=== PATIENT | female | born 1945 | race Caucasian/White ===

== ENCOUNTER → 2017-11-28 15:31 | Outpatient (CLI) | payer MEDICARE, BC, SELFPAY | PROVIDERS: Visit Provider Otolaryngology Otolaryngology/Facial Plastic Surgery | DX: J02.9 Acute pharyngitis, unspecified (principal) | CPT/HCPCS: 87070; 87077; 87205 ==

== ENCOUNTER → 2018-04-09 13:01 | Outpatient (CLI) | payer MEDICARE, BC, SELFPAY ==
--- NOTE | 2018-04-09 13:06 | BI_ITS ---
MAMMOGRAPHY - BILATERAL SCREENING REASON FOR EXAM: Female, 73 years old. Routine annual screening examination. PERTINENT HISTORY: Non-contributory. History of bilateral stereotactic biopsies and left excisional breast biopsy. TECHNIQUE: Digital bilateral breast mack (3D mammographic acquisition) in the CC and MLO projections. 2-D mediolateral oblique (MLO) and craniocaudad (CC) views of both breasts were obtained. CAD: Full Field Digital Mammography with Computer Added Detection was performed. COMPARISON: Comparison is made with prior study dated March 26, 2017 and March 21, 2016. FINDINGS: Breast Composition: The breasts are heterogeneously dense, which may obscure small masses. There are no dominant masses or suspicious calcifications. A tissue clip marker is seen in the deep slightly upper lateral portion of the right breast. There is a 5.4 mm x 9.0 mm nodular density in the upper lateral portion of the right breast. Correlation with ultrasound is recommended. No other significant abnormalities are identified. There has been no significant change since the prior study. BI/SCREENING MAMM (CAD), BILAT IMPRESSION: Stable bilateral screening mammogram. Yearly follow-up mammogram recommended. (A) ASSESSMENT CATEGORY: BIRADS Category 0: Incomplete. Need additional imaging evaluation. A letter regarding these results will be sent to the patient by the facility within 30 days. Approximately 10% of breast cancers are not detected by mammography. A normal mammogram should not delay biopsy of a clinically suspicious abnormality. [id number] Electronically Signed: Vega Baez MD at 14:12 EDT Tel [phone], Service support ,
== END ==
PROVIDERS: Family Provider Family Medicine; PCP Family Medicine; Visit Provider Obstetrics & Gynecology
DX: Z12.31 Encounter for screening mammogram for malignant neoplasm of breast (principal)
CPT/HCPCS: 77063; 77067

== ENCOUNTER → 2018-04-10 12:30 | Outpatient (CLI) | payer MEDICARE, BC, SELFPAY ==
--- NOTE | 2018-04-10 12:34 | US_ITS ---
STUDY: ULTRASOUND BREAST - RIGHT REASON FOR EXAM: Female, 73 years old. Abnormal screening mammogram. TECHNIQUE: Axial and longitudinal images of the RIGHT breast were performed with a high resolution ultrasound transducer. COMPARISON: Comparison is made with prior mammogram dated the 2017. FINDINGS: RIGHT Breast: The mammographic abnormality corresponds to a 7 mm x 7 mm x 4 mm well-defined hypoechoic solid nodule with a central echogenic hilum with flow. This is suggestive of the a small lymph node. US/Breast Limited Unilateral IMPRESSION: The mammographic antibody corresponds to a 7 mm x 7 mm x 4 mm well-defined hypoechoic nodule with central echogenicity at 11:00 position of the breast at 7 cm from nipple. This most likely represents a small lymph node. Routine annual mammographic follow-up is recommended. ASSESSMENT CATEGORY: BIRADS Category 2: Benign. A letter regarding these results will be sent to the patient by the facility within 30 days. Electronically Signed: Vega Baez MD at 14:10 EDT Tel [phone], Service support ,
== END ==
PROVIDERS: Family Provider Family Medicine; PCP Family Medicine; Visit Provider Obstetrics & Gynecology
DX: R92.8 Other abnormal and inconclusive findings on diagnostic imaging of breast (principal)
CPT/HCPCS: 76642

== ENCOUNTER → 2018-11-08 16:22 | Outpatient (CLI) | payer MEDICARE, BC, SELFPAY | PROVIDERS: Family Provider Family Medicine; PCP Family Medicine; Referring Provider Otolaryngology Otolaryngology/Facial Plastic Surgery; Visit Provider Otolaryngology Otolaryngology/Facial Plastic Surgery | DX: J32.9 Chronic sinusitis, unspecified (principal) | CPT/HCPCS: 87070; 87205 ==

== ENCOUNTER 2019-03-12 04:28 | Observation (INO) | payer MEDICARE, BC, SELFPAY ==
[2019-03-12] VITALS (13 sets, daily range): BP systolic 95–182; BP diastolic 41–82; PULSE 60–90; RESP 16–22; TEMP 36.7–37.2; O2SAT 92–96; BMI 37.2; BMI 38.0
--- NOTE | 2019-03-12 04:38 | CT_ITS ---
STUDY: CT ABDOMEN AND PELVIS WITH CONTRAST REASON FOR EXAM: Female, 73 years old. Right upper quadrant pain since 3:00 AM RADIATION DOSAGE (If Supplied By Facility): CTDIvol = ( 17.02 ) mGy, DLP = ( 1219.86 ) mGycm TECHNIQUE: Transaxial images were obtained from the dome of the diaphragm to the symphysis pubis with oral contrast. 100 IV/Oral Isovue 300 was administered. Sagittal and coronal images were reconstructed. Individualized dose optimization techniques were used for this CT. COMPARISON: None. FINDINGS: The visualized lung bases are unremarkable. The visualized portions of the heart are within normal limits. Normal liver. Nonvisualized gallbladder. There appears to be mild intrahepatic biliary dilation and dilation of the common bile duct. Normal spleen. Normal pancreas. Normal bilateral adrenal glands. Mild right hydronephrosis and right hydroureter. There is a stone in the distal right ureter measuring 2.5 mm. Residual stone in the right lower pole collecting system measuring 3.5 mm. Normal left kidney. Normal visualized stomach. Normal small intestine. Normal colon. There is non-visualization of the appendix. Normal abdominal aorta. Normal inferior vena cava. Normal retroperitoneum. Normal urinary bladder. There is absence of the uterus consistent with a prior hysterectomy. Normal abdominal wall. There are diffuse degenerative changes of the visualized lumbar spine. CT/Abdomen/Pelvis WITH Contrast IMPRESSION: Mild right hydronephrosis and right hydroureter with stone in the distal right ureter as above. Nonvisualized gallbladder, suspect prior cholecystectomy. There is mild intrahepatic biliary ductal dilation with mildly dilated common bile duct. Recommend clinical correlation Electronically Signed: Joshua Garcia DO at 7:19 EDT Tel , Service support ,
--- NOTE | 2019-03-12 04:39 | ED.VIS.GEN ---
History of Present Illness Chief Complaint: Abd Pain Narrative: Patient is a 73-year-old female who presents with abdominal pain. This began acutely about an hour and a half before presentation. She reports nausea with dry heaving on the way in. She had a small amount of diarrhea last night before bed. She reports a UTI 3 weeks ago but no urinary symptoms recently. No fevers. No dysuria frequency urgency. She has a prior history of cholecystectomy and complete hysterectomy. Her pain is located on the right side of the abdomen is sharp in nature and she rates it as severe at 10 out of 10. Past Medical History - Allergies and Home Meds Allergies/Adverse Reactions: Allergies Sulfa (Sulfonamide Antibiotics) Allergy (Verified 03/12/19 04:31) Hives STRONG ANTIBIOTICS Adverse Reaction (Uncoded 03/12/19 04:31) Diarrhea Primary Care Physician: Jose Luis Rojas MD [Primary Care Provider] - Past Medical History: - - Hypertension, hyperthyroidism Surgical History: cholecystectomy, hysterectomy Smoking Status: Never smoker Review of Systems All systems negative except as indicated General: Denies: Fever Cardiovascular: Denies: Chest pain Respiratory: Denies: Dyspnea Gastrointestinal: Reports: Abdominal pain, Nausea, Vomiting, Diarrhea Skin: Denies: Rash Neurological: Denies: Headache Physical Exam Vital Signs/Narrative: Vital Signs Temp Pulse Resp BP Pulse Ox 03/12/19 04:28 99.0 F 86 22 H 182/82 H 94 Inital Vital Signs reviewed: Yes General: Well nourished, Well developed Head: Normocephalic ENT: Moist mucous membranes Neck: Supple Cardiovascular: Regular rate, Regular rhythm Respiratory: No distress, CTA bilaterally Abdomen: Soft, Nontender, Nondistended Skin: Normal color Neurological: Alert Psychological: Normal affect Diagnostic/Tx/Re-eval 03/12/19 04:38 Abdomen/Pelvis WITH Contrast [CT] Stat Laboratory Results 03/12/19 03/12/19 03/12/19 04:40 04:40 06:20 WBC 8.8 RBC 4.72 Hgb 13.6 Hct 42.5 MCV 90.0 MCH 28.8 MCHC 32.0 RDW Std Deviation 43.3 RDW Coeff of Gloria 13.2 Plt Count 211 MPV 10.3 Immature Gran % (Auto) 0.500 Neut % (Auto) 63.7 Lymph % (Auto) 26.1 [place] % (Auto) 7.3 Eos % (Auto) 2.2 Baso % (Auto) 0.2 Absolute Neuts (auto) 5.6 Absolute Lymphs (auto) 2.29 Nucleated RBC % 0 Sodium 142 Potassium 4.3 Chloride 109 H Carbon Dioxide 26.0 Anion Gap 7 BUN 15 Creatinine 0.80 Estim Creat Clear Calc 46.33 Est GFR (MDRD) Af Amer 91 Est GFR (MDRD) Non-Af 75 BUN/Creatinine Ratio 18.8 Glucose 140 H Calcium 9.3 Total Bilirubin 0.30 AST 25 ALT 40 Alkaline Phosphatase 116 Total Protein 7.1 Albumin 3.5 Globulin 3.6 Albumin/Globulin Ratio 1.0 Urine Color Brown Urine Clarity Turbid Urine pH 5.0 Ur Specific [place] 1.025 Urine Protein 100 H Urine Glucose (UA) Normal Urine Ketones 5 H Urine Occult Blood 250 H Urine Nitrite Negative Urine Bilirubin Negative Urine Urobilinogen 1 H Ur Leukocyte Esterase 500 H Urine RBC > 100 SEEN Urine WBC 10-25 SEEN Ur Squamous Epith Cells 25-50 SEEN Calcium Oxalate Crystal RARE Urine Bacteria 0 SEEN Urine Mucus 0 SEEN - Medical Decision Making Laboratory studies as above. Urinalysis shows 500 leukocyte esterase, greater than 100 RBCs, otherwise contaminated. We will add on a urine culture. Patient was treated with IV morphine and Zofran without significant improvement of pain. She was then given IV Dilaudid with only minimal improvement of pain. She still complains of severe, 8 out of 10 pain. On my review of CT it does appear to show a right sided distal ureteral calculus about 2 to 3 mm, radiology read is pending. However given uncontrolled symptoms she will require hospitalization. Her renal function is normal so I have ordered Toradol as well. I spoke to Dr. Paz who agrees to admit. ED Disposition - Plan for ED Patient: Disposition: Acute Care Hospital [facility] Diagnosis: Ureterolithiasis Referrals: Jose Luis Rojas MD [Primary Care Provider] -
[2019-03-12] MEDS: Ondansetron 4 MG/2 ML Vial IV ×2 (04:44→07:20)
[2019-03-12] MEDS: Morphine 4 MG/ML Syringe IV (04:45)
[2019-03-12] MEDS: 0.9% Normal Saline 1,000 ML 1000 ML IV (04:47)
[2019-03-12 04:50] LABS: Absolute Lymphocyte Count 2.29 X10^3/uL (0.83-4.51); Absolute Neutrophil Count 5.6 X10^3/uL (2.0-7.7); Basophil# 0.02 X10^3/uL; Basophil% 0.2 % (0-1); Eosinophil# 0.19 X10^3/uL; Eosinophils% 2.2 % (0-5); Hematocrit 42.5 % (37-47); Hemoglobin 13.6 g/dL (12.0-15.0); Lymphocyte # 2.29 X10^3/ul (4.0); Lymphocyte % 26.1 % (19-41); Mean Corpuscular Hgb 28.8 pg (27.0-32.0); Mean Platelet Vol. 10.3 fl (6.2-12.0); Monocyte# 0.64 X10^3/uL; Monocyte% 7.3 % (0-10); NRBC Flagged by Analyzer 0 % (0-5); Neutrophil % 63.7 % (47-70); Platelet Count 211 K/mm3 (150-450); RBC Distribution Width CV 13.2 % (11.6-14.6); RBC Distribution Width SD 43.3 fl (35.1-43.9); Red Blood Count 4.72 M/mm3 (4.2-5.4); White Blood Count 8.8 K/mm3 (4.4-11.0)
[2019-03-12 05:05] LABS: AST(SGOT) 25 U/L (15-37); Alanine Aminotransfer ALT/SGPT 40 U/L (13-56); Albumin, Serum 3.5 g/dL (3.2-5.0); Alkaline Phosphatase 116 U/L (45-117); Anion Gap 7 (5-15); BUN 15 mg/dL (7-18); BUN/Creat Ratio 18.8 RATIO (10-20); Calcium,Total 9.3 mg/dL (8.5-10.1); Chloride 109 mmol/L (98-107); EST Glomerular Filtration Rate 75 mL/min (>60); Est Glom Filt Rate - Afr Amer 91 mL/min (>60); Estimated Creatinine Clearance 46.33 ml/min; Globulin 3.6 g/dL (2.2-4.2); Glucose 140 mg/dL (74-106); Potassium 4.3 mmol/L (3.5-5.1); Protein, Total 7.1 g/dL (6.4-8.2); Sodium Level 142 mmol/L (136-145)
[2019-03-12] MEDS: HYDROmorphone 0.5 MG/0.5 ML SYRINGE IV (05:11)
[2019-03-12 06:26] LABS: Bacteria 0 SEEN /hpf (None Seen); Mucous, Urine 0 SEEN /hpf (<or=2+)
[2019-03-12 06:39] LABS: Color, Urine Brown (Yellow); Glucose, Dipstick Normal (Normal); Ketone-Dipstick 5 mg/dl (Negative); Leukocyte Esterase-Dipstick 500 /ul (Negative); Nitrite-Dipstick Negative (Negative); Occult Blood-Urine 250 /ul (Negative); Protein-Dipstick 100 mg/dl (Negative); Specific Gravity, Urine 1.025 (1.002-1.030); Urine Bilirubin Dipstick Negative (Negative); Urine Clarity Turbid (Clear); Urine Urobilinogen 1 mg/dl (Normal)
[2019-03-12 06:53] LABS: Calcium Oxalate Crystals Ur RARE /hpf (<or=2+); Red Blood Cells-Urine > 100 SEEN /hpf (0-5); Squamous Epithelial Cells - UA 25-50 SEEN /hpf (5-10); White Blood Cells 10-25 SEEN /hpf (0-5)
--- NOTE | 2019-03-12 07:19 | PCM.HP.STD ---
History of Present Illness Date of Admission: 03/12/19 Chief Complaint: right ureteral calculi The patient is a 73 year old Female with stone distal right ureter. intractable pain, still in severe pain after iv morphine and dilaudid ER asked me to admit patient for further care Past Medical History Past Medical History (Chronic Problems): Chronic Problems HTN (hypertension) (Chronic) Allergies Sulfa (Sulfonamide Antibiotics) Allergy (Verified 03/12/19 04:31) Hives STRONG ANTIBIOTICS Adverse Reaction (Uncoded 03/12/19 04:31) Diarrhea Home Medications: Ambulatory Orders Medication Instructions Recorded Lisinopril [Zestril] 20 mg PO DAILY 03/12/19 Methimazole 2.5 mg PO MOTUWETHFRSA 03/12/19 Montelukast [Singulair] 10 mg PO DAILY 03/12/19 Surgical History: cholecystectomy, hysterectomy Psychiatric History: No pertinent psych hx [employer] History: No pertinent [employer] history Smoking Status: Never smoker Tobacco Use: Non-smoker Alcohol: None Drugs: None - *Family History Maternal History Items: No pertinent history Review of Systems Constitutional: Denies: Chills, Fever, Weight Change HEENT: Denies: Head Aches, Sinus Congestion, Sinus Drainage Cardiovascular: Denies: Chest Pain, Palpitations Respiratory: Denies: Cough, Shortness of breath at rest, Sputum production Gastrointestinal: Denies: Abdominal Pain, Nausea, Vomiting Genitourinary: Denies: Dysuria Musculoskeletal: Denies: Joint Pain, Joint Tenderness Skin: Denies: Rash, Wounds Neurological: Denies: Numbness, Tingling, Focal weakness Psychiatric: Denies: Anxiety, Depression, Homicidal Ideations, Suicidal Ideations Hematologic/ Lymphatic: Denies: Easy Bruising, Easy Bleeding VTE Information - Inpt Only VTE Present on Admission: No - Physical Exam General: Alert, Oriented x3, Cooperative HEENT: Atraumatic, PERRLA, EOMI, Normocephalic Neck: Supple, No JVD, Negative Carotid Bruits Lungs: Clear to auscultation, Normal air movement Cardiovascular: Regular rate, No murmurs Abdomen: Bowel Sounds Present, Soft, Non Tender Extremities: No edema, Capillary Refill Less than 3 Seconds Skin: No rashes, No breakdown Musculoskeletal: No Tenderness to Palpation of Joints or Extremities Neurological: Cranial nerves II-XII grossly intact Psych/Mental Status: Normal Affect, Appropriate Vital Signs Temp Pulse Resp BP Pulse Ox 99.0 F 77 20 H 116/54 L 95 03/12/19 04:28 03/12/19 07:16 03/12/19 07:16 03/12/19 07:16 03/12/19 07:16 Oxygen Delivery Method Room Air Weight: 86.5 kg Body Mass Index (BMI) 37.2 Intake and Output for Last 24 Hours 03/10/19 03/11/19 03/12/19 23:59 23:59 23:59 Intake Total 1000 / 1000 Balance 1000 / 1000 Laboratory Tests Past 24 Hrs 03/12/19 03/12/19 03/12/19 04:40 04:40 06:20 WBC 8.8 RBC 4.72 Hgb 13.6 Hct 42.5 MCV 90.0 MCH 28.8 MCHC 32.0 RDW Std Deviation 43.3 RDW Coeff of Gloria 13.2 Plt Count 211 MPV 10.3 Immature Gran % (Auto) 0.500 Neut % (Auto) 63.7 Lymph % (Auto) 26.1 [place] % (Auto) 7.3 Eos % (Auto) 2.2 Baso % (Auto) 0.2 Absolute Neuts (auto) 5.6 Absolute Lymphs (auto) 2.29 Nucleated RBC % 0 Sodium 142 Potassium 4.3 Chloride 109 H Carbon Dioxide 26.0 Anion Gap 7 BUN 15 Creatinine 0.80 Estim Creat Clear Calc 46.33 Est GFR (MDRD) Af Amer 91 Est GFR (MDRD) Non-Af 75 BUN/Creatinine Ratio 18.8 Glucose 140 H Calcium 9.3 Total Bilirubin 0.30 AST 25 ALT 40 Alkaline Phosphatase 116 Total Protein 7.1 Albumin 3.5 Globulin 3.6 Albumin/Globulin Ratio 1.0 Urine Color Brown Urine Clarity Turbid Urine pH 5.0 Ur Specific [place] 1.025 Urine Protein 100 H Urine Glucose (UA) Normal Urine Ketones 5 H Urine Occult Blood 250 H Urine Nitrite Negative Urine Bilirubin Negative Urine Urobilinogen 1 H Ur Leukocyte Esterase 500 H Urine RBC > 100 SEEN Urine WBC 10-25 SEEN Ur Squamous Epith Cells 25-50 SEEN Calcium Oxalate Crystal RARE Urine Bacteria 0 SEEN Urine Mucus 0 SEEN Assessment/Plan admit. plan for surgery today with ureteroscopy basket of stone possible stent on Right side.
[2019-03-12] MEDS: Ketorolac 15 MG/ML Vial IV (07:20)
--- NOTE | 2019-03-12 07:24 | NURSING ---
MED SURG KAYLEE URETEROLITHIASIS
--- NOTE | 2019-03-12 07:30 | NURSING ---
DR PAGE IN ROOM
[2019-03-12] MEDS: Cefazolin 1 GM/50 ML BAG IV ×2 (07:40→13:36)
[2019-03-12] MEDS: 0.9% NaCl Peripheral Flush Adult/Peds IV (09:08)
[2019-03-12 09:45] LABS: Thyroid Stim Hormone (TSH) 5.05 uIU/mL (0.358-3.74)
[2019-03-12] MEDS: 0.9% Normal Saline 1,000 ML 75 ML IV (10:39)
[2019-03-12] MEDS: 0.9% Normal Saline 1,000 ML 100 ML IV ×2 (14:54→16:43)
--- NOTE | 2019-03-12 15:10 | DCINST_ITS ---
Discharge Diet: Light diet - advance as tolerated Discharge Activity: Return to Normal Activity Call your doctor if you observe: Fever of 101 or Higher Suture Line Care: Avoid Pulling/Pushing, Avoid Pinching/Bending Allergies/Adverse Reactions: Allergies Sulfa (Sulfonamide Antibiotics) Allergy (Verified 03/12/19 04:31) Hives STRONG ANTIBIOTICS Adverse Reaction (Uncoded 03/12/19 04:31) Diarrhea Medications to take at Discharge Bimatoprost [Lumigan] 1 drp EACH EYE QHS 03/12/19 Ciprofloxacin [Cipro] 500 mg PO BID #10 tab 03/12/19 Dorzolamide HCL/Timolol [Cosopt Opth Drops] 1 drp EACH EYE BID 03/12/19 Lisinopril [Zestril] 20 mg PO DAILY 03/12/19 Methimazole 2.5 mg PO MOTUWETHFRSA 03/12/19 Montelukast [Singulair] 10 mg PO DAILY 03/12/19 Oxycodone HCl/Acetaminophen [Percocet 5/325] 1 tab PO Q4H PRN PRN 5 Days #14 tab 03/12/19 The following prescriptions were given: Ciprofloxacin [Cipro] 500 mg PO BID #10 tab Prescription Printed Oxycodone HCl/Acetaminophen [Percocet 5/325] 1 tab PO Q4H PRN PRN 5 Days #14 tab PRN Reason: Pain Prescription Printed Primary Care Physician: Jose Luis Rojas MD [Primary Care Provider] - Test Results: Test results from this visit will be discussed in further detail at your follow- up appointment, if applicable. Please Follow Up With: Rajinder Paz MD When: please call to make an appointment.
--- NOTE | 2019-03-12 15:30 | PCM.OPRPT ---
Report of Operation Date of Procedure: 03/12/19 Pre-Operative Diagnosis: Right ureteral calculi Post-Operative Diagnosis: Same Surgery/Procedure Performed:: Cystoscopy, balloon dilation of the right ureter, retrograde, interpretation fluoroscopic images, ureteroscopy and extraction of stone and right stent placement Description of Surgical Findings:: 73-year-old female who presented to the hospital with severe right renal colic distal right ureter ureteral stone was stuck in the distal ureter she has so much pain that could not discharge her home so therefore she was admitted to the hospital taken to surgery today to remove the stone. 73-year-old female taken back to the operating room at the smooth induction of general anesthesia she was placed in dorsolithotomy position, on examination she has a fairly significant cystocele really deflected urethra had accounted going to the urethra going straight down into the bladder and then identified the trigone identify the right and left ureteral orifice no tumors were seen within the bladder I think cannulated the right ureteral orifice with a Glidewire advanced a wire up past the kidney balloon dilated distal ureter with a balloon dilator, retrograde was performed then at that point, interpreted the fluoroscopic images, and then left the wire in place in the next the wire went in with the semirigid ureteroscope was able to get the distal ureter quite easily encountered the stone and then the stone was extracted from the distal ureter. I then put a wire up on the ureter on the right side and over the wire place a stent once stent was a good position I trimmed the stent string left the string of the stent for easy extraction drain the bladder patient anesthetic reversed to take back to PACU good condition we will see her next week to remove the stent. Type of Anesthesia:: General Drains: stent R - Admit VTE Documentation VTE Present on Admission: No VTE Mechan Device Prophylaxis: SCD's
[2019-03-21 14:08] LABS: Ca Oxalate, Monohydrate 98 % (.)
== END 2019-03-12 18:21 | disposition home or self-care (01) ==
LOC: ED 07:24 → MS3 07:37
PROVIDERS: Anesthesiology; Admitting Provider Urology; Emergency Provider Emergency Medicine; Family Provider Family Medicine; PCP Family Medicine; Visit Provider Urology
PROC: 0TJ98ZZ Inspection of Ureter, Via Natural or Artificial Opening Endoscopic (ICD-10-PCS; CPT 52352; principal; 2019-03-12 17:35)
DX: N13.2 Hydronephrosis with renal and ureteral calculous obstruction (principal); I10 Essential (primary) hypertension; Z79.899 Other long term (current) drug therapy; E05.90 Thyrotoxicosis, unspecified without thyrotoxic crisis or storm
CPT/HCPCS: 52320; 52332; 74177; 76000; 80053; 81001; 82360; 84443; 85025; 93005; 96361; 96365; 96366; 96375; 96376; 99218; 99285; J7030; Q9967; A4216; C1769; C2617; G0378; J2405

== ENCOUNTER 2019-03-19 19:49 | Emergency (ER) | payer MEDICARE, BC, SELFPAY ==
[2019-03-12 14:31] VITALS: BMI 38.0
[2019-03-19 19:50] VITALS: BP 170/77; PULSE 89; RESP 15; TEMP 36.4; O2SAT 97; BMI 36.5
[2019-03-19 20:22] LABS: Bacteria 0 SEEN /hpf (None Seen); Color, Urine Yellow (Yellow); Glucose, Dipstick Normal (Normal); Ketone-Dipstick Negative (Negative); Leukocyte Esterase-Dipstick 500 /ul (Negative); Mucous, Urine 0 SEEN /hpf (<or=2+); Nitrite-Dipstick Negative (Negative); Occult Blood-Urine 25 /ul (Negative); Protein-Dipstick 30 mg/dl (Negative); Specific Gravity, Urine 1.025 (1.002-1.030); Urine Bilirubin Dipstick Negative (Negative); Urine Clarity Sl. Cloudy (Clear); Urine Urobilinogen Normal (Normal)
[2019-03-19 20:30] LABS: Red Blood Cells-Urine 0-5 SEEN /hpf (0-5); Squamous Epithelial Cells - UA 0-5 SEEN /hpf (5-10); White Blood Cells 5-10 SEEN /hpf (0-5)
--- NOTE | 2019-03-19 22:25 | ED.DEP ---
ED Disposition - Plan for ED Patient: Instructions: Vaginal Infection: Yeast (Candidiasis) Prescriptions: Fluconazole [Diflucan] 150 mg PO X1 #1 tablet Referrals: Jose Luis Rojas MD [Primary Care Provider] - Rajinder Paz MD [STAFF PHYSICIAN] -
--- NOTE | 2019-03-19 22:29 | ED.DCSUM_ITS ---
- ER Visit Summary Date of Service: 03/19/19 Chief Complaint: Urinary retention History of Present Illness: The patient is a 73 F presenting with urinary retention. Patient had a ureteral stent placed last week after kidney stone removal per Dr. Paz. She had the stent removed yesterday. States she was doing well yesterday. She complains of vaginal irritation, pain, itching. This evening she developed difficulty urinating. Denies other complaints. Physical Examination: Vitals are stable. Patient is afebrile. Alert no acute distress. HEENT exam is unremarkable. Neck is supple. Lungs are clear and equal bilaterally. Heart is regular rate and rhythm. Abdomen is soft nontender nondistended. : Diffuse erythema and swelling with thick white vaginal discharge Extremities are unremarkable. Skin is warm and dry. Remainder of exam is unremarkable. Emergency Department Course and Treatment: Patient was able to urinate twice in the emergency department. She is feeling improved. Bladder scan shows 70 cc of urine. Due to her body habitus it was unclear if this was accurate. Straight cath was obtained with 70 cc of urine out. Urinalysis shows 5-10 white cells, 0 red cells, 0 bacteria. Urine culture was sent. She was given Diflucan and a prescription for Diflucan. Discussed with Dr. Paz. Patient will follow-up in the office. Advised to return to ED for worsening complaints. Disposition: Discharge home Impression: Urinary retention, resolved; yeast vaginitis This note was generated with [employer] dictation software. It may contain incorrect words, spelling, and punctuation that were not noted in review of the chart prior to signing ED Disposition - Plan for ED Patient: Instructions: Vaginal Infection: Yeast (Candidiasis) Prescriptions: Fluconazole [Diflucan] 150 mg PO X1 #1 tab Prescription Printed Referrals: Jose Luis Rojas MD [Primary Care Provider] - Rajinder Paz MD [STAFF PHYSICIAN] -
[2019-03-19] MEDS: FLUCONAZOLE 150 MG TABLET PO (22:52)
[2019-03-19 22:58] VITALS: RESP 16
== END 2019-03-19 22:59 | disposition home or self-care (01) ==
PROVIDERS: Emergency Provider Emergency Medicine; Family Provider Family Medicine; PCP Family Medicine
DX: R33.9 Retention of urine, unspecified (principal); N89.8 Other specified noninflammatory disorders of vagina
CPT/HCPCS: 81001; 87086; 87088; 99284; P9612

== ENCOUNTER → 2019-04-09 09:38 | Outpatient (CLI) | payer MEDICARE, BC, SELFPAY ==
[2019-03-19 19:50] VITALS: BMI 36.5
--- NOTE | 2019-04-09 09:43 | RAD_ITS ---
STUDY: X-RAY - ABDOMEN/PELVIS REASON FOR EXAM: Female, 74 years old. Abdominal pain and distention TECHNIQUE: 3 AP views COMPARISON: 2012 FINDINGS: Normal visualized lung bases. There is an unremarkable bowel gas pattern. There is no demonstrated free abdominal air. The visualized liver, spleen and kidneys are grossly normal in size and morphology. Normal soft tissue structures. There are diffuse degenerative changes of the visualized lumbar spine. RAD/Abdomen Single View IMPRESSION: No acute findings Electronically Signed: Luisito Stuart MD at 17:01 EDT , Service support ,
== END ==
PROVIDERS: Family Provider Family Medicine; PCP Family Medicine; Referring Provider Urology; Visit Provider Urology
DX: N20.0 Calculus of kidney (principal); R39.15 Urgency of urination
CPT/HCPCS: 74018; 87077; 87086; 87088; 87186

== ENCOUNTER → 2019-04-16 14:48 | Outpatient (CLI) | payer MEDICARE, BC, SELFPAY ==
[2019-03-19 19:50] VITALS: BMI 36.5
--- NOTE | 2019-04-16 14:53 | BI_ITS ---
MAMMOGRAPHY - BILATERAL SCREENING REASON FOR EXAM: Female, 74 years old. Routine annual screening examination. PERTINENT HISTORY: Non-contributory. Remote bilateral stereotactic breast biopsies as well as a left excisional breast biopsy. TECHNIQUE: Digital bilateral breast kieran (3D mammographic acquisition) in the CC and MLO projections. 2-D mediolateral oblique (MLO) and craniocaudad (CC) views of both breasts were obtained. CAD: Full Field Digital Mammography with Computer Added Detection was performed. COMPARISON: Comparison is made with prior study dated April 09, 2018 and March 26, 2017. FINDINGS: Breast Composition: The breasts are heterogeneously dense, which may obscure small masses. There is a 1 cm x 0.8 cm nodular density in the inferior slightly medial aspect of the left breast. Correlation with ultrasound is recommended. Stable 5.4 mm x 9 mm well-defined nodule in the upper lateral aspect of the right breast. Prior ultrasound demonstrated this to be a small benign-appearing lymph node. No other significant abnormalities are identified. BI/SCREEN MAMM (CAD) W/KIERAN BILAT IMPRESSION: 1 cm x 0.7 nodular density in the inferior slightly medial aspect of the left breast as described. Correlation with ultrasound is recommended. ASSESSMENT CATEGORY: BIRADS Category 0: Incomplete. Need additional imaging evaluation. A letter regarding these results will be sent to the patient by the facility within 30 days. Approximately 10% of breast cancers are not detected by mammography. A normal mammogram should not delay biopsy of a clinically suspicious abnormality. [id number] Electronically Signed: Vega Baez, at 8:48 EDT , Service support ,
== END ==
PROVIDERS: Family Provider Family Medicine; PCP Family Medicine
DX: Z12.31 Encounter for screening mammogram for malignant neoplasm of breast (principal)
CPT/HCPCS: 77063; 77067

== ENCOUNTER → 2019-04-24 09:26 | Outpatient (CLI) | payer MEDICARE, BC, SELFPAY ==
--- NOTE | 2019-04-24 09:29 | US_ITS ---
STUDY: ULTRASOUND BREAST - LEFT REASON FOR EXAM: Female, 74 years old. Density in inferior left breast as noted on recent mammogram. TECHNIQUE: Axial and longitudinal images of the LEFT breast were performed with a high resolution ultrasound transducer. COMPARISON: Recent mammogram obtained on 04/16/2019 FINDINGS: LEFT Breast: Ultrasound was performed of the inferior half of the left breast to visualize a questionable density in the inferior aspect the left breast as noted on the previous mammogram. This ultrasound shows no abnormalities in the left breast in the focal density seen on the mammogram therefore most likely represents focal fibrocystic change. US/Breast Limited Unilateral IMPRESSION: The density in the inferior left breast represents focal fibrocystic change which is normal. ASSESSMENT CATEGORY: FINAL ASSESSMENT: BI-RAD CATEGORY I (NEGATIVE) YEARLY MAMMOGRAPHY RECOMMENDED Electronically Signed: Eren Gamez, at 7:26 EDT Tel , Service support ,
== END ==
PROVIDERS: Family Provider Family Medicine; PCP Family Medicine; Referring Provider Obstetrics & Gynecology; Visit Provider Obstetrics & Gynecology
DX: R92.8 Other abnormal and inconclusive findings on diagnostic imaging of breast (principal)
CPT/HCPCS: 76642

== ENCOUNTER 2019-05-07 11:22 | Day surgery (SDC) | payer MEDICARE, BC, SELFPAY ==
[2019-05-07] VITALS (8 sets, daily range): BP systolic 114–163; BP diastolic 53–87; PULSE 55–78; RESP 16–58; TEMP 36.1–36.9; O2SAT 75–98; BMI 36.0
[2019-05-07] MEDS: Lactated Ringers 1,000 ML 100 ML IV ×2 (12:01→15:25)
[2019-05-07] MEDS: Cefazolin 2 GM in 0.9% Normal Saline 100 ML IV (13:40)
--- NOTE | 2019-05-07 13:43 | PCM.DC ---
You will use the following diet at home:: Regular Your food should be the consistency of: Regular Discharge Activity: Return to Normal Activity Call your doctor if your incision/area has: Sudden Increased Bleeding Call your doctor if you observe: Fever of 101 or Higher Suture Line Care: Avoid Pulling/Pushing, Avoid Pinching/Bending Allergies/Adverse Reactions: Allergies Sulfa (Sulfonamide Antibiotics) Allergy (Verified 05/07/19 11:41) Hives nitrofurantoin Adverse Reaction (Verified 05/07/19 11:41) flu like symptoms STRONG ANTIBIOTICS Adverse Reaction (Uncoded 05/07/19 11:41) Diarrhea Medications to take at Discharge Bimatoprost [Lumigan] 1 drp EACH EYE QHS 03/12/19 Dorzolamide HCL/Timolol [Cosopt Opth Drops] 1 drp EACH EYE BID 03/12/19 Lisinopril [Zestril] 20 mg PO DAILY 03/12/19 Methimazole 2.5 mg PO MOTUWETHFRSA 03/12/19 Montelukast [Singulair] 10 mg PO QHS 03/12/19 Hydrocodone/Acetaminophen [[place] 5-325 Tablet] 1 ea PO Q4H PRN PRN #14 tab 05/07/19 The following prescriptions were given: Hydrocodone/Acetaminophen [[place] 5-325 Tablet] 1 ea PO Q4H PRN PRN #14 tab PRN Reason: Pain Score 1-10/10 Prescription Printed Primary Care Physician: Jose Luis Rojas MD [Primary Care Provider] - Test Results: Test results from this visit will be discussed in further detail at your follow-up appointment, if applicable. Please Follow Up With: Rajinder Paz MD When: next week with ERIKA
--- NOTE | 2019-05-07 14:20 | PCM.OPRPT ---
Report of Operation Date of Procedure: 05/07/19 Pre-Operative Diagnosis: Right kidney stone Post-Operative Diagnosis: Same Surgery/Procedure Performed:: Right extracorporeal shockwave lithotripsy Description of Surgical Findings:: 74-year-old female taken back to the operating room at the smooth induction of general anesthesia she was placed supine on the table we used fluoroscopy to identify the stone in the mid right kidney under translation we put the F2 focal point of this stone then started with shockwave lithotripsy, during the entire time he we monitored the stone under fluoroscopy making sure the stone stayed on the F2 focal point. We also monitored the patient under anesthesia. During the fragmentation we increased the rate of fragmentation to 90/min, increased the power from 3 to 5 kV. At the end of 1999 shockwaves of stones disappeared under fluoroscopy appeared to be a successful fragmentation. Patient anesthetic is being reversed plan to see her back in about a week with a KUB. Type of Anesthesia:: General - Admit VTE Documentation VTE Present on Admission: No VTE Mechan Device Prophylaxis: SCD's
[2019-05-07] MEDS: Ketorolac 15 MG/ML Vial IV (15:25)
== END 2019-05-07 16:44 | disposition home or self-care (01) ==
LOC: SDC 11:22 → AC 11:24
PROVIDERS: Family Provider Family Medicine; PCP Family Medicine; Referring Provider Urology; Visit Provider Urology
PROC: (CPT 50590; principal; 2019-05-07 13:15)
DX: N20.0 Calculus of kidney (principal); Z87.442 Personal history of urinary calculi; I10 Essential (primary) hypertension; E05.90 Thyrotoxicosis, unspecified without thyrotoxic crisis or storm; G47.30 Sleep apnea, unspecified; M19.90 Unspecified osteoarthritis, unspecified site; Z79.899 Other long term (current) drug therapy
CPT/HCPCS: 50590; J7120; J2405

== ENCOUNTER → 2019-05-14 08:18 | Outpatient (CLI) | payer MEDICARE, BC, SELFPAY ==
[2019-05-07 11:49] VITALS: BMI 36.0
--- NOTE | 2019-05-14 08:29 | RAD_ITS ---
STUDY: X-RAY - ABDOMEN/PELVIS REASON FOR EXAM: Female, 74 years old. Stone. TECHNIQUE: Single AP view of the abdomen / pelvis. COMPARISON: 04/09/2019. FINDINGS: Lung not included in the [id number]. There is a mild to moderate amount of colonic fecal material. There is no demonstrated free abdominal air. The visualized liver, spleen and kidneys are grossly normal in size and morphology. Normal soft tissue structures. There are diffuse degenerative changes of the visualized lumbar spine, bilateral SI joints and hip. RAD/Abdomen Single View IMPRESSION: Mild to moderate fecal debris, otherwise normal x-ray examination of the abdomen and pelvis. Electronically Signed: Eugenie Gonzalez MD at 1:52 EDT , Service support ,
== END ==
PROVIDERS: Family Provider Family Medicine; PCP Family Medicine; Referring Provider Urology; Visit Provider Urology
DX: N20.0 Calculus of kidney (principal)
CPT/HCPCS: 74018

== ENCOUNTER 2019-06-27 05:35 | Day surgery (SDC) | payer MEDICARE, BC, SELFPAY ==
--- NOTE | 2019-06-25 02:27 | HP_ITS ---
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 Accompanied by: Is patient in pain?: Yes (abdominal) Pain scale (1-10): 3 Allergies Sulfa (Sulfonamide Antibiotics) Allergy (Verified 06/25/19 12:58) Hives nitrofurantoin Adverse Reaction (Verified 06/25/19 12:58) flu like symptoms STRONG ANTIBIOTICS Adverse Reaction (Uncoded 06/25/19 12:58) Diarrhea Medications Bimatoprost [Lumigan] 1 drp EACH EYE QHS 03/12/19 [History Confirmed 06/25/19] Dorzolamide HCL/Timolol [Cosopt Opth Drops] 1 drp EACH EYE BID 03/12/19 [History Confirmed 06/25/19] Lisinopril [Zestril] 20 mg PO DAILY 03/12/19 [History Confirmed 06/25/19] Methimazole 2.5 mg PO MOTUWETHFRSA 03/12/19 [History Confirmed 06/25/19] Montelukast [Singulair] 10 mg PO QHS 03/12/19 [History Confirmed 06/25/19] PFSH Medical History (Updated 06/25/19 @ 12:57 by Ivory Trammell) Abdominal pain (Acute) Diarrhea (Acute) Fatigue (Acute) Glaucoma (Acute) Hyperthyroidism (Acute) Rotator cuff (capsule) sprain (Acute) Sleep apnea (Acute) Weight loss (Acute) Hypertension (Chronic) Surgical History (Updated 06/25/19 @ 12:54 by Ivory Trammell) H/O carpal tunnel repair (Acute) H/O eye surgery (Acute) H/O: hysterectomy (Acute) History of cholecystectomy (Acute) History of lumpectomy (Acute) S/P rotator cuff repair (Acute) Family History (Updated 06/25/19 @ 12:55 by Ivory Trammell) Mother Colon cancer Hypertension Thyroid disorder HPI HPI HPI: JOSE RAFAEL LIU, is a 74 F who presents to the office today for HPI HPI Surgical H&P: Yes HPI: JOSE RAFAEL LIU, is a 74 F who presents to the office today for diarrhea and abdominal cramping. She notes having diarrhea ever since she has been to her and after having her gallbladder out in 1970. She notes the abdominal cramping which goes away by itself or after defecation. She notes greasy, fatty foods cause the diarrhea and sometimes salads. She notes she has adjusted to eating smaller meals. She notes there are times that she is unable to leave her house due to multiple episodes of diarrhea and fear of having an accident. Patient states she had a JR whopper without cheese and she went to have a BM 3 times in 20 minutes. She notes the symptoms have increased in the last 5 months. She notes jelly-like stools intermittently. She notes her mother had colon cancer. She has a personal history of colon polyps. She denies recent melena, BRBPR. She notes a brother with Crohn's. She notes her stool is dawkins in color. Her last colonoscopy was with Dr. Rushing in 2016 which demonstrated removal of three sessile polyp sin the transverse and sigmoid colon, internal hemorrhoids. Pathology demonstrated tubular adenoma. She denies taking a blood thinner. ROS General General: Yes fatigue; no weight change, appetite, colon cancer, breast cancer or weakness HEENT HEENT: Yes eye surgery (x 7 glaucoma); no difficulty swallowing, eye injury, swollen glands or hoarseness Endo Endocrine: Yes thyroid disease (hyperactive) and diabetes mellitus (pre- diabetic); no thyroid cancer, Hair loss, heat intolerance or cold intolerance Skin Skin: No rash or changing moles Breast Breast: No left breast lump, right breast lump, nipple discharge, breast pain, abnormal mammogram, abnormal US or breast enlargement Musc Musculoskeletal: No back problems, arthritis, rheumatoid arthritis, gout or joint pain Cardio Cardiovascular: No murmur, pacemaker, heart disease, atrial fibrillation, high blood pressure, heart attack, heart stent, palpitations, shortness of breat with exertion or chest pain Psych Psychiatric: No depression, anxiety or hearing voices Resp Respiratory: Yes shortness of breath (with activity), No sleep apnea, No cough, No COPD, No asthma, No emphysema, No wheezing Gastro Gastrointestinal: Yes abdominal pain, No nausea or vomiting, Yes diarrhea, No constipation, No blood in stool, No acid reflux, No hemorrhoids, No ulcers, No gallbladder problem, No black,tarry stools Trevor Hematologic: No blood thinners, No blood disorders, No bleeding, No anemia, No blood clots Neuro Neurologic: No system reviewed and no additional complaints, except as docu, No as per HPI, No abnormal walking, No abnormal hearing, No abnormal movements, No abnormal speech, No behavioral changes, No burning sensations, No confusion, No seizure-like activity, No unsteadiness, No dizziness, No localized weakness, No frequent falls, No headache(s), No lack of coordination, No loss of vision, No memory loss, No numbness, No other visual disturbances, No radiating pain, No restless legs, No sensory deficit, No fainting, No tingling, No tremor(s), No weakness, No other Exam Const General: cooperative, healthy appearing, comfortable, no acute distress HENMT Head: normal to inspection Eyes General: appearance normal, both eyes and all related structures Neck Neck: normal visual inspection Chest Breast Palpation: No nipple discharge Resp Effort & Inspection: normal respiratory effort Auscultation: clear to auscultation bilaterally Cardio Rate: regular rate Rhythm: regular rhythm Heart Sounds: no murmurs GI Inspection: normal to inspection Palpation: soft Skin General: no rashes or lesions noted Neuro General: no focal motor deficits, CN's II-XI intact bilaterally Extrem General: normal to inspection Psych Appearance: grossly normal Affect: normal affect Assessment & Plan Problems 1. Diarrhea, unspecified type R19.7 2. History of colon polyps Z86.010 3. Abdominal cramping R10.[address] Rushing will plan to perform a colonoscopy with possible biopsies. Procedure details, risks and benefits have been explained. Patient has had the opportunity to ask and have questions answered. Patient verbally understands and agrees with the plan. Patient has OsmoPrep for bowel prep and she was also given Miralax prep. She is unsure of which prep she wants to do. It was recommended patient choose one and complete the entire prep according to the instructions. Coding Level of Care Code Off vis,new,level 3 Diagnoses Diarrhea, unspecified type R19.7 ??Diarrhea type: unspecified type History of colon polyps Z86.010 Abdominal cramping R10.9 06/25/19 1428 <Electronically signed by María Elena gann PA-C> Date _ María Elena Barnett PA-C
[2019-06-25 14:27] VITALS: BMI 36.0
[2019-06-27] VITALS (14 sets, daily range): BP systolic 97–146; BP diastolic 52–93; PULSE 69–88; RESP 16; TEMP 36.6–36.8; O2SAT 91–100; BMI 34.1
[2019-06-27] MEDS: Lactated Ringers 1,000 ML 100 ML IV (06:14)
--- NOTE | 2019-06-27 06:15 | PCM.HP.BLA ---
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 Accompanied by: Is patient in pain?: Yes (abdominal) Pain scale (1-10): 3 Allergies Sulfa (Sulfonamide Antibiotics) Allergy (Verified 06/25/19 12:58) Hives nitrofurantoin Adverse Reaction (Verified 06/25/19 12:58) flu like symptoms STRONG ANTIBIOTICS Adverse Reaction (Uncoded 06/25/19 12:58) Diarrhea Medications Bimatoprost [Lumigan] 1 drp EACH EYE QHS 03/12/19 [History Confirmed 06/25/19] Dorzolamide HCL/Timolol [Cosopt Opth Drops] 1 drp EACH EYE BID 03/12/19 [History Confirmed 06/25/19] Lisinopril [Zestril] 20 mg PO DAILY 03/12/19 [History Confirmed 06/25/19] Methimazole 2.5 mg PO MOTUWETHFRSA 03/12/19 [History Confirmed 06/25/19] Montelukast [Singulair] 10 mg PO QHS 03/12/19 [History Confirmed 06/25/19] PFSH Medical History (Updated 06/25/19 @ 12:57 by Ivory Trammell) Abdominal pain (Acute) Diarrhea (Acute) Fatigue (Acute) Glaucoma (Acute) Hyperthyroidism (Acute) Rotator cuff (capsule) sprain (Acute) Sleep apnea (Acute) Weight loss (Acute) Hypertension (Chronic) Surgical History (Updated 06/25/19 @ 12:54 by Ivory Trammell) H/O carpal tunnel repair (Acute) H/O eye surgery (Acute) H/O: hysterectomy (Acute) History of cholecystectomy (Acute) History of lumpectomy (Acute) S/P rotator cuff repair (Acute) Family History (Updated 06/25/19 @ 12:55 by Ivory Trammell) Mother Colon cancer Hypertension Thyroid disorder HPI HPI HPI: JOSE RAFAEL LIU, is a 74 F who presents to the office today for HPI HPI Surgical H&P: Yes HPI: JOSE RAFAEL LIU, is a 74 F who presents to the office today for diarrhea and abdominal cramping. She notes having diarrhea ever since she has been to her and after having her gallbladder out in 1970. She notes the abdominal cramping which goes away by itself or after defecation. She notes greasy, fatty foods cause the diarrhea and sometimes salads. She notes she has adjusted to eating smaller meals. She notes there are times that she is unable to leave her house due to multiple episodes of diarrhea and fear of having an accident. Patient states she had a JR whopper without cheese and she went to have a BM 3 times in 20 minutes. She notes the symptoms have increased in the last 5 months. She notes jelly-like stools intermittently. She notes her mother had colon cancer. She has a personal history of colon polyps. She denies recent melena, BRBPR. She notes a brother with Crohn's. She notes her stool is dawkins in color. Her last colonoscopy was with Dr. Rushing in 2015 which demonstrated removal of three sessile polyp sin the transverse and sigmoid colon, internal hemorrhoids. Pathology demonstrated tubular adenoma. She denies taking a blood thinner. ROS General General: Yes fatigue; no weight change, appetite, colon cancer, breast cancer or weakness HEENT HEENT: Yes eye surgery (x 7 glaucoma); no difficulty swallowing, eye injury, swollen glands or hoarseness Endo Endocrine: Yes thyroid disease (hyperactive) and diabetes mellitus (pre-diabetic); no thyroid cancer, Hair loss, heat intolerance or cold intolerance Skin Skin: No rash or changing moles Breast Breast: No left breast lump, right breast lump, nipple discharge, breast pain, abnormal mammogram, abnormal US or breast enlargement Musc Musculoskeletal: No back problems, arthritis, rheumatoid arthritis, gout or joint pain Cardio Cardiovascular: No murmur, pacemaker, heart disease, atrial fibrillation, high blood pressure, heart attack, heart stent, palpitations, shortness of breat with exertion or chest pain Psych Psychiatric: No depression, anxiety or hearing voices Resp Respiratory: Yes shortness of breath (with activity), No sleep apnea, No cough, No COPD, No asthma, No emphysema, No wheezing Gastro Gastrointestinal: Yes abdominal pain, No nausea or vomiting, Yes diarrhea, No constipation, No blood in stool, No acid reflux, No hemorrhoids, No ulcers, No gallbladder problem, No black,tarry stools Trevor Hematologic: No blood thinners, No blood disorders, No bleeding, No anemia, No blood clots Neuro Neurologic: No system reviewed and no additional complaints, except as docu, No as per HPI, No abnormal walking, No abnormal hearing, No abnormal movements, No abnormal speech, No behavioral changes, No burning sensations, No confusion, No seizure-like activity, No unsteadiness, No dizziness, No localized weakness, No frequent falls, No headache(s), No lack of coordination, No loss of vision, No memory loss, No numbness, No other visual disturbances, No radiating pain, No restless legs, No sensory deficit, No fainting, No tingling, No tremor(s), No weakness, No other Exam Const General: cooperative, healthy appearing, comfortable, no acute distress HENMT Head: normal to inspection Eyes General: appearance normal, both eyes and all related structures Neck Neck: normal visual inspection Chest Breast Palpation: No nipple discharge Resp Effort & Inspection: normal respiratory effort Auscultation: clear to auscultation bilaterally Cardio Rate: regular rate Rhythm: regular rhythm Heart Sounds: no murmurs GI Inspection: normal to inspection Palpation: soft Skin General: no rashes or lesions noted Neuro General: no focal motor deficits, CN's II-XI intact bilaterally Extrem General: normal to inspection Psych Appearance: grossly normal Affect: normal affect Assessment & Plan Problems 1. Diarrhea, unspecified type R19.7 2. History of colon polyps Z86.010 3. Abdominal cramping R10.[address] Rushing will plan to perform a colonoscopy with possible biopsies. Procedure details, risks and benefits have been explained. Patient has had the opportunity to ask and have questions answered. Patient verbally understands and agrees with the plan. Patient has OsmoPrep for bowel prep and she was also given Miralax prep. She is unsure of which prep she wants to do. It was recommended patient choose one and complete the entire prep according to the instructions. Coding Level of Care Code Off vis,new,level 3 Diagnoses Diarrhea, unspecified type R19.7 ??Diarrhea type: unspecified type History of colon polyps Z86.010 Abdominal cramping R10.9 06/25/19 1428 <Electronically signed by María Elena Barnett PA-C> Date María Elena Barnett PA-C 06/26/19 1430 <Electronically signed by María Elena Barnett PA-C> Date: Time: María Elena Barnett PA-C CC: María Elena Barnett PA-C; Jose Luis Rojas MD ~ Date Dictated: 06/25/19226 Date Transcribed: 06/26/19 1411 Derrick Operator: NR Signed I have re-examined the patient. There are no clinical changes since date of exam.
--- NOTE | 2019-06-27 06:30 | COLBX_PTH ---
PATIENT: JOSE RAFAEL LIU LOC: EN U#:[id number] AGE/SX: 74/F ROOM: RE06/27/[address]: Dr. Miky Rushing MD : 1945 BED: DIS: 06/27/2019 SPEC #: [id number] RECD: 06/27/19 12:24 STATUS: TIFFANIE RUKHSANA #: [id number] MYRNA: 06/27/19 06:[address]: Miky Rushing DEPT: SURGICAL PATHOLOGY RECD BY: Jaspreet Sethi ENTERED: 06/27/19 13:59 SP TYPE: COLON BX OTHR DR: Dr. Jose Luis Rojas MD Tissues: A - Ascending colon B - COLON BIOPSY C - Sigmoid colon biopsy D - Sigmoid colon biopsy Procedures: Surgery Specimen Level IV HEADER OPERATION: Colonoscopy - open access (MOD) PRE-OP DIAGNOSIS: Screening TISSUE SUBMITTED: A - Proximal ascending colon polyp, B - Random colon biopsies, C - Proximal sigmoid polyp biopsy, D - Proximal sigmoid polyp MICROSCOPIC DIAGNOSIS A. Proximal ascending colon polyp, biopsy: Fragments of tubular adenoma. B. Colon, random biopsy: Fragments of colonic mucosa, no pathologic diagnosis. C. Proximal sigmoid polyp, biopsy: Tubular adenoma. D. Proximal sigmoid polyp, biopsy: Tubular adenoma. SJ:isaac 06/30/19 MICROSCOPIC DESCRIPTION Slides are reviewed. GROSS DESCRIPTION A - Received in fixative is one container labeled with the patient's name and designated proximal ascending colon. The specimen consists of multiple irregular fragments of light awrner soft tissue that in aggregate measure 1.5 x 0.8 x 0.1 cm. The specimen is totally submitted in one cassette. B - Received in fixative is one container labeled with the patient's name and designated random colon biopsy. The specimen consists of multiple irregular fragments of light warner soft tissue that in aggregate measure 1.8 x 0.7 x 0.1 cm. The specimen is totally submitted in one cassette. C - Received in fixative is one container labeled with the patient's name and designated proximal sigmoid polyp. The specimen consists of multiple irregular fragments of light warner soft tissue that in aggregate measure 0.8 x 0.5 x 0.1 cm. The specimen is totally submitted in one cassette. D - Received in fixative is one container labeled with the patient's name and designated proximal sigmoid polyp. The specimen consists of one irregular fragment of light wanrer soft tissue that measures 0.8 x 0.5 x 0.3 cm. The specimen is totally submitted in one cassette. / AM:isaac 06/27/19 TC:1 CPT: 72048 x4
--- NOTE | 2019-06-27 07:22 | OP.COLON_ITS ---
Patient Name: Carla Patel Procedure Date: 06/27/2019 6:25 AM Date of : 1945 Age: 74 Procedure: Colonoscopy Indications: High risk colon cancer surveillance: Personal history of colonic polyps Providers: Miky Rushing MD Referring MD: Jose Luis Rojas Md Medicines: Midazolam 4 mg IV, Meperidine 100 mg IV Patient Profile: Last Colonoscopy: May 2016. Complications: No immediate complications. Procedure: Pre-Anesthesia Assessment: - Prior to the procedure, a History and Physical was performed, and patient medications and allergies were reviewed. The patient's tolerance of previous anesthesia was also reviewed. The risks and benefits of the procedure and the sedation options and risks were discussed with the patient. All questions were answered, and informed consent was obtained. Prior Anticoagulants: The patient has taken no previous anticoagulant or antiplatelet agents. ASA Grade Assessment: II - A patient with mild systemic disease. After reviewing the risks and benefits, the patient was deemed in satisfactory condition to undergo the procedure. After I obtained informed consent, the scope was passed under direct vision. Throughout the procedure, the patient's blood pressure, pulse, and oxygen saturations were monitored continuously. The colonoscope was introduced through the anus and advanced to the cecum, identified by appendiceal orifice and ileocecal valve. The colonoscopy was performed with moderate difficulty due to excessive bleeding. The patient tolerated the procedure well. The quality of the bowel preparation was good. The ileocecal valve was photographed. Moderate Sedation: Moderate (conscious) sedation was personally administered by the endoscopist. The following parameters were monitored: oxygen saturation, heart rate, blood pressure, and response to care. Total physician intraservice time was 22 minutes. Scope In: 6:35:07 AM Scope Withdrawal Time 0 hours 33 minutes 9 seconds Scope Out: 7:13:17 AM Total Procedure Duration Time 0 hours 38 minutes 10 seconds Findings: Hemorrhoids were found on perianal exam. Lax anal tone A 13 mm polyp was found in the proximal ascending colon. The polyp was sessile. The polyp was removed with a saline injection-lift technique using a hot snare. Resection and retrieval were complete. To prevent bleeding post-intervention, two hemostatic clips were successfully placed. There was no bleeding at the end of the procedure. A 6 mm polyp was found in the proximal sigmoid colon. The polyp was sessile. The polyp was removed with a cold biopsy forceps. Resection and retrieval were complete. A 11 mm polyp was found in the proximal sigmoid colon. The polyp was semi-pedunculated. The polyp was removed with a hot snare. Resection and retrieval were complete. To stop active bleeding, two hemostatic clips were successfully placed. There was no bleeding at the end of the procedure. Multiple diverticula were found in the sigmoid colon. Biopsies for histology were taken with a cold forceps from the entire colon for evaluation of microscopic colitis. Impression: - Hemorrhoids found on perianal exam. - One 13 mm polyp in the proximal ascending colon, removed using injection-lift and a hot snare. Resected and retrieved. Clips were placed. - One 6 mm polyp in the proximal sigmoid colon, removed with a cold biopsy forceps. Resected and retrieved. - One 11 mm polyp in the proximal sigmoid colon, removed with a hot snare. Bled after resection. Controlled with clips and epineprhine Resected and retrieved. Clips were placed. Epinephrine injection x 2cc - Diverticulosis in the sigmoid colon. Biopsied. Recommendation: - Discharge patient to home after hgb check and serial observation x 4 hours - Resume previous diet. - Continue present medications. - Repeat colonoscopy in 3 years for surveillance. - Telephone my office for pathology results in 1 week. Procedure Code(s): --- Professional --- 20372, Colonoscopy, flexible; with removal of tumor(s), polyp(s), or other lesion(s) by snare technique 21606, Colonoscopy, flexible; with directed submucosal injection(s), any substance 65035, 59, Colonoscopy, flexible; with biopsy, single or multiple 65180, 59, Moderate sedation services provided by the same physician or other qualified health daycare director performing the diagnostic or therapeutic service that the sedation supports, requiring the presence of an independent trained observer to assist in the monitoring of the patient's level of consciousness and physiological status; initial 15 minutes of intraservice time, patient age 5 years or older Diagnosis Code(s): --- Professional --- Z86.010, Personal history of colonic polyps K64.9, Unspecified hemorrhoids D12.2, Benign neoplasm of ascending colon D12.5, Benign neoplasm of sigmoid colon K57.30, Diverticulosis of large intestine without perforation or abscess without bleeding CPT copyright 2017 [employer]. All rights reserved. The codes documented in this report are preliminary and upon textile colorist dyer review may be revised to meet current compliance requirements. Miky Rushing MD 06/27/2019 7:22:01 AM This report has been signed electronically. Number of Addenda: 0 Note Initiated On: 06/27/2019 6:25 AM
[2019-06-27 07:46] LABS: Hematocrit 36.8 % (37-47); Hemoglobin 11.8 g/dL (12.0-15.0); Mean Corp Hgb Conc 32.1 g/dL (32-36); Mean Corpuscular Hgb 28.4 pg (27.0-32.0); Mean Corpuscular Volume 88.5 fL (81-99); Mean Platelet Vol. 9.4 fl (6.2-12.0); Platelet Count 246 K/mm3 (150-450); RBC Distribution Width CV 12.8 % (11.6-14.6); RBC Distribution Width SD 41.1 fl (35.1-43.9); Red Blood Count 4.16 M/mm3 (4.2-5.4); White Blood Count 6.7 K/mm3 (4.4-11.0)
[2019-06-27] MEDS: Lactated Ringers 1,000 ML 15 ML IV (08:37)
[2019-06-27 11:24] LABS: Mean Corp Hgb Conc 32.4 g/dL (32-36); Mean Corpuscular Hgb 28.6 pg (27.0-32.0); Mean Corpuscular Volume 88.1 fL (81-99); Mean Platelet Vol. 9.4 fl (6.2-12.0); Platelet Count 250 K/mm3 (150-450); RBC Distribution Width SD 41.8 fl (35.1-43.9); White Blood Count 8.2 K/mm3 (4.4-11.0)
--- NOTE | 2019-06-27 12:01 | PCM.PN.BLA ---
Progress Note The patient was observed for 4 hours status post polypectomy. No rectal bleeding noted. No further stools. Hemoglobin level at the 4-hour josefa completely stable. The patient will be discharged with instructions. I suspect that the post polypectomy treatment with epinephrine injection and hemostatic clip placement resolved the post polypectomy bleeding. This was all handled at the time of her index colonoscopy. Miky Rushing M.D., F.A.C.S. STROKE Vital Signs/Narrative: Vital Signs Temp Pulse Resp BP Pulse Ox 06/27/19 08:30 98.1 F 70 16 127/55 H 97 06/27/19 08:15 75 16 107/63 95
== END 2019-06-27 12:12 | disposition home or self-care (01) ==
LOC: EN 05:36 → AC 05:36
PROVIDERS: Family Provider Family Medicine; PCP Family Medicine; Referring Provider Family Medicine; Visit Provider Surgery
PROC: 0DJD8ZZ Inspection of Lower Intestinal Tract, Via Natural or Artificial Opening Endoscopic (ICD-10-PCS; CPT 45378; principal; 2019-06-27 06:25)
DX: Z12.11 Encounter for screening for malignant neoplasm of colon (principal); D12.2 Benign neoplasm of ascending colon; D12.5 Benign neoplasm of sigmoid colon; Z86.010 Personal history of colon polyps; K64.8 Other hemorrhoids; G47.30 Sleep apnea, unspecified; I10 Essential (primary) hypertension; E05.90 Thyrotoxicosis, unspecified without thyrotoxic crisis or storm; H40.9 Unspecified glaucoma; Z79.899 Other long term (current) drug therapy; Z80.0 Family history of malignant neoplasm of digestive organs; R19.7 Diarrhea, unspecified; R10.9 Unspecified abdominal pain; K57.30 Diverticulosis of large intestine without perforation or abscess without bleeding
CPT/HCPCS: 45380; 45381; 45385; 36415; 85027; 88305; 99152; 99153; J7120; A4216; J3490

== ENCOUNTER → 2020-04-19 12:58 | Outpatient (CLI) | payer MEDICARE, BC, SELFPAY ==
[2019-06-27 05:59] VITALS: BMI 34.1
--- NOTE | 2020-04-19 13:00 | BI_ITS ---
MAMMOGRAPHY - BILATERAL SCREENING REASON FOR EXAM: Female, 75 years old. Routine annual screening examination. PERTINENT HISTORY: NO FM HX, LOST 10#, BILAT STEREO BX''S 2006, LT EXC BX 1984, BILAT NUMEROUS KERATOSIS IN IMF AREA , 10-2-19-LT U/S OF INFERIOR SLIGHTLY MEDIAL NODULAR DENSITY=B TECHNIQUE: Digital bilateral breast kieran (3D mammographic acquisition) in the CC and MLO projections. 2-D mediolateral oblique (MLO) and craniocaudad (CC) views of both breasts were obtained. CAD: Full Field Digital Mammography with Computer Added Detection was performed. COMPARISON: 04/16/2019 and 04/10/2018 FINDINGS: Breast Composition: The breasts are heterogeneously dense, which may obscure small masses. There are no dominant masses or suspicious calcifications. No other significant abnormalities are identified. BI/SCREEN MAMM (CAD) W/KIERAN BILAT IMPRESSION: Stable bilateral screening mammogram. Yearly follow-up mammogram recommended. (A) ASSESSMENT CATEGORY: BIRADS Category 2: Benign. A letter regarding these results will be sent to the patient by the facility within 30 days. Approximately 10% of breast cancers are not detected by mammography. A normal mammogram should not delay biopsy of a clinically suspicious abnormality. [id number] Electronically Signed: Alexandru Morillo, at 13:59 EDT Tel , Service support ,
== END ==
PROVIDERS: PCP Family Medicine; Referring Provider Obstetrics & Gynecology; Visit Provider Obstetrics & Gynecology
DX: Z12.31 Encounter for screening mammogram for malignant neoplasm of breast (principal)
CPT/HCPCS: 77063; 77067

== ENCOUNTER 2020-05-18 17:41 | Emergency (ER) | payer MEDICARE, BC, SELFPAY ==
[2019-06-27 05:59] VITALS: BMI 34.1
[2020-05-18 17:43] VITALS: BP 145/82; PULSE 74; RESP 18; TEMP 36.2; O2SAT 100; BMI 36.4
--- NOTE | 2020-05-18 17:59 | CT_ITS ---
STUDY: CT BRAIN WITHOUT CONTRAST REASON FOR EXAM: Female, 75 years old. FELL ON SUNDAY HIT HEAD NO LOC RADIATION DOSAGE (If Supplied By Facility): CTDIvol = ( 44.99 ) mGy, DLP = ( 779.24 ) mGycm TECHNIQUE: Transaxial CT imaging of the brain was performed without administration of intravenous contrast material. Individualized dose optimization techniques were used for this CT. COMPARISON: None. FINDINGS: Normal soft tissue structures. Normal calvarium. No visualized fractures. No demonstrated hemorrhagic contusions. There is mild cerebral atrophy with widening of the extra-axial spaces and ventricular dilatation. Normal white matter tracts of the cerebral hemispheres. Normal basal ganglia and thalami. Normal brainstem. Small cystic area of volume loss in the inferior parasagittal region of the left cerebellar lobe could represent a prominent extra-axial CSF space or cisterna magna variant versus sequela from prior trauma or infarction to this region. There is no intracranial hemorrhage. There are no findings of an acute ischemic infarction. Normal visualized paranasal sinuses. CT/Brain/Head without Contrast IMPRESSION: 1. No demonstrated acute or significant intracranial process. Electronically Signed: Geoff Fair MD at 19:10 EST , Service support ,
--- NOTE | 2020-05-18 17:59 | CT_ITS ---
STUDY: CT CHEST WITHOUT CONTRAST REASON FOR EXAM: Female, 75 years old. fell on sunday hit head no loc RADIATION DOSAGE (If Supplied By Facility): CTDIvol = ( 18.23 ) mGy, DLP = ( 2072.72 ) mGycm TECHNIQUE: Transaxial imaging was performed without the administration of intravenous contrast material. Individualized dose optimization techniques were used for this CT. COMPARISON: None. FINDINGS: No consolidation or pulmonary edema or pleural effusion seen. Tiny calcified granuloma noted at the lateral inferior aspect of the right upper lobe. Some minor interstitial scarring is present in the left lung base. There is no demonstrated pleural abnormality. Normal heart size and pericardium. There are calcifications of the coronary arteries. Normal mediastinum. Normal hilar regions. Normal unenhanced pulmonary arteries. There is atherosclerotic calcification of the aortic arch with tortuosity and elongation of the aortic arch and descending thoracic aorta. There are multi-level degenerative changes of the thoracic spine. Mild intrahepatic biliary duct dilatation noted. The remaining visualized upper abdominal structures are unremarkable. CT/Chest without Contrast IMPRESSION: 1. No consolidation or pulmonary edema or pleural effusion seen. Tiny calcified granuloma noted at the lateral inferior aspect of the right upper lobe. Some minor interstitial scarring is present in the left lung base. Electronically Signed: Geoff Fair MD at 18:55 EST , Service support ,
--- NOTE | 2020-05-18 18:01 | ED.DCSUM_ITS ---
History of Present Illness Chief Complaint: Fall Informant: Patient Narrative: Patient states that on Sunday she sustained a fall. She states that she hit her right shoulder and head and twisted striking her right back. Since that time she has had pain with movement. She has tried Aleve with no relief. She has been using heat as well. As long as she is sitting and resting she feels okay but symptoms of pain return when she attempts to get up or walk. No vomiting. No hematuria. - Past Medical History (1) Ureterolithiasis Status: Chronic (2) HTN (hypertension) Status: Chronic Past Medical History - Allergies and Home Meds Allergies/Adverse Reactions: Allergies celecoxib [From Celebrex] Allergy (Verified 05/18/20 17:42) Hives Sulfa (Sulfonamide Antibiotics) Allergy (Verified 05/18/20 17:42) Hives nitrofurantoin Adverse Reaction (Verified 05/18/20 17:42) flu like symptoms STRONG ANTIBIOTICS Adverse Reaction (Uncoded 05/18/20 17:42) Diarrhea Primary Care Physician: Jose Luis Rojas MD [Primary Care Provider] - As Needed Prior records reviewed: Yes Surgical History: cholecystectomy, hysterectomy Smoking Status: Never smoker Drugs: None - Family History Maternal Family History: Family History (Last Updated 06/25/19 @ 12:55 by Ivory Trammell) Mother Colon cancer Hypertension Thyroid disorder Family History: Reports: No pertinent history Review of Systems General: Denies: Chills, Fever, Sweats Eyes: Denies: Visual changes - bilaterally, Diplopia ENT: Denies: Rhinorrhea, Sore throat Cardiovascular: Denies: Chest pain, Palpitations Respiratory: Denies: Dyspnea, Cough, Dyspnea on exertion Gastrointestinal: Denies: Abdominal pain, Nausea, Vomiting, Diarrhea, Melena, Hematochezia Genitourinary: Denies: Dysuria, Hematuria, Frequency Musculoskeletal: Reports: Back pain. Denies: Extremity Pain Skin: Denies: Rash, Wounds Neurological: Denies: Headache, Weakness, Numbness Physical Exam Vital Signs/Narrative: Vital Signs Temp Pulse Resp BP Pulse Ox 05/18/20 17:43 97.1 F L 74 18 145/82 H 100 Inital Vital Signs reviewed: Yes General: Well nourished, Well developed, Obese, No Acute Distress Head: Normocephalic, Atraumatic Eyes: Perrl, EOMI ENT: Moist mucous membranes, No rhinorrhea Neck: Supple, Nontender Cardiovascular: Regular rate, Regular rhythm, No murmurs Respiratory: No distress, CTA bilaterally, Chest nontender Abdomen: Soft, Nontender, Nondistended, Normal bowel sounds Back: Normal Inspection, - - Patient has tenderness over the posterior right rib s starting at about rib #7 and inferiorly to the right lumbar paraspinal musculature. Extremities: Nontender, No edema Skin: Normal color, No rash Neurological: Alert, Oriented x3, Cranial nerves II-XII grossly intact, Normal Strength, Normal Sensation Psychological: Normal affect, Normal Mood Diagnostic/Tx/Re-eval Clinical Impression(s) from Imaging Studies Brain CT 05/18/20 17:59 IMPRESSION: 1. No demonstrated acute or significant intracranial process. Electronically Signed: Geoff Fair MD at 19:10 EST , Service support , Chest CT 05/18/20 17:59 IMPRESSION: 1. No consolidation or pulmonary edema or pleural effusion seen. Tiny calcified granuloma noted at the lateral inferior aspect of the right upper lobe. Some minor interstitial scarring is present in the left lung base. Electronically Signed: Geoff Fair MD at 18:55 EST , Service support , Abdomen/Pelvis CT 05/18/20 18:20 IMPRESSION: 1. Colonic diverticulosis 2. No demonstrated solid organ lacerations. Electronically Signed: Geoff Fair MD at 19:03 EST , Service support , - Medical Decision Making Patient's CTs are negative for fracture of the lumbar spine and ribs thoracic spine and no obvious intracranial hemorrhage. We talked about home treatment as she is already been doing with Tylenol Aleve and heat. We can add in some low- dose Valium. We talked about the side effects of Valium and for her to stop them if she experiences any. ED Disposition - Plan for ED Patient: Disposition: Home or Assisted Living Diagnosis: Strain of lumbar paraspinal muscle, Head injury, Rib contusion Instructions: ED LUMBAR SPRAIN/STRAIN, ED Head Injury Adult, ED Contusion Vs Minor Fx Rib Prescriptions: Diazepam [Valium] 2 mg PO TID PRN PRN #20 tab PRN Reason: Muscle Spasm Prescription Printed Referrals: Jose Luis Rojas MD [Primary Care Provider] - As Needed
--- NOTE | 2020-05-18 18:20 | CT_ITS ---
STUDY: CT ABDOMEN AND PELVIS WITHOUT CONTRAST REASON FOR EXAM: Female, 75 years old. FELL ON SUNDAY HIT HEAD NO LOC RADIATION DOSAGE (If Supplied By Facility): CTDIvol = ( 18.23 ) mGy, DLP = ( 2072.72 ) mGycm TECHNIQUE: Transaxial images were obtained from the dome of the diaphragm to the symphysis pubis without oral contrast, and without intravenous contrast. Sagittal and coronal images were reconstructed. Individualized dose optimization techniques were used for this CT. COMPARISON: CT of abdomen and pelvis dated March 12, 2019 FINDINGS: The visualized lung bases are unremarkable. Mild intrahepatic biliary duct dilatation noted most likely postcholecystectomy related. Mild dilatation of the extrahepatic CBD. Normal liver contour. Mild fatty infiltration seen in the left lobe of the liver. No demonstrated solid organ lacerations. There is non-visualization of the gallbladder, which may be secondary to either contraction or a prior cholecystectomy. Normal spleen. Normal pancreas. Normal bilateral adrenal glands. Mild atrophy of the bilateral kidneys. Punctate stones are present in both kidneys versus atherosclerotic calcifications. No hydronephrosis or renal masses. Normal visualized stomach. Normal small intestine. There are multiple colonic diverticula consistent with diverticulosis. No bowel dilatation or obstruction. No free air or free fluid. There is non-visualization of the appendix. There is diffuse atherosclerotic calcification of the abdominal aorta, without a demonstrated aneurysm. Normal inferior vena cava. Normal retroperitoneum. Normal urinary bladder. Normal abdominal wall. There are diffuse degenerative changes of the visualized lumbar spine. No visualized acute fractures. CT/Abdomen/Pelvis without Cont IMPRESSION: 1. Colonic diverticulosis 2. No demonstrated solid organ lacerations. Electronically Signed: Geoff Fair MD at 19:03 EST , Service support ,
[2020-05-18 19:40] VITALS: PULSE 69; RESP 18; O2SAT 98
== END 2020-05-18 19:41 | disposition home or self-care (01) ==
PROVIDERS: Emergency Provider Emergency Medicine; PCP Family Medicine
DX: S39.012A Strain of muscle, fascia and tendon of lower back, initial encounter (principal); S09.90XA Unspecified injury of head, initial encounter; S20.219A Contusion of unspecified front wall of thorax, initial encounter; E66.9 Obesity, unspecified; Z87.442 Personal history of urinary calculi; W19.XXXA Unspecified fall, initial encounter
CPT/HCPCS: 70450; 71250; 74176; 99282

== ENCOUNTER 2020-12-12 09:53 | Emergency (ER) | payer MEDICARE, BC, SELFPAY ==
[2020-12-12 09:56] VITALS: BP 162/81; PULSE 79; RESP 17; TEMP 36.9; O2SAT 98; BMI 35.6
--- NOTE | 2020-12-12 10:28 | RAD_ITS ---
STUDY: X-RAY CHEST REASON FOR EXAM: Female, 75 years old. chest pain TECHNIQUE: Single AP portable view of the chest. COMPARISON: None. FINDINGS: The lungs are clear and expanded. There is no demonstrated pleural abnormality. Normal size heart. Normal mediastinum and cali. Normal visualized pulmonary arteries. Normal visualized aortic arch and descending thoracic aorta. Normal visualized thoracic spine. Normal visualized ribs, clavicles, and shoulders. There is no demonstrated abnormality of the visualized soft tissue structures of the upper abdomen. RAD/Chest 1 View (Portable) IMPRESSION: Normal x-ray examination of the chest. Electronically Signed: Ignacio Malin MD at 11:30 EDT Tel , Service support ,
--- NOTE | 2020-12-12 10:28 | EKG12_ITS ---
Test Reason : CP Blood Pressure : / mmHG Vent. Rate : 070 BPM Atrial Rate : 070 BPM P-R Int : 140 ms QRS Dur : 080 ms QT Int : 396 ms P-R-T Axes : -18 -14 -05 degrees QTc Int : 427 ms Normal sinus rhythm Nonspecific T wave abnormality Confirmed by JOCELIN SORIANO, MANSOOR ([id number]), non linear editor TATUM MOREIRA ([id number]) on 12/15/2020 12:42:49 PM Referred By: ANDREA Confirmed By:MANSOOR MONREAL MD
--- NOTE | 2020-12-12 10:29 | ED.VIS.CHEST ---
HPI History of Present Illness Chief Complaint: Chest Pain Informant: patient Onset/Context/Timing Onset: Weeks (1) Activity at onset: sudden Timing: Continuous Quality: Positive for Tightness Location: Left Chest Worsened By: Movement of Torso Relieved By: Nothing Associated Symptoms: Positive for Dyspnea; Negative for Nausea, Vomiting, Diaphoresis, Cough, Fever, Lightheadedness, Acid Reflux and Palpitations Narrative Narrative: Patient presents with left-sided chest pain that has been getting worse over the past week. Patient states this started after her second COVID-19 vaccine. Patient states it feels similar to prior episodes of pleurisy. Patient states her pain is worse with movement of her chest. Patient states the pain is localized to the left side of her chest. Patient states it feels like a tightness and a band around her lower chest. Patient states she did have a recent CT scan of her chest which showed a pericardial effusion. Patient states she was started on a water pill after this. Patient states that this improved her swelling. Patient states she lost 7 pounds after starting the diuretic. Patient admits to some shortness of breath. Patient denies any nausea or vomiting. Prior Similar Symptoms: Yes (With prior episode of pleurisy) CVD Risk Factors: Positive for Hypertension; Negative for Diabetes, Hypercholesterolemia, Family History 1' </=55 and Smoking PE Risk Factors: Negative for Recent Travel/Surgery, Recent Immobilization, Prior DVT or PE, Cancer and OCP + Smoking + >/=35 PFSH [facility] Medical History Abdominal pain Diarrhea Fatigue Glaucoma Hypertension Hyperthyroidism Rotator cuff (capsule) sprain Sleep apnea Weight loss Home Medications bimatoprost 1 drp EACH EYE QHS 03/12/19 [History Last Taken Unknown] dorzolamide-timolol 1 drp EACH EYE BID 03/12/19 [History Last Taken Unknown] lisinopril 20 mg PO DAILY 03/12/19 [History Last Taken 06/27/19 04:00] methimazole 2.5 mg PO MOTUWETHFRSA 03/12/19 [History Last Taken 06/27/19 04:00] diazepam 2 mg PO TID PRN PRN #20 tab 05/18/20 [Rx Last Taken Unknown] furosemide 12/12/20 [History Last Taken Unknown] Allergy/AdvReac Type Severity Reaction Status Date / Time celecoxib [From Celebrex] Allergy Hives Verified 12/12/20 09:55 Sulfa (Sulfonamide Allergy Hives Verified 12/12/20 09:55 Antibiotics) nitrofurantoin AdvReac flu like Verified 12/12/20 09:55 symptoms STRONG ANTIBIOTICS AdvReac Diarrhea Uncoded 12/12/20 09:55 Family History (Updated 06/25/19 @ 12:55 by Ivory Trammell) Mother Colon cancer Hypertension Thyroid disorder Surgical History H/O carpal tunnel repair H/O eye surgery H/O: hysterectomy History of cholecystectomy History of lumpectomy S/P rotator cuff repair Social History Smoking Status: Never smoker ROS ROS ED Constitutional Constitutional ED: Denies chills or fever(s) Eyes Eyes: Denies blurry vision or change in vision ENT ENT ED: Denies rhinorrhea or sore throat Cardiovascular Cardiovascular: Reports chest pain; Denies palpitations Respiratory/Chest Respiratory/Chest: Reports dyspnea; Denies cough Gastrointestinal Gastrointestinal: Reports nausea; Denies abdominal pain or vomiting Genitourinary Genitourinary ED: Denies dysuria or hematuria Musculoskeletal Musculoskeletal: Reports back pain; Denies neck pain Integumentary Denies abscess or rash Allergic/Immunologic Allergic/Immunologic ED: Denies mouth swelling or urticaria EXAM Physical Exam Const Vital Signs: 12/12/20 09:56 12/12/20 10:50 12/12/20 10:51 Temperature 98.4 F Temperature Source Oral Pulse Rate 79 Respiratory Rate 17 Respiratory Effort Normal Blood Pressure 162/81 H Blood Pressure Mean 108 Pulse Ox 98 99 Oxygen Delivery Method Room Air Room Air Positive well nourished, well developed and obese General Appearance ED: well developed Nutritional Appearance: obese HEENT Reports moist mucous membranes Neck supple and no JVD Resp normal respiratory effort Effort and Inspection: respiratory distress Cardio regular rate and regular rhythm GI normal to inspection, nondistended, normoactive bowel sounds, soft to palpation and non-tender Extremity normal to inspection General Extremety ED: Negative for edema or tenderness General Extremity: Negative for edema Neuro oriented x3, CN's II-XII intact bilaterally and no sensory deficits noted Sensorium / Orientation: awake and alert Motor Exam: strength 5/5 throughout Psych mental status grossly normal Heart Score History: Slightly/Non-Suspicious ECG: Normal Age: >/= 65 years Risk Factors: 1 or 2 Risk Factors Score: 3 MDM MDM MDM Narrative Medical decision making narrative: EKG was obtained. On my interpretation, it showed a normal sinus rhythm with a rate of 70. LA interval, QRS interval, and QTc intervals were all normal. [place] was normal. There are no acute ST or T wave changes. This was unchanged compared to previous EKG dated 11/10/2011. Portable 1 view chest x-ray was obtained. On my interpretation, lung enriquez are clear. There is normal cardiac silhouette. Bony thorax is normal. There is no acute process noted. Radiologist also interpreted the x-ray and agrees. CBC, basic metabolic profile, and troponin were obtained and were all within normal limits. Patient is feeling better on reevaluation. Patient has a HEART score of 3. Patient was advised that this is low risk for acute cardiac event. Patient was instructed to follow-up with her primary care physician and application engineer in 5 to 7 days. Patient understood and was agreeable with the plan. All questions were answered. Lab Data Attestation: I reviewed the patient's lab results. Labs: Laboratory Results - last 24 hr 12/12/20 12/12/20 10:14 10:14 WBC 7.2 RBC 4.67 Hgb 13.2 Hct 41.8 MCV 89.5 MCH 28.3 MCHC 31.6 L RDW Std Deviation 43.5 RDW Coeff of Gloria 13.3 Plt Count 203 MPV 10.3 Immature Gran % (Auto) 0.300 Neut % (Auto) 69.9 Lymph % (Auto) 20.0 Pierce % (Auto) 6.8 Eos % (Auto) 2.6 Baso % (Auto) 0.4 Absolute Neuts (auto) 5.0 Absolute Lymphs (auto) 1.44 Nucleated RBC % 0 Sodium 138 Potassium 3.9 Chloride 102 Carbon Dioxide 29.0 Anion Gap 7 BUN 24 H Creatinine 0.94 Estim Creat Clear Calc 38.29 Est GFR (MDRD) Af Amer 75 Est GFR (MDRD) Non-Af 62 BUN/Creatinine Ratio 25.5 H Glucose 214 H Calcium 9.2 Troponin I < 0.015 Radiography Chest X-Ray - ED: 1 View, Read by ED Physician, Read by Radiologist and Normal Diagnostic Testing: Radiology Impression Chest X-Ray 12/12/20 10:28 IMPRESSION: Normal x-ray examination of the chest. Electronically Signed: Ignacio Malin MD at 11:30 EDT Tel , Service support , EKG Initial EKG: Attestation: I personally reviewed and interpreted this EKG as follows: Interpretation: Sinus Rhythm (70) and No Acute Injury Pattern Prior EKG tracings: available for review Prior: Unchanged (11/10/2011) Discharge Plan Triage Chief Complaint: Chest Pain ED Provider: Humza Purvis Dx/Rx/DC Orders Clinical Impression: Chest pain Instructions: ED Chest Pain, Uncertain Cause, ED Pleurisy Prescriptions: No Action lisinopril 10 MG tablet 20 mg PO DAILY RF: 0 methimazole 5 tablet 2.5 mg PO MOTUWETHFRSA RF: 0 bimatoprost 5 ML drops 1 drp EACH EYE QHS RF: 0 dorzolamide-timolol 1 DROP bottle 1 drp EACH EYE BID RF: 0 diazepam 2 MG tablet 2 mg PO TID PRN PRN (Reason: Muscle Spasm) Qty: 20 RF: 0 furosemide 40 mg tablet RF: 0 Primary Care Provider: Jose Luis Rojas Referrals: Jose Luis Rojas MD [Primary Care Provider] - 3-5 Days Disposition Disposition: Home, self care
[2020-12-12 10:50] VITALS: O2SAT 99
[2020-12-12 11:08] LABS: Absolute Lymphocyte Count 1.44 X10^3/uL (0.83-4.51); Basophil# 0.03 X10^3/uL; Basophil% 0.4 % (0-1); Eosinophil# 0.19 X10^3/uL; Eosinophils% 2.6 % (0-5); Hematocrit 41.8 % (37-47); Hemoglobin 13.2 g/dL (12.0-15.0); Lymphocyte # 1.44 X10^3/ul (0.83-4.51); Mean Corp Hgb Conc 31.6 g/dL (32-36); Mean Corpuscular Hgb 28.3 pg (27.0-32.0); Mean Corpuscular Volume 89.5 fL (81-99); Mean Platelet Vol. 10.3 fl (6.2-12.0); Monocyte# 0.49 X10^3/uL; Monocyte% 6.8 % (0-10); NRBC Flagged by Analyzer 0 % (0-5); Neutrophil # 5.02 X10^3/uL (2.7-7.7); Neutrophil % 69.9 % (47-70); Platelet Count 203 K/mm3 (150-450); RBC Distribution Width CV 13.3 % (11.6-14.6); RBC Distribution Width SD 43.5 fl (35.1-43.9); Red Blood Count 4.67 M/mm3 (4.2-5.4); White Blood Count 7.2 K/mm3 (4.4-11.0)
[2020-12-12 11:09] LABS: Anion Gap 7 (5-15); BUN 24 mg/dL (7-18); BUN/Creat Ratio 25.5 RATIO (10-20); Calcium,Total 9.2 mg/dL (8.5-10.1); Chloride 102 mmol/L (98-107); Creatinine, Serum 0.94 mg/dL (0.55-1.02); EST Glomerular Filtration Rate 62 mL/min (>60); Est Glom Filt Rate - Afr Amer 75 mL/min (>60); Estimated Creatinine Clearance 38.29 ml/min; Glucose 214 mg/dL (74-106); Potassium 3.9 mmol/L (3.5-5.1); Sodium Level 138 mmol/L (136-145)
[2020-12-12] MEDS: Aspirin 81 MG TAB.CHEW 324 MG PO (11:37)
[2020-12-12 12:10] VITALS: BP 160/61; PULSE 63; RESP 24; O2SAT 95
== END 2020-12-12 12:25 | disposition home or self-care (01) ==
PROVIDERS: Emergency Provider Emergency Medicine; PCP Family Medicine
DX: R07.9 Chest pain, unspecified (principal); E66.9 Obesity, unspecified; I10 Essential (primary) hypertension; H40.9 Unspecified glaucoma; E05.90 Thyrotoxicosis, unspecified without thyrotoxic crisis or storm; Z79.899 Other long term (current) drug therapy
CPT/HCPCS: 71045; 80048; 84484; 85025; 93005; 99285; A4216

== ENCOUNTER → 2020-12-30 13:00 | Outpatient (CLI) | payer MEDICARE, BC, SELFPAY ==
[2020-12-12 09:56] VITALS: BMI 35.6
--- NOTE | 2020-12-30 13:09 | ECHOCS_ITS ---
Reason For Study: EDEMA, CHF, CHEST PAIN Procedure This was a 2D Doppler, Color Flow transthoracic echocardiogram. The study was technically difficult. Contrast injection was performed. Exam performed in department. Left Ventricle Normal LV size. The estimated ejection fraction is 65 %. No evidence for diastolic dysfunction. No regional wall motion abnormalities noted. Right Ventricle Normal RV size. Normal systolic function. Atria Normal left atrium. Normal atrial septum. Mitral Valve There is no mitral valve stenosis. Trivial mitral valve insufficiency. Tricuspid Valve There is no tricuspid stenosis. Unable to estimate RV systolic pressure due to insufficient tricuspid regurgitant envelope. Trivial tricuspid valve insufficiency. Aortic Valve Trisinus/trileaflet aortic valve. There is no aortic stenosis. No aortic valve insufficiency. Pulmonic Valve There is no pulmonic valvular stenosis. Trivial pulmonic valve insufficiency. Great Vessels Normal aortic root. Pericardium/Pleural No pericardial effusion. Medication 22 gauge I.V. with prn adaptor inserted into left arm. Diluted definity 4ml given slow IV push to enhance endocardial definition. MMode/2D Measurements & Calculations LVIDd: 4.2 cm IVSd: 0.85 cm Ao root diam: 3.4 cm LVIDs: 2.9 cm LVPWd: 0.85 cm RVDd: 3.1 cm FS: 31.0 % LAV(MOD-sp4): 67.7 ml LA A4 area: 20.8 cm2 LA dimension(2D): 4.3 cm RA A4 area: 14.4 cm2 Time Measurements MV dec time: 0.24 sec Doppler Measurements & Calculations MV E max tyrell: 91.4 cm/sec Lat Peak E' Tyrell: 8.4 cm/sec Med Peak E' Tyrell: 5.9 cm/sec MV A max tyrell: 67.3 cm/sec E/E' lat: 10.9 E/E' med: 15.4 MV E/A: 1.4 Ao V2 max: 125.5 cm/sec LV V1 max: 92.4 cm/sec PA V2 max: 65.3 cm/sec Ao max P.3 mmHg LV V1 max P.4 mmHg TR max tyrell: 275.0 cm/sec TR max P.3 mmHg ECHO/Echo Complete W/ Contrast Interpretation Summary The estimated ejection fraction is 65 %. No evidence for diastolic dysfunction. Trivial mitral valve insufficiency. The study was technically difficult. Contrast injection was performed. Ordering Physician: Miky Crook Referring Physician: MEHRDAD MEYER Performed By: Kaela Avilez, ANNE-MARIE, RVT
--- NOTE | 2020-12-30 14:58 | RAD_ITS ---
STUDY: X-RAY CHEST REASON FOR EXAM: Female, 75 years old. PLURAL EFFUSSION TECHNIQUE: Right decubitus. COMPARISON: None. FINDINGS: The lungs are clear and expanded. There is no demonstrated pleural abnormality. Normal size heart. Normal mediastinum and cali. Normal visualized pulmonary arteries. Normal visualized aortic arch and descending thoracic aorta. There are diffuse degenerative changes of the visualized thoracic spine. Operative changes of the right humeral head. There is no demonstrated abnormality of the visualized soft tissue structures of the upper abdomen. RAD/Special CXR (Obl/Decub/A/L) IMPRESSION: 1. No airspace consolidation. No pleural effusion. Electronically Signed: Jean-Pierre Grajeda MD ([place]) at 15:57 EDT , Service support ,
--- NOTE | 2020-12-30 14:58 | RAD_ITS ---
STUDY: X-RAY CHEST REASON FOR EXAM: Female, 75 years old. PLURAL EFFUSSION TECHNIQUE: Left decubitus. COMPARISON: None. FINDINGS: The lungs are clear and expanded. There is no demonstrated pleural abnormality. Normal size heart. Normal mediastinum and cali. Normal visualized pulmonary arteries. Normal visualized aortic arch and descending thoracic aorta. There are diffuse degenerative changes of the visualized thoracic spine. Operative changes of the right humeral head. There is no demonstrated abnormality of the visualized soft tissue structures of the upper abdomen. RAD/Special CXR (Obl/Decub/A/L) IMPRESSION: 1. No airspace consolidation. No pleural effusion. Electronically Signed: Jean-Pierre Grajeda MD ([place]) at 15:57 EDT , Service support ,
--- NOTE | 2020-12-30 14:58 | RAD_ITS ---
STUDY: X-RAY CHEST REASON FOR EXAM: Female, 75 years old. PLURAL EFFUSSION TECHNIQUE: PA and lateral views of the chest. COMPARISON: None. FINDINGS: The lungs are clear and expanded. There is no demonstrated pleural abnormality. Normal size heart. Normal mediastinum and cali. Normal visualized pulmonary arteries. Normal visualized aortic arch and descending thoracic aorta. There are diffuse degenerative changes of the visualized thoracic spine. Operative changes of the right humeral head. There is no demonstrated abnormality of the visualized soft tissue structures of the upper abdomen. RAD/Chest PA and Lateral IMPRESSION: 1. No airspace consolidation. No pleural effusion. Electronically Signed: Jean-Pierre Grajeda MD ([place]) at 15:57 EDT , Service support ,
[2020-12-30 16:03] LABS: Erythrocyte Sedimentation Rate 27 mm/hr (0-30)
[2020-12-30 16:36] LABS: BNP,B-Type NATRIURETIC PEPTIDE 82.2 pg/mL (0-100)
[2020-12-30 16:39] LABS: CRP < 2.90 mg/L (0.0-3.0); Rheumatoid Factor < 10.0 IU/mL (<15)
[2021-01-04 11:23] LABS: ANTINUCLEAR ANTIBODIES DIRECT Negative (Negative)
== END ==
PROVIDERS: PCP Family Medicine; Referring Provider Internal Medicine Pulmonary Disease; Visit Provider Internal Medicine Pulmonary Disease
DX: J90 Pleural effusion, not elsewhere classified (principal); I50.9 Heart failure, unspecified; R60.9 Edema, unspecified; R07.9 Chest pain, unspecified; R06.00 Dyspnea, unspecified
CPT/HCPCS: 36415; 71046; 83880; 85652; 86038; 86140; 86431; 93306; Q9957; A4216; C8929; J3490

== ENCOUNTER 2021-01-27 21:09 | Emergency (ER) | payer MEDICARE, BC, SELFPAY ==
[2021-01-27 21:10] VITALS: BP 162/104; PULSE 96; RESP 16; TEMP 36; O2SAT 95; BMI 36.1
--- NOTE | 2021-01-27 22:33 | EX.ED.DYSGE1 ---
HPI History of Present Illness Chief Complaint: Hypertension Informant: patient and spouse/S.O. Onset/Context/Timing Onset: Today (Elevated at doctor's office and multiple elevated levels at home) Context: Sudden Onset (Presumably) Timing: Continuous Quality: Systolic pressure ranging from 1 94-212 Location: Elevated blood pressure, normal systolic is 149 Current Severity: Mild Worsened by: Nothing Relieved by: Improved after taking an additional dose of lisinopril, 20 mg Associated Symptoms Associated Symptoms: Asymptomatic Narrative Narrative: Patient is a 75-year-old woman with history of hypertension who complains of left-sided chest pain due to pleurisy. This is due to the second Covid shot she got. She states she waited 90 days before she was vaccinated since she had a positive Covid test. The Covid vaccine caused pericardial effusion and pleurisy. She initially was treated with prednisone without improvement. She is now on NSAID. She reports decreased urine output. She denies headache, visual, ocular auditory symptoms. No trouble speech or swallowing. She denies paresthesia, anesthesia or motor weakness upper or lower extremities. She denies trouble with balance or walking. She denies nausea or vomiting. She denies chest pain. She denies increased shortness of breath. She has been short of breath since December 10. Prior similar symptoms: No Recent Illness/Hospitalization: Yes [facility] Medical History Abdominal pain Diarrhea Fatigue Glaucoma Hypertension Hyperthyroidism Rotator cuff (capsule) sprain Sleep apnea Weight loss Home Medications bimatoprost 1 drp EACH EYE QHS 03/12/19 [History Last Taken Unknown] dorzolamide-timolol 1 drp EACH EYE BID 03/12/19 [History Last Taken Unknown] lisinopril 20 mg PO DAILY 03/12/19 [History Last Taken 06/27/19 04:00] methimazole 2.5 mg PO MOTUWETHFRSA 03/12/19 [History Last Taken 06/27/19 04:00] diazepam 2 mg PO TID PRN PRN #20 tab 05/18/20 [Rx Last Taken Unknown] furosemide 12/12/20 [History Last Taken Unknown] hydrochlorothiazide 12.5 mg PO DAILY #30 cap 01/28/21 [Rx Last Taken Unknown] Allergy/AdvReac Type Severity Reaction Status Date / Time celecoxib [From Celebrex] Allergy Hives Verified 01/27/21 21:10 Sulfa (Sulfonamide Allergy Hives Verified 01/27/21 21:10 Antibiotics) nitrofurantoin AdvReac flu like Verified 01/27/21 21:10 symptoms STRONG ANTIBIOTICS AdvReac Diarrhea Uncoded 01/27/21 21:10 Family History Mother Colon cancer Hypertension Thyroid disorder Surgical History H/O carpal tunnel repair H/O eye surgery H/O: hysterectomy History of cholecystectomy History of lumpectomy S/P rotator cuff repair Social History (Updated 01/27/21 @ 22:[address] Yobany Kebede MD) household members: spouse housing: house Smoking Status: Never smoker alcohol intake: current alcohol intake frequency: holidays/special occasions only substance use type: does not use ROS ROS ED Constitutional Constitutional ED: Denies chills, fever(s), subjective or sweats Eyes Eyes: Denies blurry vision, change in vision or diplopia ENT ENT ED: Denies ear pain, rhinorrhea or sore throat Cardiovascular Cardiovascular: Reports chest pain; Denies orthopnea, palpitations, paroxysmal nocturnal dyspnea or racing heartbeat Respiratory/Chest Respiratory/Chest: Reports dyspnea and dyspnea on exertion; Denies cough, orthopnea, paroxysmal nocturnal dyspnea or sputum Gastrointestinal Gastrointestinal: Denies abdominal pain, nausea or vomiting Genitourinary Genitourinary ED: Reports other Details: She states her urine output is decreased. ; Denies hematuria Musculoskeletal Musculoskeletal: Denies arthralgias or myalgias Integumentary Denies rash Neurologic Neurologic: Denies headache(s), paresthesias or weakness EXAM Physical Exam Const Vital Signs: 01/27/21 21:10 01/27/21 22:43 01/27/21 22:44 Temperature 96.8 F L Temperature Source Temporal Pulse Rate 96 81 Respiratory Rate 16 20 H Respiratory Effort Normal Non-Labored Respiratory Pattern Normal Blood Pressure 162/104 H 188/85 H Blood Pressure Mean 123 119 Pulse Ox 95 96 Oxygen Delivery Method Room Air Room Air 01/27/21 23:44 01/28/21 00:32 Temperature Temperature Source Pulse Rate 74 Respiratory Rate 22 H Respiratory Effort Respiratory Pattern Blood Pressure 188/95 H 173/84 H Blood Pressure Mean 126 113 Pulse Ox 97 Oxygen Delivery Method Room Air Positive well nourished, well developed and obese General Appearance ED: well developed and other Patient is slightly tachypneic. She states she has been short of breath since the second dose of the vaccine Nutritional Appearance: obese HEENT Reports TM's clear and moist mucous membranes HEENT Narrative: Face is symmetric. Nares patent. There is no angioedema. Uvula is midline. Tympanic Membrane ED: Yes TM's clear Eyes PERRL and EOMs intact bilaterally General Eye ED: Negative for pale conjunctiva or scleral icterus Neck no lymphadenopathy, supple and no JVD Resp clear to auscultation bilaterally Effort and Inspection: pain with movement Cardio regular rate, regular rhythm, S1 normal heart sound, S2 normal heart sound and no murmurs GI normal to inspection, nondistended, normoactive bowel sounds and non-tender Palpation: soft Back/Spine no CVA tenderness Extremity normal to inspection General Extremety ED: Negative for edema or tenderness General Extremity: Negative for edema Neuro oriented x3, CN's II-XII intact bilaterally and no sensory deficits noted Sensorium / Orientation: alert Motor Exam: strength 5/5 throughout Psych mental status grossly normal Skin no rashes or lesions noted and no wounds MDM MDM MDM Narrative Medical decision making narrative: Patient presents with elevated blood pressure. Since she reports decreased urine output and is on NSAID will obtain basic metabolic panel to assess renal function. Will monitor blood pressure every 15 for the next hour. She was placed on a monitor. Blood sugar this by approximately 10 to 15% after clonidine. Plan is to add hydrochlorothiazide and have follow-up with In 3 to 5 days. Patient instructed to continue taking 20 lisinopril and will add hydrochlorothiazide. She states her doctor informed her to take 40 of lisinopril. She was told that the hydrochlorothiazide works by different mechanism and that combination is very effective and would suggest trying that first. She acknowledged understanding and plan is to prescribe hydrochlorothiazide 12.5 mg daily. Lab Data Attestation: I reviewed the patient's lab results. Labs: Laboratory Results - last 24 hr 01/27/21 22:40 Sodium 138 Potassium 3.9 Chloride 107 Carbon Dioxide 25.0 Anion Gap 6 BUN 18 Creatinine 0.98 Estim Creat Clear Calc 36.72 Est GFR (MDRD) Af Amer 72 Est GFR (MDRD) Non-Af 59 L BUN/Creatinine Ratio 18.5 Glucose 249 H Calcium 9.0 Treatment and Re-Evaluation Comments:: Patient continues have elevated blood pressure. In light of this will treat with clonidine. Discharge Plan Triage Chief Complaint: Hypertension ED Provider: Yobany Kebede Dx/Rx/DC Orders Clinical Impression: HTN (hypertension) Instructions: Low-Salt Choices, ED Hypertension, Established Prescriptions: New hydrochlorothiazide 12.5 mg capsule 12.5 mg PO DAILY Qty: 30 RF: 0 No Action lisinopril 10 MG tablet 20 mg PO DAILY RF: 0 methimazole 5 tablet 2.5 mg PO MOTUWETHFRSA RF: 0 bimatoprost 5 ML drops 1 drp EACH EYE QHS RF: 0 dorzolamide-timolol 1 DROP bottle 1 drp EACH EYE BID RF: 0 diazepam 2 MG tablet 2 mg PO TID PRN PRN (Reason: Muscle Spasm) Qty: 20 RF: 0 furosemide 40 mg tablet RF: 0 Primary Care Provider: Jose Luis Rojas Referrals: Jose Luis Rojas MD [Primary Care Provider] - 1 Week Disposition Disposition: Home, Self Care
[2021-01-27 22:43] VITALS: BP 188/85; PULSE 81; RESP 20; O2SAT 96
[2021-01-27 23:18] LABS: Anion Gap 6 (5-15); BUN 18 mg/dL (7-18); BUN/Creat Ratio 18.5 RATIO (10-20); Chloride 107 mmol/L (98-107); Creatinine, Serum 0.98 mg/dL (0.55-1.02); EST Glomerular Filtration Rate 59 mL/min (>60); Est Glom Filt Rate - Afr Amer 72 mL/min (>60); Estimated Creatinine Clearance 36.72 ml/min; Glucose 249 mg/dL (74-106); Potassium 3.9 mmol/L (3.5-5.1); Sodium Level 138 mmol/L (136-145)
[2021-01-27] MEDS: cloNIDine HCl 0.1 MG Tablet PO (23:43)
[2021-01-27 23:44] VITALS: BP 188/95
[2021-01-28 00:32] VITALS: BP 173/84; PULSE 74; RESP 22; O2SAT 97
[2021-01-28 01:05] VITALS: BP 164/78; PULSE 78; RESP 18; O2SAT 98
== END 2021-01-28 01:18 | disposition home or self-care (01) ==
PROVIDERS: Emergency Provider Emergency Medicine; PCP Family Medicine
DX: I10 Essential (primary) hypertension (principal); E66.9 Obesity, unspecified; Z86.16 Personal history of COVID-19
CPT/HCPCS: 36415; 80048; 99283

== ENCOUNTER → 2021-03-15 09:58 | Outpatient (CLI) | payer MEDICARE, BC, SELFPAY ==
--- NOTE | 2021-03-15 10:03 | VDLE_ITS ---
Reason For Study: DYSPNEA RIGHT LEFT GSV is normal. GSV is normal. CFV is compressible, spontaneous, phasic, CFV is compressible, spontaneous, phasic, competent and demonstrates normal competent, and demonstrates normal augmentation. augmentation. FV is compressible, spontaneous, phasic, FV is compressible, spontaneous, phasic, competent and demonstrates normal competent and demonstrates normal augmentation. augmentation. POP V is compressible, spontaneous, phasic, POP V is compressible, spontaneous, phasic, competent and demonstrates normal competent and demonstrates normal augmentation. augmentation. T/P Trunk is compressible. T/P Trunk is compressible. PTV is compressible. PTV is compressible. RT PerV is compressible. LT PerV is compressible. Procedure This is a venous duplex using B-mode, color flow and spectral Doppler. Exam performed in department. The exam was diagnostic. A preliminary report was called and/or faxed to Dr. Crook @ 10:35 am @ [phone]. VL/Venous Duplex US - [place] Extrem Interpretation Summary Deep veins of the lower extremities are bilaterally patent and compressible seg mentally. There is no evidence of deep vein thrombosis on either side. Valvular competence appears in tact within the proximal deep venous systems bilaterally. The great saphenous veins appear bila terally patent and compressible segmentally. Ordering Physician: Miky Crook Referring Physician: Jose Luis Rojas Performed By: Gisela Ramirez, ANNE-MARIE, RVT
== END ==
PROVIDERS: PCP Family Medicine; Referring Provider Internal Medicine Pulmonary Disease; Visit Provider Internal Medicine Pulmonary Disease
DX: M79.89 Other specified soft tissue disorders (principal); R06.00 Dyspnea, unspecified
CPT/HCPCS: 93970

== ENCOUNTER → 2021-04-01 13:02 | Outpatient (CLI) | payer MEDICARE, BC, SELFPAY ==
--- NOTE | 2021-04-01 13:14 | CT_ITS ---
STUDY: CT CHEST WITHOUT CONTRAST REASON FOR EXAM: Female, 76 years old. CHEST PAIN. History of hypertension and pleurisy. RADIATION DOSAGE (If Supplied By Facility): CTDIvol = ( 18.09 ) mGy, DLP = ( 578.78 ) mGycm TECHNIQUE: Transaxial imaging was performed without the administration of intravenous contrast material. Multiplanar coronal and sagittal images were reformatted. Individualized dose optimization techniques were used for this CT. COMPARISON: Comparison is made with prior study dated 05/18/2020. FINDINGS: The lungs are normal. There is no demonstrated pleural abnormality. There are calcifications of the coronary arteries. There are multiple small lymph nodes within the mediastinum, which are normal in size and morphology most compatible with reactive lymph hyperplasia. Normal hilar regions. Normal unenhanced pulmonary arteries. There is atherosclerotic calcification of the aortic arch . There are multi-level degenerative changes of the thoracic spine. There is no demonstrated abnormality of the visualized upper abdomen. CT/Chest without Contrast IMPRESSION: Stable examination. No acute abnormality is seen. Electronically Signed: Vega Baez MD at 15:04 EDT , Service support ,
== END ==
PROVIDERS: PCP Family Medicine; Referring Provider Internal Medicine Pulmonary Disease; Visit Provider Internal Medicine Pulmonary Disease
DX: R07.9 Chest pain, unspecified (principal)
CPT/HCPCS: 71250

== ENCOUNTER → 2021-05-11 14:53 | Outpatient (CLI) | payer MEDICARE, BC, SELFPAY ==
--- NOTE | 2021-05-11 14:56 | BI_ITS ---
MAMMOGRAPHY - BILATERAL SCREENING REASON FOR EXAM: Female, 76 years old. Routine annual screening examination. PERTINENT HISTORY: Non-contributory. Remote bilateral stereotactic breast biopsies. TECHNIQUE: Digital bilateral breast kieran (3D mammographic acquisition) in the CC and MLO projections. 2-D mediolateral oblique (MLO) and craniocaudad (CC) views of both breasts were obtained. CAD: Full Field Digital Mammography with Computer Added Detection was performed. COMPARISON: Comparison is made with prior study 04/19/2020 and 04/16/2019. FINDINGS: Breast Composition: The breasts are heterogeneously dense, which may obscure small masses. There are no dominant masses or suspicious calcifications. No other significant abnormalities are identified. There has been no significant change since the prior study. BI/SCRN MAMM (CAD)W/KIERAN BILAT IMPRESSION: Stable bilateral screening mammogram. Yearly follow-up mammogram recommended. (A) ASSESSMENT CATEGORY: BIRADS Category 1: Negative. A letter regarding these results will be sent to the patient by the facility within 30 days. Approximately 10% of breast cancers are not detected by mammography. A normal mammogram should not delay biopsy of a clinically suspicious abnormality. [id number] Electronically Signed: Vega Baez MD at 8:32 EDT , Service support ,
== END ==
PROVIDERS: PCP Family Medicine; Referring Provider Obstetrics & Gynecology; Visit Provider Obstetrics & Gynecology
DX: Z12.31 Encounter for screening mammogram for malignant neoplasm of breast (principal)
CPT/HCPCS: 77063; 77067

== ENCOUNTER → 2022-01-23 | Outpatient (CLI) | payer MEDICARE, BC, SELFPAY ==
--- NOTE | 2022-01-23 12:59 | US_ITS ---
STUDY: RENAL ULTRASOUND - COMPLETE REASON FOR EXAM: Female, 76 years old. UTI TECHNIQUE: Ultrasound evaluation of the kidneys was performed with real-time and static mann-scale imaging. COMPARISON: CT abdomen and pelvis 05/18/2020 FINDINGS: RIGHT KIDNEY: Normal location of the right kidney, which is normal in size. The right kidney measures 9.5 x 4.5 x 4 cm. Slight lobular contour to renal cortex as seen on CT. The renal cortex measures 1.8 cm. There is no right renal mass or cyst. Small calcification 3 mm. There is no right hydronephrosis. DISTAL RIGHT URETER: There is non-visualization of the distal right ureter. There is no demonstrated right ureterovesical junction calculus. There is a visualized right ureteral jet. LEFT KIDNEY: Normal location of the left kidney, which is normal in size. The left kidney measures 10 x 4.3 x 5 cm. Slight lobular contour to renal cortex as seen on CT. There are a 6 mm calcification. There is no left hydronephrosis. DISTAL LEFT URETER: There is non-visualization of the distal left ureter. There is no demonstrated left ureterovesical junction calculus. There is a visualized left ureteral jet. BLADDER: The distended urinary bladder has a volume of 49 ml. There is a normal wall thickness of the distended urinary bladder. There is no demonstrated mass within the urinary bladder. There are no demonstrated bladder calculi. US/Kidney and Bladder IMPRESSION: Bilateral nonobstructing renal calculi. Electronically Signed: Melody Resendez MD at 4:20 EDT Reading Location ID and State: , Service support ,
== END | disposition home or self-care (01) ==
LOC: US 12:58
PROVIDERS: Referring Provider Urology; Visit Provider Urology
DX: N39.0 Urinary tract infection, site not specified (principal)
CPT/HCPCS: 76770

== ENCOUNTER 2022-01-27 05:38 | Emergency (ER) | payer MEDICARE, BC, SELFPAY ==
[2022-01-27 05:39] VITALS: BP 160/68; PULSE 74; RESP 15; TEMP 36.4; O2SAT 97; BMI 33.3
--- NOTE | 2022-01-27 05:56 | ED.VIS.BACK ---
HPI History of Present Illness Chief Complaint: Back Informant: patient Onset/Context/Timing Onset: Weeks (6-8) Context: Gradual Onset Timing: Continuous Quality: Sharp, Aching and Burning Location: Thoracic Worsened by: improves with Nothing Relieved by: Medications (Lidocaine patch) Associated Symptoms Associated Symptoms: Negative for Numbness, Tingling, Radiation to Right Leg, Radiation to Left Leg, Fever, Abdominal Pain, Dysuria, Unable to Ambulate, Unable to Transfer, Urinary Retention, Urinary Incontinence, Constipation or Fecal Incontinence Narrative Narrative: Patient presents with back pain that has been constant for the past 6 to 8 weeks. Patient states she has been having pain in her back and it has been getting progressively worse. Patient has been using lidocaine patches which helped somewhat but the pain comes back whenever she takes them off at nighttime. Patient states she did fall a few weeks ago which made her pain worse. Patient describes her pain as sharp, aching, and burning. Patient states it is over the right thoracic area. Patient denies any radiation of the pain. Patient denies any numbness or tingling. Patient denies any bowel or bladder changes. Patient denies any saddle anesthesia. [facility] Medical History Abdominal pain Diarrhea Fatigue Glaucoma Hypertension Hyperthyroidism Rotator cuff (capsule) sprain Sleep apnea Weight loss Home Medications bimatoprost 0.01 % eye drops 1 drp EACH EYE QHS 03/12/19 [History Last Taken Unknown] dorzolamide 22.3 mg-timolol 6.8 mg/mL eye drops (Cosopt) 1 drp EACH EYE BID 03/12/19 [History Last Taken Unknown] lisinopril 10 mg tablet 20 mg PO DAILY 03/12/19 [History Last Taken 06/27/19 04:00] colestipol 1 gram tablet 3 tab PO DAILY 01/27/22 [History Last Taken Unknown] hydrocodone-acetaminophen 5-325mg 5mg-325mg 1 tab PO Q6H PRN PRN Pain 3 days #10 TABLETS 01/27/22 [Rx Last Taken Unknown] Allergy/AdvReac Type Severity Reaction Status Date / Time celecoxib [From Celebrex] Allergy Hives Verified 01/27/22 05:46 Sulfa (Sulfonamide Allergy Hives Verified 01/27/22 05:46 Antibiotics) nitrofurantoin AdvReac flu like Verified 01/27/22 05:46 symptoms STRONG ANTIBIOTICS AdvReac Diarrhea Uncoded 01/27/22 05:46 Family History Mother Colon cancer Hypertension Thyroid disorder Surgical History H/O carpal tunnel repair H/O eye surgery H/O: hysterectomy History of cholecystectomy History of lumpectomy S/P rotator cuff repair Social History household members: spouse housing: house Smoking Status: Never smoker alcohol intake: current alcohol intake frequency: holidays/special occasions only substance use type: does not use ROS ROS ED Constitutional Constitutional ED: Reports chills and subjective; Denies fever(s) Eyes Eyes: Denies blurry vision or change in vision ENT ENT ED: Denies rhinorrhea or sore throat Cardiovascular Cardiovascular: Denies chest pain or palpitations Respiratory/Chest Respiratory/Chest: Denies cough or dyspnea Gastrointestinal Gastrointestinal: Reports nausea; Denies vomiting Genitourinary Genitourinary ED: Denies dysuria or hematuria Musculoskeletal Musculoskeletal: Reports back pain; Denies neck pain Integumentary Denies abscess or rash Neurologic Neurologic: Reports headache(s); Denies weakness Allergic/Immunologic Allergic/Immunologic ED: Denies mouth swelling or urticaria EXAM Physical Exam Const Vital Signs: 01/27/22 05:39 Temperature 97.5 F L Temperature Source Temporal Pulse Rate 74 Respiratory Rate 15 Blood Pressure 160/68 H Blood Pressure Mean 98 Pulse Ox 97 Oxygen Delivery Method Room Air Positive well nourished and well developed General Appearance ED: well developed and NAD HEENT Reports moist mucous membranes Neck supple and no JVD GI normal to inspection, nondistended, normoactive bowel sounds, soft to palpation and non-tender Back/Spine Back/Spine Narrative: There is tenderness over the right thoracic paraspinal muscles. There is no midline tenderness. There is no bony crepitance or step-off. Range of motion was limited in all motions of the thoracic spine secondary to pain. Strength is 5/5 bilaterally. There are no sensory deficits noted. Lumbar Spine / Lower Back: ROM limited Extremity normal to inspection General Extremety ED: Negative for edema or tenderness General Extremity: Negative for edema Neuro oriented x3 and no sensory deficits noted Sensorium / Orientation: alert Motor Exam: strength 5/5 throughout Psych mental status grossly normal Skin no rashes or lesions noted MDM MDM MDM Narrative Medical decision making narrative: Patient was given a dose of morphine here. X-rays of the thoracic spine were obtained. There are 3 views. On my interpretation, there is no acute fracture or spondylolisthesis. There are degenerative changes noted. Radiologist also interpreted the x-rays and agrees. Patient is feeling better on reevaluation. Patient was given a prescription for a short course of [place]. Patient was instructed to continue with the Lidoderm patches. Patient was instructed to follow-up with her primary care physician in 5 to 7 days. Patient understood and was agreeable with the plan. All questions were answered. Prior to being discharged, patient stated that she started having pain in her chest. Because of this, EKG was ordered. On my interpretation it shows normal sinus rhythm with a rate of 76. There are no acute ST or T wave changes. WA interval, QRS interval, and QTc intervals are normal. [place] is normal. Patient states that the pain is in her chest and is sharp. Patient states it does radiate into her back and feels like it is connected to her back pain. Because of this, labs and CTA of the chest will be ordered. Care of the patient will be turned over to the oncoming physician. Radiography X-Ray: T-Spine, Read by ED Physician, Read by Radiologist, No Fracture, DJD, Spurring and Osteophytes Diagnostic Testing: Clinical Impression(s) from Imaging Studies Thoracic Spine X-Ray 01/27/22 06:00 IMPRESSION: No evidence of thoracic spinal fracture or spondylolisthesis. Electronically Signed: Delfino Khan MD at 6:48 EDT , Discharge Plan Triage Chief Complaint: Back ED Provider: Humza Purvis Dx/Rx/DC Orders Clinical Impression: Acute right-sided thoracic back pain, HTN (hypertension) Instructions: ED Back and Neck Pain, General Prescriptions: New hydrocodone-acetaminophen [hydrocodone-acetaminophen] 5-325 mg tablet 1 tab PO Q6H PRN PRN (Reason: Pain) 3 Days Qty: 10 0RF No Action lisinopril 10 MG tablet 20 mg PO DAILY bimatoprost 5 ML drops 1 drp EACH EYE QHS Label Comments: glucoma dorzolamide-timolol [Cosopt] 1 DROP bottle 1 drp EACH EYE BID colestipol 1 gram tablet 3 tab PO DAILY Label Comments: take 1 tablet by mouth three times a day Primary Care Provider: Carolina Merchant Referrals: [facility] Doctor,Out of [NON-STAFF] - 3-5 Days Disposition Disposition: Home, Self Care
--- NOTE | 2022-01-27 06:00 | RAD_ITS ---
INDICATION: Injury/Pain EXAMINATION/TECHNIQUE: X-RAY - XR Spine Thoracic 3 Views: AP, lateral and swimmer''s views COMPARISON: Chest CT from 04/01/2021 FINDINGS: VERTEBRAE: Preserved vertebral body heights. No acute fracture or suspicious osseous lesion demonstrated. No spondylolisthesis. Preservation of the normal thoracic kyphosis. Multilevel anterior vertebral osteophytes and syndesmophytes noted. DISCS: Disc spaces are maintained. INCLUDED CHEST/ABDOMEN: No acute abnormalities. RAD/Thoracic Spine 3 Views IMPRESSION: No evidence of thoracic spinal fracture or spondylolisthesis. Electronically Signed: Delfino Khan MD at 6:48 EDT ,
[2022-01-27] MEDS: Morphine 4 MG/ML Syringe IV ×2 (06:08→08:31)
[2022-01-27] MEDS: Ondansetron ODT 4 MG Tablet PO (07:43)
--- NOTE | 2022-01-27 07:47 | ED.RN ---
THIS RN WENT TO DISCHARGE PATIENT AND GIVE NAUSEA MEDICATION AND SHE REPORTS SEVERE CHEST PAIN UPON WAKING UP IN THE BED. PAIN REPORTED TO DR VALENCIA WHO GAVE ORDERS FOR AN EKG. 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
[2022-01-27 07:50] VITALS: BP 146/94; PULSE 76; RESP 22; O2SAT 98
--- NOTE | 2022-01-27 07:55 | EKG12_ITS ---
Test Reason : CHEST PAIN Blood Pressure : / mmHG Vent. Rate : 076 BPM Atrial Rate : 076 BPM P-R Int : 122 ms QRS Dur : 078 ms QT Int : 374 ms P-R-T Axes : -11 -05 029 degrees QTc Int : 420 ms Normal sinus rhythm Normal ECG Confirmed by MAGNOLIA SORIANO, HUMERA ([id number]), senior technical editor PRUDENCE SCHAFER ([id number]) on 01/31/2022 11:08:15 AM Referred By: LEONARDO Confirmed By:HUMERA MERIDA MD
--- NOTE | 2022-01-27 08:05 | CT_ITS ---
STUDY: CTA CHEST REASON FOR EXAM: Female, 76 years old. Chest pain -- Rule out aortic dissection RADIATION DOSAGE (If Supplied By Facility): CTDIvol = ( 16.91 ) mGy, DLP = ( 413.55 ) mGycm TECHNIQUE: The examination was performed with the intravenous administration of IV 75mL Isovue-370. Post-processing of the angiographic images was performed, with multiplanar reformation and 3D reconstruction. Individualized dose optimization techniques were used for this CT. COMPARISON: Comparison is made with prior examination of 04/01/2020 FINDINGS: Normal enhancement of the main pulmonary artery and right and left pulmonary arteries. Normal enhancement of the bilateral peripheral pulmonary arteries. There is no demonstrated pulmonary embolism. Normal thoracic aorta and visualized great vessels. There is no demonstrated aortic dissection. There are calcifications of the coronary arteries. Normal mediastinum. Normal hilar regions. Normal visualized trachea and bronchi. The lungs are well expanded. 1 mm nodule in the anterior lateral left lung apex. This may represent a tiny granuloma. Mild increased markings at the lung bases suggestive of scarring more prominent in the right lung base. Normal pleura. Normal chest wall structures. There are degenerative changes of thoracic spine. Normal visualized upper abdomen. CT/CTA Chest W/WO Contrast IMPRESSION: No evidence of aortic dissection. Findings suggestive of scarring at the lung bases. Electronically Signed: Vega Baez MD at 9:52 EDT ,
[2022-01-27 08:48] LABS: Absolute Lymphocyte Count 2.55 X10^3/uL (0.83-4.51); Absolute Neutrophil Count 9.1 X10^3/uL (2.0-7.7); Basophil# 0.03 X10^3/uL; Basophil% 0.2 % (0-1); Eosinophil# 0.08 X10^3/uL; Eosinophils% 0.6 % (0-5); Hematocrit 42.7 % (37-47); Hemoglobin 13.9 g/dL (12.0-15.0); Lymphocyte # 2.55 X10^3/ul (0.83-4.51); Lymphocyte % 20.4 % (19-41); Mean Corp Hgb Conc 32.6 g/dL (32-36); Mean Corpuscular Volume 89.1 fL (81-99); Mean Platelet Vol. 9.7 fl (6.2-12.0); Monocyte# 0.77 X10^3/uL; Monocyte% 6.1 % (0-10); NRBC Flagged by Analyzer 0 % (0-5); Neutrophil # 9.05 X10^3/uL (2.7-7.7); Neutrophil % 72.3 % (47-70); Platelet Count 275 K/mm3 (150-450); RBC Distribution Width CV 12.7 % (11.6-14.6); RBC Distribution Width SD 41.7 fl (35.1-43.9); Red Blood Count 4.79 M/mm3 (4.2-5.4); White Blood Count 12.5 K/mm3 (4.4-11.0)
[2022-01-27 09:00] VITALS: BP 117/54; PULSE 74; RESP 18; O2SAT 97
--- NOTE | 2022-01-27 09:02 | ED.RN ---
after medicating pt,pt states morphine makes my chest feel heavy. dr bella
[2022-01-27 09:05] LABS: Anion Gap 7 (5-15); BUN 36 mg/dL (7-18); BUN/Creat Ratio 43.3 RATIO (10-20); Calcium,Total 9.9 mg/dL (8.5-10.1); Chloride 103 mmol/L (98-107); Creatinine, Serum 0.83 mg/dL (0.55-1.02); EST Glomerular Filtration Rate 71 mL/min (>60); Est Glom Filt Rate - Afr Amer 86 mL/min (>60); Estimated Creatinine Clearance 42.71 ml/min; Glucose 156 mg/dL (74-106); Potassium 4.6 mmol/L (3.5-5.1); Sodium Level 136 mmol/L (136-145); Troponin-I HS (w/2H Reflex) 5 pg/mL (3.0-54.0)
[2022-01-27 10:24] VITALS: BP 125/60; PULSE 70; RESP 16; O2SAT 98
[2022-01-27 10:38] LABS: Reflex Troponin-HS? (from REC) Y
== END 2022-01-27 10:24 | disposition home or self-care (01) ==
PROVIDERS: Emergency Provider Emergency Medicine; Visit Provider Emergency Medicine
DX: M54.6 Pain in thoracic spine (principal); I10 Essential (primary) hypertension; G47.30 Sleep apnea, unspecified; Z79.899 Other long term (current) drug therapy
CPT/HCPCS: 36415; 71275; 72072; 80048; 84484; 85025; 93005; 96374; 96375; 99285; Q9967; A4216

== ENCOUNTER → 2022-05-26 | Outpatient (CLI) | payer MEDICARE, BC, SELFPAY ==
--- NOTE | 2022-05-26 12:55 | BI_ITS ---
MAMMOGRAPHY - BILATERAL SCREENING REASON FOR EXAM: Female, 77 years old. Routine annual screening examination. PERTINENT HISTORY: Non-contributory. Remote bilateral stereotactic breast biopsy and left excisional breast biopsy. TECHNIQUE: Digital bilateral breast kieran (3D mammographic acquisition) in the CC and MLO projections. 2-D mediolateral oblique (MLO) and craniocaudad (CC) views of both breasts were obtained. CAD: Full Field Digital Mammography with Computer Added Detection was performed. COMPARISON: Comparison is made with prior study dated 05/11/2021 and 04/19/2020. FINDINGS: Breast Composition: The breasts are heterogeneously dense, which may obscure small masses. There are no dominant masses or suspicious calcifications. No other significant abnormalities are identified. There has been no significant change since the prior study. BI/SCRN MAMM (CAD)W/KIERAN BILAT IMPRESSION: Stable bilateral screening mammogram. Yearly follow-up mammogram recommended. (A) ASSESSMENT CATEGORY: BIRADS Category 1: Negative. A letter regarding these results will be sent to the patient by the facility within 30 days. Approximately 10% of breast cancers are not detected by mammography. A normal mammogram should not delay biopsy of a clinically suspicious abnormality. [id number] Electronically Signed: Vega Baez MD at 14:48 EST ,
== END | disposition home or self-care (01) ==
LOC: OPBI 12:53
PROVIDERS: PCP Family Medicine
DX: Z12.31 Encounter for screening mammogram for malignant neoplasm of breast (principal)
CPT/HCPCS: 77063; 77067

== ENCOUNTER → 2022-06-15 | Outpatient (CLI) | payer MEDICARE, BC, SELFPAY ==
--- NOTE | 2022-06-15 12:47 | CT_ITS ---
STUDY: CT ABDOMEN AND PELVIS WITHOUT CONTRAST REASON FOR EXAM: Female, 77 years old. Recurrent UTIs. History of kidney stones. RADIATION DOSAGE (If Supplied By Facility): CTDIvol = ( 16.39 ) mGy, DLP = ( 585.50 ) mGycm TECHNIQUE: Transaxial images were obtained from the dome of the diaphragm to the symphysis pubis without oral contrast, and without intravenous contrast. Sagittal and coronal images were reconstructed. Individualized dose optimization techniques were used for this CT. COMPARISON: Comparison is made with prior study #32,020. FINDINGS: The visualized lung bases are unremarkable. Coronary artery calcification. Normal liver. The patient is status post cholecystectomy. Normal spleen. Normal pancreas. Normal bilateral adrenal glands. 3 mm linear calculus is seen in the posterior calyx of the lower pole of the right kidney. 3 mm nonobstructive calculus is seen in the anterior midpole calyx of the left kidney. Normal visualized stomach. Normal small intestine. There are multiple colonic diverticula consistent with diverticulosis. The appendix is visualized and appears normal. There is scattered atherosclerotic calcification of the abdominal aorta, without a demonstrated aneurysm. Normal inferior vena cava. Normal retroperitoneum. The urinary bladder is empty at the time of the examination. There is absence of the uterus consistent with a prior hysterectomy. Normal abdominal wall. There are mild degenerative changes of the visualized lumbar spine. CT/Abdomen/Pelvis without Cont IMPRESSION: Nonobstructive bilateral intrarenal calculi. The patient is status post cholecystectomy. Sigmoid diverticulosis. Electronically Signed: Vega Baez MD at 13:52 EST ,
== END | disposition home or self-care (01) ==
LOC: CT 12:42
PROVIDERS: PCP Family Medicine; Visit Provider Urology
DX: N20.0 Calculus of kidney (principal)
CPT/HCPCS: 74176

== ENCOUNTER → 2022-06-20 | Outpatient (CLI) | payer MEDICARE, BC, SELFPAY ==
[2022-06-20 16:37] LABS: Absolute Lymphocyte Count 1.64 X10^3/uL (0.83-4.51); Absolute Neutrophil Count 5.2 X10^3/uL (2.0-7.7); Basophil# 0.02 X10^3/uL; Basophil% 0.3 % (0-1); Eosinophils% 1.3 % (0-5); Hematocrit 43.8 % (37-47); Lymphocyte # 1.64 X10^3/ul (0.83-4.51); Lymphocyte % 21.9 % (19-41); Mean Corpuscular Volume 93.8 fL (81-99); Mean Platelet Vol. 10.2 fl (6.2-12.0); Monocyte# 0.54 X10^3/uL; Monocyte% 7.2 % (0-10); NRBC Flagged by Analyzer 0 % (0-5); Neutrophil # 5.17 X10^3/uL (2.7-7.7); Platelet Count 229 K/mm3 (150-450); RBC Distribution Width CV 11.9 % (11.6-14.6); RBC Distribution Width SD 41.1 fl (35.1-43.9); Red Blood Count 4.67 M/mm3 (4.2-5.4); White Blood Count 7.5 K/mm3 (4.4-11.0)
[2022-06-20 16:56] LABS: Erythrocyte Sedimentation Rate 25 mm/hr (0-30)
[2022-06-20 16:57] LABS: AST(SGOT) 9 U/L (15-37); Alanine Aminotransfer ALT/SGPT 21 U/L (13-56); Albumin, Serum 3.4 g/dL (3.2-5.0); Alkaline Phosphatase 93 U/L (45-117); Anion Gap 4 (5-15); BUN 18 mg/dL (7-18); BUN/Creat Ratio 26.3 RATIO (10-20); CRP 3.45 mg/L (0.0-3.0); Calcium,Total 9.4 mg/dL (8.5-10.1); Chloride 105 mmol/L (98-107); Creatinine, Serum 0.68 mg/dL (0.55-1.02); EST Glomerular Filtration Rate 89 mL/min (>60); Est Glom Filt Rate - Afr Amer 108 mL/min (>60); Globulin 3.5 g/dL (2.2-4.2); Glucose 141 mg/dL (74-106); Potassium 3.7 mmol/L (3.5-5.1); Protein, Total 6.9 g/dL (6.4-8.2); Sodium Level 140 mmol/L (136-145)
[2022-06-22 15:07] LABS: Anti-Centromere B Ab <0.2 AI (0.0-0.9); Anti-Chromatin <0.2 AI (0.0-0.9); Anti-Jo <0.2 AI (0.0-0.9); Anti-Scleroderma-70 AB <0.2 AI (0.0-0.9); Cytoplasmic Ab (C-ANCA) <1:20 titer (Neg:<1:20); Endomysial Antibody IgA Negative (Negative); Immunoglobulin A 387 mg/dL (64-422); RNP Ab <0.2 AI (0.0-0.9); SJOGREN'S Anti-SS-A test < 0.2 AI (0.0-0.9); SJOGREN'S Anti-SS-B test < 0.2 AI (0.0-0.9); Smith Ab <0.2 AI (0.0-0.9)
[2022-06-22 16:09] LABS: Anti-dsDNA Ab 1 IU/mL (0-9); Perinuclear Ab (P-ANCA) 1:20 titer (Neg:<1:20); t-Transglutaminase IgA <2 U/mL (0-3)
== END | disposition home or self-care (01) ==
PROVIDERS: PCP Family Medicine; Referring Provider Nurse Practitioner Adult Health; Visit Provider Nurse Practitioner Adult Health
DX: R19.7 Diarrhea, unspecified (principal); K58.9 Irritable bowel syndrome, unspecified
CPT/HCPCS: 36415; 80053; 82784; 83516; 85025; 85652; 86140; 86225; 86235; 86255; 86256

== ENCOUNTER → 2022-06-21 | Outpatient (CLI) | payer MEDICARE, BC, SELFPAY ==
[2022-06-23 16:35] LABS: Calprotectin, Stool <16 ug/g (0-120)
== END | disposition home or self-care (01) ==
LOC: LABSPEC 09:27
PROVIDERS: PCP Family Medicine; Referring Provider Nurse Practitioner Adult Health; Visit Provider Nurse Practitioner Adult Health
DX: R19.7 Diarrhea, unspecified (principal); K58.9 Irritable bowel syndrome, unspecified
CPT/HCPCS: 83630; 83993; 87506

== ENCOUNTER → 2022-06-29 | Outpatient (CLI) | payer MEDICARE, BC, SELFPAY | END | disposition home or self-care (01) | PROVIDERS: PCP Family Medicine; Referring Provider Nurse Practitioner Adult Health; Visit Provider Nurse Practitioner Adult Health | DX: R76.8 Other specified abnormal immunological findings in serum (principal) | CPT/HCPCS: 36415 ==

== ENCOUNTER 2022-07-11 08:34 | Day surgery (SDC) | payer MEDICARE, BC, SELFPAY ==
[2022-07-11] VITALS (7 sets, daily range): BP systolic 91–154; BP diastolic 42–86; PULSE 81–88; RESP 16–19; TEMP 36.1–37; O2SAT 95–98; BMI 32.1
--- NOTE | 2022-07-11 08:47 | HP.PCM_ITS ---
History and Physical Date of Admission: 07/11/22 Chief Complaint: Colonoscopy Machine Clothing Replacer Required: No Is patient in pain?: No Allergies celecoxib [From Celebrex] Allergy (Verified 05/16/22 15:20) HivesSulfa (Sulfonamide Antibiotics) Allergy (Verified 05/16/22 15:20) Hivesnitrofurantoin Adverse Reaction (Verified 05/16/22 15:20) flu like symptomsSTRONG ANTIBIOTICS Adverse Reaction (Uncoded 05/16/22 15:20) Diarrhea Medications bimatoprost 0.01 % eye drops 1 drp EACH EYE QHS 03/12/19 [History Confirmed 05/16/22] dorzolamide 22.3 mg-timolol 6.8 mg/mL eye drops (Cosopt) 1 drp EACH EYE BID 03/12/19 [History Confirmed 05/16/22] lisinopril 10 mg tablet 20 mg PO DAILY 03/12/19 [History Confirmed 05/16/22] colestipol 1 gram tablet 3 tab PO DAILY 01/27/22 [History Confirmed 05/16/22] hydrocodone-acetaminophen 5-325mg 5mg-325mg 1 tab PO Q6H PRN PRN Pain 3 days #10 TABLETS 01/27/22 [Rx Confirmed 05/16/22] PFSH Medical History?(Updated 05/16/22 @ 15:[address] Miky Rushing MD) Abdominal pain Diarrhea Fatigue Glaucoma Hypertension Hyperthyroidism Rotator cuff (capsule) sprain Sleep apnea Weight loss Surgical History? H/O carpal tunnel repair H/O eye surgery H/O: hysterectomy History of cholecystectomy History of lumpectomy S/P rotator cuff repair Family History? Mother Colon cancer Hypertension Thyroid disorder Social History? household members:? spouse housing:? house Smoking Status:? Never smoker alcohol intake:? current alcohol intake frequency: holidays/special occasions only substance use type:? does not use HPI HPI HPI: 77-year-old female.? On June 27, 2019 I performed a colonoscopy for her.? I utilized 100 mg of Demerol and 4 mg of Versed.? Hemorrhoids and lax anal tone was noted.? A 13 mm polyp was found in the proximal ascending colon.? Saline lift technique with hot snare was used to resect it.? Hemostatic clips were placed.? An additional 6 mm polyp was found in the proximal sigmoid.? And a 11 mm polyp was found in the proximal sigmoid colon semipedunculated.? Multiple diverticula were noted.? Random colonic biopsies were obtained because of history of diarrhea.? Follow-up colonoscopy 3 years recommended.? The ascending colon polyp was tubular adenoma and random colonic biopsies were not pathologic in the proximal sigmoid colon was tubular adenoma and the additional proximal sigmoid polyp was tubular adenoma.? The patient has a family history of the mother who had colon cancer. On today's visit however the patient's driving concern is progressive more severe diarrhea.? She states that her primary care physician put her on colestipol and initially she thought that was helping but now it has become worse and she is reverted back to using as needed Imodium.? She is very much interested in anything that can be done to help remedy her uncontrollable diarrhea. ROS General General: Yes weight change and fatigue; No appetite, colon cancer, breast cancer or weakness Additional Details: Pt has lost 40 pounds HEENT HEENT: Yes eye surgery; No difficulty swallowing, eye injury, swollen glands or hoarseness Endo Endocrine: No thyroid disease, diabetes mellitus, thyroid cancer, Hair loss, heat intolerance or cold intolerance Skin Skin: No rash or changing moles Musc Musculoskeletal: No back problems, arthritis, rheumatoid arthritis, gout or joint pain Cardio Cardiovascular: Yes high blood pressure; No murmur, pacemaker, heart disease, atrial fibrillation, heart attack, heart stent, palpitations, shortness of breat with exertion or chest pain Psych Psychiatric: No depression, anxiety or hearing voices Resp Respiratory: No shortness of breath, Yes sleep apnea, No cough, No COPD, No asthma, No emphysema and No wheezing Gastro Gastrointestinal: No abdominal pain, No nausea or vomiting, Yes diarrhea, No constipation, No blood in stool, No acid reflux, No hemorrhoids, No ulcers, No gallbladder problem and No black,tarry stools Trevor Hematologic: No blood thinners, No blood disorders, No bleeding, No anemia and No blood clots Neuro Neurologic: No system reviewed and no additional complaints, except as documented, No as per HPI, No abnormal gait, No abnormal hearing, No abnormal movements, No abnormal speech, No behavioral changes, No burning sensations, No confusion, No convulsions, No disequilibrium, No dizziness, No localized weakness, No frequent falls, No headache(s), No lack of coordination, No loss of vision, No memory loss, No numbness, No other visual disturbances, No radicular pain, No restless legs, No sensory deficit, No syncope, No tingling, No tremor(s), No weakness and No other Assessment and Plan Assessment and Plan (1) Personal history of colonic polyps: ?Status:?Acute (2) Diarrhea: ?Status:?Acute Plan Although I was tentatively offering the patient a repeat colonoscopy because of her history of polyps with more technically requiring resection it is her chronic diarrhea that is the more driving issue for her at this time.? With that in mind I recommend to her referral to Dr. Curtis Garcia for evaluation for diarrhea.? The patient states that she still would want me to do her colonoscopy but I instructed her she would need to discuss that with GI. She has had an opportunity to ask and have questions answered.? We will make the referral to try to assist. Copy: CRISTY DAVIDSON MD and Dr. Curtis Rushing M.D., F.A.C.S. Patient has been seen by Dr. Curtis Garcia. He offered her a colonoscopy. She preferred that I assist this with her. The request is been made for inspection of the terminal ileum with biopsy as well as random colonic biopsies. We will proceed as noted. Miky Rushing M.D., F.A.C.S.
[2022-07-11] MEDS: Lactated Ringers 1,000 ML 15 ML IV (08:50)
--- NOTE | 2022-07-11 09:45 | COLBX_PTH ---
PATIENT: JOSE RAFAEL LIU LOC: EN U#:[id number] AGE/SX: 77/F ROOM: RE07/11/[address]: Dr. Miky Rushing MD : 1945 BED: DIS: 07/11/2022 SPEC #: [id number] RECD: 07/11/22 10:44 STATUS: TIFFANIE MILIAN #: [id number] MYRNA: 07/11/22 09:[address]: Miky Rushing DEPT: SURGICAL PATHOLOGY RECD BY: Demetria Galarza ENTERED: 07/11/22 11:31 SP TYPE: COLON BX OTHR DR: CRISTY DAVIDSON MD Tissues: A - Ileum, NOS B - COLON BIOPSY C - Sigmoid colon biopsy Procedures: Surgery Specimen Level IV HEADER OPERATION: Colonoscopy (MAC), biopsy PRE-OP DIAGNOSIS: History of colonic polyps, diarrhea TISSUE SUBMITTED: A - Terminal ileum biopsy, B - Random colonic biopsy, C - Mid sigmoid polyp biopsy MICROSCOPIC DIAGNOSIS A. Terminal ileum, biopsy: Fragments of small intestine mucosa, no pathologic diagnosis. B. Colon, random biopsy: Fragments of colonic mucosa, no pathologic diagnosis. C. Mid sigmoid polyp, biopsy: A fragment of colonic mucosa, no pathologic diagnosis. BENJY:isaac 07/12/2022 MICROSCOPIC DESCRIPTION Slides are reviewed. GROSS DESCRIPTION A - Received in fixative is one container labeled with the patient's name and designated terminal ileum biopsy. The specimen consists of multiple irregular fragments of light warner soft tissue that in aggregate measure 1.5 x 0.5 x 0.1 cm. The specimen is totally submitted in one cassette. B - Received in fixative is one container labeled with the patient's name and designated random colonic biopsy. The specimen consists of multiple irregular fragments of light warner soft tissue that in aggregate measure 2 x 0.6 x 0.1 cm. The specimen is totally submitted in one cassette. C - Received in fixative is one container labeled with the patient's name and designated mid sigmoid polyp biopsy. The specimen consists of one irregular fragment of light warner soft tissue that measures 0.3 x 0.3 x 0.1 cm. The specimen is totally submitted in one cassette. / BENJY:isaac 07/11/2022 TC:4 CPT: 90792 x3
--- NOTE | 2022-07-11 10:35 | OP.CCLET_ITS ---
07/11/2022 Curtis Garcia DO [address] [place] [address] Re : Colonoscopy procedure for Carla Patel Dear Dr. Garcia This procedure was performed on Monday, July 11, 2022. My impressions and recommendations are as follows: Impressions : - Hemorrhoids found on perianal exam. - The examined portion of the ileum was normal. Biopsied. - One 4 mm polyp in the mid sigmoid colon, removed with a cold biopsy forceps. Resected and retrieved. - Diverticulosis in the sigmoid colon. - Biopsies were taken with a cold forceps from the entire colon for evaluation of microscopic colitis. Light bilious coloration of colonic fluid Recommendations : - Discharge patient to home. - Resume previous diet. - Continue present medications. - Repeat colonoscopy in 5 years for surveillance based on pathology results. - Telephone my office for pathology results in 1 week. My findings are described in the full procedure note, which is enclosed. If I can be of further assistance, please feel free to contact me at Doctor phone number(s): Work: . Sincerely, Miky Rushing MD 07/11/2022 10:34:56 AM This report has been signed electronically.
--- NOTE | 2022-07-11 10:35 | OP.COLON_ITS ---
Patient Name: Carla Patel Procedure Date: 07/11/2022 10:01 AM Date of : 1945 Age: 77 Procedure: Colonoscopy Indications: Chronic diarrhea Providers: Miky Rushing MD Medicines: See the Anesthesia note for documentation of the administered medications Patient Profile: Last Colonoscopy: June 2019. Complications: No immediate complications. Procedure: Pre-Anesthesia Assessment: - Prior to the procedure, a History and Physical was performed, and patient medications and allergies were reviewed. The patient's tolerance of previous anesthesia was also reviewed. The risks and benefits of the procedure and the sedation options and risks were discussed with the patient. All questions were answered, and informed consent was obtained. Prior Anticoagulants: The patient has taken no previous anticoagulant or antiplatelet agents. ASA Grade Assessment: II - A patient with mild systemic disease. After reviewing the risks and benefits, the patient was deemed in satisfactory condition to undergo the procedure. After I obtained informed consent, the scope was passed under direct vision. Throughout the procedure, the patient's blood pressure, pulse, and oxygen saturations were monitored continuously. The Colonoscope was introduced through the anus and advanced to the terminal ileum. The colonoscopy was performed without difficulty. The patient tolerated the procedure well. The quality of the bowel preparation was good. The terminal ileum and the ileocecal valve were photographed. Scope In: 10:09:36 AM Scope Withdrawal Time 0 hours 13 minutes 5 seconds Scope Out: 10:26:33 AM Total Procedure Duration Time 0 hours 16 minutes 57 seconds Findings: Hemorrhoids were found on perianal exam. The terminal ileum appeared normal. Biopsies were taken with a cold forceps for histology. A 4 mm polyp was found in the mid sigmoid colon. The polyp was sessile. The polyp was removed with a cold biopsy forceps. Resection and retrieval were complete. Multiple diverticula were found in the sigmoid colon. Biopsies for histology were taken with a cold forceps from the entire colon for evaluation of microscopic colitis. Impression: - Hemorrhoids found on perianal exam. - The examined portion of the ileum was normal. Biopsied. - One 4 mm polyp in the mid sigmoid colon, removed with a cold biopsy forceps. Resected and retrieved. - Diverticulosis in the sigmoid colon. - Biopsies were taken with a cold forceps from the entire colon for evaluation of microscopic colitis. Light bilious coloration of colonic fluid Recommendation: - Discharge patient to home. - Resume previous diet. - Continue present medications. - Repeat colonoscopy in 5 years for surveillance based on pathology results. - Telephone my office for pathology results in 1 week. Procedure Code(s): --- Professional --- 86125, Colonoscopy, flexible; with biopsy, single or multiple Diagnosis Code(s): --- Professional --- K64.9, Unspecified hemorrhoids D12.5, Benign neoplasm of sigmoid colon K52.9, Noninfective gastroenteritis and colitis, unspecified K57.30, Diverticulosis of large intestine without perforation or abscess without bleeding CPT copyright 2017 [employer]. All rights reserved. The codes documented in this report are preliminary and upon potato loader review may be revised to meet current compliance requirements. Miky Rushing MD 07/11/2022 10:34:56 AM This report has been signed electronically. Number of Addenda: 0 Note Initiated On: 07/11/2022 10:01 AM
== END 2022-07-11 11:27 | disposition home or self-care (01) ==
LOC: EN 08:34 → AC 08:35
PROVIDERS: PCP Family Medicine; Referring Provider Family Medicine; Visit Provider Surgery
PROC: 0DJD8ZZ Inspection of Lower Intestinal Tract, Via Natural or Artificial Opening Endoscopic (ICD-10-PCS; CPT 45378; principal; 2022-07-11 09:40)
DX: K57.30 Diverticulosis of large intestine without perforation or abscess without bleeding (principal); K64.9 Unspecified hemorrhoids; K63.5 Polyp of colon; K52.9 Noninfective gastroenteritis and colitis, unspecified; G47.30 Sleep apnea, unspecified; I10 Essential (primary) hypertension; Z80.0 Family history of malignant neoplasm of digestive organs; Z86.010 Personal history of colon polyps; Z79.899 Other long term (current) drug therapy
CPT/HCPCS: 45380; 88305; J7120; J2405

== ENCOUNTER 2022-10-25 08:05 | Emergency (ER) | payer MEDICARE, BC, SELFPAY ==
[2022-10-25 08:06] VITALS: BP 180/85; PULSE 98; RESP 14; TEMP 36.5; O2SAT 95; BMI 30.7
--- NOTE | 2022-10-25 08:19 | EDS_ITS ---
HPI HPI - GI History of Present Illness Chief Complaint: Abd Pain Informant: patient Abdominal Pain/Flank Pain Onset: Hours (4) Context: Sudden Onset (Woke her up from sleep) Timing: Continuous Quality: Aching Location: Left Flank (Mostly in the left lower quadrant but laterally as well. No back pain.) Current Severity: Mild Maximum Severity: Moderate Worsened by: Nothing Relieved by: Nothing Nausea/Vomiting/Emesis GI Symptom: Negative for Nausea or Vomiting Diarrhea/Melena/Hematochezia GI Symptom: Negative for Diarrhea, Melena or Hematochezia Associated Symptoms Associated Symptoms: Negative for Dysuria, Frequency, Hematuria or Urgency Narrative Narrative: Sudden onset pain in the left flank/lower quadrant that woke her up from sleep and has been persistent for the past 4 hours, woke up at 4 AM. Has a history of kidney stones, but the last time she experienced pain from them it was in her back and not like this. Had a colonoscopy last year and was told she had a kidney stone on the left side. [place] well when she went to bed last night. [facility] Medical History Abdominal pain Back pain CPAP (continuous positive airway pressure) dependence Diarrhea Easy bruising Fatigue Glaucoma History of edema History of IBS Hypertension Hyperthyroidism Loss of hearing Non-smoker Post-menopausal Rotator cuff (capsule) sprain Sleep apnea Thyroid disease Wears glasses Wears partial dentures Weight loss Home Medications dorzolamide 22.3 mg-timolol 6.8 mg/mL eye drops (Cosopt) 1 drp EACH EYE BID 03/12/19 [History Last Taken Unknown] lisinopril 10 mg tablet 20 mg PO DAILY 03/12/19 [History Last Taken 06/27/19 04:00] bimatoprost 0.01 % eye drops (Lumigan) 1 drp EACH EYE DAILY 07/07/22 [History Last Taken Unknown] brimonidine 0.1 % eye drops (Alphagan P) 1 drp EACH EYE Q8H 07/07/22 [History Last Taken Unknown] prednisolone acetate (PF) 1 % eye drops,suspension 1 drp EACH EYE BID 07/07/22 [History Last Taken Unknown] dicyclomine 10 mg capsule 10 mg PO BID diarrhea #60 caps 09/15/22 [Rx Last Taken Unknown] cephalexin 500 mg capsule 500 mg PO Q6 #40 CAPSULES 10/25/22 [Rx Last Taken Unknown] hydrocodone-acetaminophen 5-325mg 5mg-325mg 1 tab PO Q6H PRN PRN Pain 3 days #10 TABLETS 10/25/22 [Rx Last Taken Unknown] metronidazole 500 mg tablet 500 mg PO Q12H #20 tabs 10/25/22 [Rx Last Taken Unknown] Allergy/AdvReac Type Severity Reaction Status Date / Time celecoxib [From Celebrex] Allergy Hives Verified 10/25/22 08:08 Sulfa (Sulfonamide Allergy Hives Verified 10/25/22 08:08 Antibiotics) nitrofurantoin AdvReac flu like Verified 10/25/22 08:08 symptoms STRONG ANTIBIOTICS AdvReac Diarrhea Uncoded 10/25/22 08:08 Family History (Reviewed 09/01/22 @ 14:03 by Paola Flores [employer]BI[employer] SERVICE RV TECHNICIAN, MOBILE SERVICE RV TECHNICIAN-C) Mother Colon cancer Hypertension Thyroid disorder Surgical History H/O carpal tunnel repair H/O eye surgery H/O: hysterectomy History of cholecystectomy History of lumpectomy Hx of colonoscopy Hx of cystoscopy S/P rotator cuff repair Social History household members: spouse housing: house Smoking Status: Never smoker alcohol intake: current alcohol intake frequency: holidays/special occasions only substance use type: does not use ROS ROS ED Constitutional Constitutional ED: Denies chills or fever(s) Eyes Eyes: Denies change in vision or diplopia ENT ENT ED: Denies rhinorrhea or sore throat Cardiovascular Cardiovascular: Denies chest pain or palpitations Respiratory/Chest Respiratory/Chest: Denies cough or dyspnea Gastrointestinal Gastrointestinal: Reports abdominal pain; Denies diarrhea, nausea or vomiting Genitourinary Genitourinary ED: Denies dysuria or hematuria Musculoskeletal Musculoskeletal: Denies back pain or neck pain Integumentary Denies abscess or rash Neurologic Neurologic: Denies headache(s), paresthesias or weakness Psychiatric Psychiatric: Denies anxiety or suicidal thoughts EXAM Physical Exam Const Vital Signs: 10/25/22 08:06 Temperature 97.7 F L Temperature Source Temporal Pulse Rate 98 Respiratory Rate 14 Blood Pressure 180/85 H Blood Pressure Mean 116 Pulse Ox 95 Oxygen Delivery Method Room Air Positive well nourished, well developed and obese General Appearance ED: well developed and NAD Nutritional Appearance: obese HEENT Reports moist mucous membranes normocephalic and atraumatic Eyes PERRL and EOMs intact bilaterally Neck full ROM and supple Resp normal respiratory effort and clear to auscultation bilaterally Cardio regular rate, regular rhythm and no murmurs GI non-distended GI Narrative: Mild tenderness left lower quadrant only no guarding or rebound, otherwise benign abdomen. No pulsatile mass palpable but limited by obesity. Auscultation: normoactive bowel sounds Palpation: soft Back/Spine no CVA tenderness General Back: other FROM Extremity normal to inspection General Extremety ED: Negative for edema, pulses abnormal or tenderness General Extremity: Negative for edema or pulses abnormal Neuro oriented x3, CN's II-XII intact bilaterally and no sensory deficits noted Sensorium / Orientation: awake and alert Motor Exam: strength 5/5 throughout Skin no rashes or lesions noted and no wounds MDM MDM MDM Narrative Medical decision making narrative: Patient was offered analgesics but declined. Labs, urinalysis, CT abdomen/pelvis without contrast were all obtained, differential includes ureterolithiasis/renal colic/ureteral colic, diverticulitis, less likely large bowel obstruction or other intra-abdominal emergencies such as AAA but that is also possible given her blood pressure 180/85. CT images are consistent with diverticulitis, simple uncomplicated. I reviewed the images and I agree with the radiologist interpretation. Patient is doing well. She was offered admission but she declines and prefers to treat as an outpatient which I think is reasonable given that it is early in the course of this and she is not septic. We will treat her with cephalexin and Flagyl given current recommendations and our local antibiotic gram, there is significant resistance to Unasyn with a local E. coli, making Augmentin less likely to be effective. We discussed reasons to return, she declines an offer for prescription analgesics --although prior to discharge she changed her mind about that so we gave her a prescription for some [place]. Lab Data Attestation: I reviewed the patient's lab results. Labs: Laboratory Results - last 24 hr 10/25/22 10/25/22 10/25/22 08:15 08:19 08:19 WBC 11.5 H RBC 4.76 Hgb 13.6 Hct 42.5 MCV 89.3 MCH 28.6 MCHC 32.0 RDW Std Deviation 41.8 RDW Coeff of Gloria 12.9 Plt Count 269 MPV 10.5 Immature Gran % (Auto) 0.400 Neut % (Auto) 81.0 H Lymph % (Auto) 10.7 L Grady % (Auto) 6.4 Eos % (Auto) 1.3 Baso % (Auto) 0.2 Absolute Neuts (auto) 9.3 H Absolute Lymphs (auto) 1.23 Nucleated RBC % 0 Sodium 138 Potassium 3.4 L Chloride 107 Carbon Dioxide 28.0 Anion Gap 3 L BUN 14 Creatinine 0.75 Estim Creat Clear Calc 34.91 Est GFR (MDRD) Af Amer 97 Est GFR (MDRD) Non-Af 80 BUN/Creatinine Ratio 18.7 Glucose 168 H Calcium 9.2 Urine Color Yellow Urine Clarity Sl. Cloudy Urine pH 7.0 Ur Specific [place] 1.005 Urine Protein Negative Urine Glucose (UA) Normal Urine Ketones Negative Urine Occult Blood 50 H Urine Nitrite Negative Urine Bilirubin Negative Urine Urobilinogen Normal Ur Leukocyte Esterase Negative Urine RBC 0-5 SEEN Urine WBC 0 SEEN Ur Squamous Epith Cells 0-5 SEEN Urine Bacteria 0 SEEN Urine Mucus 0 SEEN Radiography Diagnostic Testing: Clinical Impression(s) from Imaging Studies Abdomen/Pelvis CT 10/25/22 08:19 IMPRESSION: Acute sigmoid diverticulitis. Small amount of free fluid. No free air or fluid collection. Bilateral subcentimeter nonobstructing renal collecting system stones. No ureteral stones. No hydronephrosis. Electronically Signed: Demetrius Starr MD at 9:14 EDT , Discharge Plan Triage Chief Complaint: Abd Pain ED Provider: Osmel Lisa Dx/Rx/DC Orders Clinical Impression: Diverticulitis of sigmoid colon Instructions: ED Diverticulitis Prescriptions: New metronidazole [metronidazole] 500 mg tablet 500 mg PO Q12H Qty: 20 0RF cephalexin [cephalexin] 500 mg capsule 500 mg PO Q6 Qty: 40 0RF hydrocodone-acetaminophen [hydrocodone-acetaminophen] 5-325 mg tablet 1 tab PO Q6H PRN PRN (Reason: Pain) 3 Days Qty: 10 0RF No Action lisinopril 10 MG tablet 20 mg PO DAILY dorzolamide-timolol [Cosopt] 1 DROP bottle 1 drp EACH EYE BID Alphagan P 0.1 % Drops 1 drp EACH EYE Q8H Lumigan 0.01 % Drops 1 drp EACH EYE DAILY prednisolone acetate (PF) 1 % Drops,Suspension 1 drp EACH EYE BID dicyclomine 10 mg capsule 10 mg PO BID Qty: 60 1RF Primary Care Provider: CRISTY DAVIDSON Referrals: CRISTY DAVIDSON MD [Primary Care Provider] - 1-2 Weeks (Or return to the ER if you are not improving by day 5 of antibiotics) Disposition Disposition: Home, Self Care
--- NOTE | 2022-10-25 08:19 | CT_ITS ---
STUDY: CT ABDOMEN AND PELVIS WITHOUT CONTRAST REASON FOR EXAM: Female, 77 years old. Left flank pain RADIATION DOSAGE (If Supplied By Facility): CTDIvol = ( 16.58 ) mGy, DLP = ( 800.12 ) mGycm TECHNIQUE: Transaxial images were obtained from the dome of the diaphragm to the symphysis pubis without oral contrast, and without intravenous contrast. Sagittal and coronal images were reconstructed. Individualized dose optimization techniques were used for this CT. COMPARISON: 06/15/2022 FINDINGS: Evaluation of the abdominal viscera is limited in the absence of intravenous contrast. LOWER THORAX: The visualized lung bases are clear. The visualized portions of the heart and pericardium are within normal limits. GALLBLADDER: The patient is status post cholecystectomy. LIVER: The liver demonstrates an unremarkable unenhanced appearance. SPLEEN: The spleen is normal in size. PANCREAS: The pancreas demonstrates an unremarkable unenhanced appearance. ADRENAL GLANDS: The adrenal glands are within normal limits. KIDNEYS / BLADDER: There are bilateral nonobstructing renal collecting system stones. There are no ureteral stones. There is no hydronephrosis. The urinary bladder is partially distended and appears grossly unremarkable. STOMACH / BOWEL: Normal visualized stomach. There are inflammatory changes in the left lower quadrant adjacent to diverticula in the sigmoid colon. This is consistent with acute sigmoid diverticulitis. There is no bowel obstruction. The appendix is not visualized, but there are no findings to suggest acute appendicitis. VESSELS: The aorta is normal in caliber. PERITONEUM / RETROPERITONEUM: There is a small amount of free fluid. There is no free air, fluid collection or lymphadenopathy. BONES: There are no destructive osseous lesions. SOFT TISSUES: The visualized soft tissues are within normal limits. CT/Abdomen/Pelvis without Cont IMPRESSION: Acute sigmoid diverticulitis. Small amount of free fluid. No free air or fluid collection. Bilateral subcentimeter nonobstructing renal collecting system stones. No ureteral stones. No hydronephrosis. Electronically Signed: Demetrius Starr MD at 9:14 EDT ,
[2022-10-25 08:35] LABS: Bacteria 0 SEEN /hpf (None Seen); Mucous, Urine 0 SEEN /hpf (<or=2+); White Blood Cells 0 SEEN /hpf (0-5)
[2022-10-25 08:38] LABS: Absolute Lymphocyte Count 1.23 X10^3/uL (0.83-4.51); Absolute Neutrophil Count 9.3 X10^3/uL (2.0-7.7); Basophil# 0.02 X10^3/uL; Basophil% 0.2 % (0-1); Eosinophil# 0.15 X10^3/uL; Eosinophils% 1.3 % (0-5); Hematocrit 42.5 % (37-47); Hemoglobin 13.6 g/dL (12.0-15.0); Lymphocyte # 1.23 X10^3/ul (0.83-4.51); Lymphocyte % 10.7 % (19-41); Mean Corpuscular Hgb 28.6 pg (27.0-32.0); Mean Corpuscular Volume 89.3 fL (81-99); Mean Platelet Vol. 10.5 fl (6.2-12.0); Monocyte# 0.73 X10^3/uL; Monocyte% 6.4 % (0-10); NRBC Flagged by Analyzer 0 % (0-5); Neutrophil # 9.29 X10^3/uL (2.7-7.7); Platelet Count 269 K/mm3 (150-450); RBC Distribution Width CV 12.9 % (11.6-14.6); RBC Distribution Width SD 41.8 fl (35.1-43.9); Red Blood Count 4.76 M/mm3 (4.2-5.4); White Blood Count 11.5 K/mm3 (4.4-11.0)
[2022-10-25 08:39] LABS: Color, Urine Yellow (Yellow); Glucose, Dipstick Normal (Normal); Ketone-Dipstick Negative (Negative); Leukocyte Esterase-Dipstick Negative /ul (Negative); Nitrite-Dipstick Negative (Negative); Occult Blood-Urine 50 /ul (Negative); Protein-Dipstick Negative (Negative); Specific Gravity, Urine 1.005 (1.002-1.030); Urine Bilirubin Dipstick Negative (Negative); Urine Clarity Sl. Cloudy (Clear); Urine Urobilinogen Normal (Normal)
[2022-10-25 08:47] LABS: Red Blood Cells-Urine 0-5 SEEN /hpf (0-5); Squamous Epithelial Cells - UA 0-5 SEEN /hpf (5-10)
[2022-10-25 08:51] LABS: Anion Gap 3 (5-15); BUN 14 mg/dL (7-18); BUN/Creat Ratio 18.7 RATIO (10-20); Calcium,Total 9.2 mg/dL (8.5-10.1); Chloride 107 mmol/L (98-107); Creatinine, Serum 0.75 mg/dL (0.55-1.02); EST Glomerular Filtration Rate 80 mL/min (>60); Est Glom Filt Rate - Afr Amer 97 mL/min (>60); Estimated Creatinine Clearance 34.91 ml/min; Glucose 168 mg/dL (74-106); Potassium 3.4 mmol/L (3.5-5.1); Sodium Level 138 mmol/L (136-145)
[2022-10-25] MEDS: Cephalexin 250 MG Capsule 500 MG PO (09:59)
[2022-10-25] MEDS: metroNIDAZOLE 500 MG Tablet PO (09:59)
[2022-10-25 10:00] VITALS: BP 126/74; PULSE 62; RESP 15; O2SAT 98
== END 2022-10-25 10:01 | disposition home or self-care (01) ==
PROVIDERS: Emergency Provider Emergency Medicine; PCP Family Medicine; Visit Provider Emergency Medicine
DX: K57.32 Diverticulitis of large intestine without perforation or abscess without bleeding (principal); G47.30 Sleep apnea, unspecified; E66.9 Obesity, unspecified
CPT/HCPCS: 74176; 80048; 81001; 85025; 99284; A4216

== ENCOUNTER → 2023-06-05 | Outpatient (CLI) | payer MEDICARE, BC, SELFPAY ==
--- NOTE | 2023-06-05 12:30 | BI_ITS ---
MAMMOGRAPHY - BILATERAL SCREENING REASON FOR EXAM: Female, 78 years old. Routine annual screening examination. PERTINENT HISTORY: Non-contributory. History of prior bilateral stereotactic breast biopsies and left excisional breast biopsy. TECHNIQUE: Digital bilateral breast kieran (3D mammographic acquisition) in the CC and MLO projections. 2-D mediolateral oblique (MLO) and craniocaudad (CC) views of both breasts were obtained. CAD: Full Field Digital Mammography with Computer Added Detection was performed. COMPARISON: Comparison is made with prior study May 26, 2022 and May 11, 2021. FINDINGS: Breast Composition: The breasts are heterogeneously dense, which may obscure small masses. There are no dominant masses or suspicious calcifications. There is a 5.2 mm x 6.9 mm well-defined nodule in the central portion of the right breast. Correlation with ultrasound is recommended. A tissue clip marker is seen in the deep upper lateral aspect of the right breast. No other significant abnormalities are identified. BI/SCRN MAMM (CAD)W/KIERAN BILAT IMPRESSION: 5.2 mm x 6.9 mm well-defined nodule in the central portion of the right breast is discussed. Correlation with ultrasound is recommended. ASSESSMENT CATEGORY: BIRADS Category 0: Incomplete. Need additional imaging evaluation. A letter regarding these results will be sent to the patient by the facility within 30 days. Approximately 10% of breast cancers are not detected by mammography. A normal mammogram should not delay biopsy of a clinically suspicious abnormality. [id number] Electronically Signed: Vega Baez MD at 13:38 EST ,
== END | disposition home or self-care (01) ==
LOC: OPBI 12:29
PROVIDERS: PCP Family Medicine; Referring Provider Family Medicine; Visit Provider Family Medicine
DX: Z12.31 Encounter for screening mammogram for malignant neoplasm of breast (principal)
CPT/HCPCS: 77063; 77067

== ENCOUNTER → 2023-06-18 | Outpatient (CLI) | payer MEDICARE, BC, SELFPAY ==
--- NOTE | 2023-06-18 14:25 | US_ITS ---
STUDY: ULTRASOUND BREAST - RIGHT REASON FOR EXAM: Female, 78 years old. Abnormal screening mammogram. TECHNIQUE: Axial and longitudinal images of the RIGHT breast were performed with a high resolution ultrasound transducer. # OF IMAGES: 65 COMPARISON: Comparison is made with prior mammogram dated June 05, 2023. FINDINGS: RIGHT Breast: The upper outer quadrant of the right breast was examined with ultrasound. There is a 6 mm x 6 mm x 3 mm cyst at the 11:00 position (extremities from the nipple. This corresponds to the mammographic findings. There is a 3 mm x 2 mm x 3 mm hypoechoic solid nodule at the 12:00 position breast at 2 cm from nipple. A biopsy is recommended. There is also evidence of dilated ducts. US/Breast Limited Unilateral IMPRESSION: 6 mm x 6 mm x 3 mm cyst at the 11:00 position of the breast at 6 cm from the nipple. 3 mm x 2 mm x 2 mm hypoechoic solid nodule at the 12:00 position of the breast at 2 cm from the nipple. Biopsy recommended. ASSESSMENT CATEGORY: BIRADS Category 4: Suspicious - Biopsy Should Be Considered. A letter regarding these results will be sent to the patient by the facility within 30 days. Electronically Signed: Vega Baez MD at 10:02 EST ,
== END | disposition home or self-care (01) ==
LOC: OPUS 14:24
PROVIDERS: PCP Family Medicine; Referring Provider Family Medicine; Visit Provider Family Medicine
DX: R92.8 Other abnormal and inconclusive findings on diagnostic imaging of breast (principal)
CPT/HCPCS: 76642

== ENCOUNTER → 2023-06-25 | Outpatient (CLI) | payer MEDICARE, BC, SELFPAY ==
--- NOTE | 2023-06-25 09:47 | BI_ITS ---
MAMMOGRAPHY - UNILATERAL DIAGNOSTIC: RIGHT BREAST REASON FOR EXAM: Female, 78 years old. Right breast biopsy. PERTINENT HISTORY: History of bilateral stereotactic breast biopsies. TECHNIQUE: Digital unilateral breast mack (3D mammographic acquisition) in the CC and MLO projections. 2-D mediolateral oblique (MLO) and craniocaudad (CC) views of both breasts were obtained. CAD: Full Field Digital Mammography with Computer Added Detection was performed. COMPARISON: Comparison is made with prior examination June 05, 2023. FINDINGS: Breast Composition: The breasts are heterogeneously dense, which may obscure small masses. A 5.2 mm x 6.9 mm well-defined nodule is seen in the central portion of the right breast. A tissue clip marker is seen in the deep upper lateral aspect of the right breast. This is unchanged. No other significant abnormalities are identified. There has been no significant change since the prior study. BI/DIAG MAMM W/CAD, UNILAT IMPRESSION: Stable unilateral diagnostic mammogram. One year follow-up mammogram recommended. (A) ASSESSMENT CATEGORY: BIRADS Category 2: Benign. A letter regarding these results will be sent to the patient by the facility within 30 days. Approximately 10% of breast cancers are not detected by mammography. A normal mammogram should not delay biopsy of a clinically suspicious abnormality. Electronically Signed: Vega Baez MD at 10:55 EST ,
== END | disposition home or self-care (01) ==
LOC: OPBI 09:47
PROVIDERS: PCP Family Medicine; Referring Provider Surgery; Visit Provider Surgery
DX: R92.8 Other abnormal and inconclusive findings on diagnostic imaging of breast (principal)
CPT/HCPCS: 77065

== ENCOUNTER → 2023-06-25 | Outpatient (CLI) | payer MEDICARE, BC, SELFPAY ==
--- NOTE | 2023-06-25 | IMM_PTH ---
PATIENT: JOSE RAFAEL LIU LOC: [facility] U#:[id number] AGE/SX: 78/F ROOM: RE06/25/[address]: Dr. Miky Rushing MD : 1945 BED: DIS: 06/25/2023 SPEC #: [id number] RECD: 06/26/23 11:04 STATUS: TIFFANIE REKat #: [id number] MYRNA: 06/25/23 00:[address]: Miky Rushing DEPT: IMMUNOHISTOCHEMISTRY RECD BY: India Harding ENTERED: 06/26/23 11:08 SP TYPE: IMMUNO OTHR DR: CRISTY DAVIDSON MD Tissues: Right breast, NOS Procedures: Calponin-1(initial) P40 (add) PHYSICIAN & INSTITUTION [place] [address] SPECIMEN INFORMATION: Tissue Source: Right breast biopsy Clinical Info: Right breast mass Specimen Number: [id number] CPT code: 04817, 91277 METHODOLOGY: Deparaffinized sections of prefer/formalin-fixed tissue or PAP/DQ stained slides are incubated with monoclonal/polyclonal antibodies/oligonucleotide probes. Localization is made via biotin free immunoperoxidase method. Appropriate controls are performed and reacted as expected. Results on target cell population are indicated in the following table: RESULTS: ANTIBODY / CLONE RESULT Calponin-1 (NX033K) positive P40 (BC28) positive These tests were developed and their performance characteristics determined by [facility]. They may not have been cleared or approved by the U.S. Food and Drug Administration. The FDA has determined that such clearance or approval is not necessary. The above immunohistochemical/dualISH markers are ordered and reviewed by the Pathologist. INTERPRETATION: Right breast, core biopsy: Benign breast tissue with changes suggestive of hyalinized intraductal papilloma. SJ:isaac 06/27/2023
--- NOTE | 2023-06-25 09:15 | BRBX_PTH ---
PATIENT: JOSE RAFAEL LIU LOC: [facility] U#:[id number] AGE/SX: 78/F ROOM: RE06/25/[address]: Dr. Miky Rushing MD : 1945 BED: DIS: 06/25/2023 SPEC #: [id number] RECD: 06/25/23 09:59 STATUS: TIFFANIE MILIAN #: [id number] MYRNA: 06/25/23 09:[address]: Miky Rushing DEPT: SURGICAL PATHOLOGY RECD BY: Denia Small ENTERED: 06/25/23 11:00 SP TYPE: BREAST BX OTHR DR: CRISTY DAVIDSON MD Tissues: Right breast, NOS Procedures: Surgery Specimen Level IV HEADER OPERATION: Right breast biopsy PRE-OP DIAGNOSIS: Right breast mass TISSUE SUBMITTED: Right breast tissue MICROSCOPIC DIAGNOSIS Right breast, core biopsy: Fragments of benign breast tissue with changes suggestive of hyalinized intraductal papilloma. Negative for atypia or malignancy. See comment. SJ:isaac 06/27/2023 COMMENT Immunohistochemistry ([id number]) supports the above diagnosis. Correlation with clinical, radiologic findings and appropriate follow up are necessary. Case has been reviewed in consultation with Dr. Walls who concurs with the above diagnosis. IDC:AM MICROSCOPIC DESCRIPTION Slides are reviewed. GROSS DESCRIPTION Received in fixative is one container labeled with the patient's name and designated right breast. The specimen consists of an elongated fragment of warner-yellow fibroadipose tissue measuring 1.0 cm in length and 0.1 cm in diameter. The entire specimen is submitted in one cassette. / BENJY:isaac 06/25/2023 TC:5 Ischemic Time: 1 minute Fixation Time: 10 hours CPT: 69893
== END | disposition home or self-care (01) ==
LOC: LABSPEC 10:01
PROVIDERS: PCP Family Medicine; Referring Provider Surgery; Visit Provider Surgery
DX: N63.10 Unspecified lump in the right breast, unspecified quadrant (principal)
CPT/HCPCS: 88305; 88341; 88342

== ENCOUNTER → 2023-07-02 | Outpatient (CLI) | payer MEDICARE, BC, SELFPAY ==
--- NOTE | 2023-07-02 13:21 | US_ITS ---
STUDY: ULTRASOUND BREAST - RIGHT REASON FOR EXAM: Female, 78 years old. Abnormal screening mammogram. TECHNIQUE: Axial and longitudinal images of the RIGHT breast were performed with a high resolution ultrasound transducer. # OF IMAGES: 57 COMPARISON: Comparison is made with prior sonogram of the right breast dated June 18, 2023 and mammogram dated June 25 FINDINGS: RIGHT Breast: The lower outer quadrant of the right breast was examined with ultrasound. There is a 6 mm x 6 mm x 3 mm hypoechoic nodule at the 8:00 position of the breast at 10 cm from the nipple. Adjacent dilated ducts are seen. US/Breast Limited Unilateral IMPRESSION: 6 mm x 6 mm x 3 mm hypoechoic nodule at the 8:00 position of the breast at 10 cm from nipple. Surrounding dilated ducts are seen. Tissue samples recommended. ASSESSMENT CATEGORY: BIRADS Category 4: Suspicious - Biopsy Should Be Considered. A letter regarding these results will be sent to the patient by the facility within 30 days. Electronically Signed: Vega Baze MD at 14:13 [facility] ,
== END | disposition home or self-care (01) ==
LOC: OPUS 13:20
PROVIDERS: PCP Family Medicine; Referring Provider Surgery; Visit Provider Surgery
DX: R92.8 Other abnormal and inconclusive findings on diagnostic imaging of breast (principal)
CPT/HCPCS: 76642

== ENCOUNTER → 2023-07-30 | Outpatient (CLI) | payer MEDICARE, BC, SELFPAY ==
--- NOTE | 2023-07-30 | IMM_PTH ---
PATHOLOGY RESULTS PATIENT: JOSE RAFAEL LIU LOC: [facility] U#:[id number] AGE/SX: 78/F ROOM: RE07/30/[address]: Dr. Miky Rushing MD : 1945 BED: DIS: 07/30/2023 SPEC #: [id number] RECD: 08/01/23 14:01 STATUS: TIFFANIE REQ #: [id number] MYRNA: 07/30/23 00:[address]: Miky Rushing DEPT: IMMUNOHISTOCHEMISTRY RECD BY: Christie Bruner ENTERED: 08/01/23 14:03 SP TYPE: IMMUNO OTHR DR: CRISTY DAVIDSON MD Tissues: Right breast, NOS Right breast, NOS Procedures: BCL-2 (add) BCL-6 (add) CD138 (add) CD20 (add) CD3 (add) CD45 (add) CD5 (add) CD79A (add) KI-67 (add) P53 (add) Pankeratin (initial) PHYSICIAN & [address] [address] SPECIMEN INFORMATION: Tissue Source: A - Right breast mass 11 o'clock, 11.0 cm from nipple, B - Right breast mass 8 o'clock, 10.0 cm from nipple Clinical Info: Right breast mass Specimen Number: [id number] & B CPT code: 26361 x2, 43755 x20 METHODOLOGY: Deparaffinized sections of prefer/formalin-fixed tissue or PAP/DQ stained slides are incubated with monoclonal/polyclonal antibodies/oligonucleotide probes. Localization is made via biotin free immunoperoxidase method. Appropriate controls are performed and reacted as expected. Results on target cell population are indicated in the following table: RESULTS: ANTIBODY / CLONE RESULT Block A AE1-3 (AE1/AE3/PCK26) negative CD3 (PS1) positive CD5 (SP10) positive CD20 (L26) positive CD45 (RP2/18) positive CD79a (11E3) positive CD138 (B-A38) positive, focal BCL-2 (bcl-2/100/D5) negative BCL-6 (XT376V/A8) negative P53 (DO-7) negative, null pattern Ki-67 (30-9) positive, low Block B AE1-3 (AE1/AE3/PCK26) negative CD3 (PS1) positive CD5 (SP10) positive CD20 (L26) positive CD45 (RP2/18) positive CD79a (11E3) positive CD138 (B-A38) negative, rare BCL-2 (bcl-2/100/D5) positive BCL-6 (AJ783F/A8) negative P53 (DO-7) negative, null pattern Ki-67 (30-9) positive, low These tests were developed and their performance characteristics determined by [facility]. They may not have been cleared or approved by the U.S. Food and Drug Administration. The FDA has determined that such clearance or approval is not necessary. The above immunohistochemical/dualISH markers are ordered and reviewed by the Pathologist. INTERPRETATION: A. Right breast mass 11 o'clock, 11.0 cm from nipple, biopsy: Polytypic (benign) lymphoid tissue. B. Right breast mass 8 o'clock, 10.0 cm from nipple, biopsy: Polytypic (benign) lymphoid tissue. AM:isaac 08/02/2023
--- NOTE | 2023-07-30 13:10 | BRBX_PTH ---
PATHOLOGY RESULTS PATIENT: JOSE RAFAEL LIU LOC: [facility] U#:[id number] AGE/SX: 78/F ROOM: RE07/30/[address]: Dr. Miky Rushing MD : 1945 BED: DIS: 07/30/2023 SPEC #: [id number] RECD: 07/31/23 07:20 STATUS: TIFFANIE MILIAN #: [id number] MYRNA: 07/30/23 13:[address]: Miky Rushing DEPT: SURGICAL PATHOLOGY RECD BY: India Harding ENTERED: 07/31/23 07:21 SP TYPE: BREAST BX OTHR DR: CRISTY DAVIDSON MD Tissues: Right breast, NOS Right breast, NOS Procedures: Surgery Specimen Level IV HEADER OPERATION: Right breast core biopsy x2 PRE-OP DIAGNOSIS: Right breast mass TISSUE SUBMITTED: A - Right breast 11 o'clock, 11.0 cm from nipple, B - Right breast 8 o'clock, 10.0 cm from nipple MICROSCOPIC DIAGNOSIS A. Right breast at 11 o'clock, needle core biopsy: Polytypic lymphoid tissue. See comment. Note: The lesion may represent an intramammary lymph node. B. Right breast at 8 o'clock, needle core biopsy: Polytypic lymphoid tissue. See comment. Note: The lesion may represent an intramammary lymph node. AM:isaac 08/01/2023 COMMENT A & B. Immunohistochemistry ([id number]) supports the above diagnosis. Clinical correlation is suggested. Case has been reviewed in consultation with Dr. Andujar who concurs with the above diagnosis. IDC:[id number] MICROSCOPIC DESCRIPTION Slides are reviewed. GROSS DESCRIPTION A - Received in fixative is one container labeled with the patient's name and designated right breast 11 o'clock, 11.0 cm from nipple breast. The specimen consists of multiple elongated fragments of warner-yellow fibroadipose tissue that in aggregate measure 1.5 x 0.3 x 0.1 cm. The entire specimen is submitted in one cassette. B - Received in fixative is one container labeled with the patient's name and designated right breast 10 o'clock, 11.0 cm from nipple breast. The specimen consists of multiple elongated fragments of warner-yellow fibroadipose tissue that in aggregate measure 1.2 x 0.5 x 0.1 cm. The entire specimen is submitted in one cassette. / BENJY:isaac 07/31/2023 TC:5 CPT: 62584 x2
--- NOTE | 2023-07-30 14:06 | BI_ITS ---
MAMMOGRAPHY - UNILATERAL DIAGNOSTIC: RIGHT BREAST REASON FOR EXAM: Female, 78 years old. Postbiopsy clip. PERTINENT HISTORY: Post biopsy examination. TECHNIQUE: Digital unilateral breast mack (3D mammographic acquisition) in the CC and MLO projections. 2-D mediolateral oblique (MLO) and craniocaudad (CC) views of both breasts were obtained. CAD: Full Field Digital Mammography with Computer Added Detection was performed. COMPARISON: Comparison is made with prior mammogram dated June 05, 2023. FINDINGS: Breast Composition: The breasts are heterogeneously dense, which may obscure small masses. A tissue clip marker is seen within the 5.2 mm nodule in the upper lateral aspect of the right breast. A tissue clip marker is also seen along the anterior upper lateral aspect of the right breast. No other significant abnormalities are identified. BI/DIAG MAMM W/CAD, UNILAT IMPRESSION: Stable unilateral diagnostic mammogram. One year follow-up mammogram recommended. (A) ASSESSMENT CATEGORY: BIRADS Category 2: Benign. A letter regarding these results will be sent to the patient by the facility within 30 days. Approximately 10% of breast cancers are not detected by mammography. A normal mammogram should not delay biopsy of a clinically suspicious abnormality. Electronically Signed: Vega Baez MD at 14:35 EST ,
--- OUTSIDE RECORDS SUMMARY | 2023-07-30 15:13 | XMS RPT_ITS | CCD ---
Author Name Unknown Address [address] [place] [address] Organization [facility] Care Team Providers Care Technical Stenographer Name Role Phone Mehrdad Rojas Unavailable LEVON MAN Attending Unavailable SELF, SELF Referring Unavailable DARMODYLEVON M Attending Unavailable OSMANYODYLEVON M Referring Unavailable DARMODYLEVON Attending Unavailable SELF, SELF Referring Unavailable MEHRDAD ROJAS Primary Care Unavailable Mehrdad Rojas Primary Care Provider Mehrdad Rojas Unavailable Unavailable Mehrdad Rojas Unavailable Unavailable Mehrdad Rojas Primary Care Provider Mehrdad Rojas Primary Care Provider Mehrdad Rojas Unavailable Unavailable Unavailable Mehrdad Rojas MD Primary Care Provider Mehrdad Rojas MD Primary Care Provider Stuart SORIANO, Cristy Bryan Primary Care Pro vider Mehrdad Rojas MD Primary Care Provider Miky Rai Unavailable Cristy Davidson MD Primary Care Pro vider MEHRDAD ROJAS Primary Care Unavailable DARCIE IBRAHIM Attending Unava ilable MEHRDAD ROJAS Primary Care Unavailable DARCIE IBRAHIM Attending Unava ilable MEHRDAD ROJAS Primary Care Unavailable CIRILO SUH Attending Unavailable CRISTY DAVIDSON Primary Care Carlotta vailable Mehrdad Rojas MD Primary Care Provider Armaan Savage Miky Unavailable Crystal SORIANO, Mehrdad Warren Primary Care Provider Cristy Davidson MD Rangel Mounir Primary Care Pro vider Mehrdad Rojas Primary Care Provider Mehrdad Rojas Primary Care Provider Miky Rai Unavailable Mehrdad Rojas Primary Care Provider DIAMOND BIGGS Attending Unavailable MEHRDAD ROJAS Primary Care Unavailable DIAMOND BIGGS Attending Unavailable MEHRDAD ROJAS Primary Care Unavailable BOB BARNES Attending Unavailable STUART, CRISTY RANGEL MOUNIR Referring Carlotta vailable STUART, CRISTY RANGEL MOUNIR Admitting Carlotta vailable STUART, CRISTY RANGEL MOUNIR Primary Care Carlotta vailable STUART, CRISTY RANGEL MOUNIR Primary Care Carlotta vailable STUART, CRISTY RANGEL MOUNIR Referring Carlotta vailable STUART, CRISTY RANGEL MOUNIR Admitting Carlotta vailable FRASER, KAILEY Attending Unavailable BOB BARNES Attending Unavailable STUART, CRISTY RANGEL MOUNIR Referring Carlotta vailable STUART, CRISTY RANGEL MOUNIR Admitting Carlotta vailable STUART, CRISTY RANGEL MOUNIR Primary Care Carlotta vailable FRASER, KAILEY Attending Unavailable STUART, CRISTY RANGEL MOUNIR Admitting Carlotta vailable STUART, CRISTY RANGEL MOUNIR Referring Carlotta vailable STUART, CRISTY RANGEL MOUNIR Primary Care Carlotta vailable BOB BARNES Attending Unavailable STUART, CRISTY RANGEL MOUNIR Admitting Carlotta vailable STUART, CRISTY RANGEL MOUNIR Referring Carlotta vailable STUART, CRISTY RANGEL MOUNIR Primary Care Carlotta vailable BOB BARNES Attending Unavailable STUART, CRISTY RANGEL MOUNIR Admitting Carlotta vailable STUART, CRISTY RANGEL MOUNIR Referring Carlotta vailable STUART, CRISTY RANGEL MOUNIR Primary Care Carlotta vailable STUART, CRISTY RANGEL MOUNIR Admitting Carlotta vailable STUART, CRISTY RANGEL MOUNIR Referring Carlotta vailable STUART, CRISTY RANGEL MOUNIR Primary Care Carlotta vailable DEB HERMAN Attending Unavailable FRASERKAILEY HAMPTON Attending Unavailable STUART, CRISTY RANGEL MOUNIR Admitting Carlotta vailable STUART, CRISTY RANGEL MOUNIR Referring Carlotta vailable STUART, CRISTY RANGEL MOUNIR Primary Care Carlotta vailable STUART, CRISTY RANGEL MOUNIR Primary Care Carlotta vailable STUART, CRISTY RANGEL MOUNIR Referring Carlotta vailable STUART, CRISTY RANGEL MOUNIR Admitting Carlotta vailable BERTHA ALONSO Attending Unavailable STUART, CRISTY RANGEL MOUNIR Primary Care Carlotta vailable STUART, CRISTY RANGEL MOUNIR Admitting Carlotta vailable STUART, CRISTY RANGEL MOUNIR Primary Care Carlotta vailable STUART, CRISTY RANGEL MOUNIR Admitting Carlotta vailable STUART, CRISTY RANGEL MOUNIR Primary Care Carlotta vailable STUART, CRISTY RANGEL MOUNIR Referring Carlotta vailable BOB BARNES Attending Unavailable STUART, CRISTY RANGEL MOUNIR Primary Care Carlotta vailable STUART, CRISTY RANGEL MOUNIR Referring Carlotta vailable STUART, CRISTY RANGEL MOUNIR Admitting Carlotta vailable STUART, CRISTY RANGEL MOUNIR Attending Carlotta vailable STUART, CRISTY RANGEL MOUNIR Primary Care Carlotta vailable STUART, CRISTY RANGEL MOUNIR Referring Carlotta vailable STUART, CRISTY RANGEL MOUNIR Referring Carlotta vailable STUART, CRISTY RANGEL MOUNIR Primary Care Carlotta vailable STUART, CRISTY RANGEL MOUNIR Primary Care Carlotta vailable STUART, CRISTY RANGEL MOUNIR Referring Carlotta vailable STUART, CRISTY RANGEL MOUNIR Admitting Carlotta vailable KAILEY FRASER Attending Unavailable STUART, CRISTY RANGEL MOUNIR Primary Care Carlotta vailable STUART, CRISTY RANGEL MOUNIR Attending Carlotta vailable STUART, CRISTY RANGEL MOUNIR Primary Care Carlotta vailable STUART, CRISTY RANGEL MOUNIR Attending Carlotta vailable STUART, CRISTY RANGEL MOUNIR Attending Carlotta vailable STUART, CRISTY RANGEL MOUNIR Primary Care Carlotta vailable STUART, CRISTY RANGEL MOUNIR Attending Carlotta vailable STUART, CRISTY RANGEL MOUNIR Primary Care Carlotta vailable STUART, CRISTY RANGEL MOUNIR Primary Care Carlotta vailable STUART, CRISTY RANGEL MOUNIR Attending Carlotta vailable STUART, CRISTY RANGEL MOUNIR Primary Care Carlotta vailable STUART, CRISTY RANGEL MOUNIR Attending Carlotta vailable SUTART, CRISTY RANGEL MOUNIR Primary Care Carlotta vailable ISSA CORTES Attending Unavailable STUART, CRISTY RANGEL MOUNIR Primary Care Carlotta vailable ISSA CORTES Attending Unavailable STUART, CRISTY RANGEL MOUNIR Primary Care Carlotta vailable ISSA CORTES Attending Unavailable STUART, CRISTY RANGEL MOUNIR Primary Care Carlotta vailable SALSGHODA MICHELE Attending Unavailable STUART, CRISTY RANGEL MOUNIR Primary Care Carlotta vailable ISSA CORTES Attending Unavailable STUART, CRISTY RANGEL MOUNIR Primary Care Carlotta vailable ISSA CORTES Attending Unavailable STUART, CRISTY RANGEL MOUNIR Primary Care Carlotta vailable STUART, CRISTY RANGEL MOUNIR Attending Carlotta vailable STUART, CRISTY RANGEL MOUNIR Primary Care Carlotta vailable DIAMOND NAQVI Attending Unavailable STUART, CRISTY RANGEL MOUNIR Attending Carlotta vailable STUART, CRISTY RANGEL MOUNIR Primary Care Carlotta vailable STUART, CRISTY RANGEL MOUNIR Primary Care Carlotta vailable KARLIE NEW Attending Unavailabl e MEHRDAD ROJAS Primary Care Unavailable KARLIE NEW Referring Unavailabl e KARLIE NEW Attending Unavailabl e KARLIE NEW Attending Unavailabl e Allergies Allergy Classification Reported Allergen(s) Allergy Type Date of Onset Reaction(s) Facility NITROFURANTOIN, MACROCRYSTALS / Nitrofurantoin, Monohydrate (6 sources) NITROFURANTOIN, MACROCRYSTALS / Nitrofurantoin, Monohydrate; Translations: [Macrobid] Drug Allergy Fever, Drowsiness, Other [facility] Work Phone: Sulfonamides (antibiotic) (7 sources) Sulfonamides (Antibiotic); Translations: [Sulfa Drugs] Drug Allergy 08-08-19 21 [facility] (20 sources) Amoxicillin / Clavulanate; Translations: [AMOXICILLIN-POT CLAVULANATE] Drug Allergy 03-14-20 13 GI Intolerance, Nausea And Vomiting, GI Upset [facility] Work Phone: (20 sources) Nitrofurantoin Drug Allergy 07-10-20 12 Unknown [facility] Work Phone: (11 sources) Sulfonamides (Antibiotic) Propensity to adverse reactions to drug 02-02-20 16 [facility] Work Phone: (7 sources) Sulfonamides (Antibiotic); Translations: [Sulfa Drugs] Allergy to drug (finding) [facility] Work Phone: (20 sources) Sulfonamides (Antibiotic); Translations: [SULFA (SULFONAMIDE ANTIBIOTICS)] Propensity to adverse reactions to drug 09-26-19 12 [facility] (20 sources) NITROFURANTOIN, MACROCRYSTALS / Nitrofurantoin, Monohydrate; Translations: [Macrobid] Drug Allergy 07-10-20 12 Other (See Comments), Unknown, Fever, GI Intolerance, GI Upset [facility] Work Phone: (20 sources) Grass pollen; Translations: [GRASS POLLEN] Propensity to adverse reactions 08-21-19 [facility] Work Phone: (20 sources) Pollen; Translations: [POLLEN] Propensity to adverse reactions 08-21-19 [facility] Work Phone: (20 sources) Tree; Translations: [TREES] Propensity to adverse reactions 08-21-19 [facility] Work Phone: (4 sources) NITROFURANTOIN MONOHYD/M-CRYST; Translations: [NITROFURANTOIN MONOHYD/M-CRYST] Propensity to adverse reactions to drug (disorder) 07-10-[address] [facility] (3 sources) celecoxib Drug Allergy 05-18-20 [facility] (3 sources) Pollen Propensity to adverse reactions 02-02-20 [facility] (3 sources) Sulfamethoxazole / Trimethoprim Drug Allergy 02-02-20 [facility] (3 sources) Sulfonamides (Antibiotic) Drug Intolerance 09-26-19 [facility] (3 sources) Tree Extract Propensity to adverse reactions 02-02-20 [facility] Medications Current Medications Medication Drug Class(es) Dates Sig (Normalized) Sig (Original) aspirin 81 mg chewable tablet (20 sources) Platelet Aggregation Inhibitor, Nonsteroidal Anti-inflammatory Drug Start: 08-24-2022 End: 08-24-2023 aspirin 81 mg chewable tablet Indications: Right leg weakness Chew and Swallow 1 (one) tablet (81 mg total) daily . 30 tablet 11 08/24/2022 08/24/2023 Active betamethasone 0.5 mg/ml / clotrimazole 10 mg/ml topical cream (11 sources) Azole Antifungal, Corticosteroid Start: 09-29-2022 End: 09-29-2023 clotrimazole-bet amethasone (Lotrisone) cream Indications: Eczema, unspecified type Apply topically 2 (two) times a day . 30 g 0 09/29/2022 09/29/2023 Active bifidobacterium animalis [id number] unt / lactobacillus acidophilus [id number] unt oral capsule (3 sources) Probiotic Product (Probiotic Mature Adult) capsule Take by mouth. 0 Active bromfenac 0.7 mg/ml ophthalmic solution (20 sources) Nonsteroidal Anti-inflammatory Drug Start: 10-07-2021 bromfenac (Prolensa) 0.07 % Drop Completed/Discontinued Medications Medication Drug Class(es) Dates Sig (Normalized) Sig (Original) amLODIPine 5 mg oral tablet (1 source) Dihydropyridine Calcium Channel Mike Start: 10-31-2022 End: 12-12-2022 take 1 tablet by mouth once daily amLODIPine (NORVASC) 5 MG tablet Indications: Primary hypertension Take 1 (one) tablet (5 mg total) by mouth daily . 30 tablet 11 10/31/2022 12/12/2022 Discontinued atropine sulfate 10 mg/ml ophthalmic solution (1 source) Anticholinergic, Cholinergic Muscarinic Antagonist Start: 06-02-2021 take 1 drop(s) into the eye(s) twice daily atropine 1 % ophthalmic solution Use 1 Drop in the right eye twice daily. 0 06/02/2021 Active Problems Active Problems Problem Classification Problem Date Documented Da te Episodic/Chronic Cataract (14 sources) Nuclear senile cataract; Translations: [Age-related nuclear cataract, unspecified eye] Onset: 05-05-2016 05-05-2016 Chronic Diabetes mellitus without complication (20 sources) Type 2 diabetes mellitus; Translations: [Diabetes mellitus without mention of complication, type II or unspecified type, not stated as uncontrolled] Onset: 05-14-2020 Chronic Diabetes mellitus without complication (4 sources) Hyperglycemia; Translations: [Hyperglycemia, unspecified] Onset: 05-14-2020 05-14-2020 Episodic Diverticulosis and diverticulitis (20 sources) Diverticulosis of colon; Translations: [Diverticulosis of large intestine without perforation or abscess without bleeding] Onset: 07-06-2008 09-07-2020 Chronic Essential hypertension (20 sources) Hypertensive disorder; Translations: [Unspecified essential hypertension] Onset: 12-12-2018 Chronic Glaucoma (20 sources) Glaucoma; Translations: [Unspecified glaucoma] Onset: 10-02-2012 10-02-2012 Chronic Immunizations and screening for infectious disease (9 sources) Patient encounter status; Translations: [Other specified vaccination] Onset: 04-18-2023 Episodic Nonspecific chest pain (1 source) Chest pain; Translations: [Chest pain, unspecified] Episodic Nutritional deficiencies (13 sources) Vitamin D deficiency; Translations: [Unspecified vitamin D deficiency] Chronic Other aftercare (3 sources) Surgical follow-up; Translations: [Encounter for follow-up examination after completed treatment for conditions other than malignant neoplasm] Episodic Other connective tissue disease (13 sources) Weakness of right leg; Translations: [Other symptoms and signs involving the musculoskeletal system] Onset: 08-24-2022 Episodic Other gastrointestinal disorders (20 sources) Irritable bowel syndrome; Translations: [Irritable bowel syndrome] Onset: 06-28-2022 Chronic Other gastrointestinal disorders (2 sources) Diarrhea, unspecified; Translations: [Diarrhea, unspecified] Onset: 07-03-2023 Episodic Other injuries and conditions due to external causes (2 sources) At low risk for fall; Translations: [History of falling] Episodic Other lower respiratory disease (13 sources) Chest pain on breathing; Translations: [Painful respiration] Episodic Other nutritional; endocrine; and metabolic disorders (7 sources) Obesity, unspecified; Translations: [Obese class II] Onset: 07-12-2018 07-12-2018 Chronic Other nutritional; endocrine; and metabolic disorders (20 sources) Body mass index 30+ - obesity; Translations: [Obesity, unspecified] Onset: 03-14-2021 03-14-2021 Chronic Other nutritional; endocrine; and metabolic disorders (4 sources) Obese class II; Translations: [Obesity, Class II, BMI 35-39.9] Onset: 07-12-2018 07-12-2018 Other screening for suspected conditions (not mental disorders or infectious disease) (20 sources) Mammography abnormal; Translations: [Other abnormal and inconclusive findings on diagnostic imaging of breast] Onset: 08-21-2006 08-21-2006 Episodic Other skin disorders (2 sources) Actinic keratosis; Translations: [Actinic keratosis] Onset: 02-28-2023 02-28-2023 Episodic Other skin disorders (1 source) Actinic keratosis; Translations: [Actinic keratosis] Onset: 02-28-2023 Episodic Other upper respiratory infections (1 source) Acute upper respiratory infection; Translations: [Acute upper respiratory infection, unspecified] 03-21-2023 Episodic Prolapse of female genital organs (20 sources) Cystocele; Translations: [Cystocele, unspecified] Onset: 11-22-2021 Chronic Residual codes; unclassified (13 sources) Obstructive sleep apnea of adult; Translations: [Obstructive sleep apnea (adult)(pediatric)] Chronic Residual codes; unclassified (20 sources) Obstructive sleep apnea syndrome; Translations: [Obstructive sleep apnea (adult) (pediatric)] Onset: 07-16-2011 12-12-2018 Chronic Retinal detachments; defects; vascular occlusion; and retinopathy (20 sources) Cystoid macular edema of right retina; 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, right eye] Onset: 12-30-2021 Chronic Thyroid disorders (20 sources) Graves' disease; 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] Onset: 05-05-2016 07-12-2018 Chronic Unclassified (2 sources) Thyroid Problem; Translations: [Thyroid Problem] Onset: 10-29-2018 Unclassified (2 sources) New Patient; Translations: [New Patient] Onset: 07-12-2018 Unclassified (9 sources) COVID-19 virus infection; Translations: [COVID-19] Onset: 08-09-2020 08-09-2020 Unclassified (2 sources) Low back pain, unspecified; Translations: [Low back pain, unspecified] Onset: 08-24-2022 Unclassified (2 sources) 06/12/2023 [facility] Onset: 06-12-2023 Unclassified (1 source) Cough, unspecified; Translations: [Cough, unspecified] Onset: 04-21-2022 Unclassified (1 source) Acute cough; Translations: [Acute cough] Onset: 04-21-2022 Urinary tract infections (20 sources) Recurrent urinary tract infection; Translations: [Urinary tract infection, site not specified] Onset: 08-24-2022 Episodic Past or Other Problems Problem Classification Problem Date Documented Date Episodic/Chronic Abdominal pain (20 sources) Lower abdominal pain; Translations: [Abdominal pain, other specified site] Onset: 10-24-2021 Episodic Allergic reactions (15 sources) Eczema; Translations: [Dermatitis, unspecified] Onset: 09-29-2022 Episodic Congestive heart failure; nonhypertensive (20 sources) Congestive heart failure; Translations: [Congestive heart failure, unspecified] Onset: 03-14-2021 Resolved: 09-29-2022 03-14-2021 Chronic Genitourinary symptoms and ill-defined conditions (16 sources) Dysuria; Translations: [Dysuria] Onset: 08-21-2022 Episodic Hemorrhoids (2 sources) Internal hemorrhoids; Translations: [Other hemorrhoids] Onset: 07-06-2008 07-06-2008 Episodic Neoplasms of unspecified nature or uncertain behavior (3 sources) Neoplasm of uncertain behavior of skin; Translations: [Neoplasm of uncertain behavior of skin] Onset: 10-18-2022 Episodic Other and unspecified benign neoplasm (2 sources) History of polyp of colon; Translations: [Personal history of colonic polyps] Onset: 01-04-2016 01-04-2016 Episodic Other connective tissue disease (15 sources) Other symptoms and signs involving the musculoskeletal system; Translations: [Other musculoskeletal symptoms referable to limbs] Onset: 08-24-2022 08-24-2022 Episodic Other infections; including parasitic (20 sources) Personal history of other infectious and parasitic diseases; Translations: [History of COVID-19] Onset: 09-07-2020 09-07-2020 Episodic Other injuries and conditions due to external causes (2 sources) History of falling; Translations: [History of falling] Onset: 09-29-2022 Episodic Other lower respiratory disease (20 sources) Cough; Translations: [Cough] Onset: 04-21-2022 Episodic Other skin disorders (20 sources) Loss of hair; Translations: [Nonscarring hair loss, unspecified] Onset: 06-28-2022 Episodic Other skin disorders (2 sources) Nonscarring hair loss, unspecified; Translations: [Nonscarring hair loss, unspecified] Onset: 06-27-2022 Episodic Pleurisy; pneumothorax; pulmonary collapse (2 sources) Pleurisy; Translations: [Pleurisy] Onset: 03-14-2021 03-14-2021 Episodic Residual codes; unclassified (20 sources) Family history of malignant neoplasm of gastrointestinal tract; Translations: [Family history of malignant neoplasm of digestive organs] Onset: 06-26-2008 06-26-2008 Episodic Residual codes; unclassified (5 sources) Statin declined; Translations: [Procedure and treatment not carried out because of patient's decision for unspecified reasons] Onset: 01-30-2023 01-30-2023 Episodic Residual codes; unclassified (2 sources) Procedure and treatment not carried out because of patient's decision for unspecified reasons; Translations: [Procedure and treatment not carried out because of patient's decision for unspecified reasons] Onset: 01-30-2023 Episodic Residual codes; unclassified (2 sources) Pain, unspecified; Translations: [Pain, unspecified] Onset: 10-04-2022 Episodic Spondylosis; intervertebral disc disorders; other back problems (20 sources) Chronic thoracic back pain; Translations: [Pain in thoracic spine] Onset: 02-21-2022 Episodic Unclassified (1 source) Patient encounter status; Translations: [Medicare annual wellness visit, initial] Unclassified (2 sources) Low back pain, unspecified; Translations: [Low back pain, unspecified] Onset: 08-24-2022 Unclassified (1 source) Cough, unspecified; Translations: [Cough, unspecified] Onset: 10-04-2022 Unclassified (1 source) Acute cough; Translations: [Acute cough] Onset: 10-04-2022 Viral infection (20 sources) Disease caused by 2019-nCoV; Translations: [COVID-19] Onset: 08-09-2020 08-09-2020 Episodic Results Test Name Value Interpretation Reference Range Facil ity Vital Signs Date Time Vital Sign Value Performing Clinician Facility 04-02-2023 13:29-0400 Body height 152.4 cm Cristy Davidson MD Work Phone: [facility] 04-02-2023 13:29-0400 Body mass index (BMI) [Ratio] 30.47 kg/m2 Cristy Davidson MD Work Phone: [facility] 04-02-2023 13:29-0400 Body temperature 98.91 [degF] Cristy Davidson MD Work Phone: [facility] 04-02-2023 13:29-0400 Body weight 70.76 kg Cristy Davidson MD Work Phone: [facility] 04-02-2023 13:29-0400 Diastolic blood pressure 88 mm[Hg] Cristy Davidson MD Work Phone: [facility] 04-02-2023 13:29-0400 Heart rate 88 /min Cristy Davidson MD Work Phone: [facility] 04-02-2023 13:29-0400 Respiratory rate 16 /min Cristy Davidson MD Work Phone: [facility] 04-02-2023 13:29-0400 SaO2% (BldA) [Mass fraction] 97 % Cristy Davidson MD Work Phone: [facility] 04-02-2023 13:29-0400 Systolic blood pressure 136 mm[Hg] Cristy Davidson MD Work Phone: [facility] 03-21-2023 13:42-0400 Body temperature 99.39 [degF] Lucia Packer OIL PLANT OPERATOR.OCCUPATIONAL THERAPY INSTRUCTOR Work Phone: [facility] 03-21-2023 13:42-0400 Body weight 71.94 kg Lucia Packer OIL PLANT OPERATOR.OCCUPATIONAL THERAPY INSTRUCTOR Work Phone: [facility] 03-21-2023 13:42-0400 Diastolic blood pressure 80 mm[Hg] Lucia Packer OIL PLANT OPERATOR.OCCUPATIONAL THERAPY INSTRUCTOR Work Phone: [facility] 03-21-2023 13:42-0400 Heart rate 81 /min Lucia Packer OIL PLANT OPERATOR.OCCUPATIONAL THERAPY INSTRUCTOR Work Phone: [facility] 03-21-2023 13:42-0400 Respiratory rate 18 /min Lucia Packer OIL PLANT OPERATOR.OCCUPATIONAL THERAPY INSTRUCTOR Work Phone: [facility] 03-21-2023 13:42-0400 SaO2% (BldA) [Mass fraction] 97 % Lucia Packer OIL PLANT OPERATOR.OCCUPATIONAL THERAPY INSTRUCTOR Work Phone: [facility] 03-21-2023 13:42-0400 Systolic blood pressure 122 mm[Hg] Lucia Packer OIL PLANT OPERATOR.OCCUPATIONAL THERAPY INSTRUCTOR Work Phone: [facility] 03-09-2023 14:46-0400 Body temperature 98.8 [degF] Lucia Packer OIL PLANT OPERATOR.OCCUPATIONAL THERAPY INSTRUCTOR Work Phone: [facility] 03-09-2023 14:46-0400 Body weight 72.94 kg Lucia Packer OIL PLANT OPERATOR.OCCUPATIONAL THERAPY INSTRUCTOR Work Phone: [facility] 03-09-2023 14:46-0400 Diastolic blood pressure 86 mm[Hg] Lucia Packer OIL PLANT OPERATOR.OCCUPATIONAL THERAPY INSTRUCTOR Work Phone: [facility] 03-09-2023 14:46-0400 Heart rate 86 /min Lucia Packer OIL PLANT OPERATOR.OCCUPATIONAL THERAPY INSTRUCTOR Work Phone: [facility] 03-09-2023 14:46-0400 Respiratory rate 18 /min Lucia Packer OIL PLANT OPERATOR.OCCUPATIONAL THERAPY INSTRUCTOR Work Phone: [facility] 03-09-2023 14:46-0400 SaO2% (BldA) [Mass fraction] 97 % Luciacesar Gallogs OIL PLANT OPERATOR.OCCUPATIONAL THERAPY INSTRUCTOR Work Phone: [facility] 03-09-2023 14:46-0400 Systolic blood pressure 146 mm[Hg] Lucia Packer OIL PLANT OPERATOR.OCCUPATIONAL THERAPY INSTRUCTOR Work Phone: [facility] 12-12-2022 11:18-0400 Diastolic blood pressure 89 mm[Hg] Cristy Davidson MD Work Phone: [facility] 12-12-2022 11:18-0400 Heart rate 85 /min Cristy Davidson MD Work Phone: [facility] 12-12-2022 11:18-0400 Systolic blood pressure 150 mm[Hg] Cristy Davidson MD Work Phone: [facility] 12-12-2022 11:13-0400 Body height 152.4 cm Cristy Davidson MD Work Phone: [facility] 12-12-2022 11:13-0400 Body mass index (BMI) [Ratio] 30.86 kg/m2 Cristy Davidson MD Work Phone: [facility] 12-12-2022 11:13-0400 Body temperature 98.4 [degF] Cristy Davidson MD Work Phone: [facility] 12-12-2022 11:13-0400 Body weight 71.67 kg Cristy Davidson MD Work Phone: [facility] 12-12-2022 11:13-0400 Respiratory rate 16 /min Crsity Davidson MD Work Phone: [facility] 12-12-2022 11:13-0400 SaO2% (BldA) [Mass fraction] 95 % Cristy Davidson MD Work Phone: [facility] 09-29-2022 12:16-0400 Diastolic blood pressure 90 mm[Hg] Cristy Davidson MD Work Phone: [facility] 09-29-2022 12:16-0400 Heart rate 78 /min Cristy Davidson MD Work Phone: [facility] 09-29-2022 12:16-0400 Systolic blood pressure 161 mm[Hg] Cristy Davidson MD Work Phone: [facility] 09-29-2022 12:15-0400 Body height 152.4 cm Cristy Davidson MD Work Phone: [facility] 09-29-2022 12:15-0400 Body mass index (BMI) [Ratio] 31.44 kg/m2 Cirsty Davidson MD Work Phone: [facility] 09-29-2022 12:15-0400 Body temperature 98.29 [degF] Cristy Davidson MD Work Phone: [facility] 09-29-2022 12:15-0400 Body weight 73.03 kg Cristy Davidson MD Work Phone: [facility] 09-29-2022 12:15-0400 Respiratory rate 16 /min Cristy Davidson MD Work Phone: [facility] 09-29-2022 12:15-0400 SaO2% (BldA) [Mass fraction] 98 % Cristy Davidson MD Work Phone: [facility] 08-24-2022 11:48-0500 Diastolic blood pressure 97 mm[Hg] Cristy Davidson MD Work Phone: [facility] 08-24-2022 11:48-0500 Heart rate 75 /min Cristy Davidson MD Work Phone: [facility] 08-24-2022 11:48-0500 Systolic blood pressure 175 mm[Hg] Cristy Davidson MD Work Phone: [facility] 08-24-2022 11:46-0500 Body height 152.4 cm Cristy Davidson MD Work Phone: [facility] 08-24-2022 11:46-0500 Body mass index (BMI) [Ratio] 32.03 kg/m2 Cristy Davidson MD Work Phone: [facility] 08-24-2022 11:46-0500 Body temperature 98.4 [degF] Cristy Davidson MD Work Phone: [facility] 08-24-2022 11:46-0500 Body weight 74.39 kg Cristy Davidson MD Work Phone: [facility] 08-24-2022 11:46-0500 Respiratory rate 16 /min Cristy Davidson MD Work Phone: [facility] 08-24-2022 11:46-0500 SaO2% (BldA) [Mass fraction] 97 % Cristy Davidson MD Work Phone: [facility] 06-28-2022 11:34-0500 Body height 152.4 cm Cristy Davidson MD Work Phone: [facility] 06-28-2022 11:34-0500 Body mass index (BMI) [Ratio] 31.83 kg/m2 Cristy Davidson MD Work Phone: [facility] 06-28-2022 11:34-0500 Body temperature 97.59 [degF] Cristy Davidson MD Work Phone: [facility] 06-28-2022 11:34-0500 Body weight 73.94 kg Cristy Davidson MD Work Phone: [facility] 06-28-2022 11:34-0500 Diastolic blood pressure 84 mm[Hg] Cristy Davidson MD Work Phone: [facility] 06-28-2022 11:34-0500 Heart rate 84 /min Cristy Davidson MD Work Phone: [facility] 06-28-2022 11:34-0500 Respiratory rate 16 /min Cristy Davidson MD Work Phone: [facility] 06-28-2022 11:34-0500 SaO2% (BldA) [Mass fraction] 97 % Cristy Davidson MD Work Phone: [facility] 06-28-2022 11:34-0500 Systolic blood pressure 139 mm[Hg] Cristy Davidson MD Work Phone: [facility] 05-26-2022 13:30-0500 Body temperature 97.39 [degF] Fabienne Athy PA-C Work Phone: [facility] 05-26-2022 13:30-0500 Body weight 75.48 kg Fabienne Athy PA-C Work Phone: [facility] 05-26-2022 13:30-0500 Diastolic blood pressure 88 mm[Hg] Fabienne Athy PA-C Work Phone: [facility] 05-26-2022 13:30-0500 Heart rate 62 /min Fabienne Athy PA-C Work Phone: [facility] 05-26-2022 13:30-0500 Respiratory rate 16 /min Fabienne Athy PA-C Work Phone: [facility] 05-26-2022 13:30-0500 SaO2% (BldA) [Mass fraction] 99 % Fabienne Athy PA-C Work Phone: [facility] 05-26-2022 13:30-0500 Systolic blood pressure 164 mm[Hg] Fabienne Athy PA-C Work Phone: [facility] 05-20-2022 13:15-0400 Body temperature 98.01 [degF] Fabienne Athy PA-C Work Phone: [facility] 05-20-2022 13:15-0400 Body weight 75.57 kg Fabienne Athy PA-C Work Phone: [facility] 05-20-2022 13:15-0400 Diastolic blood pressure 82 mm[Hg] Fabienne Athy PA-C Work Phone: [facility] 05-20-2022 13:15-0400 Heart rate 79 /min Fabienne Athy PA-C Work Phone: [facility] 05-20-2022 13:15-0400 Respiratory rate 21 /min Fabienne Athy PA-C Work Phone: [facility] 05-20-2022 13:15-0400 SaO2% (BldA) [Mass fraction] 98 % Fabienne Athy PA-C Work Phone: [facility] 05-20-2022 13:15-0400 Systolic blood pressure 160 mm[Hg] Fabienne Athy PA-C Work Phone: [facility] 05-04-2022 16:51-0400 Body temperature 98.01 [degF] Bull Vásquez MD Work Phone: [facility] 05-04-2022 16:51-0400 Body weight 74.39 kg Bull Vásquez MD Work Phone: [facility] 05-04-2022 16:51-0400 Diastolic blood pressure 86 mm[Hg] Bull Vásquez MD Work Phone: [facility] 05-04-2022 16:51-0400 Heart rate 88 /min Bull Vásquez MD Work Phone: [facility] 05-04-2022 16:51-0400 Respiratory rate 18 /min Bull Vásquez MD Work Phone: [facility] 05-04-2022 16:51-0400 SaO2% (BldA) [Mass fraction] 97 % Bull Vásquez MD Work Phone: [facility] 05-04-2022 16:51-0400 Systolic blood pressure 148 mm[Hg] Bull Vásquez MD Work Phone: [facility] 03-30-2022 12:05-0400 Diastolic blood pressure 66 mm[Hg] Karlie New MD Work Phone: [facility] 03-30-2022 12:05-0400 Heart rate 76 /min Karlie New MD Work Phone: [facility] 03-30-2022 12:05-0400 Respiratory rate 18 /min Karlie New MD Work Phone: [facility] 03-30-2022 12:05-0400 SaO2% (BldA) [Mass fraction] 100 % Karlie New MD Work Phone: [facility] 03-30-2022 12:05-0400 Systolic blood pressure 128 mm[Hg] Karlie New MD Work Phone: [facility] 03-30-2022 11:55-0400 Body temperature 98.6 [degF] Karlie New MD Work Phone: [facility] 03-16-2022 13:37-0400 Body height 152.4 cm Oralia Banjac OIL PLANT OPERATOR.OCCUPATIONAL THERAPY INSTRUCTOR Work Phone: [facility] 03-16-2022 13:37-0400 Body weight 74.16 kg Oralia Banjac OIL PLANT OPERATOR.OCCUPATIONAL THERAPY INSTRUCTOR Work Phone: [facility] 03-16-2022 13:37-0400 Diastolic blood pressure 83 mm[Hg] Oralia Banjac OIL PLANT OPERATOR.OCCUPATIONAL THERAPY INSTRUCTOR Work Phone: [facility] 03-16-2022 13:37-0400 Heart rate 73 /min Oralia Banjac OIL PLANT OPERATOR.OCCUPATIONAL THERAPY INSTRUCTOR Work Phone: [facility] 03-16-2022 13:37-0400 Respiratory rate 16 /min Oralia Banjac OIL PLANT OPERATOR.OCCUPATIONAL THERAPY INSTRUCTOR Work Phone: [facility] 03-16-2022 13:37-0400 SaO2% (BldA) [Mass fraction] 99 % Oralia Banjac OIL PLANT OPERATOR.OCCUPATIONAL THERAPY INSTRUCTOR Work Phone: [facility] 03-16-2022 13:37-0400 Systolic blood pressure 135 mm[Hg] Oralia Banjac OIL PLANT OPERATOR.OCCUPATIONAL THERAPY INSTRUCTOR Work Phone: [facility] 02-21-2022 13:31-0400 Body height 152.4 cm Cristy Davidson MD Work Phone: [facility] 02-21-2022 13:31-0400 Body mass index (BMI) [Ratio] 32.03 kg/m2 Cristy Davidson MD Work Phone: [facility] 02-21-2022 13:31-0400 Body temperature 98.01 [degF] Cristy Davidson MD Work Phone: [facility] 02-21-2022 13:31-0400 Body weight 74.39 kg Cristy Davidson MD Work Phone: [facility] 02-21-2022 13:31-0400 Diastolic blood pressure 72 mm[Hg] Cristy Davidson MD Work Phone: [facility] 02-21-2022 13:31-0400 Heart rate 71 /min Cristy Davidson MD Work Phone: [facility] 02-21-2022 13:31-0400 Respiratory rate 16 /min Cristy Davidson MD Work Phone: [facility] 02-21-2022 13:31-0400 SaO2% (BldA) [Mass fraction] 98 % Cristy Davidson MD Work Phone: [facility] 02-21-2022 13:31-0400 Systolic blood pressure 110 mm[Hg] Cristy Davidson MD Work Phone: [facility] 12-29-2021 13:50-0400 Diastolic blood pressure 85 mm[Hg] Cristy Davidson MD Work Phone: [facility] 12-29-2021 13:50-0400 Heart rate 77 /min Cristy Davidson MD Work Phone: [facility] 12-29-2021 13:50-0400 Systolic blood pressure 146 mm[Hg] Cristy Davidson MD Work Phone: [facility] 12-29-2021 13:43-0400 Body height 152.4 cm Cristy Davidson MD Work Phone: [facility] 12-29-2021 13:43-0400 Body mass index (BMI) [Ratio] 33.2 kg/m2 Cristy Davidson MD Work Phone: [facility] 12-29-2021 13:43-0400 Body temperature 97.59 [degF] Cristy Davidson MD Work Phone: [facility] 12-29-2021 13:43-0400 Body weight 77.11 kg Cristy Davidson MD Work Phone: [facility] 12-29-2021 13:43-0400 Respiratory rate 16 /min Cristy Davidson MD Work Phone: [facility] 12-29-2021 13:43-0400 SaO2% (BldA) [Mass fraction] 96 % Cristy Davidson MD Work Phone: [facility] 11-22-2021 13:27-0400 Diastolic blood pressure 82 mm[Hg] Cristy Davidson MD Work Phone: [facility] 11-22-2021 13:27-0400 Heart rate 66 /min Cristy Davidson MD Work Phone: [facility] 11-22-2021 13:27-0400 Systolic blood pressure 165 mm[Hg] Cristy Davidson MD Work Phone: [facility] 11-22-2021 13:21-0400 Body height 152.4 cm Cristy Davidson MD Work Phone: [facility] 11-22-2021 13:21-0400 Body mass index (BMI) [Ratio] 33.59 kg/m2 Cristy Davidson MD Work Phone: [facility] 11-22-2021 13:21-0400 Body temperature 98.91 [degF] Cristy Davidson MD Work Phone: [facility] 11-22-2021 13:21-0400 Body weight 78.02 kg Cristy Davidson MD Work Phone: [facility] 11-22-2021 13:21-0400 Respiratory rate 16 /min Cristy Davidson MD Work Phone: [facility] 11-22-2021 13:21-0400 SaO2% (BldA) [Mass fraction] 98 % Cristy Davidson MD Work Phone: [facility] 10-24-2021 10:02-0400 Diastolic blood pressure 86 mm[Hg] Cristy Davidson MD Work Phone: [facility] 10-24-2021 10:02-0400 Heart rate 80 /min Cristy Davidson MD Work Phone: [facility] 10-24-2021 10:02-0400 Systolic blood pressure 158 mm[Hg] Cristy Davidson MD Work Phone: [facility] 10-24-2021 09:54-0400 Body height 152.4 cm Cristy Davidson MD Work Phone: [facility] 10-24-2021 09:54-0400 Body mass index (BMI) [Ratio] 33.4 kg/m2 Cristy Davidson MD Work Phone: [facility] 10-24-2021 09:54-0400 Body temperature 98.01 [degF] Cristy Davidson MD Work Phone: [facility] 10-24-2021 09:54-0400 Body weight 77.56 kg Cristy Davidson MD Work Phone: [facility] 10-24-2021 09:54-0400 Respiratory rate 16 /min Cristy Davidson MD Work Phone: [facility] 10-24-2021 09:54-0400 SaO2% (BldA) [Mass fraction] 96 % Cristy Davidson MD Work Phone: [facility] 10-10-2021 10:29-0400 Body height 152.4 cm Levon Man MD Work Phone: [facility] 10-10-2021 10:29-0400 Body mass index (BMI) [Ratio] 33.24 kg/m2 Levon Man MD Work Phone: [facility] 10-10-2021 10:29-0400 Body weight 77.2 kg Levon Man MD Work Phone: [facility] 10-10-2021 10:29-0400 Diastolic blood pressure 76 mm[Hg] Levon Man MD Work Phone: [facility] 10-10-2021 10:29-0400 Heart rate 73 /min Levon Man MD Work Phone: [facility] 10-10-2021 10:29-0400 Systolic blood pressure 147 mm[Hg] Levon Man MD Work Phone: [facility] 06-29-2021 13:56-0500 Body height 152.4 cm Levon Man MD Work Phone: [facility] 06-29-2021 13:56-0500 Body mass index (BMI) [Ratio] 33.4 kg/m2 Levon Man MD Work Phone: [facility] 06-29-2021 13:56-0500 Body weight 77.56 kg Levon Man MD Work Phone: [facility] 06-29-2021 13:56-0500 Diastolic blood pressure 90 mm[Hg] Levon Man MD Work Phone: [facility] 06-29-2021 13:56-0500 Heart rate 80 /min Levon Man MD Work Phone: [facility] 06-29-2021 13:56-0500 Systolic blood pressure 177 mm[Hg] Levon Man MD Work Phone: [facility] 03-04-2021 11:02-0400 Body height 154.41 cm Mehrdad Rojas Work Phone: [facility] Work Phone: 03-04-2021 11:02-0400 Body mass index (BMI) [Ratio] 34.64 kg/m2 Mehrdad Rojas Work Phone: [facility] Work Phone: 03-04-2021 11:02-0400 Body surface area Derived from formula 1.81 m2 Mehrdad L Crystal Work Phone: [facility] Work Phone: 03-04-2021 11:02-0400 Body temperature 95.7 [degF] Mehrdad L Crystal Work Phone: [facility] Work Phone: 03-04-2021 11:02-0400 Body weight 82.6 kg Mehrdad L Crystal Work Phone: [facility] Work Phone: 03-04-2021 11:02-0400 Diastolic blood pressure 82 mm[Hg] Mehrdad L Crystal Work Phone: [facility] Work Phone: 03-04-2021 11:02-0400 Heart rate 69 /min Mehrdad L Crystal Work Phone: [facility] Work Phone: 03-04-2021 11:02-0400 Systolic blood pressure 140 mm[Hg] Mehrdad L Crystal Work Phone: [facility] Work Phone: 02-03-2021 14:01-0400 Body height 154.41 cm Mehrdad L Crystal Work Phone: [facility] Work Phone: 02-03-2021 14:01-0400 Body mass index (BMI) [Ratio] 34.44 kg/m2 Mehrdad L Crystal Work Phone: [facility] Work Phone: 02-03-2021 14:01-0400 Body surface area Derived from formula 1.81 m2 Mehrdad L Crystal Work Phone: [facility] Work Phone: 02-03-2021 14:01-0400 Body temperature 97.5 [degF] Mehrdad L Crystal Work Phone: [facility] Work Phone: 02-03-2021 14:01-0400 Body weight 82.1 kg Mehrdad L Crystal Work Phone: [facility] Work Phone: 02-03-2021 14:01-0400 Diastolic blood pressure 79 mm[Hg] Mehrdad L Crystal Work Phone: [facility] Work Phone: 02-03-2021 14:01-0400 Heart rate 77 /min Mehrdad L Crystal Work Phone: [facility] Work Phone: 02-03-2021 14:01-0400 Systolic blood pressure 144 mm[Hg] Mehrdad L Crystal Work Phone: [facility] Work Phone: 01-27-2021 14:05-0400 Body height 154.41 cm Mehrdad L Crystal Work Phone: [facility] Work Phone: 01-27-2021 14:05-0400 Body mass index (BMI) [Ratio] 35.25 kg/m2 Mehrdad L Crystal Work Phone: [facility] Work Phone: 01-27-2021 14:05-0400 Body surface area Derived from formula 1.82 m2 Mehrdad L Crystal Work Phone: [facility] Work Phone: 01-27-2021 14:05-0400 Body temperature 96.7 [degF] Mehrdad L Crystal Work Phone: [facility] Work Phone: 01-27-2021 14:05-0400 Body weight 84.05 kg Mehrdad L Crystal Work Phone: [facility] Work Phone: 01-27-2021 14:05-0400 Diastolic blood pressure 101 mm[Hg] Mehrdad L Crystal Work Phone: [facility] Work Phone: 01-27-2021 14:05-0400 Heart rate 76 /min Mehrdad L Crystal Work Phone: [facility] Work Phone: 01-27-2021 14:05-0400 Systolic blood pressure 178 mm[Hg] Mehrdad L Crystal Work Phone: [facility] Work Phone: 12-15-2020 10:40-0400 Body height 154.41 cm Mehrdad L Crystal Work Phone: [facility] Work Phone: 12-15-2020 10:40-0400 Body mass index (BMI) [Ratio] 34.57 kg/m2 Mehrdad L Crystal Work Phone: [facility] Work Phone: 12-15-2020 10:40-0400 Body surface area Derived from formula 1.81 m2 Mehrdad L Crystal Work Phone: [facility] Work Phone: 12-15-2020 10:40-0400 Body temperature 96.6 [degF] Mehrdad L Crystal Work Phone: [facility] Work Phone: 12-15-2020 10:40-0400 Body weight 82.42 kg Mehrdad L Crystal Work Phone: [facility] Work Phone: 12-15-2020 10:40-0400 Diastolic blood pressure 84 mm[Hg] Mehrdad L Crystal Work Phone: [facility] Work Phone: 12-15-2020 10:40-0400 Heart rate 70 /min Mehrdad L Crystal Work Phone: [facility] Work Phone: 12-15-2020 10:40-0400 Systolic blood pressure 112 mm[Hg] Mehrdad L Crystal Work Phone: [facility] Work Phone: 12-07-2020 14:09-0400 Body height 154.41 cm Mehrdad L Crystal Work Phone: [facility] Work Phone: 12-07-2020 14:09-0400 Body mass index (BMI) [Ratio] 34.49 kg/m2 Mehrdad L Crystal Work Phone: [facility] Work Phone: 12-07-2020 14:09-0400 Body surface area Derived from formula 1.81 m2 Mehrdad L Crystal Work Phone: [facility] Work Phone: 12-07-2020 14:09-0400 Body weight 82.23 kg Mehrdad L Crystal Work Phone: [facility] Work Phone: 12-07-2020 14:09-0400 Diastolic blood pressure 96 mm[Hg] Mehrdad L Crystal Work Phone: [facility] Work Phone: 12-07-2020 14:09-0400 Heart rate 77 /min Mehrdad L Crystal Work Phone: [facility] Work Phone: 12-07-2020 14:09-0400 SaO2% (BldA) [Mass fraction] 98 % Mehrdad L Crystal Work Phone: [facility] Work Phone: 12-07-2020 14:09-0400 Systolic blood pressure 142 mm[Hg] Mehrdad L Crystal Work Phone: [facility] Work Phone: 08-09-2020 12:13-0500 BP Diastolic 75 mm[Hg] [facility] 08-09-2020 12:13-0500 BP Systolic 119 mm[Hg] [facility] 08-09-2020 12:13-0500 Pulse (Heart Rate) 84 /min [facility] 08-09-2020 12:13-0500 Pulse Oximetry 95 % [facility] 08-09-2020 12:13-0500 Respiratory Rate 16 /min [facility] 08-09-2020 09:45-0500 Body Temperature 96.1 [degF] [facility] 08-08-2020 09:00-0500 Body Temperature 98.2 [degF] [facility] 08-08-2020 09:00-0500 BP Diastolic 95 mm[Hg] [facility] 08-08-2020 09:00-0500 BP Systolic 171 mm[Hg] [facility] 08-08-2020 09:00-0500 Pulse (Heart Rate) 94 /min [facility] 08-08-2020 09:00-0500 Pulse Oximetry 96 % [facility] 08-08-2020 09:00-0500 Respiratory Rate 18 /min [facility] 05-14-2020 10:48-0400 BMI (Body Mass Index) 36.33 kg/m2 [facility] 05-14-2020 10:48-0400 Body weight 84.37 kg [facility] 05-14-2020 10:48-0400 BP Diastolic 90 mm[Hg] [facility] 05-14-2020 10:48-0400 BP Systolic 156 mm[Hg] [facility] 05-14-2020 10:48-0400 Height 152.4 cm [facility] 05-14-2020 10:48-0400 Pulse (Heart Rate) 72 /min [facility] 01-27-2020 15:19-0400 BMI (Body Mass Index) 34.67 kg/m2 [facility] Work Phone: 01-27-2020 15:19-0400 Body Temperature 97.3 [degF] [facility] Work Phone: 01-27-2020 15:-0400 Body weight 82.64 kg [facility] Work Phone: 01-27-2020 15:19-0400 BP Diastolic 90 mm[Hg] [facility] Work Phone: Encounters Encounter Date Encounter Type Care Provider Facility Start: 07-23-2023 End: 07-23-2023 ambulatory KARLIE NEW Facility:[facility] Start: 07-03-2023 End: 07-03-2023 ambulatory [facility] Start: 06-21-2023 ambulatory CRISTY SARABIA [facility] Start: 06-19-2023 ambulatory CRISTY SARABIA [facility] Start: 06-13-2023 Orders Only Cristy Davidson MD Work Phone: [facility] Start: 06-12-2023 End: 06-16-2023 Orders Only Cristy Davidson MD Work Phone: [facility] Procedures Date Procedure Procedure Detail Performing Clinician Start: 06-11-2023 Mammography Cristy babb MD Work Phone: Start: 06-04-2023 End: 06-04-2023 Visual field xm uni/bi w/interp extended exam Karlie New MD Work Phone: Start: 04-02-2023 Culture bacterial quanttative colony count urine Cristy Davidson MD Work Phone: Start: 04-02-2023 Urnls dip stick/tabl et rgnt non-auto w/o micrscp Cristy Davidson MD Work Phone: Start: 03-09-2023 Urnls dip stick/tabl et rgnt auto w/o microscopy Samantha Mcdaniel APRN.CNP Work Phone: Start: 02-07-2023 Microalbumin [Mass/v olume] in Urine by Test strip Cristy Davidson MD Work Phone: Start: 10-18-2022 SKIN BIOPSY Diamond woods MD Work Phone: Start: 09-29-2022 Adult depression scr eening assessment Cristy Davidson MD Work Phone: Start: 08-28-2022 Ophthalmic examinati on and evaluation Kailey Fraser PT Start: 07-11-2022 Colonoscopy Giuliana ruelas RN Start: 06-27-2022 Microalbumin [Mass/v olume] in Urine by Test strip Cristy Davidson MD Work Phone: Start: 05-26-2022 Urnls dip stick/tabl et rgnt auto w/o microscopy Fabienne Herrera PA-C Work Phone: Start: 05-26-2022 Mammography Main deng LPN Start: 05-20-2022 Urnls dip stick/tabl et rgnt auto w/o microscopy Fabienne R TapToLearny PA-C Work Phone: Start: 05-04-2022 Urnls dip stick/tabl et rgnt auto w/o microscopy Fabienne R Athy PA-C Work Phone: Start: 05-01-2022 Computerized [facility] [place] [facility] retina Karlie New MD Work Phone: Start: 05-01-2022 Ophthalmic examinati on and evaluation Main Delgadillo LPN Start: 03-30-2022 End: 03-30-2022 Oph bmtry prtl coher intrfrmtry io lens pwr yamile Karlie New MD Work Phone: Start: 03-30-2022 End: 03-30-2022 Xcapsl ctrc rmvl insj io lens prosth w/o ecp Karlie New MD Work Phone: Start: 03-16-2022 PREOP LEFT EYE OUTCO MES PROTOCOL E-ETDRS VISUAL ACUITY Karlie New MD Work Phone: Start: 03-16-2022 IOL BIOMETRY W/ IOL CALC OU (BOTH EYES) Karlie New MD Work Phone: Start: 02-13-2022 [facility] [place] [facility] Karlie New MD Work Phone: Start: 02-13-2022 Ophthalmic examinati on and evaluation Cristy Davidson MD Work Phone: Start: 12-26-2021 Ophthalmic examinati on and evaluation Cristy Davidson MD Work Phone: Start: 11-21-2021 [facility] [place] [facility] Karlie New MD Work Phone: Start: 11-21-2021 Ophthalmic examinati on and evaluation Cristy Davidson MD Work Phone: Start: 11-18-2021 Microalbumin [Mass/v olume] in Urine by Test strip Cristy Davidson MD Work Phone: Start: 10-24-2021 Adult depression scr eening assessment Cristy Davidson MD Work Phone: Start: 10-07-2021 Ophthalmic examinati on and evaluation Cristy Davidson MD Work Phone: Start: 05-11-2021 Mammography Karlie gibbs MD Work Phone: Start: 12-07-2020 Ct angiography chest w/contrast/noncontrast Mehrdad Rojas MD Work Phone: Start: 12-07-2020 Creatinine blood Dez Martinez MD Work Phone: Start: 01-27-2020 Basic metabolic 1998 panel - Serum or Plasma Mehrdad Rojas Start: 01-27-2020 Blood count hemoglobin Mehrdad Rojas Start: 01-27-2020 Creatinine other source Mehrdad Rojas Start: 01-27-2020 Lipid panel Mehrdad osorio Start: 01-27-2020 Protein total xcpt refractometry urine Mehrdad Rojas Start: 06-27-2019 End: 06-27-2019 Colonoscopy Mehrdad Rojas Start: 06-27-2019 Colonoscopy Mehrdad Rojas Work Phone: Plan of Treatment Date Care Activity Detail Author Start: 07-11-2032 Screening for malign ant neoplasm of colon [facility] Start: 06-27-2029 Screening for malign ant neoplasm of colon [facility] Start: 06-18-2024 End: 11-25-2024 OCT MACULA CIRRUS OD (RIGHT EYE) OCT MACULA CIRRUS OD (RIGHT EYE) OPHT Imaging Routine Cystoid macular edema of right eye Expected: 06/18/2024, Expires: 11/25/2024 [facility] Work Phone: Immunizations Immunization Date Immunization Notes Care Provider [facility] 04-18-2023 Influenza IIV4 high dose 65 and Older Diamond Naqvi [facility] 06-19-2022 Influenza IIV4 high dose 65 and Older Mainayaka Delgadillo [facility] 06-19-2022 flu vacc [id number] 5yr up,-PF (FLUZONE HIGH-DOSE) syringe [facility] 06-19-2022 influenza virus vaccine, unspecified formulation Diamond Biggs MD Work Phone: [facility] 05-05-2021 Fluzone High-Dose Quadrivalent 0.7 ML Intramuscular Suspension Prefilled Syringe; Translations: [Fluzone High-Dose Quadrivalent 0.7 ML Intramuscular Suspension Prefilled Syringe] Mehrdad Rojas Work Phone: [facility] Work Phone: Payers Date Payer Category Payer Unknown [employer] xxxxxxxxxxxx 2017-Present xxxxxxxxxxxx [id number] 2011 Medicare MEDICARE MEDICAR E A AND B xxxxxxxxxxx 2011-Present [place] xxxxxxxxxxx [id number] 2011 Medicare [id number] 2011 Medicare [id number] .[id number] 2011 Medicare [id number]. [id number] .[id number] 2005 Unknown [id number] 2005 Unknown [id number] 1.2.840.577029.1.13.172.2.7.3 .535122.315 2005 Unknown 1947 Unknown [id number] 2.16.840.1.923120.3.579.2.983 1947 Unknown [id number] 2.16.840.1.009321.3.579.2.90 1947 Unknown [id number] 2.16.840.1.267816.3.579.2.2 1947 Unknown [id number] 2.16.840.1.815305.3.579.2.902 1947 Unknown [id number] 2.16.840.1.495003.3.579.2.902 1947 Unknown [id number] 2.16.840.1.037220.3.579.2.90 1947 Unknown [id number] 2.16.840.1.999088.3.579.2.903 1947 Unknown [id number] 2.16.840.1.712613.3.579.2.903 1947 Unknown [id number] 2.16.840.1.074247.3.579.2. 1947 Unknown [id number] 2.16.840.1.557605.3.579.2 1947 Unknown [id number] 2.16.840.1.404171.3.579.2. 1947 Unknown [id number] 2.16.840.1.160190.3.579.2 1947 Unknown [id number] 2.16.840.1.281597.3.579.2. 1947 Unknown [id number] 2.16.840.1.224180.3.579.2 1947 Unknown [id number] 2.16.840.1.981068.3.579.2 1947 Unknown [id number] 2.16840.1.833995.3.579.2 1947 Unknown [id number] 2.16.840.1.699170.3.579.2 1947 Unknown [id number] 2.16.840.1.135782.3.579.2 1947 Unknown [id number] 2.16.840.1.121457.3.579.2 1947 Unknown [id number] 2.16.840.1.849029.3.579.2 1947 Unknown [id number] 2.16.840.1.438987.3.579.2. 1947 Unknown [id number] 2.16.840.1.552827.3.579.2 1947 Unknown [id number] 2.16.840.1.206073.3.579.2 1947 Unknown [id number] 2.16.840.1.346161.3.579.23 1947 Unknown [id number] 2.16.840.1.999530.3.579.2. 1947 Unknown [id number] 2.16.840.1.351210.3.579.2. 1947 Unknown [id number] 2.16.840.1.061375.3.579.2. 1947 Unknown [id number] 2.16.840.1.752863.3.579.2. 1947 Unknown [id number] 2.16.840.1.523876.3.579.2. 1947 Unknown [id number] 2.16.840.1.814552.3.579.2. 1947 Unknown [id number] 2.16840.1.238632.3.579.2. 1947 Unknown [id number] 2.16.840.1.222319.3.579.2. 1947 Unknown [id number] 2.16.840.1.716876.3.579.2. 1947 Unknown [id number] 2.16.840.1.170013.3.579.2. 1947 Unknown [id number] 2.16840.1.406736.3.579.2. 1947 Unknown [id number] 2.16.840.1.224345.3.579.2. 1947 Unknown [id number] 2.16.840.1.510844.3.579.2. 1945 Unknown [id number] 2.16.840.1.032762.3.579.2.903 Social History Date Type Detail Facility Start: 07-12-2018 End: 02-21-2022 Tobacco smoking status MSIS Never smoker [facility] Work Phone: Start: 1945 Sex Assigned At Not on file O [facility] Work Phone: Start: 05-14-2020 End: 02-21-2022 Tobacco use and exposure Never used [employer] Start: 08-08-2020 Tobacco smoking status NHIS Unknown if ever smoked [facility] Exposure to SARS-CoV-2 (event) Yes [facility] Start: 06-09-2021 End: 09-29-2022 Patient has living will Patient has living will [facility] Work Phone: Start: 10-14-2021 End: 02-28-2023 Exposure to SARS-CoV-2 (event) Not sure [facility] Start: 10-24-2021 End: 04-03-2023 Alcohol intake Ex-drinker (finding) [facility] Start: 11-21-2021 End: 06-04-2023 Alcohol intake Current non-drinker of alcohol (finding) [facility] Start: 11-09-2009 History SDOH Alcohol Comment Rarely wine [facility] Start: 04-11-2022 End: 04-21-2022 Exposure to SARS-CoV-2 (event) Unable to assess [facility] Start: 09-29-2022 End: 10-03-2022 Tobacco use panel [facility] Adult Depression Screening Assessment 0 [facility] Start: 08-09-2020 Gender identity Identifies as female gender (finding) [facility] Start: 08-09-2020 Sexual orientation Heterosexual (fin ruby) [facility] NEGATED: Highlighted row - - [facility] Work Phone: Medical Equipment Procedure Code Equipment Code Equipment Origin al Text Equipment Identifier Dates Imp Cornea Lamel lar 9mm1/2moon - [id number] Start: 09-09-2020 Ahmed [employer] Valveless Glaucoma Drainage Device [id number] Start: 09-09-2020 Lens Iol 0d +18 Adele Uv Abs - [id number] Start: 09-09-2020 Functional Status Date Assessment Result Facility NEGATED: Highlighted row Functional performance Functional status health issues are not documented [facility] Work Phone: Mental Status Date Assessment Result Facility NEGATED: Highlighted row Cognitive function [Interpretation] Cognitive status health issues are not documented [facility] Work Phone: Clinical Notes 09-07-2020 to 07-23-2023 Karlie New MD - 06/04/2023 1:43 PM ESTTelephone Encounter - Justine Cox - 05/08/2023 9:12 AM EDTTelephone Encounter - Justine Cox - 05/08/2023 9:12 AM EDTPatient Instructions Note Date & Type Note Facility 07-23-2023 Note HNO ID: [id number] Author: KARLIE NEW MD Service: ? Author Type: Physician Type: Progress Notes Filed: 07/23/2023 16:46 Note Text: Tmax: 22, 23; Pachy: 598, 599 Lasers and Surgeries: OD: 06/02/21 TSCPC 180 deg (IOP=22 on 4 meds) 03/24/21 MP-TSCPC IOP17 on 4meds, VF prog 09/09/20 phaco-250 CP FED64-29 on3, VF prog aim -0.8 12/2018 GATT (IOP=19 on 3 meds with VF progression) Trabeculectomy c [facility] 02/02/05; needling c [facility] 05/2010 IOP=19 with large DH 02/2005 excision of conj epi inclusion cyst OS: 03/30/22 phaco-[facility] aim -1.00 Trabeculectomy [facility] 09/21/05 and 02/06/0801/2006 excision of conj lymphangiectasis Ocular Medication Intol and Non-efficacy: combigan and timolol = fatigue and asthma Rhopressa=NI 07/2020 Also sees Osmel Marques, OD: Gets visual enriquez there Currently on Cosopt BID OD Alphagan P 0.1% bid OD (01/2021 for IOP=23) Durezol qid OD Lumigan QHS OS (switched 05/15/18) POAG severe stage OU -HVF 05/2023 OD large dense sup arc encroaching fixation, prob stable OS sup paracentral and sup/inf nasal edge defects, overall stable -OCT 06/2019 OD: sig inf thinning similar to 2015 OS: sig inf thinning similar to 2015 -FH (brother) -K edema OS remains resolved off cosopt -IOP great OU. Same meds CME OD -Dx'd 10/07/21 off any steroids. -h/o WWORSENING on PF - did respond to Durezol -has been waxing and waning since then -08/28/22: ERM with sl IRF: stable -05/2023: OCT with worse CME on durezol bid => increased to qid -07/2023: OCT Macula with much improved IRF but not resolved, similar to 08/2022 -dec Durezol to tid See me in about 2 months OCT mac OD only Graves Disease (not addressed today) -diagnosed 03/2016 -currently on methimazole -does have some lid retraction OU and possible UL edema ATTESTATION: By signing my name below, I, Augie Ward, attest that this documentation has been prepared under the direction and in the presence of Karlie New MD. Electronically Signed:ange Babcock, July 23, 2023 4:13 PM I, Karlie New MD, personally performed the services described in this documentation. All medical record entries made by the myrandaibchinmay were at my direction and in my presence. I have reviewed the chart and discharge instructions (if applicable) and agree that the record reflects my personal performance and is accurate and complete. I have confirmed and edited as necessary the relevant ophthalmic history, ROS, and the neuro exam findings as obtained by others. I have seen and examined Carla Patel. I have discussed the case and the management of this patient's care with the Resident/Fellow, if applicable. I also have reviewed and agree with the assessment and plan as stated above and agree with all of its relevant components. Electronically Signed: Karlie New MD, July 23, 2023 4:40 PM [facility] 06-04-2023 Note HNO ID: [id number] Author: Karlie New MD Service: ? Author Type: Physician Type: Progress Notes Filed: 06/04/2023 2:18 PM Note Text: Tmax: 22, 23; Pachy: 598, 599 Lasers and Surgeries: OD: 06/02/21 TSCPC 180 deg (IOP=22 on 4 meds) 03/24/21 MP-TSCPC IOP17 on 4meds, VF prog 09/09/20 phaco-250 CP [id number] on3, VF prog aim -0.8 12/2018 GATT (IOP=19 on 3 meds with VF progression) Trabeculectomy c [facility] 02/02/05; needling c [facility] 05/2010 IOP=19 with large DH 02/2005 excision of conj epi inclusion cyst OS: 03/30/22 phaco-[facility] aim -1.00 Trabeculectomy M[facility] 09/21/05 and 02/06/0801/2006 excision of conj lymphangiectasis Ocular Medication Intol and Non-efficacy: combigan and timolol = fatigue and asthma Rhopressa=NI 07/2020 Also sees Osmel Marques, OD: Gets visual enriquez there Currently on Cosopt BID OD Alphagan P 0.1% bid OD (01/2021 for IOP=23) Durezol bid OD Lumigan QHS OS (switched 05/15/18) POAG severe stage OU -HVF 05/2023 OD large dense sup arc encroaching fixation, prob stable OS sup paracentral and sup/inf nasal edge defects, overall stable -OCT 06/2019 OD: sig inf thinning similar to 2015 OS: sig inf thinning similar to 2015 -FH (brother) -K edema OS remains resolved off cosopt -IOP great OU. Same meds CME OD -Dx'd 10/07/21: OCT macula= marked CME with mild SRF. Changed Lumigan to Cosopt OD, started PF qid + Prolensa qd -11/21/21: CME was WORSE: changed PF to Durezol -12/26/21: CME improved but not resolved -> cont Durezol. -05/01/22: mild perifoveal IRF, minimally worse than 02/2022 when Durezol was at tid -08/28/22: ERM with sl IRF: stable -05/2023: OCT with worse CME on durezol bid -increase Durezol to qid See me in about 4-6 weeks for OCT mac OD only Graves Disease (not addressed today) -diagnosed 03/2016 -currently on methimazole -does have some lid retraction OU and possible UL edema I, Karlie New MD, have edited as necessary and confirmed the relevant ophthalmic history, ROS, and neuro exam findings as obtained by others. I have seen and examined Carla Patel. I also have reviewed, edited as necessary, and agree with the assessment and plan and all of its relevant components as stated above. I have discussed the case and the management of this patient's care with the Resident/Fellow, if applicable. June 04, 2023 2:15 PM. [facility] 06-04-2023 History of Present illness Narrative Tmax: 22, 23; Pachy: 598, 599 Lasers and Surgeries: OD: 06/02/21 TSCPC 180 deg (IOP=22 on 4 meds) 03/24/21 MP-TSCPC IOP17 on 4meds, VF prog 09/09/20 phaco-250 CP PMP19-46 on3, VF prog aim -0.8 12/2018 GATT (IOP=19 on 3 meds with VF progression) Trabeculectomy c [facility] 02/02/05; needling c [facility] 05/2010 IOP=19 with large DH 02/2005 excision of conj epi inclusion cyst OS: 03/30/22 phaco-[facility] aim -1.00\ Trabeculectomy [facility] 09/21/05 and 02/06/0801/2006 excision of conj lymphangiectasis Ocular Medication Intol and Non-efficacy: combigan and timolol = fatigue and asthma Rhopressa=NI 07/2020 Also sees Osmel Marques, OD: Gets visual enriquez there Currently on Cosopt BID OD Alphagan P 0.1% bid OD (01/2021 for IOP=23) Durezol bid OD Lumigan QHS OS (switched 05/15/18) POAG severe stage OU -HVF 05/2023 OD large dense sup arc encroaching fixation, prob stable OS sup paracentral and sup/inf nasal edge defects, overall stable -OCT 06/2019 OD: sig inf thinning similar to 2014 OS: sig inf thinning similar to 2014 -FH (brother) -K edema OS remains resolved off cosopt -IOP great OU. Same meds CME OD -Dx'd 10/07/21: OCT macula= marked CME with mild SRF. Changed Lumigan to Cosopt OD, started PF qid + Prolensa qd -11/21/21: CME was WORSE: changed PF to Durezol -12/26/21: CME improved but not resolved -> cont Durezol. -05/01/22: mild perifoveal IRF, minimally worse than 02/2022 when Durezol was at tid -08/28/22: ERM with sl IRF: stable -05/2023: OCT with worse CME on durezol bid -increase Durezol to qid See me in about 4-6 weeks for OCT mac OD only Graves Disease (not addressed today) -diagnosed 03/2016 -currently on methimazole -does have some lid retraction OU and possible UL edema I, Karlie New MD, have edited as necessary and confirmed the relevant ophthalmic history, ROS, and neuro exam findings as obtained by others. I have seen and examined Carla Patel. I also have reviewed, edited as necessary, and agree with the assessment and plan and all of its relevant components as stated above. I have discussed the case and the management of this patient's care with the Resident/Fellow, if applicable. June 04, 2023 2:15 PM. documented in this encounter [facility] 05-08-2023 Telephone encounter Note Left to schedule FSE October [address] Biggs. [facility] 05-08-2023 Miscellaneous Notes Left to schedule FSE October [address] Biggs. documented in this encounter [facility] 04-03-2023 Evaluation + Plan note Associated Problem(s): Hypertension Continue on lisinopril to 40 mg , continue on the same dose and carvedilol at 3.125 mg in AM and monitor for twice a day and let me know , goal blood pressure is less than 140/90. Intolerant to amlodipine with extreme dizziness Refusing statin therapy [facility] 04-03-2023 Miscellaneous Notes Associated Problem(s): Hypertension Continue on lisinopril to 40 mg , continue on the same dose and carvedilol at 3.125 mg in AM and monitor for twice a day and let me know , goal blood pressure is less than 140/90. Intolerant to amlodipine with extreme dizziness Refusing statin therapy Associated Problem(s): Diabetes (HCC) Chronic, diet controlled. Previous hyperglycemia with multiple prednisone courses will Last A1c is 6.8 in 02/09/23 Eye exam up to date , cleared to go back to driving after she got her years of refraction checked. No signs of neuropathy at this time documented in this encounter [facility] 04-02-2023 Telephone encounter Note Last OV 04/02/23. Next OV 06/28/23. [facility] 04-02-2023 Telephone encounter Note ----- Message from Digna Priest sent at 04/02/2023 3:05 PM EDT ----- Regarding: Refill MEDICATION REFILL REQUEST: PCP: Cristy Davidson MD Patient called 04/02/23 and is requesting a medication refill for lisinopriL (PRINIVIL,ZESTRIL) 40 MG tablet This was confirmed from the current medication list found in the patients chart. Supply Requested: # of days: 30 days Method of receiving: Send to pharmacy Last set of flowsheet rows for OARRS report: OARRS/NARxCHECK Report Received and Assessed: No data found Date controlled substance agreement signed: No data found Date of last drug screen: No data found Functional Assessment: No data found Will this refill be sent to the preferred pharmacy listed below? No, only for this refill. Please send to Preferred pharmacies: [facility] [facility] [address] [phone] Pt Call Back Number Patient call back message sent to the [facility]. Digna Priest [facility] 04-02-2023 Miscellaneous Notes Last OV 04/02/23. Next OV 06/28/23. ----- Message from Digna Priest sent at 04/02/2023 3:05 PM EDT ----- Regarding: Refill MEDICATION REFILL REQUEST: PCP: Cristy Davidson MD Patient called 04/02/23 and is requesting a medication refill for lisinopriL (PRINIVIL,ZESTRIL) 40 MG tablet This was confirmed from the current medication list found in the patients chart. Supply Requested: # of days: 30 days Method of receiving: Send to pharmacy Last set of flowsheet rows for OARRS report: OARRS/KIKExCKEVINCK Report Received and Assessed: No data found Date controlled substance agreement signed: No data found Date of last drug screen: No data found Functional Assessment: No data found Will this refill be sent to the preferred pharmacy listed below? No, only for this refill. Please send to Preferred pharmacies: [facility] [facility] [address] [phone] Pt Call Back Number Patient call back message sent to the [facility]. Digna Priest documented in this encounter [facility] 04-02-2023 History of Present illness Narrative Images from the original note were not included. Message Received: Today Cristy Davidson MD Cooper, Trisha, MA Please schedule nurse visit for RSV and flu Chief Complaint Patient presents with Follow-up 2 month f/u- working on a bladder infection, I can barley go HPI: Lani Patel is a 78 y.o. female presenting today for routine check and blood pressure monitoring. Has PMH of diabetes, hypertension, hyperthyroidism, gout, and obesity. Was working outside last week and not drinking much and has been having urinary symptoms and has been struggling to go. Dipstick urine suggestive of UTI. Does have hx of SE to macrobid, sulfa and augmentin in the past. Diabetes: Diet controlled , A1c last visit 6.6. Cataract and cystoid macular edema: Currently following up with ophthalmology and [facility] and is on steroid regimen as well as Durezol. Improved CME. HTN: Chronic, was down to lisinopril to 40 mg , home readings of >140's/80's. Dr. Mckinley in [facility] has put her on steroids which has been worsening her BP recently. Denies any associated headache, blurry vision, tingling or numbness in extremities. Amlodipine made her really dizzy and stopped taking it and lack of energy and gained it all back after discontinuing it in 2 days. Under a lot of stress lately as she is supporting her with his advanced macular degeneration cooking, taking care of the house, driving and doing yard work, grandson mows the yard usually. Coreg is taken only once a day and is hesitant to take it at night given some dizziness but she is not drinking water. Past Medical History: Diagnosis Date Glaucoma Hypertension Pleurisy Past Surgical History: Procedure Laterality Date BREAST LUMPECTOMY CHOLECYSTECTOMY COLONOSCOPY 07/11/2022 EYE SURGERY HYSTERECTOMY (CERVIX REMOVED) Family History Problem Relation Age of Onset Coronary artery disease Mother Cancer Mother colon Thyroid disease Mother Coronary artery disease Father Coronary artery disease Brother Diabetes Daughter Thyroid disease Maternal Grandmother Cancer Maternal Grandmother Social History Tobacco Use Smoking status: Never Smokeless tobacco: Never Vaping Use Vaping Use: Never used Substance Use Topics Alcohol use: Not Currently Drug use: Not Currently Review of Systems Vitals: 04/02/23 1329 BP: 136/88 BP Location: Right arm Patient Position: Sitting BP Cuff Size: Adult Pulse: 88 Resp: 16 Temp: 98.9 F (37.2 C) TempSrc: Temporal SpO2: 97% Weight: 70.8 kg (156 lb) Height: 5' Estimated body mass index is 30.47 kg/m as calculated from the following: Height as of this encounter: 5'. Weight as of this encounter: 70.8 kg (156 lb). Physical Exam Constitutional: General: She is not in acute distress. Appearance: She is not ill-appearing. HENT: Head: Normocephalic and atraumatic. Eyes: Extraocular Movements: Extraocular movements intact. Conjunctiva/sclera: Conjunctivae normal. Pupils: Pupils are equal, round, and reactive to light. Cardiovascular: Rate and Rhythm: Normal rate and regular rhythm. Pulses: Normal pulses. Heart sounds: Normal heart sounds. No murmur heard. No gallop. Pulmonary: Effort: Pulmonary effort is normal. Breath sounds: Normal breath sounds. No wheezing, rhonchi or rales. Chest: Chest wall: No tenderness. Abdominal: General: Abdomen is flat. Bowel sounds are normal. There is no distension. Palpations: Abdomen is soft. There is no mass. Tenderness: There is no abdominal tenderness. There is no right CVA tenderness, left CVA tenderness, guarding or rebound. Musculoskeletal: General: No tenderness. Normal range of motion. Cervical back: Normal range of motion and neck supple. No rigidity. No muscular tenderness. Right lower leg: No edema. Left lower leg: No edema. Lymphadenopathy: Cervical: No cervical adenopathy. Skin: General: Skin is warm. Findings: No erythema or rash. Neurological: General: No focal deficit present. Mental Status: She is alert and oriented to person, place, and time. Cranial Nerves: No cranial nerve deficit. Sensory: No sensory deficit. Motor: No weakness. Coordination: Coordination normal. Gait: Gait normal. Deep Tendon Reflexes: Reflexes normal. Psychiatric: Mood and Affect: Mood normal. Behavior: Behavior normal. Thought Content: Thought content normal. Judgment: Judgment normal. OARRS/NARxCHECK Report Received and Assessed: No data found Date controlled substance agreement signed: No data found Date of last drug screen: No data found Functional Assessment: No data found PHQ9: CIRILO-7 Tobacco Counseling: Counseling given: Not Answered Patient's Medications New Prescriptions No medications on file Previous Medications ASPIRIN 81 MG CHEWABLE TABLET Chew and Swallow 1 (one) tablet (81 mg total) daily . BIMATOPROST (LUMIGAN) 0.01 % OPHTHALMIC DROPS 1 (one) drop every night at bedtime . BRIMONIDINE (ALPHAGAN P) 0.1 % DROP 1 (one) drop 2 (two) times a day . BROMFENAC (PROLENSA) 0.07 % DROP CARVEDILOL (COREG) 3.125 MG TABLET Take 1 (one) tablet (3.125 mg total) by mouth 2 (two) times a day . CLOTRIMAZOLE-BETAMETHASONE (LOTRISONE) CREAM Apply topically 2 (two) times a day . COLESTIPOL (COLESTID) 1 GRAM TABLET Take 1 (one) tablet (1 g total) by mouth daily . D-MANNOSE POWD Take by mouth . DIFLUPREDNATE 0.05 % DROP Apply to eye . DORZOLAMIDE-TIMOLOL (COSOPT) 22.3-6.8 MG/ML OPHTHALMIC SOLUTION Use 1 Drop in the left eye every 12 hours. FAMOTIDINE (PEPCID) 20 MG TABLET Take 1 (one) tablet (20 mg total) by mouth 2 (two) times a day for 7 days . FLUTICASONE PROPIONATE (FLONASE) 50 MCG/ACTUATION NASAL SPRAY Instill 2 (two) sprays into each nostril daily . LACTOBACILLUS COMBO NO.11 (PROBIOTIC) 15 BILLION CELL CPSP Take by mouth . METRONIDAZOLE (FLAGYL) 500 MG TABLET Take 1 (one) tablet (500 mg total) by mouth . ONDANSETRON (ZOFRAN-ODT) 4 MG DISINTEGRATING TABLET Dissolve 1 (one) tablet (4 mg total) on top of tongue every 8 (eight) hours as needed for nausea . PREDNISOLONE ACETATE-NEPAFENAC 1-0.1 % DRPS 3 (three) times a day . TIMOLOL (TIMOPTIC-XR) 0.5 % OPHTHALMIC GEL-FORMING Administer 1 (one) drop to both eyes daily . Modified Medications Modified Medication Previous Medication CEPHALEXIN (KEFLEX) 500 MG CAPSULE cephALEXin (KEFLEX) 500 MG capsule Take 1 (one) capsule (500 mg total) by mouth 4 (four) times a day for 7 days . Take by mouth . LISINOPRIL (PRINIVIL,ZESTRIL) 40 MG TABLET lisinopriL (PRINIVIL,ZESTRIL) 40 MG tablet Take 1 (one) tablet (40 mg total) by mouth daily . Take 1 (one) tablet (40 mg total) by mouth daily . Discontinued Medications No medications on file Health Maintenance Due Topic Date Due Tetanus: Every 10yrs Never done PT Plan of Care Never done Dexa Scan Never done Foot Exam Never done Hepatitis C Screening Never done Zoster Vaccines (2 of 3) 07/28/2014 Pneumococcal Vaccine: Age 65+ (2 - PCV) 03/30/2015 COVID-19 Vaccine (3 - Moderna series) 01/28/2021 Sequential Influenza Vaccine (1) 03/16/2023 Assessment & Plan Problem List Items Addressed This Visit Endocrine Diabetes (HCC) Chronic, diet controlled. Previous hyperglycemia with multiple prednisone courses will Last A1c is 6.8 in 02/09/23 Eye exam up to date , cleared to go back to driving after she got her years of refraction checked. No signs of neuropathy at this time Cardiovascular and Mediastinum Hypertension Continue on lisinopril to 40 mg , continue on the same dose and carvedilol at 3.125 mg in AM and monitor for twice a day and let me know , goal blood pressure is less than 140/90. Intolerant to amlodipine with extreme dizziness Refusing statin therapy Relevant Medications lisinopriL (PRINIVIL,ZESTRIL) 40 MG tablet Other Visit Diagnoses Dysuria - Primary Relevant Medications cephALEXin (KEFLEX) 500 MG capsule Other Relevant Orders POC Urinalysis Dipstick (Completed) Urine Aerobic Culture (Completed) Return in about 3 months (around 07/02/2023) for Follow Up , monitor weight . CRISTY DAVIDSON MD [facility] [place] [address] [facility] [address] [facility] [id number] Dept: [phone] 10/24/2021 10:00 AM 09/29/2022 12:13 PM Depression Screening Little interest or pleasure in doing things 0 0 Feeling down, depressed, or hopeless 0 0 PHQ-2 Total Score 0 0 Trouble falling or staying asleep, or sleeping too much 1 0 Feeling tired or having little energy 0 0 Poor appetite or overeating 1 0 Feeling bad about yourself - or that you are a failure or have let yourself or your family down 0 0 Trouble concentrating on things, such as reading the newspaper or watching television 0 0 Moving or speaking so slowly that other people could have noticed. Or the opposite - being so fidgety or restless that you have been moving around a lot more than usual 0 0 Thoughts that you would be better off , or of hurting yourself in some way 0 0 PHQ-9 Total Score 2 0 If you checked off any problems, how difficult have these problems made it for you to do your work, take care of things at home, or get along with other people? Not difficult at all Statin therapy is not clinically appropriate for Carla Isaacs Amanda. documented in this encounter [facility] 04-02-2023 Evaluation + Plan note Associated Problem(s): Diabetes (HCC) Chronic, diet controlled. Previous hyperglycemia with multiple prednisone courses will Last A1c is 6.8 in 02/09/23 Eye exam up to date , cleared to go back to driving after she got her years of refraction checked. No signs of neuropathy at this time [facility] 03-22-2023 Miscellaneous Notes Patient given results and verbalized understanding of instructions given. Fabiola Alvarado LPN Let patient know their covid19/flu/rsv test was negative. documented in this encounter [facility] 03-21-2023 Note HNO ID: [id number] Author: Lucia Packer APRN.OCCUPATIONAL THERAPY INSTRUCTOR Service: ? Author Type: Nurse Practitioner Type: Progress Notes Filed: 03/21/2023 2:15 PM Note Text: This note was created using [email or web address]. Subjective Carla Patel is a 77 year old female. 77 year old female with HTN presents for complaints of illness. Acute onset Sunday Started with a sore throat (has since resolved) Then developed cough and congestion +body aches +fever +chills +headache +sinus pressure Denies CP. Denies SOB Denies N/V States she feels here symptoms are the same Has used Coricidin Denies tobacco usage. I think its probably COVID The history is provided by the patient. No speech language pathologist was used. Flu Like Symptoms This is a new problem. The current episode started in the past 7 days. The problem occurs constantly. The problem has been unchanged. Associated symptoms include chills, congestion, coughing, fatigue, a fever, headaches, myalgias, nausea, a sore throat and weakness. Pertinent negatives include no abdominal pain, anorexia, arthralgias, change in bowel habit, chest pain, diaphoresis, joint swelling, neck pain, numbness, rash, swollen glands, urinary symptoms, vertigo, visual change or vomiting. Nothing aggravates the symptoms. She has tried nothing for the symptoms. The treatment provided no relief. PAST MEDICAL HISTORY Diagnosis Date Congestive heart failure (HCC) 03/14/2021 Diverticulosis of colon (without mention of hemorrhage) Diverticulosis Diverticulosis of colon (without mention of hemorrhage) Family history of malignant neoplasm of gastrointestinal tract Glaucoma Graves disease 01/2016 HEMORRHOIDS INTERNAL 07/06/2008 Obstructive sleep apnea 2012 Other specified glaucoma Personal history of colonic polyps 01/04/2016 Pleurisy 03/14/2021 Primary open angle glaucoma of both eyes, mild stage Type 2 diabetes mellitus (HCC) 03/14/2021 Unspecified essential hypertension Essential hypertension PAST SURGICAL HISTORY Procedure Laterality Date CHOLECYSTECTOMY 1971 Cholecystectomy COLONOSCOPY FLX DX W/COLLJ SPEC WHEN PFRMD 07/05/2008 Diverticulosis/ Internal hemorrhoids COLONOSCOPY FLX DX W/COLLJ SPEC WHEN PFRMD 04/25/2013 COLONOSCOPY FLX DX W/COLLJ SPEC WHEN PFRMD 06/02/2016 DILATION AND CURETTAGE DXAND/THER NONOBSTETRIC 1974 Dilation AND curettage EYE SURGERY PROCEDURE Right 12/19/2018 GATT OD FSTLJ SCLERA GLAUCOMA TRABECULECT AB EXTERNO OU Trabeculecomy NEUROPLASTY AND/TRANSPOS MEDIAN NRV CARPAL TUNNE Carpal tunnel decomp Left PAST SURGICAL HISTORY OF Eye surgery - glaucome PAST SURGICAL HISTORY OF PAST SURGICAL HISTORY OF 09/09/2020 plan [id number] [address] inf-nasal. Aim -0.75 to -1.00 SA60WF OD PAST SURGICAL HISTORY OF 03/24/2021 eye surgery RELEASE THENAR MUSCLE Left trigger thumb REMV CATARACT EXTRACAP,INSERT LENS Left 03/30/2022 ROTATOR CUFF REPAIR right STEREOTACTIC CORE BIOPSY 08/30/2006 bilateral stereotactic br biopsy TOTAL ABDOMINAL HYSTERECT W/WO RMVL TUBE OVARY 2000 Hysterectomy, WALLY ALLERGIES Augmentin [Amoxicillin-Pot Clavulanate], Grass Pollen, Macrobid [Nitrofurantoin Monohyd/M-Cryst], Pollen, Sulfa (Sulfonamide Antibiotics), and Tree Pollen [Trees] MEDICATIONS ALPHAGAN P 0.1 % drop Use 1 Drop in the right eye twice daily. difluprednate (DUREZOL) 0.05 % ophthalmic suspension Use 1 Drop in the right eye twice daily. dorzolamide-timolol (COSOPT) 22.3-6.8 mg/mL ophthalmic solution Use 1 Drop in both eyes every 12 hours. bimatoprost (LUMIGAN) 0.01 % drop ophthalmic drops Use 1 Drop in the left eye daily at bedtime. colestipol (COLESTID) 1 gram tablet Take 1 g by mouth three times daily. lisinopril (ZESTRIL, PRINIVIL) 20 mg tablet Take 1 tablet by mouth once daily. FAMILY HISTORY Problem Relation Age of Onset Colon Cancer Mother Coronary Artery Disease Mother Heart Mother Hypertension Mother Coronary Artery Disease Father Psychiatry Father Heart Father Glaucoma Brother Cancer Maternal Grandfather lung cancer Cancer Other cousins and aunts and uncles with cancer Social History Tobacco Use Smoking status: Never Smokeless tobacco: Never Vaping Use Vaping Use: Never used Substance Use Topics Alcohol use: No Comment: Rarely wine Drug use: No Review of Systems Constitutional: Positive for chills, fatigue and fever. Negative for diaphoresis. HENT: Positive for congestion and sore throat. Respiratory: Positive for cough. Cardiovascular: Negative for chest pain. Gastrointestinal: Positive for nausea. Negative for abdominal pain, anorexia, change in bowel habit and vomiting. Musculoskeletal: Positive for myalgias. Negative for arthralgias, joint swelling and neck pain. Skin: Negative for rash. Neurological: Positive for weakness and headaches. Negative for vertigo and numbness. Objective BP 122/80 Pulse 81 Temp 37.4 ?C (99.4 ?F) (Tympanic) Resp 18 W (more content not included)... [facility] 03-21-2023 History of Present illness Narrative This note was created using HumanAPIter. Subjective Carla Patel is a 77 year old female. 77 year old female with HTN presents for complaints of illness. Acute onset Sunday Started with a sore throat (has since resolved) Then developed cough and congestion +body aches +fever +chills +headache +sinus pressure Denies CP. Denies SOB Denies N/V States she feels here symptoms are the same Has used Coricidin Denies tobacco usage. I think its probably COVID The history is provided by the patient. No speech language pathologist was used. Flu Like Symptoms This is a new problem. The current episode started in the past 7 days. The problem occurs constantly. The problem has been unchanged. Associated symptoms include chills, congestion, coughing, fatigue, a fever, headaches, myalgias, nausea, a sore throat and weakness. Pertinent negatives include no abdominal pain, anorexia, arthralgias, change in bowel habit, chest pain, diaphoresis, joint swelling, neck pain, numbness, rash, swollen glands, urinary symptoms, vertigo, visual change or vomiting. Nothing aggravates the symptoms. She has tried nothing for the symptoms. The treatment provided no relief. PAST MEDICAL HISTORY Diagnosis Date Congestive heart failure (HCC) 03/14/2021 Diverticulosis of colon (without mention of hemorrhage) Diverticulosis Diverticulosis of colon (without mention of hemorrhage) Family history of malignant neoplasm of gastrointestinal tract Glaucoma Graves disease 01/2016 HEMORRHOIDS INTERNAL 07/06/2008 Obstructive sleep apnea 2012 Other specified glaucoma Personal history of colonic polyps 01/04/2016 Pleurisy 03/14/2021 Primary open angle glaucoma of both eyes, mild stage Type 2 diabetes mellitus (HCC) 03/14/2021 Unspecified essential hypertension Essential hypertension PAST SURGICAL HISTORY Procedure Laterality Date CHOLECYSTECTOMY 1971 Cholecystectomy COLONOSCOPY FLX DX W/COLLJ SPEC WHEN PFRMD 07/05/2008 Diverticulosis/ Internal hemorrhoids COLONOSCOPY FLX DX W/COLLJ SPEC WHEN PFRMD 04/25/2013 COLONOSCOPY FLX DX W/COLLJ SPEC WHEN PFRMD 06/02/2016 DILATION & CURETTAGE DX&/THER NONOBSTETRIC 1974 Dilation & curettage EYE SURGERY PROCEDURE Right 12/19/2018 GATT OD FSTLJ SCLERA GLAUCOMA TRABECULECT AB EXTERNO OU Trabeculecomy NEUROPLASTY &/TRANSPOS MEDIAN NRV CARPAL TUNNE Carpal tunnel decomp Left PAST SURGICAL HISTORY OF Eye surgery - glaucome PAST SURGICAL HISTORY OF PAST SURGICAL HISTORY OF 09/09/2020 plan [id number] [address] inf-nasal. Aim -0.75 to -1.00 SA60WF OD PAST SURGICAL HISTORY OF 03/24/2021 eye surgery RELEASE THENAR MUSCLE Left trigger thumb REMV CATARACT EXTRACAP,INSERT LENS Left 03/30/2022 ROTATOR CUFF REPAIR right STEREOTACTIC CORE BIOPSY 08/30/2006 bilateral stereotactic br biopsy TOTAL ABDOMINAL HYSTERECT W/WO RMVL TUBE OVARY 2000 Hysterectomy, WALLY ALLERGIES Augmentin [Amoxicillin-Pot Clavulanate], Grass Pollen, Macrobid [Nitrofurantoin Monohyd/M-Cryst], Pollen, Sulfa (Sulfonamide Antibiotics), and Tree Pollen [Trees] MEDICATIONS ALPHAGAN P 0.1 % drop Use 1 Drop in the right eye twice daily. difluprednate (DUREZOL) 0.05 % ophthalmic suspension Use 1 Drop in the right eye twice daily. dorzolamide-timolol (COSOPT) 22.3-6.8 mg/mL ophthalmic solution Use 1 Drop in both eyes every 12 hours. bimatoprost (LUMIGAN) 0.01 % drop ophthalmic drops Use 1 Drop in the left eye daily at bedtime. colestipol (COLESTID) 1 gram tablet Take 1 g by mouth three times daily. lisinopril (ZESTRIL, PRINIVIL) 20 mg tablet Take 1 tablet by mouth once daily. FAMILY HISTORY Problem Relation Age of Onset Colon Cancer Mother Coronary Artery Disease Mother Heart Mother Hypertension Mother Coronary Artery Disease Father Psychiatry Father Heart Father Glaucoma Brother Cancer Maternal Grandfather lung cancer Cancer Other cousins and aunts and uncles with cancer Social History Tobacco Use Smoking status: Never Smokeless tobacco: Never Vaping Use Vaping Use: Never used Substance Use Topics Alcohol use: No Comment: Rarely wine Drug use: No Review of Systems Constitutional: Positive for chills, fatigue and fever. Negative for diaphoresis. HENT: Positive for congestion and sore throat. Respiratory: Positive for cough. Cardiovascular: Negative for chest pain. Gastrointestinal: Positive for nausea. Negative for abdominal pain, anorexia, change in bowel habit and vomiting. Musculoskeletal: Positive for myalgias. Negative for arthralgias, joint swelling and neck pain. Skin: Negative for rash. Neurological: Positive for weakness and headaches. Negative for vertigo and numbness. Objective BP 122/80 Pulse 81 Temp 37.4 C (99.4 F) (Tympanic) Resp 18 Wt 71.9 kg (158 lb 9.6 oz) LMP (LMP Unknown) SpO2 97% BMI 30.97 kg/m Physical Exam Vitals and nursing note reviewed. Constitutional: General: She is not in acute distress. Appearance: Normal appearance. She is obese. She is not ill-appearing, toxic-appearing or diaphoretic. Comments: Elderly, but non toxic HENT: Head: Normocephalic and atraumatic. Right Ear: Ear canal and external ear normal. Left Ear: Ear canal and external ear normal. Nose: Nose normal. No congestion or rhinorrhea. Mouth/Throat: Mouth: Mucous membranes are moist. Pharynx: No oropharyngeal exudate or posterior oropharyngeal erythema. Eyes: General: Right eye: No discharge. Left eye: No discharge. Extraocular Movements: Extraocular movements intact. Conjunctiva/sclera: Conjunctivae normal. Pupils: Pupils are equal, round, and reactive to light. Cardiovascular: Rate and Rhythm: Normal rate and regular rhythm. Pulses: Normal pulses. Heart sounds: Normal heart sounds. No murmur heard. No friction rub. Pulmonary: Effort: Pulmonary effort is normal. No respiratory distress. Breath sounds: Normal breath sounds. No stridor. No wheezing, rhonchi or rales. Chest: Chest wall: No tenderness. Abdominal: General: Abdomen is flat. There is no distension. Palpations: Abdomen is soft. There is no mass. Tenderness: There is no abdominal tenderness. There is no right CVA tenderness, left CVA tenderness, guarding or rebound. Hernia: No hernia is present. Musculoskeletal: General: No swelling, tenderness, deformity or signs of injury. Normal range of motion. Cervical back: Normal range of motion and neck supple. No rigidity. Right lower leg: No edema. Left lower leg: No edema. Lymphadenopathy: Cervical: No cervical adenopathy. Skin: General: Skin is warm and dry. Coloration: Skin is not jaundiced or pale. Findings: No bruising, erythema, lesion or rash. Neurological: General: No focal deficit present. Mental Status: She is alert and oriented to person, place, and time. Cranial Nerves: No cranial nerve deficit. Sensory: No sensory deficit. Motor: No weakness. Coordination: Coordination normal. Gait: Gait normal. Psychiatric: Mood and Affect: Mood normal. Behavior: Behavior normal. Thought Content: Thought content normal. Judgment: Judgment normal. Assessment and Plan ASSESSMENT/PLAN: 1. Viral illness - ICD9: 079.99, ICD10: B34.9 X 3 days No red flags Non toxic - Discussed viral etiology and rationale for treatment. - Symptomatic treatment with prn analgesia - Supportive care with fluids and rest - The patient may also use OTC cough and cold meds as needed, warm salt water gargles, throat lozenges and/or OTC throat spray as needed, and nasal saline gtts and suction prn. - Follow up in 3-5 days if symptoms persist or sooner if worsening of symptoms Lucia Packer APRN.OCCUPATIONAL THERAPY INSTRUCTOR documented in this encounter [facility] 03-11-2023 Miscellaneous Notes Patient notified. Verbalized understanding. Patient is on the correct antibiotic according to urine culture. If patient's symptoms are not improving patient needs to follow-up with primary care. documented in this encounter [facility] 03-09-2023 Note HNO ID: [id number] Author: Lucia Packer APRN.OCCUPATIONAL THERAPY INSTRUCTOR Service: ? Author Type: Nurse Practitioner Type: Progress Notes Filed: 03/09/2023 3:23 PM Note Text: This note was created using NoteWriter. Subjective Carla Patel is a 77 year old female. 77 year old female with PMH HTN, FATOU, Graves disease, and diabetes controlled DM presents for complaints of I have a UT Acute onset 3 days ago +urgency Sense of incomplete voiding Slight burning Denies fever or chill Denies abdominal pain Denies flank pain. Denies skin rash or lesions. Denies recent coitus Denies using homeopathic or OTC Denies vaginal bleeding. Denies vaginal discharge. States last UTI almost a year ago. The history is provided by the patient. No speech language pathologist was used. UTI This is a new problem. The current episode started more than 2 days ago. The problem occurs every urination. The problem has been gradually worsening. The quality of the pain is described as burning. The pain is at a severity of 5/10. The pain is mild. There has been no fever. She is Not sexually active. Associated symptoms include urgency. Pertinent negatives include no chills, no sweats, no nausea, no vomiting, no discharge, no frequency, no hematuria, no hesitancy, no possible and no flank pain. She has tried nothing for the symptoms. Her past medical history does not include kidney stones, single kidney, urological procedure, recurrent UTIs, urinary stasis or catheterization. PAST MEDICAL HISTORY Diagnosis Date Congestive heart failure (HCC) 03/14/2021 Diverticulosis of colon (without mention of hemorrhage) Diverticulosis Diverticulosis of colon (without mention of hemorrhage) Family history of malignant neoplasm of gastrointestinal tract Glaucoma Graves disease 01/2016 HEMORRHOIDS INTERNAL 07/06/2008 Obstructive sleep apnea 2012 Other specified glaucoma Personal history of colonic polyps 01/04/2016 Pleurisy 03/14/2021 Primary open angle glaucoma of both eyes, mild stage Type 2 diabetes mellitus (HCC) 03/14/2021 Unspecified essential hypertension Essential hypertension PAST SURGICAL HISTORY Procedure Laterality Date CHOLECYSTECTOMY 1971 Cholecystectomy COLONOSCOPY FLX DX W/COLLJ SPEC WHEN PFRMD 07/05/2008 Diverticulosis/ Internal hemorrhoids COLONOSCOPY FLX DX W/COLLJ SPEC WHEN PFRMD 04/25/2013 COLONOSCOPY FLX DX W/COLLJ SPEC WHEN PFRMD 06/02/2016 DILATION AND CURETTAGE DXAND/THER NONOBSTETRIC 1974 Dilation AND curettage EYE SURGERY PROCEDURE Right 12/19/2018 GATT OD FSTLJ SCLERA GLAUCOMA TRABECULECT AB EXTERNO OU Trabeculecomy NEUROPLASTY AND/TRANSPOS MEDIAN NRV CARPAL TUNNE Carpal tunnel decomp Left PAST SURGICAL HISTORY OF Eye surgery - glaucome PAST SURGICAL HISTORY OF PAST SURGICAL HISTORY OF 09/09/2020 plan [id number] [address] inf-nasal. Aim -0.75 to -1.00 SA60WF OD PAST SURGICAL HISTORY OF 03/24/2021 eye surgery RELEASE THENAR MUSCLE Left trigger thumb REMV CATARACT EXTRACAP,INSERT LENS Left 03/30/2022 ROTATOR CUFF REPAIR right STEREOTACTIC CORE BIOPSY 08/30/2006 bilateral stereotactic br biopsy TOTAL ABDOMINAL HYSTERECT W/WO RMVL TUBE OVARY 2000 Hysterectomy, WALLY ALLERGIES Augmentin [Amoxicillin-Pot Clavulanate], Grass Pollen, Macrobid [Nitrofurantoin Monohyd/M-Cryst], Pollen, Sulfa (Sulfonamide Antibiotics), and Tree Pollen [Trees] MEDICATIONS ALPHAGAN P 0.1 % drop Use 1 Drop in the right eye twice daily. difluprednate (DUREZOL) 0.05 % ophthalmic suspension Use 1 Drop in the right eye twice daily. dorzolamide-timolol (COSOPT) 22.3-6.8 mg/mL ophthalmic solution Use 1 Drop in both eyes every 12 hours. bimatoprost (LUMIGAN) 0.01 % drop ophthalmic drops Use 1 Drop in the left eye daily at bedtime. colestipol (COLESTID) 1 gram tablet Take 1 g by mouth three times daily. lisinopril (ZESTRIL, PRINIVIL) 20 mg tablet Take 1 tablet by mouth once daily. cephALEXin (KEFLEX) 500 mg capsule Take 1 capsule by mouth twice daily for 7 days. FAMILY HISTORY Problem Relation Age of Onset Colon Cancer Mother Coronary Artery Disease Mother Heart Mother Hypertension Mother Coronary Artery Disease Father Psychiatry Father Heart Father Glaucoma Brother Cancer Maternal Grandfather lung cancer Cancer Other cousins and aunts and uncles with cancer Social History Tobacco Use Smoking status: Never Smokeless tobacco: Never Vaping Use Vaping Use: Never used Substance Use Topics Alcohol use: No Comment: Rarely wine Drug use: No Review of Systems Constitutional: Negative for chills. Respiratory: Negative for apnea, cough, choking and chest tightness. Cardiovascular: Negative for chest pain, palpitations and leg swelling. Gastrointestinal: Negative for abdominal pain, diarrhea, nausea and vomiting. Genitourinary: Positive for decreased urine volume, dysuria and urgency. Negative for difficulty urinating, flank pain, frequency, (more content not included)... [facility] 03-09-2023 History of Present illness Narrative This note was created using [email or web address]. Subjective Carla Patel is a 77 year old female. 77 year old female with PMH HTN, FATOU, Graves disease, and diabetes controlled DM presents for complaints of I have a UT Acute onset 3 days ago +urgency Sense of incomplete voiding Slight burning Denies fever or chill Denies abdominal pain Denies flank pain. Denies skin rash or lesions. Denies recent coitus Denies using homeopathic or OTC Denies vaginal bleeding. Denies vaginal discharge. States last UTI almost a year ago. The history is provided by the patient. No speech language pathologist was used. UTI This is a new problem. The current episode started more than 2 days ago. The problem occurs every urination. The problem has been gradually worsening. The quality of the pain is described as burning. The pain is at a severity of 5/10. The pain is mild. There has been no fever. She is Not sexually active. Associated symptoms include urgency. Pertinent negatives include no chills, no sweats, no nausea, no vomiting, no discharge, no frequency, no hematuria, no hesitancy, no possible and no flank pain. She has tried nothing for the symptoms. Her past medical history does not include kidney stones, single kidney, urological procedure, recurrent UTIs, urinary stasis or catheterization. PAST MEDICAL HISTORY Diagnosis Date Congestive heart failure (HCC) 03/14/2021 Diverticulosis of colon (without mention of hemorrhage) Diverticulosis Diverticulosis of colon (without mention of hemorrhage) Family history of malignant neoplasm of gastrointestinal tract Glaucoma Graves disease 01/2016 HEMORRHOIDS INTERNAL 07/06/2008 Obstructive sleep apnea 2012 Other specified glaucoma Personal history of colonic polyps 01/04/2016 Pleurisy 03/14/2021 Primary open angle glaucoma of both eyes, mild stage Type 2 diabetes mellitus (HCC) 03/14/2021 Unspecified essential hypertension Essential hypertension PAST SURGICAL HISTORY Procedure Laterality Date CHOLECYSTECTOMY 1971 Cholecystectomy COLONOSCOPY FLX DX W/COLLJ SPEC WHEN PFRMD 07/05/2008 Diverticulosis/ Internal hemorrhoids COLONOSCOPY FLX DX W/COLLJ SPEC WHEN PFRMD 04/25/2013 COLONOSCOPY FLX DX W/COLLJ SPEC WHEN PFRMD 06/02/2016 DILATION & CURETTAGE DX&/THER NONOBSTETRIC 1974 Dilation & curettage EYE SURGERY PROCEDURE Right 12/19/2018 GATT OD FSTLJ SCLERA GLAUCOMA TRABECULECT AB EXTERNO OU Trabeculecomy NEUROPLASTY &/TRANSPOS MEDIAN NRV CARPAL TUNNE Carpal tunnel decomp Left PAST SURGICAL HISTORY OF Eye surgery - glaucome PAST SURGICAL HISTORY OF PAST SURGICAL HISTORY OF 09/09/2020 plan [id number] clearpath inf-nasal. Aim -0.75 to -1.00 SA60WF OD PAST SURGICAL HISTORY OF 03/24/2021 eye surgery RELEASE THENAR MUSCLE Left trigger thumb REMV CATARACT EXTRACAP,INSERT LENS Left 03/30/2022 ROTATOR CUFF REPAIR right STEREOTACTIC CORE BIOPSY 08/30/2006 bilateral stereotactic br biopsy TOTAL ABDOMINAL HYSTERECT W/WO RMVL TUBE OVARY 2000 Hysterectomy, WALLY ALLERGIES Augmentin [Amoxicillin-Pot Clavulanate], Grass Pollen, Macrobid [Nitrofurantoin Monohyd/M-Cryst], Pollen, Sulfa (Sulfonamide Antibiotics), and Tree Pollen [Trees] MEDICATIONS ALPHAGAN P 0.1 % drop Use 1 Drop in the right eye twice daily. difluprednate (DUREZOL) 0.05 % ophthalmic suspension Use 1 Drop in the right eye twice daily. dorzolamide-timolol (COSOPT) 22.3-6.8 mg/mL ophthalmic solution Use 1 Drop in both eyes every 12 hours. bimatoprost (LUMIGAN) 0.01 % drop ophthalmic drops Use 1 Drop in the left eye daily at bedtime. colestipol (COLESTID) 1 gram tablet Take 1 g by mouth three times daily. lisinopril (ZESTRIL, PRINIVIL) 20 mg tablet Take 1 tablet by mouth once daily. cephALEXin (KEFLEX) 500 mg capsule Take 1 capsule by mouth twice daily for 7 days. FAMILY HISTORY Problem Relation Age of Onset Colon Cancer Mother Coronary Artery Disease Mother Heart Mother Hypertension Mother Coronary Artery Disease Father Psychiatry Father Heart Father Glaucoma Brother Cancer Maternal Grandfather lung cancer Cancer Other cousins and aunts and uncles with cancer Social History Tobacco Use Smoking status: Never Smokeless tobacco: Never Vaping Use Vaping Use: Never used Substance Use Topics Alcohol use: No Comment: Rarely wine Drug use: No Review of Systems Constitutional: Negative for chills. Respiratory: Negative for apnea, cough, choking and chest tightness. Cardiovascular: Negative for chest pain, palpitations and leg swelling. Gastrointestinal: Negative for abdominal pain, diarrhea, nausea and vomiting. Genitourinary: Positive for decreased urine volume, dysuria and urgency. Negative for difficulty urinating, flank pain, frequency, hematuria and hesitancy. Musculoskeletal: Negative for arthralgias, back pain and gait problem. Skin: Negative for color change, pallor, rash and wound. Allergic/Immunologic: Negative for environmental allergies, food allergies and immunocompromised state. Neurological: Negative for dizziness, facial asymmetry, light-headedness and headaches. Hematological: Negative for adenopathy. Does not bruise/bleed easily. Psychiatric/Behavioral: Negative for agitation and behavioral problems. Objective BP 146/86 Pulse 86 Temp 37.1 C (98.8 F) Resp 18 Wt 72.9 kg (160 lb 12.8 oz) LMP (LMP Unknown) SpO2 97% BMI 31.40 kg/m Physical Exam Vitals and nursing note reviewed. Constitutional: General: She is not in acute distress. Appearance: Normal appearance. She is normal weight. She is not ill-appearing, toxic-appearing or diaphoretic. HENT: Head: Normocephalic and atraumatic. Right Ear: Ear canal and external ear normal. Left Ear: Ear canal and external ear normal. Nose: Nose normal. No congestion or rhinorrhea. Mouth/Throat: Mouth: Mucous membranes are moist. Pharynx: No oropharyngeal exudate or posterior oropharyngeal erythema. Eyes: General: Right eye: No discharge. Left eye: No discharge. Extraocular Movements: Extraocular movements intact. Conjunctiva/sclera: Conjunctivae normal. Pupils: Pupils are equal, round, and reactive to light. Cardiovascular: Rate and Rhythm: Normal rate and regular rhythm. Pulses: Normal pulses. Heart sounds: Normal heart sounds. No murmur heard. No friction rub. Pulmonary: Effort: Pulmonary effort is normal. No respiratory distress. Breath sounds: Normal breath sounds. No stridor. No wheezing, rhonchi or rales. Chest: Chest wall: No tenderness. Abdominal: General: Abdomen is flat. There is no distension. Palpations: Abdomen is soft. There is no mass. Tenderness: There is no abdominal tenderness. There is no right CVA tenderness, left CVA tenderness, guarding or rebound. Hernia: No hernia is present. Musculoskeletal: General: No swelling, tenderness, deformity or signs of injury. Normal range of motion. Cervical back: Normal range of motion and neck supple. No rigidity. Right lower leg: No edema. Left lower leg: No edema. Lymphadenopathy: Cervical: No cervical adenopathy. Skin: General: Skin is warm and dry. Capillary Refill: Capillary refill takes less than 2 seconds. Coloration: Skin is not jaundiced or pale. Findings: No bruising, erythema, lesion or rash. Neurological: General: No focal deficit present. Mental Status: She is alert and oriented to person, place, and time. Cranial Nerves: No cranial nerve deficit. Sensory: No sensory deficit. Motor: No weakness. Coordination: Coordination normal. Gait: Gait normal. Psychiatric: Mood and Affect: Mood normal. Behavior: Behavior normal. Thought Content: Thought content normal. Judgment: Judgment normal. Assessment and Plan ASSESSMENT/PLAN: 1. UTI symptoms - ICD9: 788.99, ICD10: R39.9 X 3 days Urine dip + leuks +ketone RX keflex Urine culture Discussed red flags - UA DIP, URINE (POC) - URINE CULTURE Lucia Packer APRN.OCCUPATIONAL THERAPY INSTRUCTOR documented in this encounter [facility] 02-28-2023 History of Present illness Narrative DATE OF SERVICE: 02/28/2023 PATIENT NAME: Carla Patel : 1945 AGE: 77 y.o. CLINIC NUMBER: [id number] Visit type: Established patient Chief Complaint Patient presents with Actinic Keratosis (LMS) Subjective HISTORY OF PRESENT ILLNESS: This is a 77 y.o. female who presents for evaluation of an AK of the left cheek; last seen 10/18/22. Curettage bx of R zygomatic area was performed at that time and results were consistent with fragments of HAK. Pt states she feels the area has come back, as she feels dryness and roughness of the area History of pacemaker/ defibrillator? No History of HIV/ Hep C? No Allergies to Lidocaine, Epinephrine, Latex or Adhesive? No Review of Systems There were no vitals filed for this visit. PHYSICAL EXAM GENERAL APPEARANCE: Alert & oriented x3, pleasant. Well developed, well nourished. PSYCH: appropriate mood and affect DERMATOLOGY: (all measurements are in cm, unless otherwise noted) 1. Actinic keratosis Right Zygomatic Area 1.5cm pink scaly patch - Educated and reassured. Treatment options, risks, benefits, and expectations reviewed. -pt. Advised these type of lesions on the cheeks can be very stubborn. Pt. Does not want to use Efudex at the site as the lesion is close to her eye and she has problems with her vision due to glaucoma. Repeat cryotherapy was thus recommended. Cryotherapy Actinic Keratosis: Medical Necessity: It was explained to the patient that actinic keratoses are precancerous. Consent: The patient understood all the risks and benefits prior to treatment. The risks explained included scarring, hyper and/or hypopigmentation. Although this treatment is highly effective, recurrences do occur and this was explained to the patient. The patient further understood that these lesions are precancerous and may develop into a malignancy. Number of lesions treated/ location: R zygomatic area x1. Method: Liquid nitrogen was used to treat the lesion(s) with two freeze-thaw cycles. Post-op: The patient was instructed to clean the site normally twice a day. Signs of infection were reviewed and patient was instructed to call if he/ she develops increasing pain, purulent drainage, or beefy redness. The patient was informed that a blister may occur at the cryo site and that this is an expected event. Sun protection was reviewed and patient advised to use sunscreen with SPF 30 or greater on exposed skin when outdoors. Post-op instructions were given orally and in writing. No follow-ups on file. Diamond Biggs MD 02/28/23 7:27 AM REFERRING MD: documented in this encounter [facility] 12-12-2022 Evaluation + Plan note Associated Problem(s): Hypertension The 10-year ASCVD risk score (Maria Guadalupe MC, et al., 2019) is: 45.8% Values used to calculate the score: Age: 77 years Sex: Female Is Non- : No Diabetic: Yes Tobacco smoker: No Systolic Blood Pressure: 150 mmHg Is BP treated: Yes HDL Cholesterol: 51 mg/dL Total Cholesterol: 147 mg/dL She is going to think about addition of statin Increased lisinopril to 40 mg , continue on the same dose and added carvedilol at 3.125 mg, goal blood pressure is less than 140/90. Intolerant to amlodipine with extreme dizziness Close follow up in 6 weeks [facility] 12-12-2022 Miscellaneous Notes Associated Problem(s): Hypertension The 10-year ASCVD risk score (Maria Guadalupe MC, et al., 2019) is: 45.8% Values used to calculate the score: Age: 77 years Sex: Female Is Non- : No Diabetic: Yes Tobacco smoker: No Systolic Blood Pressure: 150 mmHg Is BP treated: Yes HDL Cholesterol: 51 mg/dL Total Cholesterol: 147 mg/dL She is going to think about addition of statin Increased lisinopril to 40 mg , continue on the same dose and added carvedilol at 3.125 mg, goal blood pressure is less than 140/90. Intolerant to amlodipine with extreme dizziness Close follow up in 6 weeks documented in this encounter [facility] 12-12-2022 History of Present illness Narrative Chief Complaint Patient presents with Follow-up 1 month f/u HPI: Lani Patel is a 77 y.o. female presenting today for routine check and blood pressure monitoring. Has PMH of diabetes, hypertension, hyperthyroidism, gout, and obesity. Right leg weakness: 6 months ago she had some pain and hip pain. Weak on and off at the right lower extremity sometimes unable to push up with her foot. Denies any acute concerns for loss of speech, upper extremity weakness or tingling numbness in the legs. PT helped with weakness in her leg and currently resolved. Cataract and cystoid macular edema: Currently following up with ophthalmology and [facility] and is on steroid regimen as well as Durezol. Improved CME. HTN: Chronic, was down to lisinopril to 30 mg , home readings of >140/80 up to 170/80. Dr. Mckinley in [facility] has put her on steroids which has been worsening her BP recently. Denies any associated headache, blurry vision, tingling or numbness in extremities. Amlodipine made her really dizzy and stopped taking it and lack of energy and gained it all back after discontinuing it in 2 days. Under a lot of stress lately as she is supporting her with his advanced macular degeneration cooking, taking care of the house, driving and doing yard work, grandson mows the yard usually. Has been frustrated as well with being away from her judaism and switching to a different judaism. Past Medical History: Diagnosis Date Glaucoma Hypertension Pleurisy Past Surgical History: Procedure Laterality Date BREAST LUMPECTOMY CHOLECYSTECTOMY COLONOSCOPY 07/11/2022 EYE SURGERY HYSTERECTOMY (CERVIX REMOVED) Family History Problem Relation Age of Onset Coronary artery disease Mother Cancer Mother colon Thyroid disease Mother Coronary artery disease Father Coronary artery disease Brother Diabetes Daughter Thyroid disease Maternal Grandmother Cancer Maternal Grandmother Social History Tobacco Use Smoking status: Never Smokeless tobacco: Never Vaping Use Vaping Use: Never used Substance Use Topics Alcohol use: Not Currently Drug use: Not Currently Review of Systems Vitals: 12/12/22 1113 12/12/22 1118 BP: (!) 171/93 (!) 150/89 BP Location: Right arm Right arm Patient Position: Sitting Sitting BP Cuff Size: Adult Adult Pulse: 84 85 Resp: 16 Temp: 98.4 F (36.9 C) TempSrc: Temporal SpO2: 95% Weight: 71.7 kg (158 lb) Height: 5' Estimated body mass index is 30.86 kg/m as calculated from the following: Height as of this encounter: 5'. Weight as of this encounter: 71.7 kg (158 lb). Physical Exam Constitutional: General: She is not in acute distress. Appearance: She is not ill-appearing. HENT: Head: Normocephalic and atraumatic. Eyes: Extraocular Movements: Extraocular movements intact. Conjunctiva/sclera: Conjunctivae normal. Pupils: Pupils are equal, round, and reactive to light. Cardiovascular: Rate and Rhythm: Normal rate and regular rhythm. Pulses: Normal pulses. Heart sounds: Normal heart sounds. No murmur heard. No gallop. Pulmonary: Effort: Pulmonary effort is normal. Breath sounds: Normal breath sounds. No wheezing, rhonchi or rales. Chest: Chest wall: No tenderness. Abdominal: General: Abdomen is flat. Bowel sounds are normal. There is no distension. Palpations: Abdomen is soft. There is no mass. Tenderness: There is no abdominal tenderness. There is no right CVA tenderness, left CVA tenderness, guarding or rebound. Musculoskeletal: General: No tenderness. Normal range of motion. Cervical back: Normal range of motion and neck supple. No rigidity. No muscular tenderness. Right lower leg: No edema. Left lower leg: No edema. Lymphadenopathy: Cervical: No cervical adenopathy. Skin: General: Skin is warm. Findings: No erythema or rash. Neurological: General: No focal deficit present. Mental Status: She is alert and oriented to person, place, and time. Cranial Nerves: No cranial nerve deficit. Sensory: No sensory deficit. Motor: No weakness. Coordination: Coordination normal. Gait: Gait normal. Deep Tendon Reflexes: Reflexes normal. Psychiatric: Mood and Affect: Mood normal. Behavior: Behavior normal. Thought Content: Thought content normal. Judgment: Judgment normal. OARRS/NARxCHECK Report Received and Assessed: No data found Date controlled substance agreement signed: No data found Date of last drug screen: No data found Functional Assessment: No data found PHQ9: CIRILO-7 Tobacco Counseling: Counseling given: Not Answered Patient's Medications New Prescriptions CARVEDILOL (COREG) 3.125 MG TABLET Take 1 (one) tablet (3.125 mg total) by mouth 2 (two) times a day . Previous Medications ASPIRIN 81 MG CHEWABLE TABLET Chew and Swallow 1 (one) tablet (81 mg total) daily . BIMATOPROST (LUMIGAN) 0.01 % OPHTHALMIC DROPS 1 (one) drop every night at bedtime . BRIMONIDINE (ALPHAGAN P) 0.1 % DROP 1 (one) drop 2 (two) times a day . BROMFENAC (PROLENSA) 0.07 % DROP CEPHALEXIN (KEFLEX) 500 MG CAPSULE Take by mouth . CLOTRIMAZOLE-BETAMETHASONE (LOTRISONE) CREAM Apply topically 2 (two) times a day . COLESTIPOL (COLESTID) 1 GRAM TABLET Take 1 (one) tablet (1 g total) by mouth daily . D-MANNOSE POWD Take by mouth . DIFLUPREDNATE 0.05 % DROP Apply to eye . DORZOLAMIDE-TIMOLOL (COSOPT) 22.3-6.8 MG/ML OPHTHALMIC SOLUTION Use 1 Drop in the left eye every 12 hours. FAMOTIDINE (PEPCID) 20 MG TABLET Take 1 (one) tablet (20 mg total) by mouth 2 (two) times a day for 7 days . FLUTICASONE PROPIONATE (FLONASE) 50 MCG/ACTUATION NASAL SPRAY Instill 2 (two) sprays into each nostril daily . LACTOBACILLUS COMBO NO.11 (PROBIOTIC) 15 BILLION CELL CPSP Take by mouth . METRONIDAZOLE (FLAGYL) 500 MG TABLET Take 1 (one) tablet (500 mg total) by mouth . ONDANSETRON (ZOFRAN-ODT) 4 MG DISINTEGRATING TABLET Dissolve 1 (one) tablet (4 mg total) on top of tongue every 8 (eight) hours as needed for nausea . PREDNISOLONE ACETATE-NEPAFENAC 1-0.1 % DRPS 3 (three) times a day . TIMOLOL (TIMOPTIC-XR) 0.5 % OPHTHALMIC GEL-FORMING Administer 1 (one) drop to both eyes daily . Modified Medications Modified Medication Previous Medication LISINOPRIL (PRINIVIL,ZESTRIL) 40 MG TABLET lisinopriL (PRINIVIL,ZESTRIL) 30 MG tablet Take 1 (one) tablet (40 mg total) by mouth daily . Take 1 (one) tablet (30 mg total) by mouth daily . Discontinued Medications AMLODIPINE (NORVASC) 5 MG TABLET Take 1 (one) tablet (5 mg total) by mouth daily . Health Maintenance Due Topic Date Due Tetanus: Every 10yrs Never done PT Plan of Care Never done Dexa Scan Never done Foot Exam Never done Hepatitis C Screening Never done Zoster Vaccines (2 of 3) 07/28/2014 Pneumococcal Vaccine: Age 65+ (2 - PCV) 03/30/2015 COVID-19 Vaccine (3 - Booster for Moderna series) 01/28/2021 Assessment & Plan Problem List Items Addressed This Visit Cardiovascular and Mediastinum Hypertension - Primary The 10-year ASCVD risk score (Maria Guadalupe MC, et al., 2019) is: 45.8% Values used to calculate the score: Age: 77 years Sex: Female Is Non- : No Diabetic: Yes Tobacco smoker: No Systolic Blood Pressure: 150 mmHg Is BP treated: Yes HDL Cholesterol: 51 mg/dL Total Cholesterol: 147 mg/dL She is going to think about addition of statin Increased lisinopril to 40 mg , continue on the same dose and added carvedilol at 3.125 mg, goal blood pressure is less than 140/90. Intolerant to amlodipine with extreme dizziness Close follow up in 6 weeks Relevant Medications lisinopriL (PRINIVIL,ZESTRIL) 40 MG tablet carvediloL (COREG) 3.125 MG tablet Return in about 6 weeks (around 01/23/2023) for Follow Up. CRISTY DAVIDSON MD [facility] [address] [facility] [address] [facility] [id number] Dept: [phone] Depression Screening 10/24/2021 09/29/2022 Little interest or pleasure in doing things 0 0 Feeling down, depressed, or hopeless 0 0 PHQ-2 Total Score 0 0 Trouble falling or staying asleep, or sleeping too much 1 0 Feeling tired or having little energy 0 0 Poor appetite or overeating 1 0 Feeling bad about yourself - or that you are a failure or have let yourself or your family down 0 0 Trouble concentrating on things, such as reading the newspaper or watching television 0 0 Moving or speaking so slowly that other people could have noticed. Or the opposite - being so fidgety or restless that you have been moving around a lot more than usual 0 0 Thoughts that you would be better off , or of hurting yourself in some way 0 0 PHQ-9 Total Score 2 0 If you checked off any problems, how difficult have these problems made it for you to do your work, take care of things at home, or get along with other people? Not difficult at all - Statin therapy is not clinically appropriate for Carla Patel. documented in this encounter [facility] 10-24-2022 History of Present illness Narrative [facility] OUTPATIENT REHABILITATION DAILY TREATMENT NOTE Today's Date 10/24/2022 Patient Name: Carla Patel Date of : 1945 Current Visit #: 11 Authorized Visits: 199 Case Name: Lumbar back pain, R leg weakness History: Pre-Treatment Pain Scale: pain is not the reason Symptoms: stabilized Functional Diagnosis: 1. Lumbar back pain Clinical Information: Subjective: she reports tiredness in leg since she had COVID. She reports legs are achy and sore. She feels good with massaging leg. She has appointment with massage therapist. Objective Treatments: Physical Therapy Exercise Log - 10/24/22 1302 OTHER Precautions/Contraindications core stability and enduarnce, LE endurance (focus on R leg specially below knee), functional strengthening (sit to stand, stairs): do reps to point of moderate tireness in muscles Notes Visit 11 1:02 Therapeutic Exercise (31563) Intervention Nustep L1 x 5min Parameters STS from 15.5'' (8'' box on side) 2x10 with UE support Intervention heel raise 10# dumbell on knee - 2x20 Parameters Standing UE support DF/PF 3''x20 Intervention LAQ, HS curl RTB 3'' x 20 Parameters Getting up off floor - x3 B using slight Ue assist on table (qudruped--kneeling --halfkneeling--standing) NT Intervention Step ups 8 - x20 fwd Lat BL Intervention -- Parameters -- Intervention shuttle squat 50# 20NT Parameters steamboats - x20 L5 BilatNT Goals: Physical Therapy Ortho Goals: Patient will safely, correctly and independently demonstrate the ability to perform a progressive HEP to achieve maximal rehabilitation potential and prevent this condition from recurring. 2 weeks Patient will demonstrate increased strength of R LE 4+/5 from 3+/5. 6 weeks Patient will improve strength of ankle DF 20 reps without any fatigue. Patient will improve functional strength of LE to increase reps of sit to stand 2 points from 9 today , stairs with R leg without pulling. 6 weeks Patient Education: Quality of movement, Verbal HEP, and Diagnosis and recovery specific education with patient verbalized understanding. Post-Treatment Pain Scale: leg soreness Assessment: Patient had an unexpected response to treatment due to recent COVID infection. Patient is ready for the discharge Next visit and will return in future if needed. Skilled Intervention demonstrated by modifications of treatment per exercise log including decreased load, decreased intensity, and assessment of patient's response and safety interventions per exercise log. Progress towards goals unexpected due to recent COVID . Plan for Next Visit: Treatment Visit with focus on discharge Kailey Fraser PT STATE LICENSE, [id number] documented in this encounter [facility] 10-18-2022 History of Present illness Narrative Images from the original note were not included. DATE OF SERVICE: 10/18/2022 PATIENT NAME: Carla Patel : 1945 AGE: 77 y.o. CLINIC NUMBER: [id number] Visit type: Established patient Chief Complaint Patient presents with Skin Lesion (LMS) Subjective HISTORY OF PRESENT ILLNESS: This is a 77 y.o. female With h/o AKs and no history of skin cancer presents for evaluation of several lesions. The patient has a family hx of skin cancer (her brother had NMSC), No family h/o melanoma, h/o excessive sun exposure, patient has never used a tanning bed, Does use sunscreen regularly. Born/raised in [place], not boated regularly, never farmed, was not a life scientist, patient has a hx of severe sunburns in the past. Re-check Ak's. Tx: 3 lesions on the Right confucianist x1, right cheek x1, Left lower leg x1. Pt states she feels on lesion may be present today on the R cheek and L leg History of pacemaker/ defibrillator? No History of HIV/ Hep C? No Allergies to Lidocaine, Epinephrine, Latex or Adhesive? No Review of Systems There were no vitals filed for this visit. PHYSICAL EXAM GENERAL APPEARANCE:?Alert & oriented x3, pleasant. Well developed, well nourished. PSYCH: appropriate mood and affect DERMATOLOGY: Please see diagram of patient examination (all noted lesions were examined dermoscopically; all measured lesions are pigmented macules with benign nevus patterns, unless otherwise noted) 1. Neoplasm of uncertain behavior of skin Right Zygomatic Area Skin Biopsy Type of biopsy: tangential Informed consent: discussed and consent obtained Timeout: patient name, date of , surgical site, and procedure verified Anesthesia: the lesion was anesthetized in a standard fashion Anesthetic: 1% lidocaine w/ epinephrine 1-100,000 buffered w/ 8.4% NaHCO3 Instrument used comment: [place] Hemostasis achieved with: aluminum chloride Outcome: patient tolerated procedure well Post-procedure details: wound care instructions given Specimen A - Tissue exam Differential Diagnosis: AK vs SCC Check Margins: No Biopsy recommended. Patient expresses understanding and is in agreement with the plan. Biopsy (x1) obtained today. Patient educated that we will call with the biopsy results within 2 weeks. Care instructions reviewed and written instructions provided to patient. Follow up for [id number]. Diamond Biggs MD 10/18/22 12:36 PM REFERRING MD: documented in this encounter [facility] 10-17-2022 History of Present illness Narrative [facility] OUTPATIENT REHABILITATION DAILY TREATMENT NOTE Today's Date 10/17/2022 Patient Name: Carla Patel Date of : 1945 Current Visit #: 10 Authorized Visits: 199 Case Name: Lumbar back pain, R leg weakness History: Pre-Treatment Pain Scale: 1 Symptoms: stabilized Functional Diagnosis: 1. Lumbar back pain Clinical Information: Subjective: Pt reports she is feeling much better today, min pain or soreness Objective Pt demod mod fatigue and min pain with ex's today Treatments: Physical Therapy Exercise Log - 10/17/22 1433 OTHER Precautions/Contraindications core stability and enduarnce, LE endurance (focus on R leg specially below knee), functional strengthening (sit to stand, stairs): do reps to point of moderate tireness in muscles Notes Visit 9 [id number] Therapeutic Exercise (42031) Intervention Nustep L1 x 5min Parameters STS from 15.5'' (8'' box on side) 2x10 with UE support Intervention heel raise 10# dumbell on knee - 2x20 Parameters Standing UE support DF/PF 3''x20 Intervention LAQ, HS curl RTB 3'' x 20 Parameters Getting up off floor - x3 B using slight Ue assist on table (qudruped--kneeling --halfkneeling--standing) Intervention Step ups 8 - x20 fwd Lat BL Parameters -- Intervention -- Parameters -- Intervention DF 3 x20 BL together NT Parameters TRX lunge to help to get off floor from half kneeling poisition to standing 2 x10 NT Intervention shuttle squat 50# 20NT Parameters steamboats - x20 L5 BilatNT PT Treatment Times Therex Total Time 42 Direct Treatment Time 42 Total Treatment Time 42 Goals: Physical Therapy Ortho Goals: Patient will safely, correctly and independently demonstrate the ability to perform a progressive HEP to achieve maximal rehabilitation potential and prevent this condition from recurring. 2 weeks Patient will demonstrate increased strength of R LE 4+/5 from 3+/5. 6 weeks Patient will improve strength of ankle DF 20 reps without any fatigue. Patient will improve functional strength of LE to increase reps of sit to stand 2 points from 9 today , stairs with R leg without pulling. 6 weeks Patient Education: Verbal HEP with patient verbalized understanding. Post-Treatment Pain Scale: 1 Assessment: Patient had an expected response to treatment. Skilled Intervention demonstrated by modifications of treatment per exercise log including assessment of patient's response and safety interventions per exercise log. Progress towards goals as expected. Plan for Next Visit: Treatment Visit with focus on progressing as tolerated Deb Herman PTA STATE LICENSE, [id number] documented in this encounter [facility] 10-03-2022 History of Present illness Narrative [facility] OUTPATIENT REHABILITATION DAILY TREATMENT NOTE Today's Date 10/03/2022 Patient Name: Carla Patel Date of : 1945 Current Visit #: 9 Authorized Visits: 199 Case Name: Lumbar back pain, R leg weakness History: Pre-Treatment Pain Scale: 0 Symptoms: gradually improved Functional Diagnosis: 1. Lumbar back pain Clinical Information: Subjective: Pt reports feeling good after the last session. Compliant with HEP. Objective Treatments: Physical Therapy Exercise Log - 10/03/22 1425 OTHER Precautions/Contraindications core stability and enduarnce, LE endurance (focus on R leg specially below knee), functional strengthening (sit to stand, stairs): do reps to point of moderate tireness in muscles Notes Visit 9: 2:25-3:16 Therapeutic Exercise (07032) Intervention Nustep L3 x5min Parameters shuttle squat 50# 20 Intervention steamboats - x20 L5 Bilat Parameters heel raises- 30 standing-NT Intervention Sit to standfrom lower stool slight hands - x10 Parameters Getting up off floor - x3 using slight Ue assist on table (qudruped--kneeling --halfkneeling--standing)-NT Intervention Step ups 8 - x20 fwd Lat BL Parameters STS from table x10 not much challanging - NT Intervention heel raise 10# dumbell on knee - x25 Parameters DF 3 x20 BL together Intervention LAQ, marching, hip abd 1.5 Lb x15 ankle weight Parameters TRX lunge to help to get off floor from half kneeling poisition to standing 2 x10 PT Treatment Times Therex Total Time 41 Direct Treatment Time 41 Total Treatment Time 41 Goals: Physical Therapy Ortho Goals: Patient will safely, correctly and independently demonstrate the ability to perform a progressive HEP to achieve maximal rehabilitation potential and prevent this condition from recurring. 2 weeks Patient will demonstrate increased strength of R LE 4+/5 from 3+/5. 6 weeks Patient will improve strength of ankle DF 20 reps without any fatigue. Patient will improve functional strength of LE to increase reps of sit to stand 2 points from 9 today , stairs with R leg without pulling. 6 weeks Patient Education: Quality of movement with patient demonstrated understanding. Post-Treatment Pain Scale: 1 Assessment: Patient had an expected response to treatment. Skilled Intervention demonstrated by modifications of treatment per exercise log including increased load and safety interventions per exercise log. Progress towards goals as expected. Plan for Next Visit: Treatment Visit with focus on LE strengthening. CORRY Schumacher No licensure found in state: [place] Treatment directed and supervised by supervising therapist: Bob Barnes PTA. Bob Barnes PTA [id number] documented in this encounter [facility] 10-03-2022 History of Present illness Narrative [facility] OUTPATIENT REH[facility]IL[facility]ATION DAILY TREATMENT NOTE Today's Date 10/03/2022 Patient Name: Carla Patel Date of : 1945 Current Visit #: [id number] Authorized Visits: [id number] Case Name: Lumbar back pain, R leg weakness History: Pre-Treatment Pain Scale: 0 Symptoms: gradually improved Functional Diagnosis: 1. Lumbar back pain Clinical Information: Subjective: Pt reports feeling good after the last session. Compliant with HEP. Objective Treatments: Physical Therapy Exercise Log - 10/03/22 1425 OTHER Precautions/Contraindications core stability and enduarnce, LE endurance (focus on R leg specially below knee), functional strengthening (sit to stand, stairs): do reps to point of moderate tireness in muscles Notes Visit 9: 2:25-3:16 Therapeutic Exercise (53273) Intervention Nustep L3 x5min Parameters shuttle squat 50# 20 Intervention steamboats - x20 L5 Bilat Parameters heel raises- 30 standing-NT Intervention Sit to standfrom lower stool slight hands - x10 Parameters Getting up off floor - x3 using slight Ue assist on table (qudruped--kneeling --halfkneeling--standing)-NT Intervention Step ups 8 - x20 fwd Lat BL Parameters STS from table x10 not much challanging - NT Intervention heel raise 10# dumbell on knee - x25 Parameters DF 3 x20 BL together Intervention LAQ, marching, hip abd 1.5 Lb x15 ankle weight Parameters TRX lunge to help to get off floor from half kneeling poisition to standing 2 x10 PT Treatment Times Therex Total Time 41 Direct Treatment Time 41 Total Treatment Time 41 Goals: Physical Therapy Ortho Goals: Patient will safely, correctly and independently demonstrate the ability to perform a progressive HEP to achieve maximal rehabilitation potential and prevent this condition from recurring. 2 weeks Patient will demonstrate increased strength of R LE 4+/5 from 3+/5. 6 weeks Patient will improve strength of ankle DF 20 reps without any fatigue. Patient will improve functional strength of LE to increase reps of sit to stand 2 points from 9 today , stairs with R leg without pulling. 6 weeks Patient Education: Quality of movement with patient demonstrated understanding. Post-Treatment Pain Scale: 1 Assessment: Patient had an expected response to treatment. Skilled Intervention demonstrated by modifications of treatment per exercise log including increased load and safety interventions per exercise log. Progress towards goals as expected. Plan for Next Visit: Treatment Visit with focus on LE strengthening. CORRY Schumacher No licensure found in state: [place] Treatment directed and supervised by supervising therapist: Bob Barnes PTA. Bob Barnes PTA [id number] documented in this encounter [facility] 09-29-2022 History of Present illness Narrative Images from the original note were not included. Message Received: Today MD Issa Modi MA Please get records from in [place] Faxed NIK[place] for records Dr. Crook [phone] Patient placed in same day slot 10/31/2022 I also gave her appt card with date and time. Subjective Carla Patel is a 77 y.o. female who presents for a Medicare Wellness Visit. Medicare Risk Assessment Do you have an Advanced Directive (Living Will and/or Durable Power of Sample Patternmaker for Health Care)? If not, would you like more information about Advanced Directives?: Yes What is your exercise level?: Moderate (like brisk walking) What is your diet?: Regular Can you prepare your own meals?: Yes Do you have trouble with finding transportation?: No Because of any health problems, do you need the help of another person with your personal care needs? (For example, eating, bathing, dressing, or getting around the house.): No Does your home have throw rugs, poor lighting or slippery bathtub or shower?: (!) Yes Does your home have grab bars in bathrooms or handrails on stairs and steps?: Yes During the past four weeks, how would you rate your health in general?: Very Good Whether or not you use a hearing aid, do you think you have a hearing problem or do others think you have a hearing problem?: (!) Yes Whether or not you use glasses or contacts, do you have difficulty driving, watching television, reading, or doing any of your daily activities because of your eyesight?: No In the past six months, have you had an unexplained weight loss of 10 pounds or more?: No Do you take your medications as prescribed?: I do not miss doses of my medications During the past four weeks, how much have you been bothered by emotional problems such as feeling anxious, depressed, irritable, sad, or downhearted and blue?: Not at all During the past four weeks, has your physical and emotional health limited your social activites with family, friends, neighbors, or groups? : Not at all Falls Risk Assessment Is Patient Ambulatory?: Y Fell in past year: 2 (Yes) How many falls in the past year?: 1 Did any of these falls result in an injury?: No Unsteady when walks: 0 (No) Worried about fallin (No) Advised to use cane/walker?: 0 (No) Holds onto furniture/campos: 0 (No) Uses hands to stand up from a chair: 0 (No) Trouble stepping onto curb: 0 (No) Rushes to toilet: 0 (No) Lost feeling in feet: 0 (No) Medicine makes me light-headed: 0 (No) Medicine for sleep or mood: 0 (No) Often feel sad/depressed: 0 (No) Patient Self Risk Assessment Score: 2 Medicare Mini Cog Step 1: Three Word Registration Version Used: Version 3: Village, Kitchen, Baby Step 2: Clock Drawing Step 2 score: Normal clock - 2 points Clock has all numbers placed in the correct sequence & position (e.g., 12, 3, 6 and 9 are in anchor positions) with no missing or duplicate numbers. Hands are pointing to the 11 & 2 (11:10). Hand length is not scored. Step 3: Three Word Recall Record patient's answers to the right: village kitchen baby Step 3: Three Word Recall Score: 3 Words Recalled Total score = Word Recall score + Clock Draw score A cut point of <3 on the Mini-Cog has been validated for dementia screening, but many individuals with clinically meaningful cognitive impairment will score higher. A cut point of <4 may indicate a need for further evaluation of cognitive status.: 5 Comprehensive Medical and Social History: Patient Active Problem List Diagnosis COVID-19 Graves disease Hypertension Diabetes (HCC) Side pain Bladder prolapse, female, acquired Cystoid macular edema Thoracic back pain Cough IBS (irritable bowel syndrome) Hair loss Right leg weakness Recurrent UTI Lumbar back pain Medicare annual wellness visit, subsequent Eczema Past Medical History: Diagnosis Date Glaucoma Hypertension Pleurisy Past Surgical History: Procedure Laterality Date BREAST LUMPECTOMY CHOLECYSTECTOMY COLONOSCOPY 07/11/2022 EYE SURGERY HYSTERECTOMY (CERVIX REMOVED) Current Outpatient Medications Medication Sig Dispense Refill aspirin 81 mg chewable tablet Chew and Swallow 1 (one) tablet (81 mg total) daily . 30 tablet 11 bimatoprost (LUMIGAN) 0.01 % ophthalmic drops 1 (one) drop every night at bedtime . brimonidine (Alphagan P) 0.1 % Drop 1 (one) drop 2 (two) times a day . bromfenac (Prolensa) 0.07 % Drop colestipoL (COLESTID) 1 gram tablet Take 1 (one) tablet (1 g total) by mouth daily . d-mannose Powd Take by mouth . difluprednate 0.05 % Drop Apply to eye . dorzolamide-timoloL (COSOPT) 22.3-6.8 mg/mL ophthalmic solution Use 1 Drop in the left eye every 12 hours. fluticasone propionate (FLONASE) 50 mcg/actuation nasal spray Instill 2 (two) sprays into each nostril daily . 16 g 12 lactobacillus combo no.11 (Probiotic) 15 billion cell CpSP Take by mouth . lisinopriL (PRINIVIL,ZESTRIL) 30 MG tablet Take 1 (one) tablet (30 mg total) by mouth daily . 90 tablet 0 prednisoLONE acetate-nepafenac 1-0.1 % DrpS 3 (three) times a day . timolol (TIMOPTIC-XR) 0.5 % ophthalmic gel-forming Administer 1 (one) drop to both eyes daily . clotrimazole-betamethasone (Lotrisone) cream Apply topically 2 (two) times a day . 30 g 0 famotidine (PEPCID) 20 MG tablet Take 1 (one) tablet (20 mg total) by mouth 2 (two) times a day for 7 days . (Patient not taking: Reported on 09/29/2022 .) 14 tablet 0 No current facility-administered medications for this visit. Social History Socioeconomic History Marital status: Tobacco Use Smoking status: Never Smokeless tobacco: Never Vaping Use Vaping Use: Never used Substance and Sexual Activity Alcohol use: Not Currently Drug use: Not Currently Sexual activity: Not Currently Partners: Male Social History Narrative Living with husbands in own house , 2 kids and 4 grandkids Allergies: Allergies Allergen Reactions Nitrofurantoin Monohyd/M-Cryst Other (See Comments), Unknown, Fever and GI Intolerance Sulfa (Sulfonamide Antibiotics) Amoxicillin-Pot Clavulanate GI Intolerance and Nausea And Vomiting Other reaction(s): GI Upset Other reaction(s): GI Upset Other reaction(s): GI Upset Care Team Patient Care Team: Cristy Davidson MD as PCP - General (Family Medicine) Pharmacy / Equipment Co. (DME) [id number] - [place], [place] - [address] [id number] [facility] [id number] [id number] - [place], [place] - [address] [id number] [facility] - [place], [place] - [facility] AT Portal to [facility] [id number] Objective Blood pressure (!) 161/90, pulse 78, temperature 98.3 F (36.8 C), temperature source Temporal, resp. rate 16, height 5', weight 73 kg (161 lb), SpO2 98 %. Body mass index is 31.44 kg/m . Vitals: PACU Vitals 09/29/22 1216 BP: (!) 161/90 Pulse: 78 Resp: Temp: SpO2: Vision and Hearing Screen: No results found. Assessment: The primary encounter diagnosis was At low risk for fall. Diagnoses of Hypertension, unspecified type, Right leg weakness, Medicare annual wellness visit, subsequent, Eczema, unspecified type, and Type 2 diabetes mellitus without complication, without long-term current use of insulin ([facility]) were also pertinent to this visit. Plan: During the course of the visit the patient was educated and counseled about appropriate screening and preventive services including: Advice / Referrals: Provide Healthwise patient instructions, Refer to OT/PT, and Refer for Balance Training Handouts Reviewed and discussed with Patient: Problem List Items Addressed This Visit Endocrine Diabetes (HCC) Chronic, diet controlled. Previous hyperglycemia with multiple prednisone courses will Last A1c is 6.6 in 06/2022 Eye exam up to date , cleared to go back to driving after she got her years of refraction checked. No signs of neuropathy at this time. Cardiovascular and Mediastinum Hypertension A lot of stress , increased today Still continues on lisinopril 30 mg, she will check her blood pressure at home for the next 2 weeks and if it is still elevated at 140/90 and above then she will let me know to add a low-dose amlodipine versus Coreg. Patient agreeable to that plan and will follow-up closely in 1 month Nervous and Auditory Right leg weakness MRI of the brain came back with none obstructive mild atherosclerotic disease, otherwise normal with no acute intracranial findings. Improving muscle function with PT. Continue to monitor underlying diabetes and hypertension with close follow-up in 1 month. ASCVD score is high. Continue with aspirin 81 mg, will discuss statin therapy in the next visit. Musculoskeletal and Integument Eczema Erythematous and scaly lesions over right foot in between toes and heel. Nonpruritic concerning for eczema. Advised to avoid excess moisture and use a blow dryer after her shower. Continue to monitor, cream given today Relevant Medications clotrimazole-betamethasone (Lotrisone) cream Other Medicare annual wellness visit, subsequent Patient is able to do all the ADLs and IADLs. Low risk for fall, low risk for dementia. Does have throw rugs at home that she is not willing to let go and has stoppers at the edges so that she does not trip on them. She does have a living will and is willing to get us a copy, at this time she remains full code with no life-sustaining measures. Her DPOA are her kids Myesha Davis and Cirilo Patel They are also her emergency contacts but her would come first. Other Visit Diagnoses At low risk for fall - Primary 5-Year Plan: Health Maintenance Topic Date Due Tetanus: Every 10yrs Never done PT Plan of Care Never done Dexa Scan Never done Wellness Visit Never done Foot Exam Never done Hepatitis C Screening Never done Zoster Vaccines (2 of 3) 07/28/2014 Pneumococcal Vaccine: Age 65+ (2 - PCV) 03/30/2015 COVID-19 Vaccine (3 - Booster for Moderna series) 01/28/2021 Falls Risk Assessment 10/24/2022 Depression Screening (PHQ-2/9) 10/24/2022 A1C 12/26/2022 Mammogram 05/26/2023 Urine Microalbumin 06/27/2023 Ophthalmology Exam 08/28/2023 Colorectal Cancer Screening/Monitoring 07/11/2032 Sequential Influenza Vaccine Completed Patient Instructions (the written plan) was given to the patient. Depression Screening 10/24/2021 09/29/2022 Little interest or pleasure in doing things 0 0 Feeling down, depressed, or hopeless 0 0 PHQ-2 Total Score 0 0 Trouble falling or staying asleep, or sleeping too much 1 0 Feeling tired or having little energy 0 0 Poor appetite or overeating 1 0 Feeling bad about yourself - or that you are a failure or have let yourself or your family down 0 0 Trouble concentrating on things, such as reading the newspaper or watching television 0 0 Moving or speaking so slowly that other people could have noticed. Or the opposite - being so fidgety or restless that you have been moving around a lot more than usual 0 0 Thoughts that you would be better off , or of hurting yourself in some way 0 0 PHQ-9 Total Score 2 0 If you checked off any problems, how difficult have these problems made it for you to do your work, take care of things at home, or get along with other people? Not difficult at all - documented in this encounter [facility] 09-29-2022 Evaluation + Plan note Associated Problem(s): Eczema Erythematous and scaly lesions over right foot in between toes and heel. Nonpruritic concerning for eczema. Advised to avoid excess moisture and use a blow dryer after her shower. Continue to monitor, cream given today [facility] 09-29-2022 Miscellaneous Notes Associated Problem(s): Eczema Erythematous and scaly lesions over right foot in between toes and heel. Nonpruritic concerning for eczema. Advised to avoid excess moisture and use a blow dryer after her shower. Continue to monitor, cream given today Associated Problem(s): Medicare annual wellness visit, subsequent Patient is able to do all the ADLs and IADLs. Low risk for fall, low risk for dementia. Does have throw rugs at home that she is not willing to let go and has stoppers at the edges so that she does not trip on them. She does have a living will and is willing to get us a copy, at this time she remains full code with no life-sustaining measures. Her DPOA are her kids Myesha Davis and Cirilo Chadwicklizbet They are also her emergency contacts but her would come first. Associated Problem(s): Right leg weakness MRI of the brain came back with none obstructive mild atherosclerotic disease, otherwise normal with no acute intracranial findings. Improving muscle function with PT. Continue to monitor underlying diabetes and hypertension with close follow-up in 1 month. ASCVD score is high. Continue with aspirin 81 mg, will discuss statin therapy in the next visit. Associated Problem(s): Diabetes (HCC) Chronic, diet controlled. Previous hyperglycemia with multiple prednisone courses will Last A1c is 6.6 in 06/2022 Eye exam up to date , cleared to go back to driving after she got her years of refraction checked. No signs of neuropathy at this time. Associated Problem(s): Hypertension A lot of stress , increased today Still continues on lisinopril 30 mg, she will check her blood pressure at home for the next 2 weeks and if it is still elevated at 140/90 and above then she will let me know to add a low-dose amlodipine versus Coreg. Patient agreeable to that plan and will follow-up closely in 1 month documented in this encounter [facility] 09-29-2022 Evaluation + Plan note Associated Problem(s): Medicare annual wellness visit, subsequent Patient is able to do all the ADLs and IADLs. Low risk for fall, low risk for dementia. Does have throw rugs at home that she is not willing to let go and has stoppers at the edges so that she does not trip on them. She does have a living will and is willing to get us a copy, at this time she remains full code with no life-sustaining measures. Her DPOA are her kids Myesha Davis and Cirilo Patel They are also her emergency contacts but her would come first. [facility] 09-29-2022 Evaluation + Plan note Associated Problem(s): Right leg weakness MRI of the brain came back with none obstructive mild atherosclerotic disease, otherwise normal with no acute intracranial findings. Improving muscle function with PT. Continue to monitor underlying diabetes and hypertension with close follow-up in 1 month. ASCVD score is high. Continue with aspirin 81 mg, will discuss statin therapy in the next visit. [facility] 09-29-2022 Evaluation + Plan note Associated Problem(s): Diabetes (HCC) Chronic, diet controlled. Previous hyperglycemia with multiple prednisone courses will Last A1c is 6.6 in 06/2022 Eye exam up to date , cleared to go back to driving after she got her years of refraction checked. No signs of neuropathy at this time. [facility] 09-29-2022 Evaluation + Plan note Associated Problem(s): Hypertension A lot of stress , increased today Still continues on lisinopril 30 mg, she will check her blood pressure at home for the next 2 weeks and if it is still elevated at 140/90 and above then she will let me know to add a low-dose amlodipine versus Coreg. Patient agreeable to that plan and will follow-up closely in 1 month [facility] 09-29-2022 Instructions Cristy Davidson MD - 09/29/2022 12:23 PM EDT [facility] Low Risk Patient Instructions: Your Falls Screening today shows that you are at low risk for falls. To further protect yourself from falls and maintain your independence, we recommend: 1. Read through the brochure, What You Can Do to Prevent Falls (from CDC). 2. Go through the brochure, Check for Safety: A Home Fall Prevention Checklist for Older Adults (from [facility]), and make changes as recommended. 3. Join a community falls prevention program: Stepping On, a 7-week evidence based program that teaches balance exercises and fall prevention strategies Douglas Chi for older adults, group exercise that teaches Douglas Chi forms that reduce fall risk (weight shifting, postural alignment and control, and coordinated movements of the arms, legs, head, and trunk) Matter of Balance, an evidence based program designed to reduce the fear of falling and increase activity levels of older adults OR an exercise class for strength and balance. 4. Take your Vitamin D with or without Calcium, as determined by your healthcare provider. 5. Get your vision and hearing checked annually. Falls At Home Each year, thousands of older Americans fall at home. Many of them are seriously injured, and some are disabled. In 2011, nearly 23,000 people over age 65 and 2.4 million were treated in emergency departments because of falls. Falls are often due to hazards that are easy to overlook but easy to fix. This checklist will help you find and fix those hazards in your home. The checklist asks about hazards found in each room of your home. For each hazard, the checklist tells you how to fix the problem. At the end of the checklist, you ll find other tips for preventing falls. FLOORS: Look at the floor in each room. Q: When you walk through a room, do you have to walk around furniture? A. Ask someone to move the furniture so your path is clear Q: Do you have throw rugs on the floor? A. Remove the rugs or use double-sided tape or a non-slip backing so the rugs won t slip. Q: Are there papers, books, towels, shoes, magazines, boxes, blankets, or other objects on the floor? A.labor supervisor things that are on the floor. Always keep objects off the floor. Q: Do you have to walk over or around wires or cords (like lamp, telephone, or extension cords)? A. Coil or tape cords and wires next to the wall so you can t trip over them. If needed, have an electrician research put in another outlet. STAIRS AND STEPS: Look at the stairs you use both inside and outside your home. Q: Are there papers, shoes, books, or other objects on the stairs? A. labor supervisor things on the stairs. Always keep objects off stairs. Q: Are some steps broken or uneven? A. Fix loose or uneven steps. Q: Are you missing a light over the stairway? A. Have an electrician research put in an overhead light at the top and bottom of the stairs. Q: Do you have only one light switch for your stairs (only at the top or at the bottom of the stairs)? A. Have an electrician research put in a light switch at the top and bottom of the stairs. You can get light switches that glow. Q: Has the stairway light bulb burned out? A. Have a friend or family member change the light bulb. Q: Is the carpet on the steps loose or torn? A. Make sure the carpet is firmly attached to every step, or remove the carpet and attach non-slip rubber treads to the stairs. Q: Are the handrails loose or broken? Is there a handrail on only one side of the stairs? A. Fix loose handrails or put in new ones. Make sure handrails are on both sides of the stairs and are as long as the stairs. KITCHEN: Look at your kitchen and eating area. Q: Are the things you use often on high shelves? A. Move items in your cabinets. Keep things you use often on the lower shelves (about waist level). Q: Is your step stool unsteady? A. If you must use a step stool, get one with a bar to hold on to. Never use a chair as a step stool. BATHROOMS: Look at all your bathrooms. Q: Is the tub or shower floor slippery? A. Put a non-slip rubber mat or self-stick strips on the floor of the tub or shower. Q: Do you need some support when you get in and out of the tub or up from the toilet? A. Have grab bars put in next to and inside the tub and next to the toilet. BEDROOMS: Look at all your bedrooms. Q: Is the light near the bed hard to reach? A. Place a lamp close to the bed where it s easy to reach. Q: Is the path from your bed to the bathroom dark? A. Put in a night-light so you can see where you re walking. Some night-lights go on by themselves after dark. Other Things You Can Do to Prevent Falls Do exercises that improve your balance and make your legs stronger. Exercise also helps you feel better and more confident. Have your doctor or pharmacist look at all the medicines you take, even [id number] medicines. Some medicines can make you sleepy or dizzy. Have your eyes checked by an eye doctor at least once a year and update your glasses. Get up slowly after you sit or lie down. Wear shoes both inside and outside the house. Avoid going barefoot or wearing slippers. Improve the lighting in your home. Put in brighter light bulbs. Florescent bulbs are bright and cost less to use. It s safest to have uniform lighting in a room. Add lighting to dark areas. Hang lightweight curtains or shades to reduce glare. [place] a contrasting color on the top edge of all steps so you can see the stairs better. For example, use a light color paint on dark wood. To access this brochure online, please visit the CDC website at http://www.cdc.gov/steadi/pdf/heaven ck_for_safety_brochure-a.pdf Chair Rise Exercise What it does: Strengthens the muscles in your thighs & buttocks. Goal: To do this exercise without using your hands as you become stronger. How to do it: 1. Sit toward the front of a sturdy chair with your knees bent & feet flat on the floor shoulder-width apart 2. Rest your hands lightly on the seat on either side of you, keeping your back & neck straight & and chest slightly forward. 3. Breathe in slowly. Lean forward & feel your weight on the front of your feet. 4. Breathe out and slowly stand up, using your hands as little as possible. 5. Pause for a full breath in & out. 6. Breathe in as you slowly sit down. Do not let yourself collapse back down into the chair. Rather, control your lowering as much as possible. 7. Breathe out. Repeat 10-15 times. If this number is too hard for you when you first start practicing this exercise, begin with fewer and work up to this number. Rest for a minute & then do a final set of 10-15. For detailed instructions, please visit the CDC website at http://www.cdc.gov/steadi/pdf/nigel ir_rise_exercise-a.pdf Stepping On is an evidence based program proven to reduce falls in older adults. It is a workshop offered once a week for seven weeks. In a small-group setting, you will learn balance exercises and develop specific knowledge and skills to prevent falls. Older adults who should attend are those who: are at risk of falling who have fallen one or more times lives at home are able to walk without the help of another person Local guest experts provide information on exercise, safety, vision, and medications. Classes are offered at [facility]. To find out specifics about a class, please call [phone]. Douglsa chi: Moving for Better Balance involves low impact exercise. The 12-week class is offered for three hours per week and is led by a trained instructor dancing. It is intended for people aged 60 and older. Participants learn and perform a program of eight forms that progress from easy to more difficult. The program can accommodate persons with various physical conditions. Health Benefits of Douglas Chi: Moving for Better Balance: Improved social and mental well-being, Improved balance and physical functioning, Improved confidence in conducting daily activities, Reduced risk of falling and sustaining associated injuries, and Maintained independence and improved quality of life. To find a Douglas Chi program in your area or additional resources about fall prevention please contact: [facility] Violence and Injury Prevention Program at [phone] or [email or web address] A Matter of Balance: Managing Concerns about Falls is an evidence based program designed to reduce the fear of falling and increase activity levels of older adults. A trained toggle press folder and feeder leads 8 two-hour sessions for small groups of older adults. The class is intended for people 60 and older who are at risk of falling have a fear of falling or restrict activities who have fallen in the past are interested in improving flexibility, balance, and strength. Participants will learn to view falls as controllable, set goals to increase activity levels, and reduce fall risks at home. Classes are offered in all [address] [place] [address] in [place]. For more information about specific classes near you, please visit http://aging.[place].gov/steadyu/res ources/matterofbalance.aspx. documented in this encounter [facility] 09-28-2022 History of Present illness Narrative [facility] OUTPATIENT REHABILITATION DAILY TREATMENT NOTE Today's Date 09/28/2022 Patient Name: Carla Patel Date of : 1945 Current Visit #: 8 Authorized Visits: 199 Case Name: Lumbar back pain, R leg weakness History: Pre-Treatment Pain Scale: 0 Symptoms: gradually improved Functional Diagnosis: 1. Lumbar back pain Clinical Information: Subjective: Pt reports legs fatigued after last session. No pain in back Objective Treatments: Physical Therapy Exercise Log - 09/28/22 7636 OTHER Precautions/Contraindications core stability and enduarnce, LE endurance (focus on R leg specially below knee), functional strengthening (sit to stand, stairs): do reps to point of moderate tireness in muscles Notes Visit 8: 2:26 - 3:04 Therapeutic Exercise (04456) Intervention Nustep L4 x5min Parameters shuttle squat 50# 2x10 Intervention steamboats - x20 L5 Bilat Parameters heel raises- 30 standing Intervention Sit to standfrom lower stool slight hands - x10 Parameters Getting up off floor - x3 using slight Ue assist on table (qudruped--kneeling --halfkneeling--standing) Intervention Step ups 8 - x15 fwd Lat BL Parameters STS from table x10 not much challanging (skip NV) Intervention heel raise 10# dumbell on knee - x20 Parameters DF 3 x15 BL together Intervention LAQ, marching, hip abd 1.5 Lb x15 ankle weight NT Parameters TRX lunge to help to get off floor from half kneeling poisition to standing 10 PT Treatment Times Therex Total Time 38 Direct Treatment Time 38 Total Treatment Time 38 Goals: Physical Therapy Ortho Goals: Patient will safely, correctly and independently demonstrate the ability to perform a progressive HEP to achieve maximal rehabilitation potential and prevent this condition from recurring. 2 weeks Patient will demonstrate increased strength of R LE 4+/5 from 3+/5. 6 weeks Patient will improve strength of ankle DF 20 reps without any fatigue. Patient will improve functional strength of LE to increase reps of sit to stand 2 points from 9 today , stairs with R leg without pulling. 6 weeks Patient Education: Quality of movement with patient demonstrated understanding. Post-Treatment Pain Scale: 0 Assessment: Patient had an expected response to treatment. Skilled Intervention demonstrated by modifications of treatment per exercise log including increased load and safety interventions per exercise log. Progress towards goals as expected. Plan for Next Visit: Treatment Visit with focus on LE strengthening and getting up off floor through half kneel Bob Barnes PTA STATE LICENSE, [id number] documented in this encounter [facility] 09-28-2022 History of Present illness Narrative [facility] OUTPATIENT REHABIL[facility]ATION DAILY TREATMENT NOTE Today's Date 09/28/2022 Patient Name: Carla Patel Date of : 1945 Current Visit #: 8 Authorized Visits: 199 Case Name: Lumbar back pain, R leg weakness History: Pre-Treatment Pain Scale: 0 Symptoms: gradually improved Functional Diagnosis: 1. Lumbar back pain Clinical Information: Subjective: Pt reports legs fatigued after last session. No pain in back Objective Treatments: Physical Therapy Exercise Log - 09/28/22 1424 OTHER Precautions/Contraindications core stability and enduarnce, LE endurance (focus on R leg specially below knee), functional strengthening (sit to stand, stairs): do reps to point of moderate tireness in muscles Notes Visit 8: 2:26 - 3:04 Therapeutic Exercise ([id number]) Intervention Nustep L4 x5min Parameters shuttle squat 50# 2x10 Intervention steamboats - x20 L5 Bilat Parameters heel raises- 30 standing Intervention Sit to standfrom lower stool slight hands - x10 Parameters Getting up off floor - x3 using slight Ue assist on table (qudruped--kneeling --halfkneeling--standing) Intervention Step ups 8 - x15 fwd Lat BL Parameters STS from table x10 not much challanging (skip NV) Intervention heel raise 10# dumbell on knee - x20 Parameters DF 3 x15 BL together Intervention LAQ, marching, hip abd 1.5 Lb x15 ankle weight NT Parameters TRX lunge to help to get off floor from half kneeling poisition to standing 10 PT Treatment Times Therex Total Time 38 Direct Treatment Time 38 Total Treatment Time 38 Goals: Physical Therapy Ortho Goals: Patient will safely, correctly and independently demonstrate the ability to perform a progressive HEP to achieve maximal rehabilitation potential and prevent this condition from recurring. 2 weeks Patient will demonstrate increased strength of R LE 4+/5 from 3+/5. 6 weeks Patient will improve strength of ankle DF 20 reps without any fatigue. Patient will improve functional strength of LE to increase reps of sit to stand 2 points from 9 today , stairs with R leg without pulling. 6 weeks Patient Education: Quality of movement with patient demonstrated understanding. Post-Treatment Pain Scale: 0 Assessment: Patient had an expected response to treatment. Skilled Intervention demonstrated by modifications of treatment per exercise log including increased load and safety interventions per exercise log. Progress towards goals as expected. Plan for Next Visit: Treatment Visit with focus on LE strengthening and getting up off floor through half kneel Bob Barnes PTA STATE LICENSE, [id number] documented in this encounter [facility] 09-26-2022 History of Present illness Narrative [facility] OUTPATIENT REH[facility]ATION DAILY TREATMENT NOTE Today's Date 09/26/2022 Patient Name: Carla Patel Date of : 1945 Current Visit #: 7 Authorized Visits: 199 Case Name: Lumbar back pain, R leg weakness History: Pre-Treatment Pain Scale: 0 Symptoms: gradually improved Functional Diagnosis: 1. Lumbar back pain Clinical Information: Subjective: patient reports no soreness after last session . She feels some improvement in strength but still legs feel weak. Objective Added lower stool squat and half kneeling using TRX to get strength in leg muscles to help getting off floor. Needed mini assist with lower stool sit to stand. Very small range of lunge today as she has hard time to maintain proper form of motion to avoid pressure in knee. Treatments: Physical Therapy Exercise Log - 09/26/22 1430 OTHER Precautions/Contraindications core stability and enduarnce, LE endurance (focus on R leg specially below knee), functional strengthening (sit to stand, stairs): do reps to point of moderate tireness in muscles Notes Visit 7: 2:30 -3:11 Therapeutic Exercise ([id number]) Intervention Nustep L4 x5min Parameters shuttle squat 50# 3x10 Intervention steamboats - x20 L3 Bilat Parameters heel raises- 30 standing Intervention Sit to standfrom lower stool slight hands - x10 Parameters Getting up off floor - x3 using slight Ue assist on table (qudruped--kneeling --halfkneeling--standing) Intervention Step ups 8 - x10 fwd Lat BL Parameters STS from table x10 not much challanging (skip NV) Intervention heel raise 10# dumbell on knee - x20 Parameters DF 3 x15 BL together Intervention LAQ, marching, hip abd 1.5 Lb x15 ankle weight NT Parameters TRX lunge to help to get off floor from half kneeling poisition to standing 10 Intervention -- PT Treatment Times Therex Total Time 41 Direct Treatment Time 41 Total Treatment Time 43 Goals: Physical Therapy Ortho Goals: Patient will safely, correctly and independently demonstrate the ability to perform a progressive HEP to achieve maximal rehabilitation potential and prevent this condition from recurring. 2 weeks Patient will demonstrate increased strength of R LE 4+/5 from 3+/5. 6 weeks Patient will improve strength of ankle DF 20 reps without any fatigue. Patient will improve functional strength of LE to increase reps of sit to stand 2 points from 9 today , stairs with R leg without pulling. 6 weeks Patient Education: Quality of movement, Verbal HEP, and Diagnosis and recovery specific education with patient verbalized understanding. Post-Treatment Pain Scale: 0 Assessment: Patient had an expected response to treatment. Skilled Intervention demonstrated by modifications of treatment per exercise log including increased load, increased rate, and assessment of patient's response and safety interventions per exercise log. Progress towards goals as expected. Plan for Next Visit: Treatment Visit with focus on continue Kailey Fraser PT STATE LICENSE, [id number] documented in this encounter [facility] 09-21-2022 History of Present illness Narrative [facility] OUTPATIENT REH[facility]ATION DAILY TREATMENT NOTE Today's Date 09/21/2022 Patient Name: Carla Patel Date of : 1945 Current Visit #: 6 Authorized Visits: 199 Case Name: Lumbar back pain, R leg weakness History: Pre-Treatment Pain Scale: 0 Symptoms: gradually improved Functional Diagnosis: 1. Lumbar back pain Clinical Information: Subjective: Pt reports no paid today and increased ability to climb stairs. Compliant with HEP. Objective Progressed to upright bike and STS with airex to strengthen hip flexors in a decreased angle of hip flexion. Treatments: Physical Therapy Exercise Log - 09/21/22 1432 OTHER Precautions/Contraindications core stability and enduarnce, LE endurance (focus on R leg specially below knee), functional strengthening (sit to stand, stairs): do reps to point of moderate tireness in muscles Notes Visit 6: 2:32 -3:08 Therapeutic Exercise ([id number]) Intervention upright bike L5, seat 1 x5min Parameters Step ups 8 - x10 fwd Lat BL Intervention steamboats - x20 L3 Bilat Parameters Rockerboard forward and sideways - x20 Intervention Reverse Clamshells - x10 B-NT Parameters heel raises- 2x10 standing-NT Intervention shuttle squat 50# 3x10 Parameters STS onto airex x10 Intervention heel raise 10# dumbell on knee - x20 Parameters Sit to stand no hands - x10 Intervention DF 3 x15 BL together Parameters LAQ, marching, hip abd 1.5 Lb x15 ankle weight Intervention Getting up off floor - x3 PT Treatment Times Therex Total Time 36 Direct Treatment Time 36 Total Treatment Time 36 Goals: Physical Therapy Ortho Goals: Patient will safely, correctly and independently demonstrate the ability to perform a progressive HEP to achieve maximal rehabilitation potential and prevent this condition from recurring. 2 weeks Patient will demonstrate increased strength of R LE 4+/5 from 3+/5. 6 weeks Patient will improve strength of ankle DF 20 reps without any fatigue. Patient will improve functional strength of LE to increase reps of sit to stand 2 points from 9 today , stairs with R leg without pulling. 6 weeks Patient Education: Quality of movement with patient demonstrated understanding. Post-Treatment Pain Scale: 0 Assessment: Patient had an expected response to treatment. Skilled Intervention demonstrated by modifications of treatment per exercise log including increased load and safety interventions per exercise log. Progress towards goals as expected. Plan for Next Visit: Treatment Visit with focus on strengthening LE. CORRY Schumacher No licensure found in state: [place] Treatment directed and supervised by supervising therapist: Bob Barnes PTA. Bob Barnes PTA [id number] documented in this encounter [facility] 09-21-2022 History of Present illness Narrative [facility] OUTPATIENT REH[facility]IL[facility]ATION DAILY TREATMENT NOTE Today's Date 09/21/2022 Patient Name: Carla Patel Date of : 1945 Current Visit #: 6 Authorized Visits: 199 Case Name: Lumbar back pain, R leg weakness History: Pre-Treatment Pain Scale: 0 Symptoms: gradually improved Functional Diagnosis: 1. Lumbar back pain Clinical Information: Subjective: Pt reports no paid today and increased ability to climb stairs. Compliant with HEP. Objective Progressed to upright bike and STS with airex to strengthen hip flexors in a decreased angle of hip flexion. Treatments: Physical Therapy Exercise Log - 09/21/22 1432 OTHER Precautions/Contraindications core stability and enduarnce, LE endurance (focus on R leg specially below knee), functional strengthening (sit to stand, stairs): do reps to point of moderate tireness in muscles Notes Visit 6: 2:32 -3:08 Therapeutic Exercise ([id number]) Intervention upright bike L5, seat 1 x5min Parameters Step ups 8 - x10 fwd Lat BL Intervention steamboats - x20 L3 Bilat Parameters Rockerboard forward and sideways - x20 Intervention Reverse Clamshells - x10 B-NT Parameters heel raises- 2x10 standing-NT Intervention shuttle squat 50# 3x10 Parameters STS onto airex x10 Intervention heel raise 10# dumbell on knee - x20 Parameters Sit to stand no hands - x10 Intervention DF 3 x15 BL together Parameters LAQ, marching, hip abd 1.5 Lb x15 ankle weight Intervention Getting up off floor - x3 PT Treatment Times Therex Total Time 36 Direct Treatment Time 36 Total Treatment Time 36 Goals: Physical Therapy Ortho Goals: Patient will safely, correctly and independently demonstrate the ability to perform a progressive HEP to achieve maximal rehabilitation potential and prevent this condition from recurring. 2 weeks Patient will demonstrate increased strength of R LE 4+/5 from 3+/5. 6 weeks Patient will improve strength of ankle DF 20 reps without any fatigue. Patient will improve functional strength of LE to increase reps of sit to stand 2 points from 9 today , stairs with R leg without pulling. 6 weeks Patient Education: Quality of movement with patient demonstrated understanding. Post-Treatment Pain Scale: 0 Assessment: Patient had an expected response to treatment. Skilled Intervention demonstrated by modifications of treatment per exercise log including increased load and safety interventions per exercise log. Progress towards goals as expected. Plan for Next Visit: Treatment Visit with focus on strengthening LE. CORRY Schumacher No licensure found in state: [place] Treatment directed and supervised by supervising therapist: Bob Barnes PTA. Bob Barnes PTA [id number] documented in this encounter [facility] 09-19-2022 History of Present illness Narrative [facility] OUTPATIENT REH[facility] DAILY TREATMENT NOTE Today's Date 09/19/2022 Patient Name: Carla Patel Date of : 1945 Current Visit #: 5 Authorized Visits: 199 Case Name: Lumbar back pain, R leg weakness History: Pre-Treatment Pain Scale: 3 Symptoms: stabilized Functional Diagnosis: 1. Lumbar back pain Clinical Information: Subjective: Pt reports hips sore today and no pain in back. Especially tight when standing from sitting Objective Progressed hip strengthening and continue with progression from lower levels Treatments: Physical Therapy Exercise Log - 09/19/22 1350 OTHER Precautions/Contraindications core stability and enduarnce, LE endurance (focus on R leg specially below knee), functional strengthening (sit to stand, stairs): do reps to point of moderate tireness in muscles Notes Visit 5: 1:49 - 2:30 - Therapeutic Exercise ([id number]) Intervention SciFit - x5 min L4 Parameters Step ups - x10 fwd Lat BL Intervention BOSU Lunges - x20 alt Parameters Rockerboard - x20 Intervention Reverse Clamshells - x10 B Parameters heel raises- 2x10 standing Intervention steamboats - x20 L3 Bilat Parameters DF 3 x15 BL together Intervention heel raise 10# dumbell on knee - x10 Parameters Sit to stand no hands - x10 Intervention shuttle squat 50# 3x10 Parameters LAQ, marching, hip abd 1.5 Lb x15 ankle weight Intervention Getting up off floor - x3 PT Treatment Times Therex Total Time 41 Direct Treatment Time 41 Total Treatment Time 41 Goals: Physical Therapy Ortho Goals: Patient will safely, correctly and independently demonstrate the ability to perform a progressive HEP to achieve maximal rehabilitation potential and prevent this condition from recurring. 2 weeks Patient will demonstrate increased strength of R LE 4+/5 from 3+/5. 6 weeks Patient will improve strength of ankle DF 20 reps without any fatigue. Patient will improve functional strength of LE to increase reps of sit to stand 2 points from 9 today , stairs with R leg without pulling. 6 weeks Patient Education: Quality of movement with patient demonstrated understanding. Post-Treatment Pain Scale: 3 Assessment: Patient had an expected response to treatment. Skilled Intervention demonstrated by modifications of treatment per exercise log including increased load and safety interventions per exercise log. Progress towards goals as expected. Plan for Next Visit: Treatment Visit with focus on strengthening and getting up off floor Bob Barnes PTA STATE LICENSE, [id number] documented in this encounter [facility] 09-14-2022 History of Present illness Narrative [facility] RE[facility] DAILY TREATMENT NOTE Today's Date 09/14/2022 Patient Name: Carla Patel Date of : 1945 Current Visit #: 4 Authorized Visits: 199 Case Name: Lumbar back pain, R leg weakness History: Pre-Treatment Pain Scale: soreness in calf Symptoms: stabilized Functional Diagnosis: 1. Lumbar back pain Clinical Information: Subjective: patient reports soreness since last session but no pain. She feels she is improving with exercises. Objective Continued with exercises as per the log and added shuttle squat. Belen R hip during exercises intermittently. Treatments: Physical Therapy Exercise Log - 09/14/22 1520 OTHER Precautions/Contraindications core stability and enduarnce, LE endurance (focus on R leg specially below knee), functional strengthening (sit to stand, stairs): do reps to point of moderate tireness in muscles Notes Visit 4: 3:19-3:50 Therapeutic Exercise ([id number]) Intervention SciFit - x5 min L4 Parameters Step ups - x10 fwd Lat BL Intervention BOSU Lunges - x15 alt Parameters Rockerboard - x20 Intervention -- Parameters heel raises- 2x10 standing Intervention steamboats - x20 L3 Bilat Parameters DF 3 x15 BL together Intervention heel raise 10# dumbell on knee - x10 Parameters Sit to stand no hands - x10 Intervention shuttle squat 50# 3x10 Parameters LAQ, marching, hip abd 1.5 Lb 15 Lb ankle weight PT Treatment Times Therex Total Time 39 Direct Treatment Time 39 Total Treatment Time 42 Goals: Physical Therapy Ortho Goals: Patient will safely, correctly and independently demonstrate the ability to perform a progressive HEP to achieve maximal rehabilitation potential and prevent this condition from recurring. 2 weeks Patient will demonstrate increased strength of R LE 4+/5 from 3+/5. 6 weeks Patient will improve strength of ankle DF 20 reps without any fatigue. Patient will improve functional strength of LE to increase reps of sit to stand 2 points from 9 today , stairs with R leg without pulling. 6 weeks Patient Education: Quality of movement, Verbal HEP, HEP Adherence, and Diagnosis and recovery specific education with patient verbalized understanding. Post-Treatment Pain Scale: 0 feels muscles like did work out Assessment: Patient had an expected response to treatment. Patient has more strength and able to lift r hip further and Df R foot equal on both legs now. Skilled Intervention demonstrated by modifications of treatment per exercise log including increased load, increased rate, and assessment of patient's response and safety interventions per exercise log. Progress towards goals as expected. Plan for Next Visit: Treatment Visit with focus on continue Kailey Fraser PT STATE LICENSE, [id number] documented in this encounter [facility] 09-07-2022 History of Present illness Narrative [facility] OUTPATIENT REHABILITATION DAILY TREATMENT NOTE Today's Date 09/07/2022 Patient Name: Carla Patel Date of : 1945 Current Visit #: 2 Authorized Visits: [id number] Case Name: Lumbar back pain, R leg weakness History: Pre-Treatment Pain Scale: 0 Symptoms: stabilized Functional Diagnosis: 1. Lumbar back pain Clinical Information: Subjective: Pt reports R leg seems weaker through whole leg. Noties foot slapping when she gets tired and sometimes catches her toe. Pt has no c/o pain. Objective Treatments: Physical Therapy Exercise Log - 09/07/22 1518 OTHER Precautions/Contraindications core stability and enduarnce, LE endurance (focus on R leg specially below knee), functional strengthening (sit to stand, stairs): do reps to point of moderate tireness in muscles Notes Visit 1: 3:18 - 4:04 Therapeutic Exercise (88022) Intervention SciFit - x5 min L3 Parameters Step ups - x10 fwd Lat Intervention BOSU Lunges - x15 alt Parameters Rockerboard - x20 Intervention Toe elevated Heel raises - x10 Parameters Toe raises - x10 standing Intervention steamboats - x10 L3 Bilat Parameters PF GTB - x15 Intervention Toe raise/heel raise 10# dumbell on knee - x10 Parameters Sit to stand no hands - x10 PT Treatment Times Therex Total Time 46 Direct Treatment Time 46 Total Treatment Time 46 Goals: Physical Therapy Ortho Goals: Patient will safely, correctly and independently demonstrate the ability to perform a progressive HEP to achieve maximal rehabilitation potential and prevent this condition from recurring. 2 weeks Patient will demonstrate increased strength of R LE 4+/5 from 3+/5. 6 weeks Patient will improve strength of ankle DF 20 reps without any fatigue. Patient will improve functional strength of LE to increase reps of sit to stand 2 points from 9 today , stairs with R leg without pulling. 6 weeks Patient Education: Quality of movement with patient demonstrated understanding. Post-Treatment Pain Scale: 0 Assessment: Patient had an expected response to treatment. Skilled Intervention demonstrated by modifications of treatment per exercise log including increased load and safety interventions per exercise log. Progress towards goals as expected. Plan for Next Visit: Treatment Visit with focus on strengthening of LE and ankle Bob Barnes PTA STATE LICENSE, [id number] documented in this encounter [facility] 08-28-2022 Note HNO ID: [id number] Author: Karlie New MD Service: ? Author Type: Physician Type: Progress Notes Filed: 08/28/2022 1:29 PM Note Text: Tmax: 22, 23; Pachy: 598, 599 Lasers and Surgeries: OD: 06/02/21 [facility] 180 deg (IOP=22 on 4 meds) 03/24/21 MP-[facility] IOP17 on 4meds, VF prog 09/09/20 phaco-250 CP [id number] on3, VF prog aim -0.8 12/2018 GATT (IOP=19 on 3 meds with VF progression) Trabeculectomy c [facility] 02/02/05; needling c [facility] 05/2010 IOP=19 with large DH 02/2005 excision of conj epi inclusion cyst OS: 03/30/22 phaco-[facility] aim -1.00 Trabeculectomy [facility] 09/21/05 and 02/06/0801/2006 excision of conj lymphangiectasis Ocular Medication Intol and Non-efficacy: combigan and timolol = fatigue and asthma Rhopressa=NI 07/2020 Also sees Osmel Marques, OD: Gets visual enriquez there Currently on Cosopt BID OD Alphagan P 0.1% bid OD (01/2021 for IOP=23) Durezol bid OD Lumigan QHS OS (switched 05/15/18) POAG severe stage OU -HVF OD 07/2020 large dense sup arc encroaching fixation, worse OS 01/2020 sup paracentral and SNS stable -OCT 06/2019 OD: sig inf thinning similar to 2015 OS: sig inf thinning similar to 2015 -FH (brother) -K edema OS resolved off cosopt -IOP great OU. Same meds CME OD -Dx'd 10/07/21: OCT macula= marked CME with mild SRF. Changed Lumigan to Cosopt OD, started PF qid + Prolensa qd -11/21/21: CME was WORSE: changed PF to Durezol -12/26/21: CME improved but not resolved -> cont Durezol. -05/01/22: mild perifoveal IRF, minimally worse than 02/2022 when Durezol was at tid -08/28/22: ERM with sl IRF: stable -cont Durezol at bid She will see Dr. Marques in 4 months See me in 8 months VF OU dilate OU, OCT mac OD only Graves Disease (not addressed today) -diagnosed 03/2016 -currently on methimazole -does have some lid retraction OU and possible UL edema The documentation for this note was completed by Keily Bennett acting as a scribe for Karlie New MD. 08/28/2022 12:56 PM. I, Karlie New MD, personally performed the services described in this documentation. All medical record entries made by the scribe were at my direction and in my presence. I have reviewed the chart and discharge instructions (if applicable) and agree that the record reflects my personal performance and is accurate and complete. I have confirmed and edited as necessary the relevant ophthalmic history, ROS, and the neuro exam findings as obtained by others. I have seen and examined Carla Patel. I have discussed the case and the management of this patient's care with the Resident/Fellow, if applicable. I also have reviewed and agree with the assessment and plan as stated above and agree with all of its relevant components. Electronically Signed: Karlie New MD, August 28, 2022 1:29 PM [facility] 08-24-2022 Evaluation + Plan note Associated Problem(s): Recurrent UTI Secondary to prolapse. New UTI 2 days ago, will start on Keflex based on her cultures and sensitivities. [facility] 08-24-2022 Miscellaneous Notes Associated Problem(s): Recurrent UTI Secondary to prolapse. New UTI 2 days ago, will start on Keflex based on her cultures and sensitivities. Associated Problem(s): Right leg weakness I believe that her symptoms are related to lower back pain and right hip pain. Patient with benefit from further evaluation through PT. Patient with her current risk factors of having underlying diabetes and hypertension is high risk for developing strokes but no focal neurological symptoms at this time. We will get an MRI of the head to evaluate for any old strokes that could result in some of her symptoms. She is advised to take aspirin 81 mg. Discussed starting on statin therapy, wants to wait for head imaging The 10-year ASCVD risk score (Maria Guadalupe MC, et al., 2019) is: 56.6% Values used to calculate the score: Age: 77 years Sex: Female Is Non- : No Diabetic: Yes Tobacco smoker: No Systolic Blood Pressure: 175 mmHg Is BP treated: Yes HDL Cholesterol: 51 mg/dL Total Cholesterol: 147 mg/dL Control underlying hypertension and increased dose of lisinopril. Continue to monitor. documented in this encounter [facility] 08-24-2022 Evaluation + Plan note Associated Problem(s): Right leg weakness I believe that her symptoms are related to lower back pain and right hip pain. Patient with benefit from further evaluation through PT. Patient with her current risk factors of having underlying diabetes and hypertension is high risk for developing strokes but no focal neurological symptoms at this time. We will get an MRI of the head to evaluate for any old strokes that could result in some of her symptoms. She is advised to take aspirin 81 mg. Discussed starting on statin therapy, wants to wait for head imaging The 10-year ASCVD risk score (Maria Guadalupe MC, et al., 2019) is: 56.6% Values used to calculate the score: Age: 77 years Sex: Female Is Non- : No Diabetic: Yes Tobacco smoker: No Systolic Blood Pressure: 175 mmHg Is BP treated: Yes HDL Cholesterol: 51 mg/dL Total Cholesterol: 147 mg/dL Control underlying hypertension and increased dose of lisinopril. Continue to monitor. [facility] 08-24-2022 History of Present illness Narrative Chief Complaint Patient presents with Gap Closure (Health Maintenance) Foot Exam Never done Foot weakness Right side leg HPI: Lani Patel is a 77 y.o. female presenting today for right leg weakness. Has PMH of diabetes, hypertension, hyperthyroidism, gout, and obesity. Headaches for which she took tylenol 6 months ago she had some pain and hip pain. Weak on and off at the right lower extremity sometimes unable to push up with her foot. Denies any acute concerns for loss of speech, upper extremity weakness or tingling numbness in the legs. Cataract and cystoid macular edema: Currently following up with ophthalmology and [facility] and is on steroid regimen as well as Durezol. Improved CME, currently getting scheduled for her cataract surgery. HTN: Chronic, takes lisinopril increased to 40 mg had low BP readings as of 110s over 60s and now back to [address] Mckinley in [facility] has put her on steroids which has been worsening her BP recently. Denies any associated headache, blurry vision, tingling or numbness in extremities. Recurrent UTIs: 2-3 times a year, has history of hystrectomy a while back for fibroids in 40's. Since that time has been getting worse with bladder control and stream of urine. Had kidney stones and was told she has dropped bladder. Worsening and is having some stress incontinence. Scheduled with customer service representative teacher in [place] practice. Established care with [facility] urology got her on a probiotics , D-mannose and vit C. Did have a new UTI for which she was sent antibiotic for further treatment. UTI Past Medical History: Diagnosis Date Glaucoma Hypertension Pleurisy Past Surgical History: Procedure Laterality Date BREAST LUMPECTOMY CHOLECYSTECTOMY EYE SURGERY HYSTERECTOMY (CERVIX REMOVED) Family History Problem Relation Age of Onset Coronary artery disease Mother Cancer Mother colon Thyroid disease Mother Coronary artery disease Father Coronary artery disease Brother Diabetes Daughter Thyroid disease Maternal Grandmother Cancer Maternal Grandmother Social History Tobacco Use Smoking status: Never Smokeless tobacco: Never Vaping Use Vaping Use: Never used Substance Use Topics Alcohol use: Not Currently Drug use: Not Currently Review of Systems Vitals: 08/24/22 1146 08/24/22 1148 BP: (!) 176/102 (!) 175/97 BP Location: Right arm Right arm Patient Position: Sitting Sitting BP Cuff Size: X-large Adult X-large Adult Pulse: 73 75 Resp: 16 Temp: 98.4 F (36.9 C) TempSrc: Temporal SpO2: 97% Weight: 74.4 kg (164 lb) Height: 5' Estimated body mass index is 32.03 kg/m as calculated from the following: Height as of this encounter: 5'. Weight as of this encounter: 74.4 kg (164 lb). Physical Exam Constitutional: General: She is not in acute distress. Appearance: She is not ill-appearing. HENT: Head: Normocephalic and atraumatic. Eyes: Extraocular Movements: Extraocular movements intact. Conjunctiva/sclera: Conjunctivae normal. Pupils: Pupils are equal, round, and reactive to light. Cardiovascular: Rate and Rhythm: Normal rate and regular rhythm. Pulses: Normal pulses. Heart sounds: Normal heart sounds. No murmur heard. No gallop. Pulmonary: Effort: Pulmonary effort is normal. Breath sounds: Normal breath sounds. No wheezing, rhonchi or rales. Chest: Chest wall: No tenderness. Abdominal: General: Abdomen is flat. Bowel sounds are normal. There is no distension. Palpations: Abdomen is soft. There is no mass. Tenderness: There is no abdominal tenderness. There is no right CVA tenderness, left CVA tenderness, guarding or rebound. Musculoskeletal: General: Tenderness (Lumbar paraspinal muscle tenderness more on right side.) present. Normal range of motion. Cervical back: Normal range of motion and neck supple. No rigidity. No muscular tenderness. Right lower leg: No edema. Left lower leg: No edema. Lymphadenopathy: Cervical: No cervical adenopathy. Skin: General: Skin is warm. Findings: No erythema or rash. Neurological: General: No focal deficit present. Mental Status: She is alert and oriented to person, place, and time. Cranial Nerves: No cranial nerve deficit. Sensory: No sensory deficit. Motor: No weakness. Coordination: Coordination normal. Gait: Gait normal. Deep Tendon Reflexes: Reflexes normal. Psychiatric: Mood and Affect: Mood normal. Behavior: Behavior normal. Thought Content: Thought content normal. Judgment: Judgment normal. OARRS/NARxCHECK Report Received and Assessed: No data found Date controlled substance agreement signed: No data found Date of last drug screen: No data found Functional Assessment: No data found PHQ9: CIRILO-7 Tobacco Counseling: Counseling given: Not Answered Patient's Medications New Prescriptions ASPIRIN 81 MG CHEWABLE TABLET Chew and Swallow 1 (one) tablet (81 mg total) daily . Previous Medications BIMATOPROST (LUMIGAN) 0.01 % OPHTHALMIC DROPS 1 (one) drop every night at bedtime . BRIMONIDINE (ALPHAGAN P) 0.1 % DROP 1 (one) drop 2 (two) times a day . BROMFENAC (PROLENSA) 0.07 % DROP CEPHALEXIN (KEFLEX) 500 MG CAPSULE Take 1 (one) capsule (500 mg total) by mouth 4 (four) times a day for 7 days . COLESTIPOL (COLESTID) 1 GRAM TABLET Take 1 (one) tablet (1 g total) by mouth daily . DIFLUPREDNATE 0.05 % DROP Apply to eye . DORZOLAMIDE-TIMOLOL (COSOPT) 22.3-6.8 MG/ML OPHTHALMIC SOLUTION Use 1 Drop in the left eye every 12 hours. FAMOTIDINE (PEPCID) 20 MG TABLET Take 1 (one) tablet (20 mg total) by mouth 2 (two) times a day for 7 days . FLUTICASONE PROPIONATE (FLONASE) 50 MCG/ACTUATION NASAL SPRAY Instill 2 (two) sprays into each nostril daily . PREDNISOLONE ACETATE-NEPAFENAC 1-0.1 % DRPS 3 (three) times a day . TIMOLOL (TIMOPTIC-XR) 0.5 % OPHTHALMIC GEL-FORMING Administer 1 (one) drop to both eyes daily . Modified Medications Modified Medication Previous Medication LISINOPRIL (PRINIVIL,ZESTRIL) 30 MG TABLET lisinopriL (PRINIVIL,ZESTRIL) 20 MG tablet Take 1 (one) tablet (30 mg total) by mouth daily . Take 1 (one) tablet (20 mg total) by mouth daily . Discontinued Medications No medications on file Health Maintenance Due Topic Date Due Tetanus: Every 10yrs Never done Dexa Scan Never done Wellness Visit Never done Foot Exam Never done Hepatitis C Screening Never done Zoster Vaccines (2 of 3) 07/28/2014 Pneumococcal Vaccine: Age 65+ (2 - PCV) 03/30/2015 COVID-19 Vaccine (3 - Booster for Moderna series) 01/28/2021 Assessment & Plan Problem List Items Addressed This Visit Cardiovascular and Mediastinum Hypertension Relevant Medications lisinopriL (PRINIVIL,ZESTRIL) 30 MG tablet Nervous and Auditory Right leg weakness I believe that her symptoms are related to lower back pain and right hip pain. Patient with benefit from further evaluation through PT. Patient with her current risk factors of having underlying diabetes and hypertension is high risk for developing strokes but no focal neurological symptoms at this time. We will get an MRI of the head to evaluate for any old strokes that could result in some of her symptoms. She is advised to take aspirin 81 mg. Discussed starting on statin therapy, wants to wait for head imaging The 10-year ASCVD risk score (Maria Guadalupe MC, et al., 2019) is: 56.6% Values used to calculate the score: Age: 77 years Sex: Female Is Non- : No Diabetic: Yes Tobacco smoker: No Systolic Blood Pressure: 175 mmHg Is BP treated: Yes HDL Cholesterol: 51 mg/dL Total Cholesterol: 147 mg/dL Control underlying hypertension and increased dose of lisinopril. Continue to monitor. Relevant Medications aspirin 81 mg chewable tablet Other Relevant Orders MR Brain Without Contrast Ambulatory Ref to [facility] (PT/OT/ST) Genitourinary Recurrent UTI Secondary to prolapse. New UTI 2 days ago, will start on Keflex based on her cultures and sensitivities. Other Visit Diagnoses Lumbar back pain - Primary Relevant Orders Ambulatory Ref to [facility] (PT/OT/ST) Return in about 3 months (around 11/21/2022) for 40 mins . I spent 30 minutes with patient reviewing HPI and coordinating plan of care. Delaying PCV 20 intake when I see her in 3 months with her wellness visit with her . CRISTY DAVIDSON MD [facility] [address] [place] [id number] Dept: [phone] Depression Screening 10/24/2021 Little interest or pleasure in doing things 0 Feeling down, depressed, or hopeless 0 PHQ-2 Total Score 0 Trouble falling or staying asleep, or sleeping too much 1 Feeling tired or having little energy 0 Poor appetite or overeating 1 Feeling bad about yourself - or that you are a failure or have let yourself or your family down 0 Trouble concentrating on things, such as reading the newspaper or watching television 0 Moving or speaking so slowly that other people could have noticed. Or the opposite - being so fidgety or restless that you have been moving around a lot more than usual 0 Thoughts that you would be better off , or of hurting yourself in some way 0 PHQ-9 Total Score 2 If you checked off any problems, how difficult have these problems made it for you to do your work, take care of things at home, or get along with other people? Not difficult at all documented in this encounter [facility] 07-13-2022 Telephone encounter Note LAST OV 06/28/22. NEXT OV SCHEDULED FOR 09/29/22. [facility] 07-13-2022 Miscellaneous Notes LAST OV 06/28/22. NEXT OV SCHEDULED FOR 09/29/22. ----- Message from Zhane Thurman sent at 07/13/2022 10:14 AM EST ----- Regarding: rx refill - [facility] order Contact: self MEDICATION REFILL REQUEST: PCP: Cristy Davidson MD Patient called 07/13/22 and is requesting a medication refill for DispRefillsStartEnd lisinopriL (PRINIVIL,ZESTRIL) 20 MG [id number] Sig - Route: Take 1 (one) tablet (20 mg total) by mouth daily . - Oral Sent to pharmacy as: lisinopriL 20 mg tablet (PRINIVIL,ZESTRIL) E-Prescribing Status: Receipt confirmed by pharmacy (02/21/2022 2:11 PM EDT) Associated Diagnoses . This was confirmed from the current medication list found in the patients chart. Supply Requested: # of days: 90 days Method of receiving: Send to pharmacy Last set of flowsheet rows for OARRS report: OARRS/NARxCHECK Report Received and Assessed: No data found Date controlled substance agreement signed: No data found Date of last drug screen: No data found Functional Assessment: No data found Will this refill be sent to the preferred pharmacy listed below? Yes Preferred pharmacies: [facility] Call Back Number Work Phone Not on file. Patient call back message sent to the primary care clinical pool. Zhane Thurman documented in this encounter [facility] 07-13-2022 Telephone encounter Note ----- Message from Zhane Thurman sent at 07/13/2022 10:14 AM EST ----- Regarding: rx refill - [employer] order Contact: self MEDICATION REFILL REQUEST: PCP: Cristy Davidson MD Patient called 07/13/22 and is requesting a medication refill for DispRefillsStartEnd lisinopriL (PRINIVIL,ZESTRIL) 20 MG [id number] Sig - Route: Take 1 (one) tablet (20 mg total) by mouth daily . - Oral Sent to pharmacy as: lisinopriL 20 mg tablet (PRINIVIL,ZESTRIL) E-Prescribing Status: Receipt confirmed by pharmacy (02/21/2022 2:11 PM EDT) Associated Diagnoses . This was confirmed from the current medication list found in the patients chart. Supply Requested: # of days: 90 days Method of receiving: Send to pharmacy Last set of flowsheet rows for OARRS report: OARRS/NARxCHECK Report Received and Assessed: No data found Date controlled substance agreement signed: No data found Date of last drug screen: No data found Functional Assessment: No data found Will this refill be sent to the preferred pharmacy listed below? Yes Preferred pharmacies: [employer] mail Pt Call Back Number Work Phone Not on file. Patient call back message sent to the primary care clinical pool. Zhane Huntchinmay [facility] 06-28-2022 Evaluation + Plan note Associated Problem(s): Hair loss Patient is under a lot of stress, I reassured her that this is not related to abnormal thyroid function. At this time we are holding off on any thyroid replacement or medications. Discussed with her stress management and taking biotin supplement to help. [facility] 06-28-2022 Evaluation + Plan note Associated Problem(s): Graves disease Last TFTs came back within normal limits. Off methimazole. Multinodular goiter has been followed up with ultrasound still 2018 that did not show any nodules. Per endocrinology no need for ultrasound follow-up until symptoms arise. Continue to monitor TFTs annually. [facility] 06-28-2022 Miscellaneous Notes Associated Problem(s): Hair loss Patient is under a lot of stress, I reassured her that this is not related to abnormal thyroid function. At this time we are holding off on any thyroid replacement or medications. Discussed with her stress management and taking biotin supplement to help. Associated Problem(s): Graves disease Last TFTs came back within normal limits. Off methimazole. Multinodular goiter has been followed up with ultrasound still 2018 that did not show any nodules. Per endocrinology no need for ultrasound follow-up until symptoms arise. Continue to monitor TFTs annually. Associated Problem(s): Diabetes (HCC) Chronic, diet controlled. Previous hyperglycemia with multiple prednisone courses will Last A1c is 6.6 in 06/2022 Eye exam up to date Associated Problem(s): IBS (irritable bowel syndrome) We talked about trying metamucil oral tabs Follow up with GI and colonoscopy Continue to monitor documented in this encounter [facility] 06-28-2022 Evaluation + Plan note Associated Problem(s): Diabetes (HCC) Chronic, diet controlled. Previous hyperglycemia with multiple prednisone courses will Last A1c is 6.6 in 06/2022 Eye exam up to date [facility] 06-28-2022 Evaluation + Plan note Associated Problem(s): IBS (irritable bowel syndrome) We talked about trying metamucil oral tabs Follow up with GI and colonoscopy Continue to monitor [facility] 06-28-2022 History of Present illness Narrative Chief Complaint Patient presents with Thyroid Problem Losing hair (this is what happened last time) Requesting Lab work Gap Closure (Health Maintenance) Foot Exam Never done HPI: Lani Patel is a 77 y.o. female presenting today . Has PMH of diabetes, hypertension, hyperthyroidism, gout, and obesity. Chronic diarrhea: Worsening since she got COVID in 2020. Related to food especially if she eats outside. She has a diagnosis of IBS with diarrhea blow outs usually once every 2 weeks. is scheduling a colonoscopy for her GI evaluated and did a thorough workup , P anca positive perinuclear ab FH of colon cancer in mother. Pleurisy: Diagnosed with COVID shot 2 years ago, since then she started having pleurisy and left-sided discomfort that sometimes go all around her chest. Describes the pain as lower chest burning pain along the bra line , has taken 5 rounds of prednisone with . Triggered with deeper breath , sneezing or pushing on it. Has been getting worse recently radiating to the right mid back as well along her rib line. Tylenol and ibuprofen still help with that pain. Does not recall having echo for it in the past. Has been getting worse and started to get it in the back. is suggesting referral to pain specialist Back pain: Fell in her daughter's house on 01/17 and had pain in the mid back above the Bra line went to the ER in [place] and had some imaging no records. Went to follow up on orthopedics, in [place] and had an Daniel showed only arthritis. Take 1 pill of muscle relaxant from her daughter who had back issues and that seems to help. Her daughter Myesha mentioned that she almost felt a big ball above her bra line that she massaged before she took her muscle relaxant and now it is gone. She is scheduled to have a massage therapy soon Cataract and cystoid macular edema: Currently following up with ophthalmology and [facility] and is on steroid regimen as well as Durezol. Improved CME, currently getting scheduled for her cataract surgery. HTN: Chronic, takes lisinopril increased to 40 mg had low BP readings as of 110s over 60s and now back to [address] Mckinley in [facility] has put her on steroids which has been worsening her BP recently. Denies any associated headache, blurry vision, tingling or numbness in extremities. Recurrent UTIs: 2-3 times a year, has history of hystrectomy a while back for fibroids in 40's. Since that time has been getting worse with bladder control and stream of urine. Had kidney stones and was told she has dropped bladder. Worsening and is having some stress incontinence. 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 Established care with [facility] u[facility] got her on a probiotics , D-mannose and vit C. hyperthyroidism approximately 2016. She has been taking methimazole ever since. Currently taking 1/2 of a 5 milligram tablet. Has had normal TSH levels throughout 2018. Thyroid uptake scan was performed in 2017 demonstrating 46% uptake at 24 hours, homogeneous. Multinodular goiter: Had a neck ultrasound in 2017 demonstrating bilateral thyroid nodules, subcentimeter. Asymptomatic. Neck ultrasound performed in 2019 shows a heterogeneous gland without true thyroid nodules. Past Medical History: Diagnosis Date Glaucoma Hypertension Pleurisy Past Surgical History: Procedure Laterality Date BREAST LUMPECTOMY CHOLECYSTECTOMY EYE SURGERY HYSTERECTOMY (CERVIX REMOVED) Family History Problem Relation Age of Onset Coronary artery disease Mother Cancer Mother colon Thyroid disease Mother Coronary artery disease Father Coronary artery disease Brother Diabetes Daughter Thyroid disease Maternal Grandmother Cancer Maternal Grandmother Social History Tobacco Use Smoking status: Never Smokeless tobacco: Never Vaping Use Vaping Use: Never used Substance Use Topics Alcohol use: Not Currently Drug use: Not Currently Review of Systems Vitals: 06/28/22 1134 BP: 139/84 BP Location: Right arm Patient Position: Sitting BP Cuff Size: X-large Adult Pulse: 84 Resp: 16 Temp: 97.6 F (36.4 C) TempSrc: Temporal SpO2: 97% Weight: 73.9 kg (163 lb) Height: 5' Estimated body mass index is 31.83 kg/m as calculated from the following: Height as of this encounter: 5'. Weight as of this encounter: 73.9 kg (163 lb). Physical Exam Constitutional: General: She is not in acute distress. Appearance: She is not ill-appearing. HENT: Head: Normocephalic and atraumatic. Eyes: Extraocular Movements: Extraocular movements intact. Conjunctiva/sclera: Conjunctivae normal. Pupils: Pupils are equal, round, and reactive to light. Cardiovascular: Rate and Rhythm: Normal rate and regular rhythm. Pulses: Normal pulses. Heart sounds: Normal heart sounds. No murmur heard. No gallop. Pulmonary: Effort: Pulmonary effort is normal. Breath sounds: Normal breath sounds. No wheezing, rhonchi or rales. Chest: Chest wall: No tenderness. Abdominal: General: Abdomen is flat. Bowel sounds are normal. There is no distension. Palpations: Abdomen is soft. There is no mass. Tenderness: There is no abdominal tenderness. There is no right CVA tenderness, left CVA tenderness, guarding or rebound. Musculoskeletal: General: Tenderness (rt-sided at eighth and ninth intercostal space along mid axillary line) present. Normal range of motion. Cervical back: Normal range of motion and neck supple. No rigidity. No muscular tenderness. Right lower leg: No edema. Left lower leg: No edema. Lymphadenopathy: Cervical: No cervical adenopathy. Skin: General: Skin is warm. Findings: No erythema or rash. Neurological: General: No focal deficit present. Mental Status: She is alert and oriented to person, place, and time. Sensory: No sensory deficit. Motor: No weakness. Gait: Gait normal. Psychiatric: Mood and Affect: Mood normal. Behavior: Behavior normal. Thought Content: Thought content normal. Judgment: Judgment normal. OARRS/NARxCHECK Report Received and Assessed: No data found Date controlled substance agreement signed: No data found Date of last drug screen: No data found Functional Assessment: No data found PHQ9: CIRILO-7 Tobacco Counseling: Counseling given: Not Answered Patient's Medications New Prescriptions No medications on file Previous Medications BIMATOPROST (LUMIGAN) 0.01 % OPHTHALMIC DROPS 1 (one) drop every night at bedtime . BRIMONIDINE (ALPHAGAN P) 0.1 % DROP 1 (one) drop 2 (two) times a day . BROMFENAC (PROLENSA) 0.07 % DROP COLESTIPOL (COLESTID) 1 GRAM TABLET Take 1 (one) tablet (1 g total) by mouth daily . DIFLUPREDNATE 0.05 % DROP Apply to eye . DORZOLAMIDE-TIMOLOL (COSOPT) 22.3-6.8 MG/ML OPHTHALMIC SOLUTION Use 1 Drop in the left eye every 12 hours. FAMOTIDINE (PEPCID) 20 MG TABLET Take 1 (one) tablet (20 mg total) by mouth 2 (two) times a day for 7 days . FLUTICASONE PROPIONATE (FLONASE) 50 MCG/ACTUATION NASAL SPRAY Instill 2 (two) sprays into each nostril daily . LISINOPRIL (PRINIVIL,ZESTRIL) 20 MG TABLET Take 1 (one) tablet (20 mg total) by mouth daily . PREDNISOLONE ACETATE-NEPAFENAC 1-0.1 % DRPS 3 (three) times a day . TIMOLOL (TIMOPTIC-XR) 0.5 % OPHTHALMIC GEL-FORMING Administer 1 (one) drop to both eyes daily . Modified Medications No medications on file Discontinued Medications No medications on file Health Maintenance Due Topic Date Due Tetanus: Every 10yrs Never done Dexa Scan Never done Wellness Visit Never done Foot Exam Never done Hepatitis C Screening Never done Zoster Vaccines (2 of 3) 07/28/2014 Pneumococcal Vaccine: Age 65+ (2 - PCV) 03/30/2015 COVID-19 Vaccine (3 - Booster for Moderna series) 01/28/2021 Assessment & Plan Problem List Items Addressed This Visit Digestive IBS (irritable bowel syndrome) We talked about trying metamucil oral tabs Follow up with GI and colonoscopy Continue to monitor Endocrine Graves disease Last TFTs came back within normal limits. Off methimazole. Multinodular goiter has been followed up with ultrasound still 2018 that did not show any nodules. Per endocrinology no need for ultrasound follow-up until symptoms arise. Continue to monitor TFTs annually. Diabetes (HCC) - Primary Chronic, diet controlled. Previous hyperglycemia with multiple prednisone courses will Last A1c is 6.6 in 06/2022 Eye exam up to date Other Hair loss Patient is under a lot of stress, I reassured her that this is not related to abnormal thyroid function. At this time we are holding off on any thyroid replacement or medications. Discussed with her stress management and taking biotin supplement to help. Return in about 3 months (around 09/26/2022) for medicare wellness. I spent 30 minutes with patient reviewing HPI and coordinating plan of care. Delaying PCV 20 intake when I see her in 3 months with her wellness visit with her . CRISTY DAVIDSON MD [facility] [place] [address] [facility] [address] Dept: [phone] Depression Screening 10/24/2021 Little interest or pleasure in doing things 0 Feeling down, depressed, or hopeless 0 PHQ-2 Total Score 0 Trouble falling or staying asleep, or sleeping too much 1 Feeling tired or having little energy 0 Poor appetite or overeating 1 Feeling bad about yourself - or that you are a failure or have let yourself or your family down 0 Trouble concentrating on things, such as reading the newspaper or watching television 0 Moving or speaking so slowly that other people could have noticed. Or the opposite - being so fidgety or restless that you have been moving around a lot more than usual 0 Thoughts that you would be better off , or of hurting yourself in some way 0 PHQ-9 Total Score 2 If you checked off any problems, how difficult have these problems made it for you to do your work, take care of things at home, or get along with other people? Not difficult at all documented in this encounter [facility] 06-19-2022 History of Present illness Narrative Pt here today for a nurse visit to receive flu vaccine. High dose flu administered. Pt tolerated well with no adverse reactions while in office. Pt ambulatory to exit. documented in this encounter [facility] 05-26-2022 History of Present illness Narrative This note was created using [facility]. Subjective Carla Patel is a 77 year old female. HPI Patient presents with urinary frequency over the past day. She had a UTI May 04 and was treated with Keflex. Since she was off of it her symptoms returned. She was seen on May 20 and started on Cipro for 5 days. She felt improvement until a few days after being off antibiotics. She has had problems with chronic diarrhea and is following up with GI. She states the past few weeks though she really has not had much diarrhea. She does have history of diabetes, states she checks her blood sugar at home and is usually in the 120s. She is not on any medication for this. No fever. No abdominal pain or back pain. No vomiting. Review of Systems Constitutional: Negative. HENT: Negative. Respiratory: Negative. Cardiovascular: Negative. Gastrointestinal: Negative. Genitourinary: Positive for dysuria, frequency and urgency. Negative for hematuria. All other systems reviewed and are negative. PAST MEDICAL HISTORY Diagnosis Date Congestive heart failure (HCC) 03/14/2021 Diverticulosis of colon (without mention of hemorrhage) Diverticulosis Diverticulosis of colon (without mention of hemorrhage) Family history of malignant neoplasm of gastrointestinal tract Glaucoma Graves disease 01/2016 HEMORRHOIDS INTERNAL 07/06/2008 Obstructive sleep apnea 2012 Other specified glaucoma Personal history of colonic polyps 01/04/2016 Pleurisy 03/14/2021 Primary open angle glaucoma of both eyes, mild stage Type 2 diabetes mellitus (HCC) 03/14/2021 Unspecified essential hypertension Essential hypertension Current Outpatient Medications Medication Sig Dispense Refill difluprednate (DUREZOL) 0.05 % ophthalmic suspension Use 1 Drop in the right eye twice daily. dorzolamide-timolol (COSOPT) 22.3-6.8 mg/mL ophthalmic solution Use 1 Drop in both eyes every 12 hours. 30 mL 3 bimatoprost (LUMIGAN) 0.01 % drop ophthalmic drops Use 1 Drop in the left eye daily at bedtime. colestipol (COLESTID) 1 gram tablet Take 1 g by mouth three times daily. ALPHAGAN P 0.1 % drop Use 1 Drop in the right eye twice daily. 10 mL 11 lisinopril (ZESTRIL, PRINIVIL) 20 mg tablet Take 1 tablet by mouth once daily. fosfomycin (MONUROL) 3 g pack Take 1 Packet by mouth one time only for 1 dose. 1 Packet 0 No current facility-administered medications for this visit. PAST SURGICAL HISTORY Procedure Laterality Date CHOLECYSTECTOMY 1971 Cholecystectomy COLONOSCOPY FLX DX W/COLLJ SPEC WHEN PFRMD 07/05/2008 Diverticulosis/ Internal hemorrhoids COLONOSCOPY FLX DX W/COLLJ SPEC WHEN PFRMD 04/25/2013 COLONOSCOPY FLX DX W/COLLJ SPEC WHEN PFRMD 06/02/2016 DILATION & CURETTAGE DX&/THER NONOBSTETRIC 1974 Dilation & curettage EYE SURGERY PROCEDURE Right 12/19/2018 GATT OD FSTLJ SCLERA GLAUCOMA TRABECULECT AB EXTERNO OU Trabeculecomy NEUROPLASTY &/TRANSPOS MEDIAN NRV CARPAL TUNNE Carpal tunnel decomp Left PAST SURGICAL HISTORY OF Eye surgery - glaucome PAST SURGICAL HISTORY OF PAST SURGICAL HISTORY OF 09/09/2020 plan phaco-250 clearpath inf-nasal. Aim -0.75 to -1.00 SA60WF OD PAST SURGICAL HISTORY OF 03/24/2021 eye surgery RELEASE THENAR MUSCLE Left trigger thumb REMV CATARACT EXTRACAP,INSERT LENS Left 03/30/2022 ROTATOR CUFF REPAIR right STEREOTACTIC CORE BIOPSY 08/30/2006 bilateral stereotactic br biopsy TOTAL ABDOMINAL HYSTERECT W/WO RMVL TUBE OVARY 2001 Hysterectomy, [facility] FAMILY HISTORY Problem Relation Age of Onset Colon Cancer Mother Coronary Artery Disease Mother Heart Mother Hypertension Mother Coronary Artery Disease Father Psychiatry Father Heart Father Glaucoma Brother Cancer Maternal Grandfather lung cancer Cancer Other cousins and aunts and uncles with cancer Social History Tobacco Use Smoking status: Never Smokeless tobacco: Never Vaping Use Vaping Use: Never used Substance Use Topics Alcohol use: No Comment: Rarely wine Drug use: No Objective BP 164/88 Pulse 62 Temp 36.3 C (97.4 F) Resp 16 Wt 75.5 kg (166 lb 6.4 oz) LMP (LMP Unknown) SpO2 99% BMI 32.50 kg/m Physical Exam Vitals reviewed. Constitutional: Appearance: Normal appearance. HENT: Head: Normocephalic and atraumatic. Cardiovascular: Rate and Rhythm: Normal rate and regular rhythm. Heart sounds: Normal heart sounds. Pulmonary: Effort: Pulmonary effort is normal. Breath sounds: Normal breath sounds. Abdominal: General: Abdomen is flat. Palpations: Abdomen is soft. Tenderness: There is no abdominal tenderness. There is no right CVA tenderness or left CVA tenderness. Skin: General: Skin is warm and dry. Findings: No rash. Neurological: Mental Status: She is alert. Assessment and Plan ASSESSMENT/PLAN: 1. Urinary frequency - ICD9: 788.41, ICD10: R35.0 (primary diagnosis) - UA DIP, URINE (POC) - URINE CULTURE 2. Recurrent UTI (urinary tract infection) - ICD9: 599.0, ICD10: N39.0 Recurrent Recommended that she follow-up with urology. She will call Dr. Laboy to follow up. - UA positive for ginette esterase and hematuria - Send urine for culture - Begin treatment with fosfomycin - CONSULT TO UROLOGY Fabienne Herrera PA-C documented in this encounter [facility] 05-22-2022 Miscellaneous Notes Patient given results and verbalized understanding of instructions given. Angela Boone Please notify patient that urine culture showed mixture of bacteria which suggests possible contamination upon collection. Advise her to finish the antibiotic if it is helping her symptoms but if not, then she will need to return to provide another specimen. Thank you. Liss Hu APRN.BHARTI documented in this encounter [facility] 05-20-2022 History of Present illness Narrative This note was created using [facility]. Subjective Carla Patel is a 77 year old female. HPI Patient presents with a chief complaint of urinary frequency urgency and dysuria over the past 2 days. She was on Keflex on May 04 for UTI. She states she felt better until the past 2 days when it returned. She denies fever or chills. No back pain or abdominal pain. No vomiting. Denies blood in her urine. Review of Systems Constitutional: Negative. HENT: Negative. Eyes: Negative. Respiratory: Negative. Cardiovascular: Negative. Gastrointestinal: Negative. Genitourinary: Positive for dysuria, frequency and urgency. Negative for pelvic pain. Musculoskeletal: Negative. All other systems reviewed and are negative. PAST MEDICAL HISTORY Diagnosis Date Congestive heart failure (HCC) 03/14/2021 Diverticulosis of colon (without mention of hemorrhage) Diverticulosis Diverticulosis of colon (without mention of hemorrhage) Family history of malignant neoplasm of gastrointestinal tract Glaucoma Graves disease 01/2016 HEMORRHOIDS INTERNAL 07/06/2008 Obstructive sleep apnea 2012 Other specified glaucoma Personal history of colonic polyps 01/04/2016 Pleurisy 03/14/2021 Primary open angle glaucoma of both eyes, mild stage Type 2 diabetes mellitus (HCC) 03/14/2021 Unspecified essential hypertension Essential hypertension Current Outpatient Medications Medication Sig Dispense Refill ciprofloxacin HCl (CIPRO) 250 mg tablet Take 1 tablet by mouth twice daily for 5 days. 10 tablet 0 difluprednate (DUREZOL) 0.05 % ophthalmic suspension Use 1 Drop in the right eye twice daily. dorzolamide-timolol (COSOPT) 22.3-6.8 mg/mL ophthalmic solution Use 1 Drop in both eyes every 12 hours. 30 mL 3 bimatoprost (LUMIGAN) 0.01 % drop ophthalmic drops Use 1 Drop in the left eye daily at bedtime. colestipol (COLESTID) 1 gram tablet Take 1 g by mouth three times daily. ALPHAGAN P 0.1 % drop Use 1 Drop in the right eye twice daily. 10 mL 11 lisinopril (ZESTRIL, PRINIVIL) 20 mg tablet Take 1 tablet by mouth once daily. No current facility-administered medications for this visit. PAST SURGICAL HISTORY Procedure Laterality Date CHOLECYSTECTOMY 1970 Cholecystectomy COLONOSCOPY FLX DX W/COLLJ SPEC WHEN PFRMD 07/05/2008 Diverticulosis/ Internal hemorrhoids COLONOSCOPY FLX DX W/COLLJ SPEC WHEN PFRMD 04/25/2013 COLONOSCOPY FLX DX W/COLLJ SPEC WHEN PFRMD 06/02/2016 DILATION & CURETTAGE DX&/THER NONOBSTETRIC 1974 Dilation & curettage EYE SURGERY PROCEDURE Right 12/19/2018 GATT OD FSTLJ SCLERA GLAUCOMA TRABECULECT AB EXTERNO OU Trabeculecomy NEUROPLASTY &/TRANSPOS MEDIAN NRV CARPAL TUNNE Carpal tunnel decomp Left PAST SURGICAL HISTORY OF Eye surgery - glaucome PAST SURGICAL HISTORY OF PAST SURGICAL HISTORY OF 09/09/2020 plan phaco-250 clearpath inf-nasal. Aim -0.75 to -1.00 SA60WF OD PAST SURGICAL HISTORY OF 03/24/2021 eye surgery RELEASE THENAR MUSCLE Left trigger thumb REMV CATARACT EXTRACAP,INSERT LENS Left 03/30/2022 ROTATOR CUFF REPAIR right STEREOTACTIC CORE BIOPSY 08/30/2006 bilateral stereotactic br biopsy TOTAL ABDOMINAL HYSTERECT W/WO RMVL TUBE OVARY 2001 Hysterectomy, [facility] FAMILY HISTORY Problem Relation Age of Onset Colon Cancer Mother Coronary Artery Disease Mother Heart Mother Hypertension Mother Coronary Artery Disease Father Psychiatry Father Heart Father Glaucoma Brother Cancer Maternal Grandfather lung cancer Cancer Other cousins and aunts and uncles with cancer Social History Tobacco Use Smoking status: Never Smokeless tobacco: Never Vaping Use Vaping Use: Never used Substance Use Topics Alcohol use: No Comment: Rarely wine Drug use: No Objective BP 160/82 Pulse 79 Temp 36.7 C (98 F) Resp 21 Wt 75.6 kg (166 lb 9.6 oz) LMP (LMP Unknown) SpO2 98% BMI 32.54 kg/m Physical Exam Vitals reviewed. Constitutional: Appearance: Normal appearance. HENT: Head: Normocephalic and atraumatic. Cardiovascular: Rate and Rhythm: Normal rate and regular rhythm. Heart sounds: Normal heart sounds. Pulmonary: Effort: Pulmonary effort is normal. Breath sounds: Normal breath sounds. Abdominal: General: Abdomen is flat. Bowel sounds are normal. There is no distension. Palpations: Abdomen is soft. Tenderness: There is no abdominal tenderness. There is no right CVA tenderness, left CVA tenderness or guarding. Musculoskeletal: Cervical back: Neck supple. Skin: General: Skin is warm and dry. Findings: No rash. Neurological: General: No focal deficit present. Mental Status: She is alert. Assessment and Plan ASSESSMENT/PLAN: 1. Recurrent UTI - ICD9: 599.0, ICD10: N39.0 recurrent - UA positive for ginette esterase and hematuria - Send urine for culture - Begin treatment with Ciprofloxacin 250 mg BID for 5 days- allergy to macrobid and sulfa, just on keflex. - UA DIP, URINE (POC) - URINE CULTURE Fabienne Herrera PA-C documented in this encounter [facility] 05-04-2022 History of Present illness Narrative Patient presents with: Urinary Frequency: Frequency and burning x 1 day HPI: Symptoms started today. Dysuria: Yes Frequency: Yes, with small output Hematuria: No Nausea: No Fever or chills: No Back pain: No Abdominal pain: No Prior UTI: Yes Personal history of kidney stones: yes Had the flu last week. Has chronic intermittent diarrhea. MEDICATIONS: Current Outpatient Medications Medication Sig difluprednate (DUREZOL) 0.05 % ophthalmic suspension Use 1 Drop in the right eye twice daily. dorzolamide-timolol (COSOPT) 22.3-6.8 mg/mL ophthalmic solution Use 1 Drop in both eyes every 12 hours. bimatoprost (LUMIGAN) 0.01 % drop ophthalmic drops Use 1 Drop in the left eye daily at bedtime. colestipol (COLESTID) 1 gram tablet Take 1 g by mouth three times daily. ALPHAGAN P 0.1 % drop Use 1 Drop in the right eye twice daily. lisinopril (ZESTRIL, PRINIVIL) 20 mg tablet Take 1 tablet by mouth once daily. No current facility-administered medications for this visit. ALLERGIES: ALLERGIES Allergen Reactions Augmentin [Amoxicil* GI Upset Other reaction(s): GI Upset Other reaction(s): GI Upset Grass Pollen Macrobid [Nitrofura* GI Upset Nitrofurantoin Unknown Other reaction(s): GI Upset Pollen Sulfa (Sulfonamide * Hives Tree Pollen [Trees] VITALS: BP 148/86 Pulse 88 Temp 36.7 C (98 F) (Tympanic) Resp 18 Wt 74.4 kg (164 lb) LMP (LMP Unknown) SpO2 97% BMI 32.03 kg/m PHYSICAL EXAM: GEN: NAD HEENT: EOMI, conjunctiva clear, HEART: regular rate and rhythm, no murmurs LUNGS: clear to auscultation, no wheezes or crackles, no increased WOB ABDOMEN: Soft, nondistended, no masses, no suprapubic tenderness BACK: No CVA tenderness 09/30/21 Creatinine 0.60 - 1.20 mg/dL 0.46 Low ASSESSMENT/PLAN: 1. Urinary frequency - ICD9: 788.41, ICD10: R35.0 - UA DIP, URINE (POC) - small LE and blood. - URINE CULTURE Multiple antibiotic intolerances/allergies. Normal kidney function. - CEPHALEXIN 500 MG CAPSULE previously tolerated. Bull Vásquez MD documented in this encounter [facility] 05-01-2022 Instructions Karlie New MD - 05/01/2022 1:55 PM EDT May 01, 2022 Medication Eye # times daily Dorzolamide-timolol (blue) Right 2 Alphagan P (purple) Right 2 Difluprednate (pink) Right 2 Lumigan (turquoise) Left 1 *please remember to wait at least 5 minutes between different drops in the same eye. documented in this encounter [facility] 05-01-2022 History of Present illness Narrative Tmax: 22, 23; Pachy: 598, 599 Lasers and Surgeries: OD: 06/02/21 [facility] 180 deg (IOP=22 on 4 meds) 03/24/21 MP-[facility] IOP17 on 4meds, VF prog 09/09/20 phaco-250 CP [id number] on3, VF prog aim -0.8 12/2018 GATT (IOP=19 on 3 meds with VF progression) Trabeculectomy c [facility] 02/02/05; needling c [facility] 05/2010 IOP=19 with large DH 02/2005 excision of conj epi inclusion cyst OS: 03/30/22 phaco-[facility] aim -1.00\ Trabeculectomy [facility] 09/21/05 and 02/06/0801/2006 excision of conj lymphangiectasis Ocular Medication Intol and Non-efficacy: combigan and timolol = fatigue and asthma Rhopressa=NI 07/2020 Also sees Osmel Marques, OD: Gets visual enriquez there Currently on Cosopt BID OU Lumigan QHS OS (switched 05/15/18) Alphagan P 0.1% bid OD (01/2021 for IOP=23) Durezol bid OD PO 4w 4d phaco-[facility] OS aim -1.00 -lOP low today OS with new corneal edema -role of hypotony and topical TRAVIS in edema? -stop Cosopt OS -she would like to go back to Dr. Marques for re-fraction OS. Hopefully K edema will improve with above med changes POAG severe stage OU -[facility] OD 07/2020 large dense sup arc encroaching fixation, worse OS 01/2020 sup paracentral and SNS stable -OCT 06/2019 OD: sig inf thinning similar to 2015 OS: sig inf thinning similar to 2015 -FH (brother) CME OD -Dx'd 10/07/21: OCT macula= marked CME with mild SRF. Changed Lumigan to Cosopt OD, started PF qid + Prolensa qd -11/21/21: CME was WORSE: changed PF to Durezol -12/26/21: CME improved but not resolved -> cont Durezol. -05/01/22: mild perifoveal IRF, minimally worse than 02/2022 when Durezol was at tid -cont Durezol at bid She will see Dr. Marques in about 1 month See me in 3-4 months Graves Disease (not addressed today) -diagnosed 03/2016 -currently on methimazole -does have some lid retraction OU and possible UL edema The documentation for this note was completed by Keily Bennett acting as a scribe for Karlie New MD. 05/01/2022 1:23 PM. I, Karlie New MD, personally performed the services described in this documentation. All medical record entries made by the scribe were at my direction and in my presence. I have reviewed the chart and discharge instructions (if applicable) and agree that the record reflects my personal performance and is accurate and complete. I have confirmed and edited as necessary the relevant ophthalmic history, ROS, and the neuro exam findings as obtained by others. I have seen and examined Carla Patel. I have discussed the case and the management of this patient's care with the Resident/Fellow, if applicable. I also have reviewed and agree with the assessment and plan as stated above and agree with all of its relevant components. Electronically Signed: Karlie New MD, May 01, 2022 2:01 PM documented in this encounter [facility] 04-21-2022 History of Present illness Narrative Pt here today for a nurse visit to complete covid testing. Sample obtained and dropped off at the lab for processing. documented in this encounter [facility] 04-21-2022 Evaluation + Plan note Associated Problem(s): Cough Discussed that symptoms are currently consistent with viral sinusitis infection and flulike symptoms. Even if we tested her for flu she is out of the window for Tamiflu. Would benefit from formal testing of COVID again with PCR. Rule out any lower respiratory symptoms with chest x-ray. Encouraged her to take Flonase along with NyQuil to see if it helps with cough further. Stressed on importance of hydration. If approaching a week with no resolution of symptoms and after ruling out pneumonia on chest x-ray, I discussed with her sending a backup prescription for doxycycline as she is allergic to Augmentin to take over the weekend in case her symptoms are not resolving. [facility] 04-21-2022 Miscellaneous Notes Associated Problem(s): Cough Discussed that symptoms are currently consistent with viral sinusitis infection and flulike symptoms. Even if we tested her for flu she is out of the window for Tamiflu. Would benefit from formal testing of COVID again with PCR. Rule out any lower respiratory symptoms with chest x-ray. Encouraged her to take Flonase along with NyQuil to see if it helps with cough further. Stressed on importance of hydration. If approaching a week with no resolution of symptoms and after ruling out pneumonia on chest x-ray, I discussed with her sending a backup prescription for doxycycline as she is allergic to Augmentin to take over the weekend in case her symptoms are not resolving. documented in this encounter [facility] 04-21-2022 History of Present illness Narrative Telephone Visit Via Phone Call [facility] [address] [facility] [address] [place] [phone] Telephone Visit [facility] 04/21/2022 Cristy Davidson MD Provider Location: [address] [place] [address] Patient Location Firestopper Technician: None Patient Location: Patient's Home Patient: Carla Patel Date of : 1945 (77 y.o. female) PCP: Cristy Davidson MD I discussed risks, benefits and alternatives of a telephone visit telemedicine consultation with the patient (and any accompanying persons) including the risks that the patient's personal health details and medical records will be discussed over real-time, synchronous, interactive audio technology, the visit will not be recorded without the express consent of both the provider and the patient, and that there are inherent diagnostic limitations compared to [id number] evaluations. We elected to proceed with the telephone visit telemedicine consultation. HPI Lani Patel is a 77-year-old female presenting today for concerns of URI symptoms. Coughing constant for the past 5 days, runny nose , sore throat, sinus congestion. Her daughter came in to visit her over the weekend and had symptoms. Negative for COVID in her daughter. Fatigue. No fever, SOB or wheezing. But feeling cold. [place] and cough medicine Nyquil. Feels a little worse today with a bout of diarrhea. The following portions of the patient's history were reviewed and updated as appropriate: allergies, current medications, past family history, past medical history, past social history, past surgical history, and problem list. Review of Systems Patient's Medications New Prescriptions DOXYCYCLINE HYCLATE (VIBRA-TABS) 100 MG TABLET Take 1 (one) tablet (100 mg total) by mouth 2 (two) times a day for 5 days . FLUTICASONE PROPIONATE (FLONASE) 50 MCG/ACTUATION NASAL SPRAY Instill 2 (two) sprays into each nostril daily . Previous Medications BIMATOPROST (LUMIGAN) 0.01 % OPHTHALMIC DROPS 1 drop every night at bedtime . BRIMONIDINE (ALPHAGAN P) 0.1 % DROP 1 drop 2 (two) times a day . BROMFENAC (PROLENSA) 0.07 % DROP COLESTIPOL (COLESTID) 1 GRAM TABLET Take 1 tablet by mouth daily . DIFLUPREDNATE 0.05 % DROP Apply to eye . DORZOLAMIDE-TIMOLOL (COSOPT) 22.3-6.8 MG/ML OPHTHALMIC SOLUTION Use 1 Drop in the left eye every 12 hours. FAMOTIDINE (PEPCID) 20 MG TABLET Take 1 (one) tablet (20 mg total) by mouth 2 (two) times a day for 7 days . LISINOPRIL (PRINIVIL,ZESTRIL) 20 MG TABLET Take 1 (one) tablet (20 mg total) by mouth daily . PREDNISOLONE ACETATE-NEPAFENAC 1-0.1 % DRPS 3 (three) times a day . TIMOLOL (TIMOPTIC-XR) 0.5 % OPHTHALMIC GEL-FORMING Administer 1 drop to both eyes daily . Modified Medications No medications on file Discontinued Medications No medications on file Assessment/Plan: Problem List Items Addressed This Visit Other Cough - Primary Discussed that symptoms are currently consistent with viral sinusitis infection and flulike symptoms. Even if we tested her for flu she is out of the window for Tamiflu. Would benefit from formal testing of COVID again with PCR. Rule out any lower respiratory symptoms with chest x-ray. Encouraged her to take Flonase along with NyQuil to see if it helps with cough further. Stressed on importance of hydration. If approaching a week with no resolution of symptoms and after ruling out pneumonia on chest x-ray, I discussed with her sending a backup prescription for doxycycline as she is allergic to Augmentin to take over the weekend in case her symptoms are not resolving. Relevant Medications fluticasone propionate (FLONASE) 50 mcg/actuation nasal spray doxycycline hyclate (VIBRA-TABS) 100 MG tablet Other Relevant Orders COVID-19, Molecular XR Chest AP/PA and LAT CRISTY DAVIDSON MD Family Medicine Physician [place] [phone] documented in this encounter [facility] 04-16-2022 Miscellaneous Notes Returned patient call 11:41 AM April 16, 2022. 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 She is instructed to use durezol BID. She has prednisolone at home, discussed she can use prednisolone 4x/day today until she can get Durezol tomorrow. All questions answered. Marilyn Hopson MD Ophthalmology Resident documented in this encounter [facility] 04-07-2022 Instructions Karlie New MD - 04/07/2022 11:16 AM EDT Difluprednate (pink) Right: 2x daily (do not taper) Left: 2x daily for 3 weeks 1x daily for 3 weeks Then stop documented in this encounter [facility] 04-07-2022 History of Present illness Narrative Tmax: 22, 23; Pachy: 598, 599 Lasers and Surgeries: OD: 06/02/21 TSC[facility] 180 deg (IOP=22 on 4 meds) 03/24/21 MP-TSCPC IOP17 on 4meds, VF prog 09/09/20 phaco-250 CP EHO69-24 on3, VF prog aim -0.8 12/2018 GATT (IOP=19 on 3 meds with VF progression) Trabeculectomy c [facility] 02/02/05; needling c [facility] 05/2010 IOP=19 with large DH 02/2005 excision of conj epi inclusion cyst OS: 03/30/22 phaco-[facility] aim -1.00\ Trabeculectomy [facility] 09/21/05 and 02/06/0801/2006 excision of conj lymphangiectasis Ocular Medication Intol and Non-efficacy: combigan and timolol = fatigue and asthma Rhopressa=NI 07/2020 Also sees Osmel Marques, OD: Gets visual enriquez there Currently on Cosopt BID OU Lumigan QHS OS (switched 05/15/18) Alphagan P 0.1% bid OD (01/2021 for IOP=23) Durezol tid OU (OD 10/07/21 for CME) PO 1w 1d phaco-[facility] OS aim -1.00 -looks good -taper durezol 1 gtt q3 weeks -next visit refract OS, dilate OU, OCT macula OD (OD 02/13/22 -2.25+2.28x621 = 20/40) POAG severe stage OU -HVF OD 07/2020 large dense sup arc encroaching fixation, worse OS 01/2020 sup paracentral and SNS stable -OCT 06/2019 OD: sig inf thinning similar to 2015 OS: sig inf thinning similar to 2015 -FH (brother) CME OD -Dx'd 10/07/21: OCT macula= marked CME with mild SRF. Changed Lumigan to Cosopt OD, started PF qid + Prolensa qd -11/21/21: CME was WORSE: changed PF to Durezol -12/26/21: CME improved but not resolved -> cont Durezol. -02/13/22: near complete resolution with tiny trace IRF remaining -dec Durezol to bid Graves Disease (not addressed today) -diagnosed 03/2016 -currently on methimazole -does have some lid retraction OU and possible UL edema The documentation for this note was completed by Keily Bennett acting as a scribe for Karlie New MD. 04/07/2022 10:14 AM. I, Karlie New MD, personally performed the services described in this documentation. All medical record entries made by the scribe were at my direction and in my presence. I have reviewed the chart and discharge instructions (if applicable) and agree that the record reflects my personal performance and is accurate and complete. I have confirmed and edited as necessary the relevant ophthalmic history, ROS, and the neuro exam findings as obtained by others. I have seen and examined Carla Patel. I have discussed the case and the management of this patient's care with the Resident/Fellow, if applicable. I also have reviewed and agree with the assessment and plan as stated above and agree with all of its relevant components. Electronically Signed: Karlie New MD, April 07, 2022 11:15 AM documented in this encounter [facility] 03-31-2022 History of Present illness Narrative Tmax: 22, 23; Pachy: 598, 599 Lasers and Surgeries: OD: 06/02/21 TSCPC 180 deg (IOP=22 on 4 meds) 03/24/21 MP-TSCPC IOP17 on 4meds, VF prog 09/09/20 phaco-250 CP [id number] on3, VF prog aim -0.8 12/2018 GATT (IOP=19 on 3 meds with VF progression) Trabeculectomy c MMC 02/02/05; needling c M[facility] 05/2010 IOP=19 with large DH 02/2005 excision of conj epi inclusion cyst OS: 03/30/22 phaco-[facility] aim -1.00\ Trabeculectomy MMC 09/21/05 and 02/06/0801/2006 excision of conj lymphangiectasis Ocular Medication Intol and Non-efficacy: combigan and timolol = fatigue and asthma Rhopressa=NI 07/2020 Also sees Osmel Marques, OD: Gets visual enriquez there Currently on Cosopt BID OU Lumigan QHS OS (switched 05/15/18) Alphagan P 0.1% bid OD (01/2021 for IOP=23) Durezol tid OD, bid OS (OD 10/07/21 for CME) PO 0w 1d phaco-[facility] OS aim -1.00 -looks good -there's a bit of AC cell - increase durezol to tid POAG severe stage OU -HVF OD 07/2020 large dense sup arc encroaching fixation, worse OS 01/2020 sup paracentral and SNS stable -OCT 06/2019 OD: sig inf thinning similar to 2015 OS: sig inf thinning similar to 2014 -FH (brother) -OS: IOP controlled. 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 Changed Lumigan to Cosopt OD, started PF qid + Prolensa qd -11/21/21: CME was WORSE: changed PF to Durezol -12/26/21: CME improved but not resolved -> cont Durezol. -02/13/22: near complete resolution with tiny trace IRF remaining -cont Durezol tid for now Graves Disease (not addressed today) -diagnosed 03/2016 -currently on methimazole -does have some lid retraction OU and possible UL edema The documentation for this note was completed by Keily Bennett acting as a scribe for Karlie New MD. 03/31/2022 9:45 AM. I, Karlie New MD, personally performed the services described in this documentation. All medical record entries made by the scribe were at my direction and in my presence. I have reviewed the chart and discharge instructions (if applicable) and agree that the record reflects my personal performance and is accurate and complete. I have confirmed and edited as necessary the relevant ophthalmic history, ROS, and the neuro exam findings as obtained by others. I have seen and examined Carla Patel. I have discussed the case and the management of this patient's care with the Resident/Fellow, if applicable. I also have reviewed and agree with the assessment and plan as stated above and agree with all of its relevant components. Electronically Signed: Karlie New MD, March 31, 2022 9:55 AM documented in this encounter [facility] 03-30-2022 Hospital Discharge instructions Karlie New MD - 03/30/2022 12:00 PM EDT Images from the original note were not included. INSTRUCTIONS AFTER CATARACT SURGERY It is very important to follow these instructions after your eye surgery to ensure its success. Please use these medications. Remember to shake the Prednisolone well. Medication Eye # times daily Difluprednate (pink) Right Left 3 2 Dorzolamide-timolol (blue) Both 2 Alphagan P (purple) Right 2 Lumigan (turquoise) Left 1 *please remember to wait at least 5 minutes between different drops in the same eye. Please start drops in the operative eye today at 4pm. A responsible adult must drive you home after the surgery. You might feel well, but the medicines given during the surgery might affect you for several hours. Do not drive or operate machinery for the rest of the day. For 1 week: Wear the eye shield at night and the eye shield or glasses during the day. Please do not push on or rub your eye. You may shower and wash your face. However, do not let water run directly into your eye (simply close the eye if the water is running directly over your face.) Please do not swim for 2 weeks Wear your eye shield at night. Do not place make-up near the edges of your eyelids (ie eyeliner, mascara.) You may exercise, bend, and lift right away as long as you feel comfortable. Daily hygiene - You may shower and wash your hair and face as usual, but DO NOT rub your operated eye. Try to avoid getting soap or water in your eyes. Pain management - Mild pain after eye surgery is not uncommon. Most people do not need oral pain medicine. If you do have some eye pain or a headache, you may take acetaminophen, ibuprofen, naproxyn Alleve) or similar medications you have at home (unless there is some reason you cannot these this medication such liver disease, allergies, etc.). Follow the instructions on the bottle. You may resume aspirin products the day after surgery. Diet - If you feel sick to your stomach, drink only clear liquids. Clear liquids include clear broth, tea, strained fruit juices, strained vegetable soup, black coffee, plain gelatin, and jean chelsi. Eat a regular meal when you do not feel sick. Do not drink alcoholic beverages for 24 hours after the surgery. Eye medications -You will be given a home-going kit with eye drops. Please bring that kit, this handout and any previous eye drops you have to your follow up appointment. Your eye medications will be explained during your follow up appointment. How to give yourself eye drops or ointment Wash your hands with soap and warm water. Dry them with a clean towel. If you are putting in your own eye medicine, lie down or use a mirror. Ask someone to check that you are getting the medicine in your eye. Look up to the ceiling with both eyes. Pull the lower lid of your eye down with one hand. Hold the medicine bottle or tube in your other hand. (If necessary, rest part of your hand on your forehead to keep it steady). Place a drop of medicine or a small amount of ointment inside your lower lid. The tip of the medicine bottle or tube should not touch your eye. Close your eyes for a minute after putting in the medicine. If you are prescribed both eye drops and eye ointment, use the eye drops first. If you have more than one eye medicine to put in your eyes, wait about 5 minutes between drops. Call your surgeon immediately if you experience: Increased or severe eye pain Bleeding from the eye Sudden decrease in vision or decreased ability to see light Discharge from the eye Any questions or problems Call your doctor immediately or go to the nearest emergency room if you experience: Nausea or vomiting that won't go away Chest pain Leg cramps A temperature above 101 F or 38.3 C Trouble breathing If you have questions, my office phone number is [phone]. After hours, and on weekends or holidays, please call the [facility] calender let off operator at [phone] or [phone] and ask for the eye doctor observation assistant. documented in this encounter [facility] 03-30-2022 Miscellaneous Notes OPERATIVE REPORT NAME: Carla Patel LOG ID: [id number] SURGERY DATE: 03/30/2022 INCISION/PROCEDURE START TIME: 11:37 AM INCISION CLOSE/PROCEDURE END TIME: 11:50 AM Surgeon(s) and Role: * Karlie New MD - Primary * Giuliana Murillo MD - Resident - Assisting OPERATION: 1) Phacoemulsification with intraocular lens implantation, left eye. 2) Subconjunctival injection of mitomycin C, left eye ANESTHESIA: Monitored anesthesia care, 2% lidocaine jel topically, 1% preservative free lidocaine intracamerally. PREOPERATIVE DIAGNOSIS: 1) Visually significant nuclear sclerotic cataract, left eye. 2) primary open angle glaucoma, severe stage, left eye with functioning trabeculectomy bleb. POSTOPERATIVE DIAGNOSIS: Same OPERATIVE INDICATIONS: The patient has a functionally significant cataract. The risks, benefits, and alternatives of cataract extraction with intraocular lens implantation were discussed with the patient who agreed to have the procedure done. Mitomycin C injection is planned to lessen the risk of bleb scarring and failure that is associated with phacoemulsification. OPERATIVE PROCEDURE: Preoperatively, 2% lidocaine jel was instilled into the operative eye. The patient was taken to the operating room in a supine position on the operating table. The operative eye was then prepped with povidone-iodine and draped in the usual sterile fashion for intraocular surgery. Under the operating microscope, 0.1 ml of Mitomycin C 0.2mg/ml was injected subconjunctivally behind the limbus. A temporal paracentesis was created. A small amount of preservative-free 1% lidocaine was instilled into the anterior chamber. The anterior chamber was then deepened with Viscoat. A temporal biplanar clear corneal incision was created with a 2.4mm keratome. A cystitome and Utrata forceps were used to fashion a continuous curvilinear capsulorrhexis. Balanced salt solution was used to hydrodissect and hydrodelineate the nucleus. The phacoemulsification tip was introduced into the eye, and anterior cortex was aspirated. The nucleus was removed with ultrasound power delivering a CDE of 4.82. Irrigation and aspiration was used to remove residual cortex. The capsular bag was examined and found to be intact. The anterior chamber was deepened with Provisc, and the lens was injected into the capsular bag. Irrigation and aspiration was used to remove residual viscoelastic. The incisions were hydrated, examined, and found to be watertight. Cefuroxime 1mg in 0.1ml was instilled into the anterior chamber. The incisions were re-examined to ensure they were water tight. The drapes were removed, and the patient was taken to the recovery area in stable condition. IMPLANTABLE DEVICES: Implant Name Type Inv. Item Serial No. Ob/Gyn Nurse Lot No. LRB No. Used Action LENS IOL 0D +21 [employer] - [id number] Intraocular Lens LENS IOL 0D +21 [employer] [id number] [employer] Left 1 Implanted ESTIMATED BLOOD LOSS: Minimal COMPLICATIONS: None DRAINS: None SPECIMENS: None I/primary surgeon/proceduralist performed the entire procedure. Karlie New M.D. documented in this encounter [facility] 03-16-2022 Instructions Oralia Garcia APRN.CNP - 03/16/2022 2:03 PM EDT [facility] Patient Instructions for Surgery FOOD INSTRUCTIONS: NO solid food or non-clear liquids for 8 hours prior to the arrival time for your surgery. Unless you are instructed otherwise, you are allowed to drink up to 12 ounces of clear liquids (e.g. water, black tea/coffee, fruit juice without pulp, Jean Chelsi, etc.) up until 2 hours prior to the arrival time for surgery. MEDICATION INSTRUCTIONS: Prior to Surgery: You are allowed to take Tylenol if needed until the day of surgery. Continue all medications until the night prior to surgery MEDICATION INSTRUCTIONS: Day/Morning of Surgery: The following medications should be taken with sips of water: LISINOPRIL Tylenol, if needed for pain, can be taken on morning of surgery. If you have any questions or concerns regarding today's visit please do not hesitate to contact the [facility] at [phone] or [phone], ext [phone]. Signature: Oralia Garcia Date: March 16, 2022 documented in this encounter [facility] 03-16-2022 History and physical note HISTORY AND PHYSICAL EXAMINATION ([facility]) SERVICE DATE: 03/16/2022 SERVICE TIME: 1:47 PM PRIMARY CARE PHYSICIAN: Mehrdad Rojas MD CHIEF COMPLAINT/HISTORY OF PRESENT ILLNESS: Ms. Patel is a 76 year old female referred to me for preoperative evaluation. My final recommendations will be communicated back to the requesting physician/surgeon by the way of the shared medical record. Referring Surgeon: Dr. Mendoza Date of Surgery: 03/30/2022 Planned Surgery/Procedure: PHACO/IOL/OS Indication for Planned Surgery / Procedure: nuclear senile cataract LEFT eye Refer to Assessment section for details of any comorbidities. Patient is Able to Perform the Following Physical Activity: Walk a block or two on level ground (2.75 METs) Climb a flight of stairs or walk up a hill (5.50 METs) Patient denies any chest pain or undue shortness of breath with the above physical activity. Patient's functional class is II based on self-reported physical activity. Significant Anesthesia Considerations: None. PAST MEDICAL/SURGICAL/FAMILY/SOCIAL HISTORY PAST MEDICAL HISTORY Diagnosis Date Diverticulosis of colon (without mention of hemorrhage) Diverticulosis Diverticulosis of colon (without mention of hemorrhage) Family history of malignant neoplasm of gastrointestinal tract Glaucoma Graves disease 01/2016 Obstructive sleep apnea 2012 Other specified glaucoma Primary open angle glaucoma of both eyes, mild stage Unspecified essential hypertension Essential hypertension PAST SURGICAL HISTORY Procedure Laterality Date CHOLECYSTECTOMY 1971 Cholecystectomy COLONOSCOPY FLX DX W/COLLJ SPEC WHEN PFRMD 07/05/2008 Diverticulosis/ Internal hemorrhoids COLONOSCOPY FLX DX W/COLLJ SPEC WHEN PFRMD 04/25/2013 COLONOSCOPY FLX DX W/COLLJ SPEC WHEN PFRMD 06/02/2016 DILATION & CURETTAGE DX&/THER NONOBSTETRIC 1974 Dilation & curettage EYE SURGERY PROCEDURE Right 12/19/2018 GATT OD FSTLJ SCLERA GLAUCOMA TRABECULECT AB EXTERNO OU Trabeculecomy NEUROPLASTY &/TRANSPOS MEDIAN NRV CARPAL TUNNE Carpal tunnel decomp Left PAST SURGICAL HISTORY OF Eye surgery - glaucome PAST SURGICAL HISTORY OF PAST SURGICAL HISTORY OF 09/09/2020 plan phaco-250 clearpath inf-nasal. Aim -0.75 to -1.00 [id number] OD PAST SURGICAL HISTORY OF 03/24/2021 eye surgery RELEASE THENAR MUSCLE Left trigger thumb ROTATOR CUFF REPAIR right STEREOTACTIC CORE BIOPSY 08/30/2006 bilateral stereotactic br biopsy TOTAL ABDOMINAL HYSTERECT W/WO RMVL TUBE OVARY 2001 Hysterectomy, [place] FAMILY HISTORY Problem Relation Age of Onset Colon Cancer Mother Coronary Artery Disease Mother Heart Mother Hypertension Mother Coronary Artery Disease Father Psychiatry Father Heart Father Glaucoma Brother Cancer Maternal Grandfather lung cancer Cancer Other cousins and aunts and uncles with cancer SOCIAL HISTORY Social History Tobacco Use Smoking status: Never Smokeless tobacco: Never Vaping Use Vaping Use: Never used Substance Use Topics Alcohol use: No Comment: Rarely wine Drug use: No MEDICATIONS/ALLERGIES Current Outpatient Medications Medication Sig Dispense Refill colestipol (COLESTID) 1 gram tablet Take 1 g by mouth three times daily. difluprednate (DUREZOL) 0.05 % ophthalmic suspension Use 1 Drop in the right eye four times daily. 5 mL 3 bromfenac 0.07 % drop Use 1 Drop in the right eye once daily. 9 mL 3 bimatoprost (LUMIGAN) 0.01 % drop ophthalmic drops Use 1 Drop in both eyes daily at bedtime. 7.5 mL 11 ALPHAGAN P 0.1 % drop Use 1 Drop in the right eye twice daily. 10 mL 11 dorzolamide-timolol (COSOPT) 22.3-6.8 mg/mL ophthalmic solution Use 1 Drop in the left eye every 12 hours. 30 mL 3 lisinopril (ZESTRIL, PRINIVIL) 20 mg tablet Take 1 tablet by mouth once daily. prednisoLONE acetate-nepafenac 1-0.1 % drps Use in the left eye four times daily. No current facility-administered medications for this visit. ALLERGIES Allergen Reactions Augmentin [Amoxicil* GI Upset Other reaction(s): GI Upset Other reaction(s): GI Upset Grass Pollen Macrobid [Nitrofura* GI Upset Nitrofurantoin Unknown Other reaction(s): GI Upset Pollen Sulfa (Sulfonamide * Hives Tree Pollen [Trees] REVIEW OF SYSTEMS General: No weight loss, malaise or fevers. Neuro: No history of TIA's, stroke, CLAIM INSPECTOR tumor, impaired sensorium, hemiplegia, paraplegia or quadriplegia. No neurological symptoms or problems. Respiratory: Obstructive Sleep Apnea (on CPAP). Denies cough or wheeze. Had COVID 19. Cardiovascular: Hypertension requiring meds. Denies recent chest pain, palpitations or syncope. GI: No history of GI symptoms or problems. No history of esophageal varices, recent ascites, or ETOH greater than 2 drinks per day. : No history of UTI in past 6 weeks. No history of renal failure. Not currently on or requiring dialysis. No history of symptoms or problems. 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 Endocrine: No history of diabetes. Has not taken steroids within the past 30 days. No history of endocrinological symptoms or problems. Hematology: No history of bleeding or clotting disorder. No history of hematological symptoms or problems. Oncology: No history of CA metastasis, chemo within 30 days, or radiotherapy within 90 days. No history of oncological symptoms or problems. Psych: No history of psychiatric symptoms or problems. Skin: Negative for lesions, rash, and itching. PHYSICAL EXAM VITALS: BP 135/83 Pulse 73 Resp 16 Ht 5' 0 (1.52m) Wt 163 lb 8 oz (74.2kg) SpO2 99% BMI 31.93 kg/(m^2). General: Alert and oriented, No acute distress, Healthy appearance Skin: Normal color, no rash, no lesions. HEENT: EOM, pupils equal, round and reactive. Cardiovascular: Normal S1 & S2, no rubs, murmurs or gallops. No JVD. Pulse regular. Lungs: Normal breath sounds, no wheezes or crackles., No chest deformities or chest wall tenderness. Abdomen: Soft, non-tender, no rigidity., No masses or organomegaly. Extremities: No deformity, no edema or tenderness, no joint swelling or clubbing. Neurological: Normal cognition and motor skills. Gait normal. No weakness or sensory deficit. Pulses: Carotid and radial pulses normal +2. Pedal pulses normal +2. ASSESSMENT Ms. Patel is a 76 year old female referred to me for preoperative evaluation. Patient has the following medical comorbidities which might affect the perioperative course: I10 Essential hypertension Comment: well controlled on lisinopril G47.33 Obstructive sleep apnea Comment: lost weight ~40lbs and feels she no longer has FATOU Z86.16 History of COVID-19 Comment: feels recovered K57.30 Diverticulosis of colon Comment: no history of GI bleed or surgeries E11.9 Diet-controlled diabetes mellitus (HCC) Comment: most recent A1c=6.6 Patient's RCRI (Revised Cardiac Risk Index: CAD/CHF/Stroke or TIA/SCr>2/DM on Insulin/High Risk Surgery) score is 0 and is at low risk for major adverse cardiac events in the perioperative period. Diagnostic tests reviewed for today's visit: Most recent labs All in Epic PLAN/RECOMMENDATIONS CARDIAC: Patient is at optimal cardiac condition for scheduled surgery / procedure. PULMONARY: Patient is at optimal Pulmonary status for scheduled surgery / procedure. Patient is at increased risk for postoperative pulmonary complications. Suggest the following in the post-operative period: Minimize sedation/opioids as patient has FATOU ENDOCRINE: DIABETES: - Initiate [facility] Guidelines for perioperative diabetes management. Check finger stick glucose on the morning of surgery. - Patient has been instructed on Preoperative DM medication management. Patient is optimally prepared for surgery. Patient Instructions: As per patient instructions section. General Preoperative/Medication/Fasting Instructions I have discussed the above recommendations with the patient in detail, in zhang and lay terms, and provided a written summary of instructions as needed. We have discussed that no surgery is without risk, but that the goal of preoperative assessment is to optimize that risk, and that was clearly understood by the patient. I have given ample opportunity for the patient to ask questions, and answered all questions to their stated satisfaction. SIGNATURE: Oralia Garcia APRN.CNP PATIENT NAME: Carla Patel DATE: March 16, 2022 TIME: 4:14 PM documented in this encounter [facility] 03-16-2022 Nurse Note Consulted by: Dr. New Type of Surgery: Phaco/IOL OS Patient scheduled for surgery on: 03/30/22 Are you experiencing any eye pain?no Do you have a history of sleep apnea?yes not using her CPAP Do you Have a pacemaker or an ICD?no Do you or any of your family members have a history of malignant hyperthermia?no Are you an Insulin dependent Diabetic?no HCG needed?n/a Reviewed pre-admission/surgery instructions with the patient. Questions and concerns answered and any further concerns to be discussed by provider. Leandro Shea MA documented in this encounter [facility] 02-21-2022 History of Present illness Narrative NIKOLAY Faxed to [facility]. P - [phone] F - [phone] & [facility] Chief Complaint Patient presents with Follow-up 4 week f/u HPI: Lani Patel is a 76-year-old female presenting today for BP control with her daughter Myesha. Has PMH of diabetes, hypertension, hyperthyroidism, gout, and obesity. Pleurisy: Diagnosed with COVID shot 2 years ago, since then she started having pleurisy and left-sided discomfort that sometimes go all around her chest. Describes the pain as lower chest burning pain along the bra line , has taken 5 rounds of prednisone with . Triggered with deeper breath , sneezing or pushing on it. Has been getting worse recently radiating to the right mid back as well along her rib line. Tylenol and ibuprofen still help with that pain. Does not recall having echo for it in the past. Has been getting worse and started to get it in the back. is suggesting referral to pain specialist Back pain: Fell in her daughter's house on 01/17 and had pain in the mid back above the Bra line went to the ER in [place] and had some imaging no records. Went to follow up on orthopedics, in [place] and had an Daniel showed only arthritis. Take 1 pill of muscle relaxant from her daughter who had back issues and that seems to help. Her daughter Myesha mentioned that she almost felt a big ball above her bra line that she massaged before she took her muscle relaxant and now it is gone. She is scheduled to have a massage therapy soon Cataract and cystoid macular edema: Currently following up with ophthalmology and [facility] and is on steroid regimen as well as Durezol. Improved CME, currently getting scheduled for her cataract surgery. HTN: Chronic, takes lisinopril increased to 40 mg had low BP readings as of 110s over 60s and now back to [address] Mckinley in [facility] has put her on steroids which has been worsening her BP recently. Denies any associated headache, blurry vision, tingling or numbness in extremities. Recurrent UTIs: 2-3 times a year, has history of hystrectomy a while back for fibroids in 40's. Since that time has been getting worse with bladder control and stream of urine. Had kidney stones and was told she has dropped bladder. Worsening and is having some stress incontinence. 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 Established care with [facility] Laboy urology got her on a probiotics , D-mannose and vit C. Past Medical History: Diagnosis Date Glaucoma Hypertension Pleurisy Past Surgical History: Procedure Laterality Date BREAST LUMPECTOMY CHOLECYSTECTOMY EYE SURGERY HYSTERECTOMY (CERVIX REMOVED) Family History Problem Relation Age of Onset Coronary artery disease Mother Cancer Mother colon Thyroid disease Mother Coronary artery disease Father Coronary artery disease Brother Diabetes Daughter Thyroid disease Maternal Grandmother Cancer Maternal Grandmother Social History Tobacco Use Smoking status: Never Smokeless tobacco: Never Vaping Use Vaping Use: Never used Substance Use Topics Alcohol use: Not Currently Drug use: Not Currently Review of Systems Vitals: 02/21/22 1331 BP: 110/72 BP Location: Right arm Patient Position: Sitting BP Cuff Size: X-large Adult Pulse: 71 Resp: 16 Temp: 98 F (36.7 C) TempSrc: Temporal SpO2: 98% Weight: 74.4 kg (164 lb) Height: 5' Estimated body mass index is 32.03 kg/m as calculated from the following: Height as of this encounter: 5'. Weight as of this encounter: 74.4 kg (164 lb). Physical Exam Constitutional: General: She is not in acute distress. Appearance: She is not ill-appearing. HENT: Head: Normocephalic and atraumatic. Eyes: Extraocular Movements: Extraocular movements intact. Conjunctiva/sclera: Conjunctivae normal. Pupils: Pupils are equal, round, and reactive to light. Cardiovascular: Rate and Rhythm: Normal rate and regular rhythm. Pulses: Normal pulses. Heart sounds: Normal heart sounds. No murmur heard. No gallop. Pulmonary: Effort: Pulmonary effort is normal. Breath sounds: Normal breath sounds. No wheezing, rhonchi or rales. Chest: Chest wall: No tenderness. Abdominal: General: Abdomen is flat. Bowel sounds are normal. There is no distension. Palpations: Abdomen is soft. There is no mass. Tenderness: no abdominal tenderness There is no right CVA tenderness, left CVA tenderness, guarding or rebound. Musculoskeletal: General: Tenderness (rt-sided at eighth and ninth intercostal space along mid axillary line) present. Normal range of motion. Cervical back: Normal range of motion and neck supple. No rigidity. No muscular tenderness. Right lower leg: No edema. Left lower leg: No edema. Lymphadenopathy: Cervical: No cervical adenopathy. Skin: General: Skin is warm. Findings: No erythema or rash. Neurological: General: No focal deficit present. Mental Status: She is alert and oriented to person, place, and time. Sensory: No sensory deficit. Motor: No weakness. Gait: Gait normal. Psychiatric: Mood and Affect: Mood normal. Behavior: Behavior normal. Thought Content: Thought content normal. Judgment: Judgment normal. OARRS/NARxCHECK Report Received and Assessed: No data found Date controlled substance agreement signed: No data found Date of last drug screen: No data found Functional Assessment: No data found PHQ9: CIRILO-7 Tobacco Counseling: Counseling given: Not Answered Patient's Medications New Prescriptions No medications on file Previous Medications BIMATOPROST (LUMIGAN) 0.01 % OPHTHALMIC DROPS 1 drop every night at bedtime . BRIMONIDINE (ALPHAGAN P) 0.1 % DROP 1 drop 2 (two) times a day . BROMFENAC (PROLENSA) 0.07 % DROP COLESTIPOL (COLESTID) 1 GRAM TABLET Take 1 tablet by mouth daily . DIFLUPREDNATE 0.05 % DROP Apply to eye . DORZOLAMIDE-TIMOLOL (COSOPT) 22.3-6.8 MG/ML OPHTHALMIC SOLUTION Use 1 Drop in the left eye every 12 hours. FAMOTIDINE (PEPCID) 20 MG TABLET Take 1 (one) tablet (20 mg total) by mouth 2 (two) times a day for 7 days . PREDNISOLONE ACETATE-NEPAFENAC 1-0.1 % DRPS 3 (three) times a day . TIMOLOL (TIMOPTIC-XR) 0.5 % OPHTHALMIC GEL-FORMING Administer 1 drop to both eyes daily . Modified Medications Modified Medication Previous Medication LISINOPRIL (PRINIVIL,ZESTRIL) 20 MG TABLET lisinopriL (PRINIVIL,ZESTRIL) 40 MG tablet Take 1 (one) tablet (20 mg total) by mouth daily . Take 1 (one) tablet (40 mg total) by mouth daily . Discontinued Medications No medications on file Health Maintenance Due Topic Date Due Tetanus: Every 10yrs Never done Dexa Scan Never done Wellness Visit Never done Foot Exam Never done Hepatitis C Screening Never done Mammogram Never done Zoster Vaccines (2 of 3) 07/28/2014 Pneumococcal Vaccine: Age 65+ (2 - PCV) 03/30/2015 COVID-19 Vaccine (3 - Booster for Moderna series) 05/05/2021 Assessment & Plan Problem List Items Addressed This Visit Cardiovascular and Mediastinum Hypertension Had soft blood pressure readings on lisinopril 40 mg which was increased on the last visit. Going back to lisinopril 20 mg and keep track of blood pressure monitoring. Relevant Medications lisinopriL (PRINIVIL,ZESTRIL) 20 MG tablet Genitourinary Bladder prolapse, female, acquired Established care with urogynecology in [place] with Dr. Laboy Patient currently having less urinary symptoms with added supplements has d-mannose, probiotics and vitamin C. Following up as needed at this time. Other Side pain - Primary Evaluate those symptoms for pleurisy with repeating an echo, came back normal. No pericarditis. Continue with Tylenol, ibuprofen as well as Voltaren gel as needed. Lidocaine patch as needed Potentially adding compound cream from transdermal therapeutics Potentially referring to pain medicine vs having second opinion with pulmonology Potentially adding gabapentin if need be Thoracic back pain Most likely muscular might benefit from massage therapy Discussed topical treatments as mentioned in side pain section. Will continue to monitor and see if additional imaging is needed, obtaining records from her ER visit in [place]. Follow-up in 2 months Return in about 2 months (around 04/23/2022) for Follow Up. CRISTY DAVIDSON MD [facility] [address] [facility] [address] Dept: [phone] Depression Screening 10/24/2021 Little interest or pleasure in doing things 0 Feeling down, depressed, or hopeless 0 PHQ-2 Total Score 0 Trouble falling or staying asleep, or sleeping too much 1 Feeling tired or having little energy 0 Poor appetite or overeating 1 Feeling bad about yourself - or that you are a failure or have let yourself or your family down 0 Trouble concentrating on things, such as reading the newspaper or watching television 0 Moving or speaking so slowly that other people could have noticed. Or the opposite - being so fidgety or restless that you have been moving around a lot more than usual 0 Thoughts that you would be better off , or of hurting yourself in some way 0 PHQ-9 Total Score 2 If you checked off any problems, how difficult have these problems made it for you to do your work, take care of things at home, or get along with other people? Not difficult at all documented in this encounter [facility] 02-21-2022 Evaluation + Plan note Associated Problem(s): Thoracic back pain Most likely muscular might benefit from massage therapy Discussed topical treatments as mentioned in side pain section. Will continue to monitor and see if additional imaging is needed, obtaining records from her ER visit in [place]. Follow-up in 2 months [facility] 02-21-2022 Miscellaneous Notes Associated Problem(s): Thoracic back pain Most likely muscular might benefit from massage therapy Discussed topical treatments as mentioned in side pain section. Will continue to monitor and see if additional imaging is needed, obtaining records from her ER visit in [place]. Follow-up in 2 months Associated Problem(s): Hypertension Had soft blood pressure readings on lisinopril 40 mg which was increased on the last visit. Going back to lisinopril 20 mg and keep track of blood pressure monitoring. Associated Problem(s): Bladder prolapse, female, acquired Established care with urogynecology in [place] with Dr. Laboy Patient currently having less urinary symptoms with added supplements has d-mannose, probiotics and vitamin C. Following up as needed at this time. Associated Problem(s): Side pain Evaluate those symptoms for pleurisy with repeating an echo, came back normal. No pericarditis. Continue with Tylenol, ibuprofen as well as Voltaren gel as needed. Lidocaine patch as needed Potentially adding compound cream from transdermal therapeutics Potentially referring to pain medicine vs having second opinion with pulmonology Potentially adding gabapentin if need be documented in this encounter [facility] 02-21-2022 Evaluation + Plan note Associated Problem(s): Hypertension Had soft blood pressure readings on lisinopril 40 mg which was increased on the last visit. Going back to lisinopril 20 mg and keep track of blood pressure monitoring. [facility] 02-21-2022 Evaluation + Plan note Associated Problem(s): Bladder prolapse, female, acquired Established care with urogynecology in [place] with Dr. Laboy Patient currently having less urinary symptoms with added supplements has d-mannose, probiotics and vitamin C. Following up as needed at this time. [facility] 02-21-2022 Evaluation + Plan note Associated Problem(s): Side pain Evaluate those symptoms for pleurisy with repeating an echo, came back normal. No pericarditis. Continue with Tylenol, ibuprofen as well as Voltaren gel as needed. Lidocaine patch as needed Potentially adding compound cream from transdermal therapeutics Potentially referring to pain medicine vs having second opinion with pulmonology Potentially adding gabapentin if need be [facility] 02-13-2022 Instructions Karlie New MD - 02/13/2022 11:27 AM EDT February 13, 2022 Medication Eye # times daily Dorzolamide-timolol (blue) Both 2 Alphagan P (purple) Right 2 Lumigan (turquoise) Left 1 Difluprednate (pink) Right 3 *please remember to wait at least 5 minutes between different drops in the same eye. I have requested that you be schedule for eye surgery. My personnel scheduler, Kiersten Ray, will call you within a week. Kiersten (personnel scheduler:) [phone]. Dr. New Office: [phone] if you have any questions. Please note, if you are having cataract surgery, you will have appointments 1 day, 1 week, and 1 month after surgery. documented in this encounter [facility] 02-13-2022 History of Present illness Narrative Tmax: 22, 23; Pachy: 598, 599 Lasers and Surgeries: OD: 06/02/21 [facility] 180 deg (IOP=22 on 4 meds) 03/24/21 MP-[facility] IOP17 on 4meds, VF prog 09/09/20 phaco-250 CP UKT37-12 on3, VF prog aim -0.8 12/2018 GATT (IOP=19 on 3 meds with VF progression) Trabeculectomy c [facility] 02/02/05; needling c [facility] 05/2010 IOP=19 with large DH 02/2005 excision of conj epi inclusion cyst OS: Trabeculectomy [facility] 09/21/05 and 02/06/0801/2006 excision of conj lymphangiectasis Ocular Medication Intol and Non-efficacy: combigan and timolol = fatigue and asthma Rhopressa=NI 07/2020 Also sees Osmel Marques, OD: Gets visual enriquez there Currently on Cosopt BID OU Lumigan QHS OS (switched 05/15/18) Alphagan P 0.1% bid OD (01/2021 for IOP=23) Durezol qid OD (10/07/21 for CME) Prolensa qd OD (10/07/21 for CME) POAG severe stage OU -HVF OD 07/2020 large dense sup arc encroaching fixation, worse OS 01/2020 sup paracentral and SNS stable -OCT 06/2019 OD: sig inf thinning similar to 2015 OS: sig inf thinning similar to 2015 -FH (brother) -OS: IOP controlled. 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 Changed Lumigan to Cosopt OD, started PF qid + Prolensa qd -11/21/21: CME was WORSE: changed PF to Durezol -12/26/21: CME improved but not resolved -> cont Durezol. -today 02/13/22: near complete resolution with tiny trace IRF remaining -stop Prolensa, dec Durezol to tid Cataract OS -she is having sig difficulty with her vision - couldn't drive, see music at [email or web address], can't thread her needle, monocular diplopia -she would like phaco OS -discussed risk of bleb failure and plan to do low-dose [facility] -plan phaco + [facility] OS, aim -1.00 Graves Disease (not addressed today) -diagnosed 03/2016 -currently on methimazole -does have some lid retraction OU and possible UL edema Cataract Presurgical Documentation Cataract: Left eye (OS) Current Visual Acuity Right Eye Distance SC 20/80 Left Eye Distance SC 20/300 Best Corrected Vision Right Eye 20/40-1 Best Corrected Vision Left Eye 20/70-1 Glare Testing: Left Eye High 20/125 Visual Function: Carla Hector Amanda states that the decline in vision from the cataract impedes her abilities as listed in the HPI, as well as other activities of daily living. Carla Hector Amanda has confirmed that she is no longer able to function adequately on a day-to-day basis because of her current visual condition. Further, it is my medical opinion that the cataract is the primary cause, or at least a significantly contributory cause of her visual dysfunction. With uncomplicated cataract surgery and lens implantation, it is my expectation that her visual function and quality of life will improve, significantly. The risks, benefits, alternatives, personnel and complications of cataract surgery with lens implantation were discussed with Carla Patel in detail. she appeared to understand and asked that I proceed with plans for surgery. I, Karlie New MD, have edited as necessary and confirmed the relevant ophthalmic history, ROS, and neuro exam findings as obtained by others. I have seen and examined Carla Patel. I also have reviewed, edited as necessary, and agree with the assessment and plan and all of its relevant components as stated above. I have discussed the case and the management of this patient's care with the Resident/Fellow, if applicable. February 13, 2022 11:24 AM. documented in this encounter [facility] 12-30-2021 Evaluation + Plan note Associated Problem(s): Bladder prolapse, female, acquired Having increased frequency still of urination. No other signs of hematuria or dysuria. Establishing care with gynecology in [place] Continue to monitor [facility] 12-30-2021 Evaluation + Plan note Associated Problem(s): Hypertension Increasing lisinopril to 40 mg. Currently improved but still not within therapeutic range. Continue to monitor. [facility] 12-30-2021 Miscellaneous Notes Associated Problem(s): Bladder prolapse, female, acquired Having increased frequency still of urination. No other signs of hematuria or dysuria. Establishing care with gynecology in [place] Continue to monitor Associated Problem(s): Hypertension Increasing lisinopril to 40 mg. Currently improved but still not within therapeutic range. Continue to monitor. Associated Problem(s): Cystoid macular edema Following up with ophthalmology in [facility]. Continue to monitor alongside ophthalmology. Associated Problem(s): Side pain Evaluate those symptoms for pleurisy with repeating an echo, came back normal. No pericarditis. Continue with Tylenol, ibuprofen as well as Voltaren gel as needed. Lidocaine patch as needed Potentially adding compound cream from transdermal therapeutics Potentially referring to pain medicine vs having second opinion with pulmonology . documented in this encounter [facility] 12-30-2021 Evaluation + Plan note Associated Problem(s): Cystoid macular edema Following up with ophthalmology in [facility]. Continue to monitor alongside ophthalmology. [facility] 12-29-2021 Evaluation + Plan note Associated Problem(s): Side pain Evaluate those symptoms for pleurisy with repeating an echo, came back normal. No pericarditis. Continue with Tylenol, ibuprofen as well as Voltaren gel as needed. Lidocaine patch as needed Potentially adding compound cream from transdermal therapeutics Potentially referring to pain medicine vs having second opinion with pulmonology . [facility] 12-29-2021 History of Present illness Narrative Chief Complaint Patient presents with Follow-up 1 mon fu htn HPI: Lani Patel is a 76-year-old female presenting today for BP control with her Terrence. Has PMH of diabetes, hypertension, hyperthyroidism, gout, and obesity. Pleurisy: Diagnosed with COVID shot 2 years ago, since then she started having pleurisy and left-sided discomfort that sometimes go all around her chest. Describes the pain as lower chest burning pain along the bra line , has taken 5 rounds of prednisone with . Triggered with deeper breath , sneezing or pushing on it. Has been getting worse recently radiating to the right mid back as well along her rib line. Tylenol and ibuprofen still help with that pain. Does not recall having echo for it in the past. Has been getting worse and started to get it in the back. is suggesting referral to pain specialist Cataract and cystoid macular edema: Currently following up with ophthalmology and [facility] and is on steroid regimen as well as Durezol. HTN: Chronic, takes lisinopril increased to 30 mg. Arlen in [facility] has put her on steroids which has been worsening her BP recently. Blood pressures at home scanned in her chart and has been in the 140s to 150s over 80s. Denies any associated headache, blurry vision, tingling or numbness in extremities. Recurrent UTIs: 2-3 times a year, has history of hystrectomy a while back for fibroids in 40's. Since that time has been getting worse with bladder control and stream of urine. Had kidney stones and was told she has dropped bladder. Worsening and is having some stress incontinence. 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 Past Medical History: Diagnosis Date Glaucoma Hypertension Pleurisy Past Surgical History: Procedure Laterality Date BREAST LUMPECTOMY CHOLECYSTECTOMY EYE SURGERY HYSTERECTOMY (CERVIX REMOVED) Family History Problem Relation Age of Onset Coronary artery disease Mother Cancer Mother colon Thyroid disease Mother Coronary artery disease Father Coronary artery disease Brother Diabetes Daughter Thyroid disease Maternal Grandmother Cancer Maternal Grandmother Social History Tobacco Use Smoking status: Never Smokeless tobacco: Never Vaping Use Vaping Use: Never used Substance Use Topics Alcohol use: Not Currently Drug use: Not Currently Review of Systems Vitals: 12/29/21 1343 12/29/21 1350 BP: (!) 146/85 (!) 146/85 BP Location: Right arm Right arm Patient Position: Sitting Sitting BP Cuff Size: Adult Adult Pulse: 82 77 Resp: 16 Temp: 97.6 F (36.4 C) TempSrc: Temporal SpO2: 96% Weight: 77.1 kg (170 lb) Height: 5' Estimated body mass index is 33.2 kg/m as calculated from the following: Height as of this encounter: 5'. Weight as of this encounter: 77.1 kg (170 lb). Physical Exam Constitutional: General: She is not in acute distress. Appearance: She is not ill-appearing. HENT: Head: Normocephalic and atraumatic. Eyes: Extraocular Movements: Extraocular movements intact. Conjunctiva/sclera: Conjunctivae normal. Pupils: Pupils are equal, round, and reactive to light. Cardiovascular: Rate and Rhythm: Normal rate and regular rhythm. Pulses: Normal pulses. Heart sounds: Normal heart sounds. No murmur heard. No gallop. Pulmonary: Effort: Pulmonary effort is normal. Breath sounds: Normal breath sounds. No wheezing, rhonchi or rales. Chest: Chest wall: No tenderness. Abdominal: General: Abdomen is flat. Bowel sounds are normal. There is no distension. Palpations: Abdomen is soft. There is no mass. Tenderness: There is no abdominal tenderness. There is no right CVA tenderness, left CVA tenderness, guarding or rebound. Musculoskeletal: General: Tenderness (rt-sided at eighth and ninth intercostal space along mid axillary line) present. Normal range of motion. Cervical back: Normal range of motion and neck supple. No rigidity. No muscular tenderness. Right lower leg: No edema. Left lower leg: No edema. Lymphadenopathy: Cervical: No cervical adenopathy. Skin: General: Skin is warm. Findings: No erythema or rash. Neurological: General: No focal deficit present. Mental Status: She is alert and oriented to person, place, and time. Sensory: No sensory deficit. Motor: No weakness. Gait: Gait normal. Psychiatric: Mood and Affect: Mood normal. Behavior: Behavior normal. Thought Content: Thought content normal. Judgment: Judgment normal. OARRS/NARxCHECK Report Received and Assessed: No data found Date controlled substance agreement signed: No data found Date of last drug screen: No data found Functional Assessment: No data found PHQ9: CIRILO-7 Tobacco Counseling: Counseling given: Not Answered Patient's Medications New Prescriptions No medications on file Previous Medications BIMATOPROST (LUMIGAN) 0.01 % OPHTHALMIC DROPS 1 drop every night at bedtime . BRIMONIDINE (ALPHAGAN P) 0.1 % DROP 1 drop 2 (two) times a day . BROMFENAC (PROLENSA) 0.07 % DROP COLESTIPOL (COLESTID) 1 GRAM TABLET Take 1 tablet by mouth daily . DIFLUPREDNATE 0.05 % DROP Apply to eye . DORZOLAMIDE-TIMOLOL (COSOPT) 22.3-6.8 MG/ML OPHTHALMIC SOLUTION Use 1 Drop in the left eye every 12 hours. FAMOTIDINE (PEPCID) 20 MG TABLET Take 1 (one) tablet (20 mg total) by mouth 2 (two) times a day for 7 days . PREDNISOLONE ACETATE-NEPAFENAC 1-0.1 % DRPS 4 (four) times a day . TIMOLOL (TIMOPTIC-XR) 0.5 % OPHTHALMIC GEL-FORMING Administer 1 drop to both eyes daily . Modified Medications Modified Medication Previous Medication LISINOPRIL (PRINIVIL,ZESTRIL) 40 MG TABLET lisinopriL (PRINIVIL,ZESTRIL) 30 MG tablet Take 1 (one) tablet (40 mg total) by mouth daily . Take 1 (one) tablet (30 mg total) by mouth daily . Discontinued Medications No medications on file Health Maintenance Due Topic Date Due Tetanus: Every 10yrs Never done Dexa Scan Never done Wellness Visit Never done Foot Exam Never done Hepatitis C Screening Never done Mammogram Never done Zoster Vaccines (2 of 3) 07/28/2014 Pneumococcal Vaccine: Age 65+ (2 - PCV) 03/30/2015 COVID-19 Vaccine (3 - Booster for Moderna series) 05/05/2021 Assessment & Plan Problem List Items Addressed This Visit Cardiovascular and Mediastinum Hypertension Increasing lisinopril to 40 mg. Currently improved but still not within therapeutic range. Continue to monitor. Relevant Medications lisinopriL (PRINIVIL,ZESTRIL) 40 MG tablet Genitourinary Bladder prolapse, female, acquired - Primary Having increased frequency still of urination. No other signs of hematuria or dysuria. Establishing care with gynecology in [place] Continue to monitor Other Side pain Evaluate those symptoms for pleurisy with repeating an echo, came back normal. No pericarditis. Continue with Tylenol, ibuprofen as well as Voltaren gel as needed. Lidocaine patch as needed Potentially adding compound cream from [employer]dermal therapeutics Potentially referring to pain medicine vs having second opinion with pulmonology . Cystoid macular edema Following up with ophthalmology in [facility]. Continue to monitor alongside ophthalmology. Return in about 4 weeks (around 01/26/2022) for Follow Up. CRISTY DAVIDSON MD [facility] [address] [facility] [address] [facility] [address] Dept: [phone] Depression Screening 10/24/2021 Little interest or pleasure in doing things 0 Feeling down, depressed, or hopeless 0 PHQ-2 Total Score 0 Trouble falling or staying asleep, or sleeping too much 1 Feeling tired or having little energy 0 Poor appetite or overeating 1 Feeling bad about yourself - or that you are a failure or have let yourself or your family down 0 Trouble concentrating on things, such as reading the newspaper or watching television 0 Moving or speaking so slowly that other people could have noticed. Or the opposite - being so fidgety or restless that you have been moving around a lot more than usual 0 Thoughts that you would be better off , or of hurting yourself in some way 0 PHQ-9 Total Score 2 If you checked off any problems, how difficult have these problems made it for you to do your work, take care of things at home, or get along with other people? Not difficult at all documented in this encounter [facility] 12-02-2021 Note Addended by: CRISTY DAVIDSON on: 12/02/2021 12:02 PM Modules accepted: Orders [facility] 12-02-2021 Miscellaneous Notes Addended by: CRISTY DAVIDSON on: 12/02/2021 12:02 PM Modules accepted: Orders documented in this encounter [facility] 11-22-2021 Evaluation + Plan note Associated Problem(s): Side pain Need to further evaluate those symptoms for pleurisy with repeating an echo, no records of previous echo, patient is unsure if she had it in the first place or not. Continue with Tylenol, ibuprofen as well as Voltaren gel as needed. Continue to monitor, advised if symptoms started to become more painful that she would go to the ER for further evaluation. [facility] 11-22-2021 Miscellaneous Notes Associated Problem(s): Side pain Need to further evaluate those symptoms for pleurisy with repeating an echo, no records of previous echo, patient is unsure if she had it in the first place or not. Continue with Tylenol, ibuprofen as well as Voltaren gel as needed. Continue to monitor, advised if symptoms started to become more painful that she would go to the ER for further evaluation. Associated Problem(s): Hypertension Would benefit from further improving with increasing lisinopril to 30 mg. Specifically since her blood pressure is high given steroid therapy she is on for her retinal swelling. Will continue to monitor and follow-up on her blood pressure in 1 month. Associated Problem(s): Congestive heart failure (HCC) Unsure of this diagnosis, no evidence of echo that confirmed diagnosis or previous history of fluid overload. Echo is ordered and recommended to further evaluate her pleurisy symptoms and will give us idea on any signs of heart failure. Continue to monitor documented in this encounter [facility] 11-22-2021 Evaluation + Plan note Associated Problem(s): Hypertension Would benefit from further improving with increasing lisinopril to 30 mg. Specifically since her blood pressure is high given steroid therapy she is on for her retinal swelling. Will continue to monitor and follow-up on her blood pressure in 1 month. [facility] 11-22-2021 Evaluation + Plan note Associated Problem(s): Congestive heart failure (HCC) Unsure of this diagnosis, no evidence of echo that confirmed diagnosis or previous history of fluid overload. Echo is ordered and recommended to further evaluate her pleurisy symptoms and will give us idea on any signs of heart failure. Continue to monitor [facility] 11-22-2021 History of Present illness Narrative At check out was stated 2 weeks (around 12/06/2021) for Follow Up. Patient stated No she said a month Appt scheduled for 1 month back Chief Complaint Patient presents with Follow-up HPI: Lani Patel is a 76-year-old female presenting today for BP control with her Terrence. Has PMH of diabetes, hypertension, hyperthyroidism, gout, and obesity. Pleurisy: Diagnosed with COVID shot 2 years ago, since then she started having pleurisy and left-sided discomfort that sometimes go all around her chest. Describes the pain as lower chest burning pain along the bra line , has taken 5 rounds of prednisone with . Triggered with deeper breath , sneezing or pushing on it. Has been getting worse recently radiating to the right mid back as well along her rib line. Tylenol and ibuprofen still help with that pain. Does not recall having echo for it in the past. HTN: Chronic, takes lisinopril 20 mg. Arlen in [facility] has put her on steroids which has been worsening her BP recently. Blood pressures at home scanned in her chart and has been in the 130s to 150s over 80s. Denies any associated headache, blurry vision, tingling or numbness in extremities. Recurrent UTIs: 2-3 times a year, has history of hystrectomy a while back for fibroids in 40's. Since that time has been getting worse with bladder control and stream of urine. Had kidney stones and was told she has dropped bladder. 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 Past Medical History: Diagnosis Date Glaucoma Hypertension Pleurisy Past Surgical History: Procedure Laterality Date BREAST LUMPECTOMY CHOLECYSTECTOMY EYE SURGERY HYSTERECTOMY (CERVIX REMOVED) Family History Problem Relation Age of Onset Coronary artery disease Mother Cancer Mother colon Thyroid disease Mother Coronary artery disease Father Coronary artery disease Brother Diabetes Daughter Thyroid disease Maternal Grandmother Cancer Maternal Grandmother Social History Tobacco Use Smoking status: Never Smoker Smokeless tobacco: Never Used Vaping Use Vaping Use: Never used Substance Use Topics Alcohol use: Not Currently Drug use: Not Currently Review of Systems Vitals: 11/22/21 1321 11/22/21 1327 BP: (!) 166/85 (!) 165/82 BP Location: Right arm Right arm Patient Position: Sitting Sitting BP Cuff Size: X-large Adult X-large Adult Pulse: 69 66 Resp: 16 Temp: 98.9 F (37.2 C) TempSrc: Temporal SpO2: 98% Weight: 78 kg (172 lb) Height: 5' Estimated body mass index is 33.59 kg/m as calculated from the following: Height as of this encounter: 5'. Weight as of this encounter: 78 kg (172 lb). Physical Exam Constitutional: General: She is not in acute distress. Appearance: She is not ill-appearing. HENT: Head: Normocephalic and atraumatic. Eyes: Extraocular Movements: Extraocular movements intact. Conjunctiva/sclera: Conjunctivae normal. Pupils: Pupils are equal, round, and reactive to light. Cardiovascular: Rate and Rhythm: Normal rate and regular rhythm. Pulses: Normal pulses. Heart sounds: Normal heart sounds. No murmur heard. No gallop. Pulmonary: Effort: Pulmonary effort is normal. Breath sounds: Normal breath sounds. No wheezing, rhonchi or rales. Chest: Chest wall: No tenderness. Abdominal: General: Abdomen is flat. Bowel sounds are normal. There is no distension. Palpations: Abdomen is soft. There is no mass. Tenderness: There is no abdominal tenderness. There is no right CVA tenderness, left CVA tenderness, guarding or rebound. Musculoskeletal: General: Tenderness (rt-sided at eighth and ninth intercostal space along mid axillary line) present. Normal range of motion. Cervical back: Normal range of motion and neck supple. No rigidity. No muscular tenderness. Right lower leg: No edema. Left lower leg: No edema. Lymphadenopathy: Cervical: No cervical adenopathy. Skin: General: Skin is warm. Findings: No erythema or rash. Neurological: General: No focal deficit present. Mental Status: She is alert and oriented to person, place, and time. Sensory: No sensory deficit. Motor: No weakness. Gait: Gait normal. Psychiatric: Mood and Affect: Mood normal. Behavior: Behavior normal. Thought Content: Thought content normal. Judgment: Judgment normal. OARRS/NARxCHECK Report Received and Assessed: No data found Date controlled substance agreement signed: No data found Date of last drug screen: No data found Functional Assessment: No data found PHQ9: CIRILO-7 Tobacco Counseling: Counseling given: Not Answered Patient's Medications New Prescriptions No medications on file Previous Medications BIMATOPROST (LUMIGAN) 0.01 % OPHTHALMIC DROPS 1 drop every night at bedtime . BRIMONIDINE (ALPHAGAN P) 0.1 % DROP 1 drop 2 (two) times a day . BROMFENAC (PROLENSA) 0.07 % DROP CEPHALEXIN (KEFLEX) 500 MG CAPSULE Take 1 (one) capsule (500 mg total) by mouth 4 (four) times a day for 7 days . COLESTIPOL (COLESTID) 1 GRAM TABLET Take 1 tablet by mouth daily . DIFLUPREDNATE 0.05 % DROP Apply to eye . FAMOTIDINE (PEPCID) 20 MG TABLET Take 1 (one) tablet (20 mg total) by mouth 2 (two) times a day for 7 days . TIMOLOL (TIMOPTIC-XR) 0.5 % OPHTHALMIC GEL-FORMING Administer 1 drop to both eyes daily . Modified Medications Modified Medication Previous Medication LISINOPRIL (PRINIVIL,ZESTRIL) 30 MG TABLET lisinopriL (PRINIVIL,ZESTRIL) 20 MG tablet Take 1 (one) tablet (30 mg total) by mouth daily . Take 20 mg by mouth daily . Discontinued Medications No medications on file Health Maintenance Due Topic Date Due Tetanus: Every 10yrs Never done Dexa Scan Never done Wellness Visit Never done Pneumococcal Vaccine: Age 65+ (1 - PCV) Never done Foot Exam Never done Hepatitis C Screening Never done Mammogram Never done Zoster Vaccines (2 of 3) 07/28/2014 COVID-19 Vaccine (3 - Booster for Moderna series) 05/05/2021 Assessment & Plan Problem List Items Addressed This Visit Cardiovascular and Mediastinum Hypertension - Primary Would benefit from further improving with increasing lisinopril to 30 mg. Specifically since her blood pressure is high given steroid therapy she is on for her retinal swelling. Will continue to monitor and follow-up on her blood pressure in 1 month. Relevant Medications lisinopriL (PRINIVIL,ZESTRIL) 30 MG tablet Congestive heart failure (HCC) Unsure of this diagnosis, no evidence of echo that confirmed diagnosis or previous history of fluid overload. Echo is ordered and recommended to further evaluate her pleurisy symptoms and will give us idea on any signs of heart failure. Continue to monitor Relevant Medications lisinopriL (PRINIVIL,ZESTRIL) 30 MG tablet Genitourinary Bladder prolapse, female, acquired Other Side pain Need to further evaluate those symptoms for pleurisy with repeating an echo, no records of previous echo, patient is unsure if she had it in the first place or not. Continue with Tylenol, ibuprofen as well as Voltaren gel as needed. Continue to monitor, advised if symptoms started to become more painful that she would go to the ER for further evaluation. Relevant Orders Echocardiogram complete Other Visit Diagnoses Chest pain, unspecified type Relevant Orders Echocardiogram complete Return in about 2 weeks (around 12/06/2021) for Follow Up. CRISTY DAVIDSON MD [facility] [place] [address] [facility] [address] [facility] [id number] Dept: [phone] Depression Screening 10/24/2021 Little interest or pleasure in doing things 0 Feeling down, depressed, or hopeless 0 PHQ-2 Total Score 0 Trouble falling or staying asleep, or sleeping too much 1 Feeling tired or having little energy 0 Poor appetite or overeating 1 Feeling bad about yourself - or that you are a failure or have let yourself or your family down 0 Trouble concentrating on things, such as reading the newspaper or watching television 0 Moving or speaking so slowly that other people could have noticed. Or the opposite - being so fidgety or restless that you have been moving around a lot more than usual 0 Thoughts that you would be better off , or of hurting yourself in some way 0 PHQ-9 Total Score 2 If you checked off any problems, how difficult have these problems made it for you to do your work, take care of things at home, or get along with other people? Not difficult at all documented in this encounter [facility] 11-21-2021 History of Present illness Narrative Tmax: 22, 23; Pachy: 598, 599 Lasers and Surgeries: OD: 06/02/21 [facility] 180 deg (IOP=22 on 4 meds) 03/24/21 [facility] IOP17 on 4meds, VF prog 09/09/20 phaco-250 CP [id number] on3, VF prog aim -0.8 12/2018 GATT (IOP=19 on 3 meds with VF progression) Trabeculectomy c [facility] 02/02/05; needling c [facility] 05/2010 IOP=19 with large DH 02/2005 excision of conj epi inclusion cyst OS: Trabeculectomy [facility] 09/21/05 and 02/06/0801/2006 excision of conj lymphangiectasis Ocular Medication Intol and Non-efficacy: combigan and timolol = fatigue and asthma Rhopressa=NI 07/2020 Also sees Osmel Marques, OD: Gets visual enriquez there Currently on Cosopt BID OU Lumigan QHS OS (switched 05/15/18) Alphagan P 0.1% bid OD (01/2021 for IOP=23) PF qid OD (10/07/21 for CME) Prolensa qd OD (10/07/21 for CME) POAG severe stage OU -HVF OD 07/2020 large dense sup arc encroaching fixation, worse OS 01/2020 sup paracentral and SNS stable -OCT 06/2019 OD: sig inf thinning similar to 2015 OS: sig inf thinning similar to 2015 -FH (brother) -OS: IOP controlled. 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 Could do low-dose [facility] inj at time of phaco Dry eye OD (not addressed today) -PEE and epiphora -Myriam (-) bleb -AT's Graves Disease (not addressed today) -diagnosed 03/2016 -currently on methimazole -does have some lid retraction OU and possible UL edema I, Karlie New MD, have edited as necessary and confirmed the relevant ophthalmic history, ROS, and neuro exam findings as obtained by others. I have seen and examined Carla Patel. I also have reviewed, edited as necessary, and agree with the assessment and plan and all of its relevant components as stated above. I have discussed the case and the management of this patient's care with the Resident/Fellow, if applicable. November 21, 2021 11:36 AM. documented in this encounter [facility] 10-24-2021 Evaluation + Plan note Associated Problem(s): Graves disease Last TFTs came back within normal limits. Off methimazole. Multinodular goiter has been followed up with ultrasound still 2018 that did not show any nodules. Per endocrinology no need for ultrasound follow-up until symptoms arise. Continue to monitor TFTs annually. [facility] 10-24-2021 Miscellaneous Notes Associated Problem(s): Graves disease Last TFTs came back within normal limits. Off methimazole. Multinodular goiter has been followed up with ultrasound still 2018 that did not show any nodules. Per endocrinology no need for ultrasound follow-up until symptoms arise. Continue to monitor TFTs annually. Associated Problem(s): Diabetes (HCC) Chronic, diet controlled. Previous hyperglycemia with multiple prednisone courses will Last A1c is 6.6 in September 2021. Continue to monitor Associated Problem(s): Side pain Could be muscular not related to pleurisy at this time Heat , icing and massage Topicals as lidocaine, biofreeze , bengay . Voltaren gel 4 times a day as needed Associated Problem(s): Hypertension Please take blood pressure in the same arm In a seated position for at least 5 minutes, and record readings keeping a log. If her blood pressure is at any time over 180/110, please give clinic a call. If high blood pressure with symptoms of headaches, blurry vision or tingling/numbness in extremities, please head to the ED for further management. Our goal blood pressure is below 130/80 for most adults Our goal blood pressure for ages over 65 is below 140/90 Follow up in one month documented in this encounter [facility] 10-24-2021 Evaluation + Plan note Associated Problem(s): Diabetes (HCC) Chronic, diet controlled. Previous hyperglycemia with multiple prednisone courses will Last A1c is 6.6 in September 2021. Continue to monitor [facility] 10-24-2021 Evaluation + Plan note Associated Problem(s): Side pain Could be muscular not related to pleurisy at this time Heat , icing and massage Topicals as lidocaine, biofreeze , bengay . Voltaren gel 4 times a day as needed [facility] 10-24-2021 Evaluation + Plan note Associated Problem(s): Hypertension Please take blood pressure in the same arm In a seated position for at least 5 minutes, and record readings keeping a log. If her blood pressure is at any time over 180/110, please give clinic a call. If high blood pressure with symptoms of headaches, blurry vision or tingling/numbness in extremities, please head to the ED for further management. Our goal blood pressure is below 130/80 for most adults Our goal blood pressure for ages over 65 is below 140/90 Follow up in one month [facility] 10-24-2021 Instructions Cristy Davidson MD - 10/24/2021 10:19 AM EDT [facility] Low Risk Patient Instructions: Your Falls Screening today shows that you are at low risk for falls. To further protect yourself from falls and maintain your independence, we recommend: 1. Read through the brochure, What You Can Do to Prevent Falls (from CDC). 2. Go through the brochure, Check for Safety: A Home Fall Prevention Checklist for Older Adults (from [facility]), and make changes as recommended. 3. Join a community falls prevention program: Stepping On, a 7-week evidence based program that teaches balance exercises and fall prevention strategies Douglas Chi for older adults, group exercise that teaches Douglas Chi forms that reduce fall risk (weight shifting, postural alignment and control, and coordinated movements of the arms, legs, head, and trunk) Matter of Balance, an evidence based program designed to reduce the fear of falling and increase activity levels of older adults OR an exercise class for strength and balance. 4. Take your Vitamin D with or without Calcium, as determined by your healthcare provider. 5. Get your vision and hearing checked annually. Falls At Home Each year, thousands of older Americans fall at home. Many of them are seriously injured, and some are disabled. In 2011, nearly 23,000 people over age 65 and 2.4 million were treated in emergency departments because of falls. Falls are often due to hazards that are easy to overlook but easy to fix. This checklist will help you find and fix those hazards in your home. The checklist asks about hazards found in each room of your home. For each hazard, the checklist tells you how to fix the problem. At the end of the checklist, you ll find other tips for preventing falls. FLOORS: Look at the floor in each room. Q: When you walk through a room, do you have to walk around furniture? A. Ask someone to move the furniture so your path is clear Q: Do you have throw rugs on the floor? A. Remove the rugs or use double-sided tape or a non-slip backing so the rugs won t slip. Q: Are there papers, books, towels, shoes, magazines, boxes, blankets, or other objects on the floor? A.labor supervisor things that are on the floor. Always keep objects off the floor. Q: Do you have to walk over or around wires or cords (like lamp, telephone, or extension cords)? A. Coil or tape cords and wires next to the wall so you can t trip over them. If needed, have an electrician research put in another outlet. STAIRS AND STEPS: Look at the stairs you use both inside and outside your home. Q: Are there papers, shoes, books, or other objects on the stairs? A. labor supervisor things on the stairs. Always keep objects off stairs. Q: Are some steps broken or uneven? A. Fix loose or uneven steps. Q: Are you missing a light over the stairway? A. Have an electrician research put in an overhead light at the top and bottom of the stairs. Q: Do you have only one light switch for your stairs (only at the top or at the bottom of the stairs)? A. Have an electrician research put in a light switch at the top and bottom of the stairs. You can get light switches that glow. Q: Has the stairway light bulb burned out? A. Have a friend or family member change the light bulb. Q: Is the carpet on the steps loose or torn? A. Make sure the carpet is firmly attached to every step, or remove the carpet and attach non-slip rubber treads to the stairs. Q: Are the handrails loose or broken? Is there a handrail on only one side of the stairs? A. Fix loose handrails or put in new ones. Make sure handrails are on both sides of the stairs and are as long as the stairs. KITCHEN: Look at your kitchen and eating area. Q: Are the things you use often on high shelves? A. Move items in your cabinets. Keep things you use often on the lower shelves (about waist level). Q: Is your step stool unsteady? A. If you must use a step stool, get one with a bar to hold on to. Never use a chair as a step stool. BATHROOMS: Look at all your bathrooms. Q: Is the tub or shower floor slippery? A. Put a non-slip rubber mat or self-stick strips on the floor of the tub or shower. Q: Do you need some support when you get in and out of the tub or up from the toilet? A. Have grab bars put in next to and inside the tub and next to the toilet. BEDROOMS: Look at all your bedrooms. Q: Is the light near the bed hard to reach? A. Place a lamp close to the bed where it s easy to reach. Q: Is the path from your bed to the bathroom dark? A. Put in a night-light so you can see where you re walking. Some night-lights go on by themselves after dark. Other Things You Can Do to Prevent Falls Do exercises that improve your balance and make your legs stronger. Exercise also helps you feel better and more confident. Have your doctor or pharmacist look at all the medicines you take, even tvyl-lkr-guglbvy medicines. Some medicines can make you sleepy or dizzy. Have your eyes checked by an eye doctor at least once a year and update your glasses. Get up slowly after you sit or lie down. Wear shoes both inside and outside the house. Avoid going barefoot or wearing slippers. Improve the lighting in your home. Put in brighter light bulbs. Florescent bulbs are bright and cost less to use. It s safest to have uniform lighting in a room. Add lighting to dark areas. Hang lightweight curtains or shades to reduce glare. [place] a contrasting color on the top edge of all steps so you can see the stairs better. For example, use a light color paint on dark wood. To access this brochure online, please visit the CDC website at http://www.cdc.gov/steadi/pdf/heaven ck_for_safety_brochure-a.pdf Chair Rise Exercise What it does: Strengthens the muscles in your thighs & buttocks. Goal: To do this exercise without using your hands as you become stronger. How to do it: 1. Sit toward the front of a sturdy chair with your knees bent & feet flat on the floor shoulder-width apart 2. Rest your hands lightly on the seat on either side of you, keeping your back & neck straight & and chest slightly forward. 3. Breathe in slowly. Lean forward & feel your weight on the front of your feet. 4. Breathe out and slowly stand up, using your hands as little as possible. 5. Pause for a full breath in & out. 6. Breathe in as you slowly sit down. Do not let yourself collapse back down into the chair. Rather, control your lowering as much as possible. 7. Breathe out. Repeat 10-15 times. If this number is too hard for you when you first start practicing this exercise, begin with fewer and work up to this number. Rest for a minute & then do a final set of 10-15. For detailed instructions, please visit the CDC website at http://www.cdc.gov/steadi/pdf/nigel ir_rise_exercise-a.pdf Stepping On is an evidence based program proven to reduce falls in older adults. It is a workshop offered once a week for seven weeks. In a small-group setting, you will learn balance exercises and develop specific knowledge and skills to prevent falls. Older adults who should attend are those who: are at risk of falling who have fallen one or more times lives at home are able to walk without the help of another person Local guest experts provide information on exercise, safety, vision, and medications. Classes are offered at [facility]. To find out specifics about a class, please call [phone]. Douglas chi: Moving for Better Balance involves low impact exercise. The 12-week class is offered for three hours per week and is led by a trained instructor dancing. It is intended for people aged 60 and older. Participants learn and perform a program of eight forms that progress from easy to more difficult. The program can accommodate persons with various physical conditions. Health Benefits of Douglas Chi: Moving for Better Balance: Improved social and mental well-being, Improved balance and physical functioning, Improved confidence in conducting daily activities, Reduced risk of falling and sustaining associated injuries, and Maintained independence and improved quality of life. To find a Douglas Chi program in your area or additional resources about fall prevention please contact: [facility] Violence and Injury Prevention Program at [phone] or [email or web address] A Matter of Balance: Managing Concerns about Falls is an evidence based program designed to reduce the fear of falling and increase activity levels of older adults. A trained toggle press folder and feeder leads 8 two-hour sessions for small groups of older adults. The class is intended for people 60 and older who are at risk of falling have a fear of falling or restrict activities who have fallen in the past are interested in improving flexibility, balance, and strength. Participants will learn to view falls as controllable, set goals to increase activity levels, and reduce fall risks at home. Classes are offered in all [address] [place] [address] in [place]. For more information about specific classes near you, please visit http://aging.[place].gov/steadyu/res ources/matterofbalance.aspx. documented in this encounter [facility] 10-24-2021 History of Present illness Narrative Chief Complaint Patient presents with [facility] Fall Risk Screening HPI: Lani Patel is a 76-year-old female presenting today as a new patient to establish care with her Terrence. Has PMH of diabetes, hypertension, hyperthyroidism, gout, and obesity. Pleurisy: Diagnosed with COVID shot 2 years ago, since then she started having pleurisy and left-sided discomfort that sometimes go all around her chest. Describes the pain as lower chest burning pain along the bra line , has taken 5 rounds of prednisone. Triggered with deeper breath , sneezing or pushing on it. Chronic diarrhea: FH of colon cancer in her mother. Used to take immodium before but was still not controlled on it. in [place] , doing colonoscopy every 3 years. Colestepol taking currently 1-2 times a day. Diabetes: Has been following up with endocrine in [facility] with Dr. Zarate. Previous A1c was 7.7% after prolonged prednisone therapy back in 2020, last A1c checked was 6.6 in September. Graves' disease: Hyperthyroidism diagnosis in 2015, used to take methimazole. Thyroid uptake scan was performed in 2017 showing 46% uptake and homogenous. Taken off methimazole therapy, following up with endocrinology, last TSH is within normal levels. Multinodular goiter on ultrasound in 2017 with bilateral thyroid nodules subcentimeter and at that time was asymptomatic so no further intervention was done, ultrasound in 2019 showed heterogenous gland without true thyroid nodules. HTN: Chronic, takes lisinopril 20 mg. Past Medical History: Diagnosis Date Glaucoma Hypertension Pleurisy Past Surgical History: Procedure Laterality Date BREAST LUMPECTOMY CHOLECYSTECTOMY EYE SURGERY HYSTERECTOMY (CERVIX REMOVED) Family History Problem Relation Age of Onset Coronary artery disease Mother Cancer Mother colon Thyroid disease Mother Coronary artery disease Father Coronary artery disease Brother Diabetes Daughter Thyroid disease Maternal Grandmother Cancer Maternal Grandmother Social History Tobacco Use Smoking status: Never Smoker Smokeless tobacco: Never Used Vaping Use Vaping Use: Never used Substance Use Topics Alcohol use: Not Currently Drug use: Not Currently Review of Systems Vitals: 10/24/21 0954 10/24/21 1002 BP: (!) 165/65 (!) 158/86 BP Location: Right arm Right arm Patient Position: Sitting Sitting BP Cuff Size: X-large Adult X-large Adult Pulse: 84 80 Resp: 16 Temp: 98 F (36.7 C) TempSrc: Temporal SpO2: 96% Weight: 77.6 kg (171 lb) Height: 5' Estimated body mass index is 33.4 kg/m as calculated from the following: Height as of this encounter: 5'. Weight as of this encounter: 77.6 kg (171 lb). Physical Exam Constitutional: General: She is not in acute distress. Appearance: She is not ill-appearing. HENT: Head: Normocephalic and atraumatic. Eyes: Extraocular Movements: Extraocular movements intact. Conjunctiva/sclera: Conjunctivae normal. Pupils: Pupils are equal, round, and reactive to light. Cardiovascular: Rate and Rhythm: Normal rate and regular rhythm. Pulses: Normal pulses. Heart sounds: Normal heart sounds. No murmur heard. No gallop. Pulmonary: Effort: Pulmonary effort is normal. Breath sounds: Normal breath sounds. No wheezing, rhonchi or rales. Chest: Chest wall: No tenderness. Abdominal: General: Abdomen is flat. Bowel sounds are normal. There is no distension. Palpations: Abdomen is soft. There is no mass. Tenderness: There is no abdominal tenderness. There is no right CVA tenderness, left CVA tenderness, guarding or rebound. Musculoskeletal: General: Tenderness (Left-sided at eighth and ninth intercostal space along mid axillary line) present. Normal range of motion. Cervical back: Normal range of motion and neck supple. No rigidity. No muscular tenderness. Right lower leg: No edema. Left lower leg: No edema. Lymphadenopathy: Cervical: No cervical adenopathy. Skin: General: Skin is warm. Findings: No erythema or rash. Neurological: General: No focal deficit present. Mental Status: She is alert and oriented to person, place, and time. Sensory: No sensory deficit. Motor: No weakness. Gait: Gait normal. Psychiatric: Mood and Affect: Mood normal. Behavior: Behavior normal. Thought Content: Thought content normal. Judgment: Judgment normal. OARRS/NARxCHECK Report Received and Assessed: No data found Date controlled substance agreement signed: No data found Date of last drug screen: No data found Functional Assessment: No data found PHQ9: Over the last 2 weeks, how often have you been bothered by any of the following problems? Little interest or pleasure in doing things: Not at all Feeling down, depressed, or hopeless: Not at all PHQ-2 Total Score: 0 Trouble falling or staying asleep, or sleeping too much: Several days Feeling tired or having little energy: Not at all Poor appetite or overeating: Several days Feeling bad about yourself - or that you are a failure or have let yourself or your family down: Not at all Trouble concentrating on things, such as reading the newspaper or watching television: Not at all Moving or speaking so slowly that other people could have noticed. Or the opposite - being so fidgety or restless that you have been moving around a lot more than usual: Not at all Thoughts that you would be better off , or of hurting yourself in some way: Not at all PHQ-9 Total Score: 2 If you checked off any problems, how difficult have these problems made it for you to do your work, take care of things at home, or get along with other people?: Not difficult at all CIRILO-7 Over the last 2 weeks, how often have you been bothered by the following problems? Feeling nervous, anxious or on edge: Not at all Not being able to stop or control worrying: Not at all Worrying too much about different things: Not at all Trouble relaxing: Not at all Being so restless that it is hard to sit still: Not at all Becoming easily annoyed or irritable: Not at all Feeling afraid as if something awful might happen: Not at all CIRILO-7 Score: 0 Tobacco Counseling: Counseling given: Not Answered Patient's Medications New Prescriptions No medications on file Previous Medications BIMATOPROST (LUMIGAN) 0.01 % OPHTHALMIC DROPS 1 drop every night at bedtime . BRIMONIDINE (ALPHAGAN P) 0.1 % DROP 1 drop 2 (two) times a day . BROMFENAC (PROLENSA) 0.07 % DROP COLESTIPOL (COLESTID) 1 GRAM TABLET Take 1 tablet by mouth daily . FAMOTIDINE (PEPCID) 20 MG TABLET Take 1 (one) tablet (20 mg total) by mouth 2 (two) times a day for 7 days . LISINOPRIL (PRINIVIL,ZESTRIL) 20 MG TABLET Take 20 mg by mouth daily . TIMOLOL (TIMOPTIC-XR) 0.5 % OPHTHALMIC GEL-FORMING Administer 1 drop to both eyes daily . Modified Medications No medications on file Discontinued Medications No medications on file Health Maintenance Due Topic Date Due Tetanus: Every 10yrs Never done Dexa Scan Never done Wellness Visit Never done Pneumococcal Vaccine: Age 65+ (1 - PCV) Never done Foot Exam Never done Urine Microalbumin Never done Hepatitis C Screening Never done Mammogram Never done Zoster Vaccines (2 of 3) 07/28/2014 COVID-19 Vaccine (3 - Booster for Moderna series) 05/05/2021 Assessment & Plan Problem List Items Addressed This Visit Endocrine Graves disease Last TFTs came back within normal limits. Off methimazole. Multinodular goiter has been followed up with ultrasound still 2018 that did not show any nodules. Per endocrinology no need for ultrasound follow-up until symptoms arise. Continue to monitor TFTs annually. Diabetes (HCC) Chronic, diet controlled. Previous hyperglycemia with multiple prednisone courses will Last A1c is 6.6 in September 2021. Continue to monitor Cardiovascular and Mediastinum Hypertension Please take blood pressure in the same arm In a seated position for at least 5 minutes, and record readings keeping a log. If her blood pressure is at any time over 180/110, please give clinic a call. If high blood pressure with symptoms of headaches, blurry vision or tingling/numbness in extremities, please head to the ED for further management. Our goal blood pressure is below 130/80 for most adults Our goal blood pressure for ages over 65 is below 140/90 Follow up in one month Relevant Orders Microalbumin/Creatinine Ratio, UR Random Other Side pain Could be muscular not related to pleurisy at this time Heat , icing and massage Topicals as lidocaine, biofreeze , bengay . Voltaren gel 4 times a day as needed Other Visit Diagnoses At low risk for fall - Primary Return in about 4 weeks (around 11/21/2021) for Follow Up BP follow up. CRISTY DAVIDSON MD [facility] [address] [facility] [address] [facility] [id number] Dept: [phone] Depression Screening 10/24/2021 Little interest or pleasure in doing things 0 Feeling down, depressed, or hopeless 0 PHQ-2 Total Score 0 Trouble falling or staying asleep, or sleeping too much 1 Feeling tired or having little energy 0 Poor appetite or overeating 1 Feeling bad about yourself - or that you are a failure or have let yourself or your family down 0 Trouble concentrating on things, such as reading the newspaper or watching television 0 Moving or speaking so slowly that other people could have noticed. Or the opposite - being so fidgety or restless that you have been moving around a lot more than usual 0 Thoughts that you would be better off , or of hurting yourself in some way 0 PHQ-9 Total Score 2 If you checked off any problems, how difficult have these problems made it for you to do your work, take care of things at home, or get along with other people? Not difficult at all documented in this encounter [facility] 10-10-2021 History of Present illness Narrative Nurse Note: Review of Systems Constitutional: Negative for diaphoresis, fatigue and unexpected weight change. HENT: Negative for trouble swallowing and voice change. Eyes: Positive for pain. Respiratory: Negative for cough and shortness of breath. Cardiovascular: Negative for chest pain, palpitations and leg swelling. Gastrointestinal: Negative for constipation and diarrhea. Endocrine: Positive for cold intolerance. Negative for heat intolerance. Musculoskeletal: Negative for neck pain. Neurological: Negative for tremors, weakness and numbness. Psychiatric/Behavioral: Negative for sleep disturbance. The patient is not nervous/anxious. Nursing Assessment: Physical Exam History of Present Illness Graves' disease: This is a follow up visit to the office. She was diagnosed with hyperthyroidism approximately 2015. In fall, we discontinued methimazole for TSH = 4.7. Current TSH = 0.96 with free T4/free T3 levels normal. Multinodular goiter: Had a neck ultrasound in 2017 demonstrating bilateral thyroid nodules, subcentimeter. Asymptomatic. Neck ultrasound performed in 2019 shows a heterogeneous gland without true thyroid nodules. Type 2 diabetes: Latest blood work demonstrates a nonfasting glucose of 139 mg/dL, with hemoglobin A1c = 6.9%; patient has not taken prednisone for over 3 months. She does drink 2 Pepsi's per day. Review of Systems Nurse Note: Review of Systems Constitutional: Negative for diaphoresis, fatigue and unexpected weight change. HENT: Negative for trouble swallowing and voice change. Eyes: Positive for pain. Respiratory: Negative for cough and shortness of breath. Cardiovascular: Negative for chest pain, palpitations and leg swelling. Gastrointestinal: Negative for constipation and diarrhea. Endocrine: Positive for cold intolerance. Negative for heat intolerance. Musculoskeletal: Negative for neck pain. Neurological: Negative for tremors, weakness and numbness. Psychiatric/Behavioral: Negative for sleep disturbance. The patient is not nervous/anxious. Nursing Assessment: Physical Exam Vitals: Blood pressure 147/76, pulse 73, height 1.524 m (5'), weight 77.2 kg (170 lb 3.2 oz). Physical Exam Constitutional: General: She is not in acute distress. Appearance: She is not diaphoretic. HENT: Head: Normocephalic. Cardiovascular: Rate and Rhythm: Normal rate. Heart sounds: Normal heart sounds. Pulmonary: Effort: Pulmonary effort is normal. Skin: General: Skin is warm and dry. Neurological: Mental Status: She is alert and oriented to person, place, and time. Psychiatric: Judgment: Judgment normal. Neurological Exam Mental Status Alert. Oriented to person, place, and time. Assessment and Plan Graves' disease: TSH remains within normal range, promising for prolonged remission. Would recommend assessing thyroid function tests at least annually. Multinodular goiter: Neck ultrasound performed in 2019 shows a heterogeneous gland without true thyroid nodules. No need for further ultrasonography. Type 2 diabetes: The long discussion with patient and her regarding her latest bloodwork, congruent with a diagnosis of type 2 diabetes. Previous blood sugar elevation in A1c elevation was more significant, but while on significant doses of prednisone. Now, without prednisone, parameters still indicate diabetes. We discussed elimination of regular soda pop, patient cheerfully admits that she will not be stopping her soda pop. States that she will make other changes, but at this point she is not too interested in addressing this. Discussed possible long-term ramifications, the effect of moderate amount weight loss, etc. Patient states that she is getting a primary care provider and will be following up with them. She states her new primary care provider may have other recommendations for endocrine follow-up. Would recommend she be referred to diabetic education. Would be happy to see her again in the future. documented in this encounter [facility] 06-29-2021 History of Present illness Narrative History of Present Illness Graves' disease: This is a follow up visit to the office. She is seen today after 2 year absence. She was diagnosed with hyperthyroidism approximately 2016. She has been taking methimazole ever since. In fall, we discontinued methimazole for TSH = 4.7. Shortly after start methimazole, she went emergency room because of hives. Noted some hair loss. Was on prednisone for 1 week, then discontinued. Current TSH = 0.84 with free T4/free T3 levels normal, negative antibodies and immunoglobulin's. Has had normal TSH levels throughout 2018. Thyroid uptake scan was performed in 2017 demonstrating 46% uptake at 24 hours, homogeneous. Multinodular goiter: Had a neck ultrasound in 2017 demonstrating bilateral thyroid nodules, subcentimeter. Asymptomatic. Neck ultrasound performed in 2019 shows a heterogeneous gland without true thyroid nodules. Hyperglycemia: Latest blood work demonstrates a nonfasting glucose of 166 mg/dL. Patient states that she just finished a bagel with a blood work was drawn. She states she had a hemoglobin A1c drawn = 7.7% after prolonged prednisone therapy after Covid. Most recent hemoglobin A1c = 6.9% with a nonfasting blood sugar 130 mg/dL while on prednisone therapy. No longer taking prednisone. Review of Systems Nurse Note: Review of Systems Constitutional: Positive for fatigue and unexpected weight change (Loss). Negative for diaphoresis. HENT: Negative for trouble swallowing and voice change. Eyes: Positive for pain and visual disturbance (D/T surgery). Respiratory: Positive for cough and shortness of breath (A little). Cardiovascular: Positive for chest pain (When taking steroid). Negative for palpitations and leg swelling. Gastrointestinal: Positive for diarrhea. Negative for constipation, nausea and vomiting. Endocrine: Negative for cold intolerance, heat intolerance, polydipsia and polyuria. Musculoskeletal: Negative for neck pain. Skin: Negative for rash. Neurological: Negative for tremors, weakness and numbness. Psychiatric/Behavioral: Negative for sleep disturbance. The patient is nervous/anxious. Nursing Assessment: Physical Exam Vitals: Blood pressure 177/90, pulse 80, height 1.524 m (5'), weight 77.6 kg (171 lb). Physical Exam Constitutional: General: She is not in acute distress. Appearance: She is not diaphoretic. HENT: Head: Normocephalic. Neck: Thyroid: No thyromegaly. Trachea: No tracheal deviation. Cardiovascular: Rate and Rhythm: Normal rate and regular rhythm. Heart sounds: Normal heart sounds. No murmur heard. Pulmonary: Effort: No respiratory distress. Breath sounds: No wheezing. Lymphadenopathy: Cervical: No cervical adenopathy. Skin: General: Skin is warm and dry. Neurological: Mental Status: She is alert and oriented to person, place, and time. Psychiatric: Judgment: Judgment normal. Neurological Exam Mental Status Alert. Assessment and Plan Graves' disease: TSH now within normal range, but lower end of normal remain without methimazole therapy and reassess with bloodwork in another 2 months. She is concerned about hair loss, but it seems to of decreased. We will reassess with next blood work. Multinodular goiter: Neck ultrasound performed in 2019 shows a heterogeneous gland without true thyroid nodules. No need for further ultrasonography. Hyperglycemia: We will reassess with next blood draw, fasting blood sugar, fasting insulin level, hemoglobin A1c. Previous elevation may been Covid related and prednisone related. Nurse Note: Review of Systems Constitutional: Positive for fatigue and unexpected weight change (Loss). Negative for diaphoresis. HENT: Negative for trouble swallowing and voice change. Eyes: Positive for pain and visual disturbance (D/T surgery). Respiratory: Positive for cough and shortness of breath (A little). Cardiovascular: Positive for chest pain (When taking steroid). Negative for palpitations and leg swelling. Gastrointestinal: Positive for diarrhea. Negative for constipation, nausea and vomiting. Endocrine: Negative for cold intolerance, heat intolerance, polydipsia and polyuria. Musculoskeletal: Negative for neck pain. Skin: Negative for rash. Neurological: Negative for tremors, weakness and numbness. Psychiatric/Behavioral: Negative for sleep disturbance. The patient is nervous/anxious. Nursing Assessment: Physical Exam documented in this encounter [facility] documented as of this encounter (statuses as of 03/16/2022) [facility] History of Past illness Narrative* Problem Noted Date Resolved Date Congestive heart failure 03/14/2021 022 Last Assessment & Plan: Assessment: Pt reported after 2nd COVID Vacc ( 11/2020) last EF 65% from 12/2020 in [facility] Pleurisy 03/14/2021 03/16/2022 Last Assessment & Plan: Assessment: resulting from second COVID Vacc, residual dyspnea- Cleared by Pulmonary last surgery 02/2021- letter scanned in Personal history of colonic polyps 01/04/2016 03/16/2022 Leaking of conjunctival drainage bleb 01/22/2015 05/05/2016 HEMORRHOIDS INTERNAL 07/06/2008 03/16/2022 documented as of this encounter (statuses as of 03/16/2022) [facility] History of Past illness Narrative* Problem Noted Date Resolved Date Congestive heart failure 03/14/2021 022 Last Assessment & Plan: Assessment: Pt reported after 2nd COVID Vacc ( 11/2020) last EF 65% from 12/2020 in [facility] Pleurisy 03/14/2021 03/16/2022 Last Assessment & Plan: Assessment: resulting from second COVID Vacc, residual dyspnea- Cleared by Pulmonary last surgery 02/2021- letter scanned in Pre-operative examination 09/07/20202021 Nuclear sclerotic cataract of right eye 09/07/1903/30/2022 Senile nuclear sclerosis 05/05/2016 022 Personal history of colonic polyps 01/04/2016 03/16/2022 Leaking of conjunctival drainage bleb 01/22/2015 05/05/2016 HEMORRHOIDS INTERNAL 07/06/2008 03/16/2022 documented as of this encounter (statuses as of 03/31/2022) [facility] History of Past illness Narrative* Problem Noted Date Resolved Date Congestive heart failure 03/14/2021 022 Last Assessment & Plan: Assessment: Pt reported after 2nd COVID Vacc ( 11/2020) last EF 65% from 12/2020 in [facility] Pleurisy 03/14/2021 03/16/2022 Last Assessment & Plan: Assessment: resulting from second COVID Vacc, residual dyspnea- Cleared by Pulmonary last surgery 02/2021- letter scanned in Pre-operative examination 09/07/20202021 Nuclear sclerotic cataract of right eye 09/07/1903/30/2022 Senile nuclear sclerosis 05/05/2016 022 Personal history of colonic polyps 01/04/2016 03/16/2022 Leaking of conjunctival drainage bleb 01/22/2015 05/05/2016 HEMORRHOIDS INTERNAL 07/06/2008 03/16/2022 documented as of this encounter (statuses as of 03/31/2022) [facility] History of Past illness Narrative* Problem Noted Date Resolved Date Congestive heart failure 03/14/2021 022 Last Assessment & Plan: Assessment: Pt reported after 2nd COVID Vacc ( 11/2020) last EF 65% from 12/2020 in [facility] Pleurisy 03/14/2021 03/16/2022 Last Assessment & Plan: Assessment: resulting from second COVID Vacc, residual dyspnea- Cleared by Pulmonary last surgery 02/2021- letter scanned in Pre-operative examination 09/07/20202021 Nuclear sclerotic cataract of right eye 09/07/1903/30/2022 Senile nuclear sclerosis 05/05/2016 022 Personal history of colonic polyps 01/04/2016 03/16/2022 Leaking of conjunctival drainage bleb 01/22/2015 05/05/2016 HEMORRHOIDS INTERNAL 07/06/2008 03/16/2022 documented as of this encounter (statuses as of 04/07/2022) [facility] History of Past illness Narrative* Problem Noted Date Resolved Date Congestive heart failure 03/14/2021 022 Last Assessment & Plan: Assessment: Pt reported after 2nd COVID Vacc ( 11/2020) last EF 65% from 12/2020 in [facility] Pleurisy 03/14/2021 03/16/2022 Last Assessment & Plan: Assessment: resulting from second COVID Vacc, residual dyspnea- Cleared by Pulmonary last surgery 02/2021- letter scanned in Pre-operative examination 09/07/20202021 Nuclear sclerotic cataract of right eye 09/07/1903/30/2022 Senile nuclear sclerosis 05/05/2016 022 Personal history of colonic polyps 01/04/2016 03/16/2022 Leaking of conjunctival drainage bleb 01/22/2015 05/05/2016 HEMORRHOIDS INTERNAL 07/06/2008 03/16/2022 documented as of this encounter (statuses as of 04/16/2022) [facility] History of Past illness Narrative* Problem Noted Date Resolved Date Congestive heart failure 03/14/2021 022 Last Assessment & Plan: Assessment: Pt reported after 2nd COVID Vacc ( 11/2020) last EF 65% from 12/2020 in [facility] Pleurisy 03/14/2021 03/16/2022 Last Assessment & Plan: Assessment: resulting from second COVID Vacc, residual dyspnea- Cleared by Pulmonary last surgery 02/2021- letter scanned in Pre-operative examination 09/07/20202021 Nuclear sclerotic cataract of right eye 09/07/1903/30/2022 Senile nuclear sclerosis 05/05/2016 022 Personal history of colonic polyps 01/04/2016 03/16/2022 Leaking of conjunctival drainage bleb 01/22/2015 05/05/2016 HEMORRHOIDS INTERNAL 07/06/2008 03/16/2022 documented as of this encounter (statuses as of 05/01/2022) [facility] History of Past illness Narrative* Problem Noted Date Resolved Date Congestive heart failure 03/14/2021 022 Last Assessment & Plan: Assessment: Pt reported after 2nd COVID Vacc ( 11/2020) last EF 65% from 12/2020 in [facility] Pleurisy 03/14/2021 03/16/2022 Last Assessment & Plan: Assessment: resulting from second COVID Vacc, residual dyspnea- Cleared by Pulmonary last surgery 02/2021- letter scanned in Pre-operative examination 09/07/20202021 Nuclear sclerotic cataract of right eye 09/07/1903/30/2022 Senile nuclear sclerosis 05/05/2016 022 Personal history of colonic polyps 01/04/2016 03/16/2022 Leaking of conjunctival drainage bleb 01/22/2015 05/05/2016 HEMORRHOIDS INTERNAL 07/06/2008 03/16/2022 documented as of this encounter (statuses as of 05/04/2022) [facility] History of Past illness Narrative* Problem Noted Date Resolved Date Congestive heart failure 03/14/2021 022 Last Assessment & Plan: Assessment: Pt reported after 2nd COVID Vacc ( 11/2020) last EF 65% from 12/2020 in [facility] Pleurisy 03/14/2021 03/16/2022 Last Assessment & Plan: Assessment: resulting from second COVID Vacc, residual dyspnea- Cleared by Pulmonary last surgery 02/2021- letter scanned in Pre-operative examination 09/07/20202021 Nuclear sclerotic cataract of right eye 09/07/1903/30/2022 Senile nuclear sclerosis 05/05/2016 022 Personal history of colonic polyps 01/04/2016 03/16/2022 Leaking of conjunctival drainage bleb 01/22/2015 05/05/2016 HEMORRHOIDS INTERNAL 07/06/2008 03/16/2022 documented as of this encounter (statuses as of 05/17/2022) [facility] History of Past illness Narrative* Problem Noted Date Resolved Date Congestive heart failure 03/14/2021 022 Last Assessment & Plan: Assessment: Pt reported after 2nd COVID Vacc ( 11/2020) last EF 65% from 12/2020 in [facility] Ple[facility]isy 03/14/2021 03/16/2022 Last Assessment & Plan: Assessment: resulting from second COVID Vacc, residual dyspnea- Cleared by Pulmonary last surgery 02/2021- letter scanned in Pre-operative examination 09/07/20202021 Nuclear sclerotic cataract of right eye 09/07/1903/30/2022 Senile nuclear sclerosis 05/05/2016 022 Personal history of colonic polyps 01/04/2016 03/16/2022 Leaking of conjunctival drainage bleb 01/22/2015 05/05/2016 HEMORRHOIDS INTERNAL 07/06/2008 03/16/2022 documented as of this encounter (statuses as of 05/20/2022) [facility] History of Past illness Narrative* Problem Noted Date Resolved Date Congestive heart failure 03/14/2021 022 Last Assessment & Plan: Assessment: Pt reported after 2nd COVID Vacc ( 11/2020) last EF 65% from 12/2020 in [facility] Ple[facility]isy 03/14/2021 03/16/2022 Last Assessment & Plan: Assessment: resulting from second COVID Vacc, residual dyspnea- Cleared by Pulmonary last surgery 02/2021- letter scanned in Pre-operative examination 09/07/20202021 Nuclear sclerotic cataract of right eye 09/07/1903/30/2022 Senile nuclear sclerosis 05/05/2016 022 Personal history of colonic polyps 01/04/2016 03/16/2022 Leaking of conjunctival drainage bleb 01/22/2015 05/05/2016 HEMORRHOIDS INTERNAL 07/06/2008 03/16/2022 documented as of this encounter (statuses as of 05/22/2022) [facility] History of Past illness Narrative* Problem Noted Date Resolved Date Congestive heart failure 03/14/2021 022 Last Assessment & Plan: Assessment: Pt reported after 2nd COVID Vacc ( 11/2020) last EF 65% from 12/2020 in [facility] Ple[facility]isy 03/14/2021 03/16/2022 Last Assessment & Plan: Assessment: resulting from second COVID Vacc, residual dyspnea- Cleared by Pulmonary last surgery 02/2021- letter scanned in Pre-operative examination 09/07/20202021 Nuclear sclerotic cataract of right eye 09/07/1903/30/2022 Senile nuclear sclerosis 05/05/2016 022 Personal history of colonic polyps 01/04/2016 03/16/2022 Leaking of conjunctival drainage bleb 01/22/2015 05/05/2016 HEMORRHOIDS INTERNAL 07/06/2008 03/16/2022 documented as of this encounter (statuses as of 05/26/2022) [facility] History of Past illness Narrative* Problem Noted Date Diagnosed Date Resolved Date Congestive heart failure 03/14/202107/2021 Last Assessment & Plan: Assessment: Pt reported after 2nd COVID Vacc ( 11/2020) last EF 65% from 12/2020 in [facility] Ple[facility]isy 03/14/2021 03/16/2022 Last Assessment & Plan: Assessment: resulting from second COVID Vacc, residual dyspnea- Cleared by Pulmonary last surgery 02/2021- letter scanned in Pre-operative examination 09/07/2020 Nuclear sclerotic cataract of right eye 09/07/2020 03/30/2022 Senile nuclear sclerosis 05/05/2016 Personal history of colonic polyps 01/04/2016 03/16/2022 Leaking of conjunctival drainage bleb 01/22/2015 05/05/2016 HEMORRHOIDS INTERNAL 07/06/2008 022 documented as of this encounter (statuses as of 03/09/2023) [facility] History of Past illness Narrative* Problem Noted Date Diagnosed Date Resolved Date Congestive heart failure 03/14/202107/2021 Last Assessment & Plan: Assessment: Pt reported after 2nd COVID Vacc ( 11/2020) last EF 65% from 12/2020 in [facility] 03/14/2021 03/16/2022 Last Assessment & Plan: Assessment: resulting from second COVID Vacc, residual dyspnea- Cleared by Pulmonary last surgery 02/2021- letter scanned in Pre-operative examination 09/07/2020 Nuclear sclerotic cataract of right eye 09/07/2020 03/30/2022 Senile nuclear sclerosis 05/05/2016 Personal history of colonic polyps 01/04/2016 03/16/2022 Leaking of conjunctival drainage bleb 01/22/2015 05/05/2016 HEMORRHOIDS INTERNAL 07/06/2008 022 documented as of this encounter (statuses as of 03/11/2023) [facility] History of Past illness Narrative* Problem Noted Date Diagnosed Date Resolved Date Congestive heart failure 03/14/202107/2021 Last Assessment & Plan: Assessment: Pt reported after 2nd COVID Vacc ( 11/2020) last EF 65% from 12/2020 in [facility] 03/14/2021 03/16/2022 Last Assessment & Plan: Assessment: resulting from second COVID Vacc, residual dyspnea- Cleared by Pulmonary last surgery 02/2021- letter scanned in Pre-operative examination 09/07/2020 Nuclear sclerotic cataract of right eye 09/07/2020 03/30/2022 Senile nuclear sclerosis 05/05/2016 Personal history of colonic polyps 01/04/2016 03/16/2022 Leaking of conjunctival drainage bleb 01/22/2015 05/05/2016 HEMORRHOIDS INTERNAL 07/06/2008 022 documented as of this encounter (statuses as of 03/22/2023) [facility] History of Past illness Narrative* Problem Noted Date Diagnosed Date Resolved Date Congestive heart failure 03/14/202107/2021 Last Assessment & Plan: Assessment: Pt reported after 2nd COVID Vacc ( 11/2020) last EF 65% from 12/2020 in [facility] Pleurisy 03/14/2021 03/16/2022 Last Assessment & Plan: Assessment: resulting from second COVID Vacc, residual dyspnea- Cleared by Pulmonary last surgery 02/2021- letter scanned in Pre-operative examination 09/07/2020 Nuclear sclerotic cataract of right eye 09/07/2020 03/30/2022 Senile nuclear sclerosis 05/05/2016 Personal history of colonic polyps 01/04/2016 03/16/2022 Leaking of conjunctival drainage bleb 01/22/2015 05/05/2016 HEMORRHOIDS INTERNAL 07/06/2008 022 documented as of this encounter (statuses as of 03/22/2023) [facility] History of Past illness Narrative* Problem Noted Date Diagnosed Date Resolved Date Congestive heart failure 03/14/202107/2021 Last Assessment & Plan: Assessment: Pt reported after 2nd COVID Vacc ( 11/2020) last EF 65% from 12/2020 in [facility] Pleurisy 03/14/2021 03/16/2022 Last Assessment & Plan: Assessment: resulting from second COVID Vacc, residual dyspnea- Cleared by Pulmonary last surgery 02/2021- letter scanned in Pre-operative examination 09/07/2020 Nuclear sclerotic cataract of right eye 09/07/2020 03/30/2022 Senile nuclear sclerosis 05/05/2016 Personal history of colonic polyps 01/04/2016 03/16/2022 Leaking of conjunctival drainage bleb 01/22/2015 05/05/2016 HEMORRHOIDS INTERNAL 07/06/2008 022 documented as of this encounter (statuses as of 06/05/2023) [facility] History of Present illness Narrative* Post covid * has seen pulm trevor Crook * Pleurisy from covid has been on prednisone then indocin * SOB a little * last dose of indocin 1 week ago due to elevated bp * Chronic asthmatic bronchitis w/o status asthmaticus or acute exacerbation * maintained on singulair * Glaucoma * last visit 1 week ago and on 3 different drops * had surgery and cataract removed and has just seen project engineer * Graves disease * Dr Perry in [place] will see in april * weaned off but was loosing hair and went back on * Hypertension * home bp are stage 1 * only took one dose of hctz from ED * Irritable bowel syndrome with diarrhea * current on colonoscopy with surveillance every 3 years(05/2019) per Dr Rushing * Obstructive sleep apnea syndrome * The patient is wearing CPAP nightly and benefiting from the CPAP. * Vitamin D deficiency * vitamiin January 2021 32 * Prediabetic now Diabetes refuses statin * 115 october 2017 * 126 october 2018 * 134 January 2020 no polyuria- phagia or -dipsia * decreased appetite and decreased energy * no abd pain * normal bm * on indocin dark stools and tarry * but now normal * no recent cbc * Review of Systems * all other systems have been reviewed and are negative except as noted in the HPI. [facility] Work Phone: 1(527) 237-620605-14-2021 History of Present illness Narrative* november 26 second shot of moderna * right arm red * with deep breathing left ant chest * sneezing is worse * started same day as the shot * tired now * no energy * worse since sunday * swellling in legs since the shot * 98 % * covid in june [facility] Work Phone: 1(610) 717-422405-14-2021 History of Present illness Narrative* november 26 second shot of moderna * right arm red * with deep breathing left ant chest * sneezing is worse * started same day as the shot * tired now * no energy * worse since sunday * swellling in legs since the shot * 98 % * covid in june [facility] Work Phone: 1(111) 712-242105-14-2021 History of Present illness Narrative* november 26 second shot of moderna * right arm red * with deep breathing left ant chest * sneezing is worse * started same day as the shot * tired now * no energy * worse since sunday * swellling in legs since the shot * new hpi * constricting around the chest * went to ED sunday while having Chest pain * ibuprofen 400 mg once or twice a day some relief feels less contriction * edema is less * lost 5 # the first day * has lost a total of 7 pounds * Was told she has pleurisy reviewed ED report which had negative troponin level. We have not been inthe process of trying to get an echocardiogram which has not been approved by insurance she is going to see Dr. Blackwood her manufacturing production technician and concern about some type of viral cardiomyopathy. She seems to be improving at this point. * covid in june [facility] Work Phone: 1(140) 110-336602-23-2021 History of Past illness Narrative* Problem Noted Date Resolved Date Pre-operative examination 09/07/20202020 Leaking of conjunctival drainage bleb 01/22/2015 05/05/2016 documented as of this encounter (statuses as of 11/21/2021) [facility] History of Past illness Narrative* Problem Noted Date Resolved Date Pre-operative examination 09/07/20202020 Leaking of conjunctival drainage bleb 01/22/2015 05/05/2016 documented as of this encounter (statuses as of 02/13/2022) [facility] note* Diagnosis Chest pain on respiration [facility] Diagnosis Graves disease- Primary Toxic diffuse goiter without mention of thyrotoxic crisis or storm Hyperglycemia Other abnormal glucose documented in this encounter [facility] note* Diagnosis Graves disease- Primary Toxic diffuse goiter without mention of thyrotoxic crisis or storm Type 2 diabetes mellitus without complication, without long-term current use of insulin documented in this encounter [facility] note* Diagnosis At low risk for fall- Primary Graves disease Toxic diffuse goiter without mention of thyrotoxic crisis or storm Primary hypertension Unspecified essential hypertension Type 2 diabetes mellitus without complication, without long-term current use of insulin (HCC) Side pain Abdominal pain, unspecified site [facility]* Diagnosis CME (cystoid macular edema), right documented in this encounter [facility] note* Diagnosis Primary hypertension- Primary Unspecified essential hypertension Bladder prolapse, female, acquired Side pain Abdominal pain, unspecified site Chest pain, unspecified type Congestive heart failure, unspecified HF chronicity, unspecified heart failure type (HCC) documented in this encounter [facility] note* Diagnosis Dysuria- Primary [facility]* Diagnosis D[facility]- Primary [facility] Diagnosis Bladder prolapse, female, acquired- Primary Primary hypertension Unspecified essential hypertension Side pain Abdominal pain, unspecified site Cystoid macular edema, unspecified laterality [facility]* Diagnosis Chronic thoracic back pain, unspecified back pain laterality- Primary [facility]* Diagnosis CME (cystoid macular edema), right- Primary Nuclear senile cataract of left eye documented in this encounter [facility] note* Diagnosis Side pain- Primary Abdominal pain, unspecified site Primary hypertension Unspecified essential hypertension Bladder prolapse, female, acquired Thoracic back pain, unspecified back pain laterality, unspecified chronicity documented in this encounter [facility] note* Diagnosis Nuclear sclerotic cataract of both eyes- Primary Senile nuclear sclerosis Nuclear senile cataract of left eye documented in this encounter [facility] note* Diagnosis Nuclear senile cataract of left eye- Primary Nuclear senile cataract of left eye documented in this encounter [facility] note* Diagnosis Pre-operative examination- Primary Preoperative examination, unspecified Nuclear senile cataract of left eye Essential hypertension Unspecified essential hypertension Obstructive sleep apnea Obstructive sleep apnea (adult) (pediatric) History of COVID-19 Diverticulosis of colon Diverticulosis of colon (without mention of hemorrhage) Diet-controlled diabetes mellitus (HCC) Nuclear senile cataract of left eye documented in this encounter [facility] note* Diagnosis Follow-up examination after eye surgery- Primary Follow-up examination, following other surgery documented in this encounter [facility] note* Diagnosis Follow-up examination after eye surgery- Primary Follow-up examination, following other surgery CME (cystoid macular edema), right documented in this encounter [facility] note* Diagnosis Cough, unspecified type- Primary documented in this encounter [facility] note* Diagnosis Cough, unspecified type [R05.9 (ICD-10-CM)]- Primary documented in this encounter [facility] note* Diagnosis Follow-up examination after eye surgery Follow-up examination, following other surgery CME (cystoid macular edema), right documented in this encounter [facility] note* Diagnosis Urinary frequency- Primary documented in this encounter [facility] note* Diagnosis Recurrent UTI- Primary Urinary tract infection, site not specified documented in this encounter [facility] note* Diagnosis Urinary frequency- Primary Recurrent UTI (urinary tract infection) Urinary tract infection, site not specified documented in this encounter [facility] note* Diagnosis Need for vaccination- Primary Need for prophylactic vaccination and inoculation against unspecified single disease [facility]* Diagnosis Type 2 diabetes mellitus without complication, without long-term current use of insulin (HCC)- Primary Graves disease Toxic diffuse goiter without mention of thyrotoxic crisis or storm Irritable bowel syndrome, unspecified type Hair loss Unspecified alopecia documented in this encounter [facility] note* Diagnosis Primary hypertension Unspecified essential hypertension documented in this encounter [facility] note* Diagnosis Lumbar back pain- Primary Lumbago Right leg weakness Muscle weakness (generalized) Primary hypertension Unspecified essential hypertension Recurrent UTI Urinary tract infection, site not specified documented in this encounter [facility] note* Diagnosis Right leg weakness Muscle weakness (generalized) Lumbar back pain Lumbago [facility] Diagnosis Lumbar back pain- Primary Lumbago documented in this encounter [facility] note* Diagnosis Lumbar back pain- Primary Lumbago documented in this encounter [facility] note* Diagnosis Lumbar back pain- Primary Lumbago documented in this encounter [facility] note* Diagnosis Lumbar back pain- Primary Lumbago documented in this encounter [facility] note* Diagnosis Lumbar back pain- Primary Lumbago documented in this encounter [facility] note* Diagnosis Lumbar back pain- Primary Lumbago documented in this encounter [facility] note* Diagnosis At low risk for fall- Primary Hypertension, unspecified type Right leg weakness Muscle weakness (generalized) Medicare annual wellness visit, subsequent Eczema, unspecified type Type 2 diabetes mellitus without complication, without long-term current use of insulin ([facility]) documented in this encounter [facility] note* Diagnosis Lumbar back pain- Primary Lumbago documented in this encounter [facility] note* Diagnosis Lumbar back pain- Primary Lumbago documented in this encounter [facility] note* Diagnosis Lumbar back pain- Primary Lumbago documented in this encounter [facility] note* Diagnosis Lumbar back pain- Primary Lumbago documented in this encounter [facility] note* Diagnosis Neoplasm of uncertain behavior of skin- Primary documented in this encounter [facility] note* Diagnosis Lumbar back pain- Primary Lumbago documented in this encounter [facility] note* Diagnosis Hypertension, unspecified type- Primary Primary hypertension Unspecified essential hypertension documented in this encounter [facility] note* Diagnosis Actinic keratosis- Primary documented in this encounter [facility] note* Diagnosis UTI symptoms- Primary Other symptoms involving urinary system documented in this encounter [facility] note* Diagnosis Viral illness- Primary Unspecified viral infection, in conditions classified elsewhere and of unspecified site Acute upper respiratory infection, unspecified documented in this encounter [facility] note* Diagnosis Dysuria- Primary Type 2 diabetes mellitus without complication, without long-term current use of insulin (HCC) Primary hypertension Unspecified essential hypertension [facility] Diagnosis Primary hypertension Unspecified essential hypertension [facility] Need for vaccination- Primary Need for prophylactic vaccination and inoculation against unspecified single disease [facility] Diagnosis Primary open angle glaucoma (POAG) of both eyes, severe stage Cystoid macular edema of right eye Cystoid macular degeneration of retina [facility] Abnormal mammogram- Primary Abnormal mammogram, unspecified [facility] The patient is being seen for the subsequent annual wellness visit. * Past Medical, Surgical and Family History: reviewed and updated in chart. * Medications and Supplements: Medications and supplements, including calcium and vitamins reviewed and updated in chart. * No, the patient is not using opioids. * Patient Self Assessment of Health Status: fair. * Tobacco use: Non-User * Alcohol use: Non-User * Illicit drug use: Non-User * Current diet: well balanced diet and does consume caffeine. * Exercise Frequency: the patient does not exercise. * Depression/Suicide Screening: . * During the past 2 weeks, the patient felt down, depressed or hopeless. * During the past 2 weeks, the patient has not felt little interest or pleasure in doing things. * PHQ-9 Depression Scale: * 1. Little interest or pleasure in doing things - not at all * 2. Feeling down, depressed or hopeless - several days * 3. Trouble falling asleep or sleeping too much - not at all * 4. Feeling tired or having little energy - more than half the days * 5. Poor appetite or overeating - more than half the days * 6. Feeling bad about self or failure or letting others down - not at all * 7. Trouble concentrating on things - not at all * 8. Moving / speaking slowly or fidgety / restless - not at all * 9. Thought would be better off or hurting self - not at all * Severity of depression is mild, total score: 5. * Hearing Impairment: Patient has slight hearing impairment, bilaterally. * Cognitive Impairment: No cognitive impairment observed. * clock 11:10 normal. * Bathing: performs independently. * Dressing: performs independently. * Walking: performs independently. * Toileting: performs independently. * Feeding: performs independently. * Personal Hygiene: performs independently. * Bowels: continent. * Bladder: continent. * Managing Finances: performs independently. * Shopping: performs independently. * Managing Medications: performs independently. * Housework / Basic Home Maintenance: performs independently. * Handling Transportation: performs independently. * Preparing Meals: performs independently. * Falls Risk Screening:. CARLA has fallen in the last 6 months. * Home safety risk factors: loose rugs and household clutter. * Advance directives:. Patient has living will. Patient has healthcare POA. * Patient's End of Life Decisions: End of life decisions were reviewed with the patient. I agree to follow the patient's decisions. Concerns with the patient's end of life decisions: DNR. * Post covid * has seen sharda Crook * Pleurisy from covid has been on prednisone then indocin * SOB * Chronic asthmatic bronchitis w/o status asthmaticus or acute exacerbation * maintained on singulair * Glaucoma * last visit 1 week ago and on 3 different drops * had surgery and cataract removed and has just seen project engineer * Graves disease * Dr Perry in [place] will see in april * weaned off but was loosing hair and went back on * Hypertension * not checking * will double lisinopril 40 mg * if not better will had chlorthalidone * Irritable bowel syndrome with diarrhea * current on colonoscopy with surveillance every 3 years(05/2019) per Dr Rushing * Obstructive sleep apnea syndrome * The patient is wearing CPAP nightly and benefiting from the CPAP. * Vitamin D deficiency * vitamiin January 2021 32 * Prediabetic now Diabetes refuses statin * 115 october 2017 * 126 october 2018 * 134 January 2020 no polyuria- phagia or -dipsia * Review of Systems * all other systems have been reviewed and are negative except as noted in the HPI. -[facility] Work Phone: History of Present illness Narrative* Post covid * has seen sharda Crook * Pleurisy from covid has been on prednisone then indocin but this raised his bp and stooll changes * no melena cbc and bmp normal * Chronic asthmatic bronchitis w/o status asthmaticus or acute exacerbation * maintained on singulair * Glaucoma * last visit 1 week ago and on 3 different drops * had surgery and cataract removed and has just seen project engineer * cont to see opthalmology * Graves disease * Dr Perry in [place] will see in april * Hypertension * lisinopril 20 mg * unable to tolerate 40 mg and and chorthalidone * bp higher at night * with add of dose was 90/60 * Irritable bowel syndrome with diarrhea * current on colonoscopy with surveillance every 3 years(05/2019) per Dr Rushing * Obstructive sleep apnea syndrome * The patient is wearing CPAP nightly and benefiting from the CPAP. * Vitamin D deficiency * vitamiin January 2021 32 * Prediabetic now Diabetes refuses statin * 115 october 2017 * 126 october 2018 * 134 January 2020 no polyuria- phagia or -dipsia * has cystocelle * started 5 days ago * took azo increased fluid * freq and burning * no n/v * Review of Systems * all other systems have been reviewed and are negative except as noted in the HPI. -[facility] Work Phone: History of Present Illness * Levon Man MD - 07/12/2018 10:00 AM EST Formatting of this note may be different from the original. History of Present Illness Thyroid Problem Graves' disease: This is her first visit to the office. She was diagnosed with hyperthyroidism approximately 2016. She has been taking methimazole ever since. Currently taking 1/2 of a 5 milligram tablet. Has had normal TSH levels throughout 2018. Thyroid uptake scan was performed in 2017 demonstrating 46% uptake at 24 hours, homogeneous. She feels well. Multinodular goiter: Had a neck ultrasound in 2017 demonstrating bilateral thyroid nodules, subcentimeter. Asymptomatic. Review of Systems Nurse Note: Review of Systems Constitutional: Negative for chills, fatigue, fever and unexpected weight change. HENT: No difficulty swallowing No change in voice Respiratory: Negative for cough, shortness of breath and wheezing. Cardiovascular: Negative for chest pain and palpitations. Gastrointestinal: Positive for diarrhea. Negative for constipation, nausea and vomiting. Musculoskeletal: Negative for neck pain. Neurological: Negative for tremors. Psychiatric/Behavioral: Negative for sleep disturbance. The patient is not nervous/anxious. Nursing Assessment: Physical Exam Vitals: Blood pressure 156/71, pulse 73, height 1.524 m (5'), weight 85.3 kg (188 lb). Physical Exam Constitutional: She is oriented to person, place, and time. No distress. HENT: Head: Normocephalic. Neck: No tracheal deviation present. No thyromegaly present. Cardiovascular: Normal rate, regular rhythm, normal heart sounds and intact distal pulses. No murmur heard. Pulmonary/Chest: No respiratory distress. She has no wheezes. Lymphadenopathy: She has no cervical adenopathy. Neurological: She is alert and oriented to person, place, and time. Skin: Skin is warm and dry. She is not diaphoretic. Psychiatric: Judgment normal. Neurologic Exam Mental Status Oriented to person, place, and time. Assessment and Plan Graves' disease: She has been on low-dose methimazole for over 6 months with normal thyroid function tests. Promising for remission. We will recent thyroid function test and thyroid antibodies. We will perform neck ultrasound at next visit. The thyroid function tests are normal, we will likely do atrial without methimazole therapy. Multinodular goiter: We will arrange for neck ultrasound within a few weeks to assess the stabilityof her previously diagnosed thyroid nodules. in this encounter* Levon Man MD - 08/06/2018 3:30 PM EST Formatting of this note may be different from the original. History of Present Illness Thyroid Problem Graves' disease: This is her second visit to the office. She was diagnosed with hyperthyroidism approximately 2016. She has been taking methimazole ever since. Currently taking 1/2 of a 5 milligram tablet. Has had normal TSH levels throughout 2018. Thyroid uptake scan was performed in 2017 demonstrating 46% uptake at 24 hours, homogeneous. She feels well. Blood work demonstrates TSH = 3.5, normalT4/T3 levels, normal thyroid stimulating immunoglobulin and thyrotropin receptor antibodies. Multinodular goiter: Had a neck ultrasound in 2017 demonstrating bilateral thyroid nodules, subcentimeter. Asymptomatic. Presents today for follow-up neck ultrasound. Review of Systems Nurse Note: Review of Systems Constitutional: Negative for chills, fatigue, fever and unexpected weight change. HENT: No difficulty swallowing No change in voice Respiratory: Negative for cough, shortness of breath and wheezing. Cardiovascular: Negative for chest pain and palpitations. Gastrointestinal: Positive for diarrhea. Negative for constipation, nausea and vomiting. Musculoskeletal: Negative for neck pain. Neurological: Negative for tremors. Psychiatric/Behavioral: Negative for sleep disturbance. The patient is not nervous/anxious. Nursing Assessment: Physical Exam Vitals: Blood pressure 157/78, pulse 74, height 1.524 m (5'), weight 86.6 kg (191 lb). Physical Exam Constitutional: She is oriented to person, place, and time. No distress. HENT: Head: Normocephalic. Neck: No tracheal deviation present. No thyromegaly present. Cardiovascular: Normal rate, regular rhythm, normal heart sounds and intact distal pulses. No murmur heard. Pulmonary/Chest: No respiratory distress. She has no wheezes. Lymphadenopathy: She has no cervical adenopathy. Neurological: She is alert and oriented to person, place, and time. Skin: Skin is warm and dry. She is not diaphoretic. Psychiatric: Judgment normal. Neurologic Exam Mental Status Oriented to person, place, and time. Assessment and Plan Graves' disease: Markers no negative, promising for remission. We will discontinue methimazole entirely. Follow-up in 3 months with repeat thyroid function tests. She is advised to contact us sooner if she develops symptoms of hyperthyroidism (previously, her symptom was hair loss). Multinodular goiter: Neck ultrasound performed today shows a heterogeneous gland without true thyroid nodules. No need for further ultrasonography. in this encounter* Levon Man MD - 10/29/2018 11:00 AM EDT History of Present Illness Graves' disease: This is a follow up visit to the office. She was diagnosed with hyperthyroidism approximately 2016. She has been taking methimazole ever since. Currently taking 1/2 of a 5 milligram tablet. Has had normal TSH levels throughout 2018. Thyroid uptake scan was performed in 2017 demonstrating 46% uptake at 24 hours, homogeneous. She feels well. Blood work demonstrates TSH = 3.5, normal T4/T3 levels, normal thyroid stimulating immunoglobulin and thyrotropin receptor antibodies. Current TSH = 1.6. We previously tried a trial off the Methimazole and she called stating she was having chronic hair loss and restarted the Methimazole without getting repeat labs drawn. Multinodular goiter: Had a neck ultrasound in 2017 demonstrating bilateral thyroid nodules, subcentimeter. Asymptomatic. Neck ultrasound performed in 2019 shows a heterogeneous gland without true thyroid nodules. Review of Systems Nurse Note: Review of Systems Constitutional: Negative for chills, fatigue, fever and unexpected weight change. HENT: No difficulty swallowing No change in voice Respiratory: Negative for cough, shortness of breath and wheezing. Cardiovascular: Positive for palpitations. Negative for chest pain. Gastrointestinal: Positive for diarrhea. Negative for constipation, nausea and vomiting. Musculoskeletal: Negative for neck pain. Neurological: Negative for tremors. Psychiatric/Behavioral: Negative for sleep disturbance. The patient is not nervous/anxious. Nursing Assessment: Physical Exam Vitals: Blood pressure 155/56, pulse 79, height 1.524 m (5'), weight 86.2 kg (190 lb). Physical Exam Constitutional: She is oriented to person, place, and time. No distress. HENT: Head: Normocephalic. Neck: No tracheal deviation present. No thyromegaly present. Cardiovascular: Normal rate, regular rhythm, normal heart sounds and intact distal pulses. No murmur heard. Pulmonary/Chest: No respiratory distress. She has no wheezes. Lymphadenopathy: She has no cervical adenopathy. Neurological: She is alert and oriented to person, place, and time. Skin: Skin is warm and dry. She is not diaphoretic. Psychiatric: Judgment normal. Neurologic Exam Mental Status Oriented to person, place, and time. Assessment and Plan Graves' disease: Continue 2.5 mg of Methimazole daily. Follow-up in 6 months with repeat thyroid function tests. Multinodular goiter: Neck ultrasound performed in 2019 shows a heterogeneous gland without true thyroid nodules. No need for further ultrasonography. * Jose Irma - 10/29/2018 11:00 AM EDT Nurse Note: Review of Systems Constitutional: Negative for chills, fatigue, fever and unexpected weight change. HENT: No difficulty swallowing No change in voice Respiratory: Negative for cough, shortness of breath and wheezing. Cardiovascular: Positive for palpitations. Negative for chest pain. Gastrointestinal: Positive for diarrhea. Negative for constipation, nausea and vomiting. Musculoskeletal: Negative for neck pain. Neurological: Negative for tremors. Psychiatric/Behavioral: Negative for sleep disturbance. The patient is not nervous/anxious. Nursing Assessment: Physical Exam documented in this encounter* Levon Man MD - 05/14/2020 11:15 AM EDT History of Present Illness Thyroid Problem Graves' disease: This is a follow up visit to the office. She was diagnosed with hyperthyroidism approximately 2016. She has been taking methimazole ever since. Currently taking 1/2 of a 5 milligram tablet. Has had normal TSH levels throughout 2018. Thyroid uptake scan was performed in 2017 demonstrating 46% uptake at 24 hours, homogeneous. She feels well. Blood work demonstrates TSH = 1.8, normal T4/T3 levels, normal thyroid stimulating immunoglobulin and thyrotropin receptor antibodies. We previously tried a trial off the Methimazole and she called stating she was having chronic hair loss and restarted the Methimazole without getting repeat labs drawn. Current TSH 2.33, she feels well. Multinodular goiter: Had a neck ultrasound in 2017 demonstrating bilateral thyroid nodules, subcentimeter. Asymptomatic. Neck ultrasound performed in 2019 shows a heterogeneous gland without true thyroid nodules. Hyperglycemia: Latest blood work demonstrates a nonfasting glucose of 227 mg/dL. Patient states that she just finished a bagel with a blood work was drawn. She states she had a hemoglobin A1c drawn this summer which was 6.0%. Review of Systems Nurse Note: Review of Systems Constitutional: Negative for chills, diaphoresis, fatigue, fever and unexpected weight change. HENT: Negative for trouble swallowing and voice change. Eyes: Negative for pain. Respiratory: Negative for cough, shortness of breath and wheezing. Cardiovascular: Negative for chest pain, palpitations and leg swelling. Gastrointestinal: Positive for diarrhea. Negative for constipation, nausea and vomiting. Endocrine: Positive for cold intolerance ( always cold ). Negative for heat intolerance. Musculoskeletal: Negative for neck pain. Neurological: Negative for tremors, weakness and numbness. Psychiatric/Behavioral: Negative for sleep disturbance. The patient is not nervous/anxious. Nursing Assessment: Physical Exam Vitals: Blood pressure 156/90, pulse 72, height 1.524 m (5'), weight 84.4 kg (186 lb). Physical Exam Constitutional: General: She is not in acute distress. Appearance: She is not diaphoretic. HENT: Head: Normocephalic. Neck: Thyroid: No thyromegaly. Trachea: No tracheal deviation. Cardiovascular: Rate and Rhythm: Normal rate and regular rhythm. Heart sounds: Normal heart sounds. No murmur. Pulmonary: Effort: No respiratory distress. Breath sounds: No wheezing. Lymphadenopathy: Cervical: No cervical adenopathy. Skin: General: Skin is warm and dry. Neurological: Mental Status: She is alert and oriented to person, place, and time. Psychiatric: Judgment: Judgment normal. Neurologic Exam Mental Status Oriented to person, place, and time. Assessment and Plan Graves' disease: Continue 2.5 mg of Methimazole daily. Follow-up in 12 months with repeat thyroid function tests. She may also just follow-up with her primary care provider come back and see endocrine as needed; would recommend evaluation of thyroid function tests at least annually. Multinodular goiter: Neck ultrasound performed in 2019 shows a heterogeneous gland without true thyroid nodules. No need for further ultrasonography. Hyperglycemia: We discussed her elevated blood sugar. We discussed avoidance of high carbs. Recommend she have repeat blood work fasting along with repeat A1c. Patient states she will follow with herprimary care provider for this issue. * Taty Fernandez - 05/14/2020 11:15 AM EDT Nurse Note: Review of Systems Constitutional: Negative for chills, diaphoresis, fatigue, fever and unexpected weight change. HENT: Negative for trouble swallowing and voice change. Eyes: Negative for pain. Respiratory: Negative for cough, shortness of breath and wheezing. Cardiovascular: Negative for chest pain, palpitations and leg swelling. Gastrointestinal: Positive for diarrhea. Negative for constipation, nausea and vomiting. Endocrine: Positive for cold intolerance ( always cold ). Negative for heat intolerance. Musculoskeletal: Negative for neck pain. Neurological: Negative for tremors, weakness and numbness. Psychiatric/Behavioral: Negative for sleep disturbance. The patient is not nervous/anxious. Nursing Assessment: Physical Exam documented in this encounter* Ethel Waller RN - 08/09/2020 12:17 PM EST Patient discharged from [facility]. AVS was printed and reviewed with patient with understanding. Patient was D/C'd from unit by medical staff coordinator, Merari. * Angela Pena RN - 08/09/2020 11:22 AM EST Tolerates infusion well, no signs of reaction, resting quietly in recliner. Instructed if any questions, concerns, or worsening symptoms within the next 7 days, please call primary care provider. Expect a call back from this unit in 24-48 hrs to check to see how you are doing. For immediate emergencies, please go to the nearest Emergency Room or call 911. INI * Angela Pena RN - 08/09/2020 9:45 AM EST Patient is admitted to the [facility] for infusion of monoclonal antibody. Patient placed in room 2507 . Specialized isolation procedures in place. Patient is alert and oriented. Will obtain VS, place IV, and release Therapy Plan. Medication Fact Sheet given to patient prior to infusion. documented in this encounter* Ethel Waller RN - 08/09/2020 12:17 PM EST Patient discharged from [facility]. AVS was printed and reviewed with patient with understanding. Patient was D/C'd from unit by medical staff coordinator, Merari. * Angela Pena RN - 08/09/2020 11:22 AM EST Tolerates infusion well, no signs of reaction, resting quietly in recliner. Instructed if any questions, concerns, or worsening symptoms within the next 7 days, please call primary care provider. Expect a call back from this unit in 24-48 hrs to check to see how you are doing. For immediate emergencies, please go to the nearest Emergency Room or call 911. * Angela Pena RN - 08/09/2020 9:45 AM EST Patient is admitted to the [facility] for infusion of monoclonal antibody. Patient placed in room 2507 . Specialized isolation procedures in place. Patient is alert and oriented. Will obtain VS, place IV, and release Therapy Plan. Medication Fact Sheet given to patient prior to infusion. documented in this encounter* Angela Pena RN - 08/10/2020 2:04 PM EST 1100 Contacted patient via phone to check after Bamlanivimab infusion. Patient denies discomfort/redness at IV site, denies adverse reactions/side effects from the infusion, pt states original COVID-19 symptoms are better, low grade temp this am that had already decreased at time of call. Instructed patient if they experience any additional issues to contact primary care physician. * Ethel Waller RN - 08/09/2020 12:17 PM EST Patient discharged from [facility]. AVS was printed and reviewed with patient with understanding. Patient was D/C'd from unit by medical staff coordinator, Merari. * Angela Pena RN - 08/09/2020 11:22 AM EST Tolerates infusion well, no signs of reaction, resting quietly in recliner. Instructed if any questions, concerns, or worsening symptoms within the next 7 days, please call primary care provider. Expect a call back from this unit in 24-48 hrs to check to see how you are doing. For immediate emergencies, please go to the nearest Emergency Room or call 911. * Angela Pena RN - 08/09/2020 9:45 AM EST Patient is admitted to the [facility] for infusion of monoclonal antibody. Patient placed in room 2507 . Specialized isolation procedures in place. Patient is alert and oriented. Will obtain VS, place IV, and release Therapy Plan. Medication Fact Sheet given to patient prior to infusion. documented in this encounter* Levon Man MD - 05/12/2019 9:30 AM EDT History of Present Illness Graves' disease: This is a follow up visit to the office. She was diagnosed with hyperthyroidism approximately 2016. She has been taking methimazole ever since. Currently taking 1/2 of a 5 milligram tablet. Has had normal TSH levels throughout 2018. Thyroid uptake scan was performed in 2017 demonstrating 46% uptake at 24 hours, homogeneous. She feels well. Blood work demonstrates TSH = 1.8, normal T4/T3 levels, normal thyroid stimulating immunoglobulin and thyrotropin receptor antibodies. We previously tried a trial off the Methimazole and she called stating she was having chronic hair loss and restarted the Methimazole without getting repeat labs drawn. Multinodular goiter: Had a neck ultrasound in 2017 demonstrating bilateral thyroid nodules, subcentimeter. Asymptomatic. Neck ultrasound performed in 2019 shows a heterogeneous gland without true thyroid nodules. Review of Systems Nurse Note: Review of Systems Constitutional: Negative for chills, fatigue, fever and unexpected weight change. HENT: No difficulty swallowing No change in voice Respiratory: Negative for cough, shortness of breath and wheezing. Cardiovascular: Negative for chest pain and palpitations. Gastrointestinal: Positive for diarrhea. Negative for constipation, nausea and vomiting. Musculoskeletal: Negative for neck pain. Neurological: Negative for tremors. Psychiatric/Behavioral: Negative for sleep disturbance. The patient is not nervous/anxious. Nursing Assessment: Physical Exam Vitals: Blood pressure 177/77, pulse 67, height 1.524 m (5'), weight 84.5 kg (186 lb 3.2 oz). Physical Exam Constitutional: She is oriented to person, place, and time. No distress. HENT: Head: Normocephalic. Neck: No tracheal deviation present. No thyromegaly present. Cardiovascular: Normal rate, regular rhythm, normal heart sounds and intact distal pulses. No murmur heard. Pulmonary/Chest: No respiratory distress. She has no wheezes. Lymphadenopathy: She has no cervical adenopathy. Neurological: She is alert and oriented to person, place, and time. Skin: Skin is warm and dry. She is not diaphoretic. Psychiatric: Judgment normal. Neurologic Exam Mental Status Oriented to person, place, and time. Assessment and Plan Graves' disease: Continue 2.5 mg of Methimazole daily. Follow-up in 12 months with repeat thyroid function tests. She may also just follow-up with her primary care provider come back and see endocrine as needed; would recommend evaluation of thyroid function tests at least annually. Multinodular goiter: Neck ultrasound performed in 2019 shows a heterogeneous gland without true thyroid nodules. No need for further ultrasonography. * Nicole Barnes - 05/12/2019 9:30 AM EDT Nurse Note: Review of Systems Constitutional: Negative for chills, fatigue, fever and unexpected weight change. HENT: No difficulty swallowing No change in voice Respiratory: Negative for cough, shortness of breath and wheezing. Cardiovascular: Negative for chest pain and palpitations. Gastrointestinal: Positive for diarrhea. Negative for constipation, nausea and vomiting. Musculoskeletal: Negative for neck pain. Neurological: Negative for tremors. Psychiatric/Behavioral: Negative for sleep disturbance. The patient is not nervous/anxious. Nursing Assessment: Physical Exam documented in this encounter Assessments Diagnosis Graves disease - Primary Toxic diffuse goiter without mention of thyrotoxic crisis or storm Diagnosis Graves disease- Primary Toxic diffuse goiter without mention of thyrotoxic crisis or storm Diagnosis Graves disease- Primary Toxic diffuse goiter without mention of thyrotoxic crisis or storm Diagnosis Graves disease- Primary Toxic diffuse goiter without mention of thyrotoxic crisis or storm Hyperglycemia Other abnormal glucose Diagnosis COVID-19 virus infection- Primary Diagnosis COVID-19- Primary Diagnosis Graves disease- Primary Toxic diffuse goiter without mention of thyrotoxic crisis or storm Summary Purpose Family History No Family History Records Found Mother Name Dates Details Family history of malignant neoplasm of colon(V16.0, Z80.0) Status:Active Father Name Dates Details Family history of cardiac di sorder(V17.49, Z82.49) Status:Active Brother Name Dates Details Family history of diabetes m ellitus(V18.0, Z83.3) Status:Active Family history of colitis(V1 8.59, Z83.79) Status:Active Unknown Family Member Name Dates Details Family history of malignant neoplasm of colon: Mother(V16.0, Z80.0) Status:Active Family history of cardiac di sorder: Father(V17.49, Z82.49) Status:Active Family history of diabetes m ellitus: Brother(V18.0, Z83.3) Status:Active Family history of colitis: B rother(V18.59, Z83.79) Status:Active Unknown Family Member Name Dates Details Family history of malignant neoplasm of colon: Mother(V16.0, Z80.0) Status:Active Family history of cardiac di sorder: Father(V17.49, Z82.49) Status:Active Family history of diabetes m ellitus: Brother(V18.0, Z83.3) Status:Active Family history of colitis: B rother(V18.59, Z83.79) Status:Active Unknown Family Member Name Dates Details Family history of malignant neoplasm of colon: Mother(V16.0, Z80.0) Status:Active Family history of cardiac di sorder: Father(V17.49, Z82.49) Status:Active Family history of diabetes m ellitus: Brother(V18.0, Z83.3) Status:Active Family history of colitis: B rother(V18.59, Z83.79) Status:Active Unknown Family Member Name Dates Details Family history of malignant neoplasm of colon: Mother(V16.0, Z80.0) Status:Active Family history of cardiac di sorder: Father(V17.49, Z82.49) Status:Active Family history of diabetes m ellitus: Brother(V18.0, Z83.3) Status:Active Family history of colitis: B rother(V18.59, Z83.79) Status:Active Unknown Family Member Name Dates Details Family history of colitis: B rother(V18.59, Z83.79) Status:Active Family history of diabetes m ellitus: Brother(V18.0, Z83.3) Status:Active Family history of cardiac di sorder: Father(V17.49, Z82.49) Status:Active Family history of malignant neoplasm of colon: Mother(V16.0, Z80.0) Status:Active Unknown Family Member Name Dates Details Family history of colitis: B rother(V18.59, Z83.79) Status:Active Family history of diabetes m ellitus: Brother(V18.0, Z83.3) Status:Active Family history of cardiac di sorder: Father(V17.49, Z82.49) Status:Active Family history of malignant neoplasm of colon: Mother(V16.0, Z80.0) Status:Active Unknown Family Member Name Dates Details Family history of malignant neoplasm of colon: Mother(V16.0, Z80.0) Status:Active Family history of cardiac di sorder: Father(V17.49, Z82.49) Status:Active Family history of diabetes m ellitus: Brother(V18.0, Z83.3) Status:Active Family history of colitis: B koltoner(V18.59, Z83.79) Status:Active Unknown Family Member Name Dates Details Family history of malignant neoplasm of colon: Mother(V16.0, Z80.0) Status:Active Family history of cardiac di sorder: Father(V17.49, Z82.49) Status:Active Family history of diabetes m ellitus: Brother(V18.0, Z83.3) Status:Active Family history of colitis: B koltoner(V18.59, Z83.79) Status:Active Unknown Family Member Name Dates Details Family history of malignant neoplasm of colon: Mother(V16.0, Z80.0) Status:Active Family history of cardiac di sorder: Father(V17.49, Z82.49) Status:Active Family history of diabetes m ellitus: Brother(V18.0, Z83.3) Status:Active Family history of colitis: B koltoner(V18.59, Z83.79) Status:Active Unknown Family Member Name Dates Details Family history of malignant neoplasm of colon: Mother(V16.0, Z80.0) Status:Active Family history of cardiac di sorder: Father(V17.49, Z82.49) Status:Active Family history of diabetes m ellitus: Brother(V18.0, Z83.3) Status:Active Family history of colitis: B koltoner(V18.59, Z83.79) Status:Active Unknown Family Member Name Dates Details Family history of colitis: B koltoner(V18.59, Z83.79) Status:Active Family history of diabetes m ellitus: Brother(V18.0, Z83.3) Status:Active Family history of cardiac di sorder: Father(V17.49, Z82.49) Status:Active Family history of malignant neoplasm of colon: Mother(V16.0, Z80.0) Status:Active Unknown Family Member Name Dates Details Family history of malignant neoplasm of colon: Mother(V16.0, Z80.0) Status:Active Family history of cardiac di sorder: Father(V17.49, Z82.49) Status:Active Family history of diabetes m ellitus: Brother(V18.0, Z83.3) Status:Active Family history of colitis: Chela lockwood(V18.59, Z83.79) Status:Active Advance Directives No Advanced Directives Records FoundDocuments on File Type Date Recorded Patient Veterinary Anatomist Expl anation Advance Directives and Livin g Will 08/08/2020 9:55 AM Documents on File Type Date Recorded Patient Veterinary Anatomist Expl anation Advance Directives and Livin g Will 08/09/2020 8:41 AM Documents on File Type Date Recorded Patient Veterinary Anatomist Expl anation Advance Directives and Livin g Will 12/07/2020 8:41 AM Documents on File Type Date Recorded Patient Veterinary Anatomist Expl anation Advance Directives and Livin g Will 09/30/2021 8:24 AM Documents on File Type Date Recorded Patient Veterinary Anatomist Expl anation Advance Directive(s) 05/13/2021 1:27 PM Advance Directive(s) 03/02/2021 11:20 AM Advance Directive(s) 07/28/2020 11:16 AM Advance Directive(s) 12/19/2018 10:06 AM Advance Directive(s) 12/12/2018 2:33 PM Advance Directive(s) 06/02/2016 1:46 PM Documents on File Type Date Recorded Patient Veterinary Anatomist Expl anation Advance Directives and Livin g Will 09/30/2021 8:24 AM Reason for Referral Status Reason Specialty Diagnoses / Procedures Referred By Contact Referred To Contact Pending Review Infusion Therapy Charmaine Mariano, OCCUPATIONAL THERAPY INSTRUCTOR [address] [place] [address] Specialty Infusion [address] [place] [address] Status Reason Specialty Diagnoses / Procedures Referred By Contact Referred To Contact New Request Radiology Diagnoses Chest pain on respiration Procedures CT Pulmonary Arteries Mehrdad Rojas MD [address] [place] [address] Specialty Diagnoses / Procedures Referred By Contac t Referred To Contact Cardiology Diagnoses Side pain Chest pain, unspecified type Procedures Echocardiogram complete Cristy Davidson MD [address] [address] [facility] [address] [place] [address] Referral ID Status Reason Start Date Expiration Date V isits Requested Visits Authorized [id number] Authorized 11/22/2021 11/22/2022 1 1 Specialty Diagnoses / Procedures Referred By Contac t Referred To Contact Pain Medicine Diagnoses Chronic thoracic back pain, unspecified back pain laterality Nahun Dent MD [address] [place] [phone] Referral ID Status Reason Start Date Expiration Date V isits Requested Visits Authorized [id number] Authorized 01/30/2022 01/30/2023 1 1 Specialty Diagnoses / Procedures Referred By Contac t Referred To Contact Urology Diagnoses Recurrent UTI (urinary tract infection) Procedures CONSULT TO UROLOGY OFFICE/OUTPATIENT [facility] MDM 60-74 MINUTES Fabienne Herrera PA-C [address] [place] [address] Referral ID Status Reason Start Date Expiration Date Visits Requested Visits Authorized [id number] Authorized PCP Requested Referral 2 05/26/2023 1 1 Specialty Diagnoses / Procedures Referred By Contac t Referred To Contact Rehabilitation Diagnoses Right leg weakness Lumbar back pain Cristy Davidson MD [address] [address] [facility] [place] [address] [address] [place] [address] Referral ID Status Reason Start Date Expiration Date V isits Requested Visits Authorized [id number] Authorized 08/24/2022 08/24/2023 1 1 Specialty Diagnoses / Procedures Referred By Contac t Referred To Contact Radiology Diagnoses Right leg weakness Procedures MR Brain Without Contrast Cristy Davidson MD [address] [place] [address] [facility] [address] [place] [address] Referral ID Status Reason Start Date Expiration Date V isits Requested Visits Authorized [id number] New Request 08/24/2022 08/24/2023 1 1 Specialty Diagnoses / Procedures Referred By Contac t Referred To Contact Diagnoses Abnormal mammogram Procedures Mammography Diagnostic Right Cristy Davidson MD [facility] [place] [address] Referral ID Status Reason Start Date Expiration Date V isits Requested Visits Authorized [id number] Authorized 06/12/2023 06/11/2024 1 1 Discharge Instructions * Instructions* Charmaine Mariano CNP - 08/08/2020 Read the information provided pertaining to COVID-19 and receiving monoclonal antibody infusion. If any new or worsening symptoms contact your PCP for guidance or you may return to the emergency department at any time. Follow all recommendations for isolation. * Attachments The following attachments cannot be sent through Care Everywhere. * Coronavirus Disease (COVID-19): General Info (Mexican) * Coronavirus Disease (COVID-19): Isolation (Mexican) * Coronavirus Disease (COVID-19): Caring for Yourself: Quick List (Mexican) * Coronavirus Disease (COVID-19): Caring for Sick People: General Info (Mexican) * Coronavirus: COVID-19: Contact Tracing: General Info (Mexican) documented in this encounter Instructions * Patient Instructions* Angela Pena RN - 08/09/2020 10:49 AM EST Tolerates infusion well, no signs of reaction, resting quietly in recliner. Instructed if any questions, concerns, or worsening symptoms within the next 7 days, please call primary care provider. Expect a call back from this unit in 24-48 hrs to check to see how you are doing. For immediate emergencies, please go to the nearest Emergency Room or call 911. documented in this encounter Chief Complaint pt c/o right arm pain and rash.pt c/o right arm pain and rash.1 week f/u.mdck and medicare wellness exam.ER f/u high BP.1 month f/u. Pt. also c/o burning with urination and frequency x 5 days.HD flu shot given right deltoid, patient tolerated well. Medications Administered Section Active Administered Medications - up to 3 most recent administrations Medication Order MAR Action Action Date Dose Rate Site fluorescein-benoxinate 0.25-0.4 % 1 Drop (FLURESS) 1 Drop, BOTH EYES, DIRECTED, Starting on Sun11/21/21 at 1030, Until Sun11/21/21 at 2229, Administer for applanation tonometry. In the event of a Fluress shortage, administer Nirmala-Fluor 1 drop into both eyes as directed for applanation tonometry, [facility] MED ORDERS Given 11/21/2021 10:30 AM EDT 1 Drop PHENYLephrine 2.5 % 1 Drop (AK-DILATE, HELLEN-SYNEPHRINE) 1 Drop, RIGHT EYE, DIRECTED, Starting on Sun11/21/21 at 1030, Until Sun11/21/21 at 2229, Administer for dilation PROTECT FROM LIGHT, [facility] MED ORDERS Given 11/21/2021 10:30 AM EDT 1 Drop tropicamide 1 % 1 Drop (MYDRIACYL) 1 Drop, RIGHT EYE, DIRECTED, Starting on Sun11/21/21 at 1030, Until Sun11/21/21 at 2229, Administer for dilation, [facility] MED ORDERS Given 11/21/2021 10:30 AM EDT 1 Drop Inactive Administered Medications - up to 3 most recent administrations Medication Order MAR Action Action Date Dose Rate Site acetaminophen 650 mg tab(s) (TYLENOL) 650 mg, ORAL, ONCE, 1 dose, On Jovanna 03/30/22 at 1100, Preprocedure Given 03/30/2022 10:15 AM EDT 650 mg lactated ringers iv infusion 30 mL/hr, INTRAVENOUS, CONTINUOUS, Starting on Jovanna 03/30/22 at 1100, Until Jovanna 03/30/22 at 1233, Preprocedure New Bag/Syringe/Bottle 03/30/2022 10:42 AM EDT 30 mL/hr 30 mL/hr tropicamide 0.5% - cyclopentolate 0.5% - PHENYLephrine 2.5% ophthalmic syringe 1 Drop, LEFT EYE, EVERY 5 MINUTES, 3 doses, First dose on Jovanna 03/30/22 at 1100, Last dose on Jovanna 03/30/22 at 1110, FOR TOPICAL OPHTHALMIC USE ONLY, Preprocedure Given 03/30/2022 10:25 AM EDT 1 Drop Active Administered Medications - up to 3 most recent administrations Medication Order MAR Action Action Date Dose Rate Site fluorescein-benoxinate 0.25-0.4 % 1 Drop (FLURESS) 1 Drop, BOTH EYES, DIRECTED, Starting on Sun05/01/22 at 1330, Until Sun05/02/22 at 0129, Administer for applanation tonometry. In the event of a Fluress shortage, administer 1 drop of Nirmala-Fluor into both eyes as directed for applanation tonometry., [facility] MED ORDERS Given 05/01/2022 1:30 PM EDT 1 Drop PHENYLephrine 2.5 % 1 Drop (AK-DILATE, HELLEN-SYNEPHRINE) 1 Drop, LEFT EYE, DIRECTED, Starting on Sun05/01/22 at 1330, Until Sun05/02/22 at 0129, Administer for dilation PROTECT FROM LIGHT, [facility] MED ORDERS Given 05/01/2022 1:30 PM EDT 1 Drop PHENYLephrine 2.5 % 1 Drop (AK-DILATE, HELLEN-SYNEPHRINE) 1 Drop, RIGHT EYE, DIRECTED, Starting on Sun05/01/22 at 1330, Until Sun05/02/22 at 0129, Administer for dilation PROTECT FROM LIGHT Given 05/01/2022 1:30 PM EDT 1 Drop tropicamide 1 % 1 Drop (MYDRIACYL) 1 Drop, LEFT EYE, DIRECTED, Starting on Sun05/01/22 at 1330, Until Sun05/02/22 at 0129, Administer for dilation, [facility] MED ORDERS Given 05/01/2022 1:30 PM EDT 1 Drop tropicamide 1 % 1 Drop (MYDRIACYL) 1 Drop, RIGHT EYE, DIRECTED, Starting on Sun05/01/22 at 1330, Until Sun05/02/22 at 0129, Administer for dilation Given 05/01/2022 1:30 PM EDT 1 Drop Inactive Administered Medications - up to 3 most recent administrations Medication Order MAR Action Action Date Dose Rate Site PHENYLephrine 2.5 % 1 Drop (AK-DILATE, HELLEN-SYNEPHRINE) 1 Drop, BOTH EYES, DIRECTED, Starting on Sun06/04/23 at 1330, Until Sun06/05/23 at 0129, Administer for dilation PROTECT FROM LIGHT, [facility] MED ORDERS Given 06/04/2023 1:30 PM EST 1 Drop proparacaine 0.5 % 1 Drop (ALCAINE) 1 Drop, BOTH EYES, DIRECTED, Starting on Sun06/04/23 at 1330, Until Sun06/05/23 at 0129, Administer for pneumo tonometry, tonopen tonometry, or pachymetry. In the event of a proparacaine shortage, administer tetracaine 0.5% ophthalmic drops 1 drop in both eyes as directed for pneumo tonometry, tonopen tonometry, or pachymetry, [facility] MED ORDERS Given 06/04/2023 1:30 PM EST 1 Drop tropicamide 1 % 1 Drop (MYDRIACYL) 1 Drop, BOTH EYES, DIRECTED, Starting on Sun06/04/23 at 1330, Until Sun06/05/23 at 0129, Administer for dilation, [facility] MED ORDERS Given 06/04/2023 1:30 PM EST 1 Drop Health Concerns Infection Onset Date Last Indicated Resolved Time COVID-19 Rule-Out 03/21/2023 03/21/2023 Infection Onset Date Last Indicated Resolved Time COVID-19 Rule-Out 03/21/2023 03/21/2023 03/22/2023 8:13 AM EDT Additional Source Comments Reason for Visit (unrecogniz ed section and content) Reason Comments Thyroid Problem Reason Comments Follow-up Thyroid Problem Reason Comments needs guidance on care covid positive Reason Comments Shortness of Breath Status Reason Specialty Diagnoses / Procedures Referred By Contact Referred To Contact Pending Review Infusion Therapy Diagnoses COVID-19 Charmaine Mariano, OCCUPATIONAL THERAPY INSTRUCTOR [address] [place] [address] Specialty Infusion [address] [place] [address] Reason Comments Advice Only Status Reason Specialty Diagnoses / Procedures Referred By Contact Referred To Contact New Request Radiology Diagnoses Chest pain on respiration Procedures CT Pulmonary Arteries Mehrdad Rojas MD [address] [place] [address] Reason Comments Follow-up Thyroid Problem Other Reason Comments Follow-up Thyroid Problem Graves Disease Reason Onset Date Comments Establish Care Fall Risk Screening 10/24/2021 Reason Comments Cystoid Macular Edema Follow Up right ey e Primary Open Angle Glaucoma Follow Up IO P check after med change Reason Comments Follow-up Reason Comments Follow-up 1 mon fu htn Reason Comments Primary Open Angle Glaucoma Follow Up OU Cystoid Macular Edema Follow Up OD Cataract Follow Up OS Blurred Vision Both Eyes x 1 year at [facility] Decreased Vision Both Eyes x 1 year at [facility] Red Eye Both Eyes intermittent x 8 wee ks Dry Eye(s) Both Eyes intermittent x 8 we eks Eye Itching Both Eyes intermittent x 8 w eeks Reason Comments Follow-up 4 week f/u Reason Comments Pre-Op Exam Iol calcs Reason Comments Outcomes Reason Comments Pre-Op Exam Specialty Diagnoses / Procedures Referred By Contac t Referred To Contact [facility] Diagnoses 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 [H25.12] Procedures XCAPSL CTRC RMVL INSJ IO LENS PROSTH W/O ECP OPH BMTRY PRTL COHER INTRFRMTRY IO LENS PWR YAMILE PHACOEMULSIFICATION CATARACT IMPLANT INTRAOCULAR LENS W/O ENDOSCOPIC CYCLOPHOTOCOAGULATION OPHTHALMIC BIOMETRY BY PARTIAL COHERENCE INTERFEROMETRY W/INTRAOCULAR LENS [facility] [place] [address] [address] Referral ID Status Reason Start Date Expiration Date Visits Re quested Visits Authorized [id number] 1 1 Reason Comments Post-op (Ophthalmology) Left Eye Reason Comments Pseudophakia Reason Comments Medication Problem Patient Question Reason Comments nurse visit Covid test Reason Comments Urinary Frequency Frequency and burnin g x 1 day Reason Onset Date Comments Refill Request 05/17/2022 Reason Comments UTI Follow up for uti, s till has burning and frequency x 2 days Reason Comments Results Reason Comments Urinary Problem Pt reported Dx UTI 1 07/20/2021, completed ATB ongoing frequency. Reason Comments Flu Vaccine Reason Comments Thyroid Problem Losing hair (this is what happened last time) Requesting Lab work Gap Closure (Health Maintenance) Foot Ex am Never done Reason Onset Date Comments Medication Refill 07/13/2022 Reason Comments Gap Closure (Health Maintenance) Foot Ex am Never done Foot weakness Right side leg Reason Comments Physical Therapy Specialty Diagnoses / Procedures Referred By Contac t Referred To Contact Rehabilitation Diagnoses Right leg weakness Lumbar back pain Cristy Davidson MD [address] [address] [place] [address] [place] [phone] Referral ID Status Reason Start Date Expiration Date V isits Requested Visits Authorized [id number] Authorized 08/24/2022 08/24/2023 13 199 Reason Onset Date Comments Medicare Wellness Visit Fall Risk Screening 09/29/2022 Referral ID Status Reason Start Date Expiration Date Visits Re quested Visits Authorized [id number] Closed 08/24/2022 08/24/2023 13 199 Referral ID Status Reason Start Date Expiration Date V isits Requested Visits Authorized [id number] Authorized 08/24/2022 08/24/2023 16 199 Reason Comments Skin Lesion (LMS) Reason Comments Follow-up 1 month f/u Reason Comments Actinic Keratosis (LMS) Reason Comments Urinary Problem Having issues with u rination Reason Comments Headache ODONNELL, sinus, congestio n, fever, chills and bodyaches x 3 days Reason Comments Follow-up 2 month f/u- working on a bladder infection, I can barley go Reason Onset Date Comments Medication Refill 04/02/2023 Reason Comments Primary Open Angle Glaucoma Follow Up INFORMATION SOURCE (unrecogn ized section and content) DATE CREATED AUTHOR AUTHOR'S ORGANIZ ATION 02/07/2019 [facility] DATE CREATED AUTHOR AUTHOR'S ORGANIZ ATION 08/16/2020 [facility] DATE CREATED AUTHOR AUTHOR'S ORGANIZ ATION 05/21/2021 [facility] DATE CREATED AUTHOR AUTHOR'S ORGANIZ ATION 06/25/2021 [facility] DATE CREATED AUTHOR AUTHOR'S ORGANIZ ATION 06/25/2021 [employer] DATE CREATED AUTHOR AUTHOR'S ORGANIZ ATION 03/09/2022 [facility] DATE CREATED AUTHOR AUTHOR'S ORGANIZ ATION 05/09/2023 [facility] DATE CREATED AUTHOR AUTHOR'S ORGANIZ ATION 06/18/2023 [facility] DATE CREATED AUTHOR AUTHOR[facility]S OR[facility]IZ AT[facility] DATE CREATED AUTHOR AUTHOR'S ORGANIZ ATION 07/24/2023 [facility] Charmaine Mariano, BHARTI - 08/08/2020 9:37 AM Leola Garcia RN - 08/08/2020 8:58 AM EST ED Notes (unrecognized secti on and content) [facility] ED MITCHELL Note: NAME: Carla Patel 75 y.o. CSN: [id number] PCP: Mehrdad Rojas MD History: Chief Complaint: needs guidance on care and covid positive HPI: The history was obtained from the patient. Carla is a 75 y.o. female who presents with a chief complaint of needs guidance on care and covid positive. Patient arrives to the emergency department with her who is also being seen for concerns of recent Covid positive diagnosis. Patient reports she was initially symptomatic 6 days ago but attributed symptoms to a mild cold. Her developed symptoms and both were tested and notified both were positive for Covid 5 days ago. Patient reports she continues with minimal symptoms of rhinorrhea, occasional cough that has resolved with Tessalon Perles and states I even painted a bedroom this week . Patient reports she was cleaning out her brother's condo 1 week ago following his from COVID-19. She reports this has led her to level of anxiety to her diagnosis and to her who has numerous comorbidities. Patient reports she and her have been isolating since diagnosis. PMHx: History reviewed. No pertinent past medical history. PMSx: No past surgical history on file. FAM. Hx: History reviewed. No pertinent family history. SOC. Hx: Social History Socioeconomic History Marital status: Spouse name: Not on file Number of children: Not on file Years of education: Not on file Highest education level: Not on file Occupational History Not on file Social Needs Financial resource strain: Not on file Food insecurity Worry: Not on file Inability: Not on file Transportation needs Medical: Not on file Non-medical: Not on file Tobacco Use Smoking status: Not on file Substance and Sexual Activity Alcohol use: Not on file Drug use: Not on file Sexual activity: Not on file Lifestyle Physical activity Days per week: Not on file Minutes per session: Not on file Stress: Not on file Relationships Social connections Talks on phone: Not on file Gets together: Not on file Attends cheondoism service: Not on file Active member of club or organization: Not on file Attends meetings of clubs or organizations: Not on file Relationship status: Not on file Other Topics Concern Not on file Social History Narrative Not on file MEDs: No current outpatient medications on file prior to encounter. ALL: Allergies Allergen Reactions Sulfa (Sulfonamide Antibiotics) ROS: Review of Systems All other systems reviewed and are negative. Positives and pertinent negatives as per HPI. All other systems were reviewed and are negative. Physical Exam: Patient Vitals for the past 24 hrs: BP Temp Pulse Resp SpO2 08/08/20 0900 (!) 171/95 98.2 F (36.8 C) 94 18 96 % Physical Exam Vitals signs and nursing note reviewed. Constitutional: General: She is not in acute distress. Appearance: Normal appearance. She is well-developed. She is not diaphoretic. HENT: Head: Normocephalic and atraumatic. Nose: Rhinorrhea present. Mouth/Throat: Mouth: Mucous membranes are moist. Eyes: General: No scleral icterus. Extraocular Movements: Extraocular movements intact. Right eye: Normal extraocular motion. Left eye: Normal extraocular motion. Conjunctiva/sclera: Conjunctivae normal. Comments: Mildly injected bilateral sclera noted. Patient reports she is scheduled for eye surgery next month. Neck: Musculoskeletal: Normal range of motion and neck supple. Cardiovascular: Rate and Rhythm: Normal rate and regular rhythm. Heart sounds: No murmur. Pulmonary: Effort: Pulmonary effort is normal. No tachypnea or respiratory distress. Breath sounds: Normal breath sounds. No decreased breath sounds, wheezing, rhonchi or rales. Comments: No cough noted. No dyspnea with conversation or ambulation. Pulse ox remains in the upper 90s on room air. Abdominal: Palpations: Abdomen is soft. Musculoskeletal: Normal range of motion. Right lower leg: She exhibits no swelling. No edema. Left lower leg: She exhibits no swelling. No edema. Skin: General: Skin is warm and dry. Findings: No rash. Neurological: Mental Status: She is alert and oriented to person, place, and time. Psychiatric: Behavior: Behavior normal. Laboratory & Radiological Imaging (if done): Labs Reviewed - No data to display No orders to display MDM: Special isolation precautions are in place with signage outside this patient's room. This SNOW GROOMER performs hand hygiene and enters the patient room wearing: ? gloves ? an appropriately fitting (N-95, PAPR, Aura) mask ? face shield ? protective gown to obtain HPI and perform bedside physical exam and re- evaluation(s)/interventions as necessary. See provider documentation. Discussed, at length, home care, red flags, recommended isolation. Patient verbalizes understanding of all. Thoroughly reviewed monoclonal antibody referral. Patient is agreeable and would like to proceed. Clinical Impression: 1. COVID-19 virus infection Disposition: Patient is being discharge home. [facility] Emergency Department (Please note that portions of this note have been completed with a voice recognition software. Efforts were made to correct any errors, but occasionally words are mis-transcribed.) Charmaine Mariano CNP 08/08/20 1046 Pt states that she was tested positive yesterday. Pt states that she doesn't know what to do since she tested positive. Pt states that she feels ran down . Pt symptoms started on Sunday. documented in this encounter Care Teams (unrecognized sec tion and content) Technical Stenographer Relationship Specialty Start Date End Date Mehrdad Rojas MD [address] [place] [phone] PCP - General Family Medicine 07/12/18 Technical Stenographer Relationship Specialty Start Date End Date Cristy Davidson MD [address] [place] [id number] PCP - General Family Medicine 10/24/21 Technical Stenographer Relationship Specialty Start Date End Date Cristy Davidson MD [address] [place] [id number] PCP - General Family Medicine 10/24/21 Technical Stenographer Relationship Specialty Start Date End Date Mehrdad Rojas MD [address] [place] [phone] PCP - General Family Practice 05/29/16 Miky Crook V [address] [place] [address] Internal Medicine 03/14/21 Technical Stenographer Relationship Specialty Start Date End Date Cristy Davidson MD [address] [place] [id number] PCP - General Family Medicine 10/24/21 Technical Stenographer Relationship Specialty Start Date End Date Cristy Davidson MD [address] [place] [id number] PCP - General Family Medicine 10/24/21 Technical Stenographer Relationship Specialty Start Date End Date Cristy Davidson MD [address] [address] PCP - General Family Medicine 10/24/21 Technical Stenographer Relationship Specialty Start Date End Date Cristy Davidson MD [address] [address] PCP - General Family Medicine 10/24/21 Technical Stenographer Relationship Specialty Start Date End Date Cristy Davidson MD [address] [place] [address] PCP - General Family Medicine 10/24/21 Technical Stenographer Relationship Specialty Start Date End Date Mehrdad Rojas MD [address] [place] [phone] PCP - General Family Practice 05/29/16 Miky Crook V [address] [place] [address] [place] [phone] Internal Medicine 03/14/21 Technical Stenographer Relationship Specialty Start Date End Date Cristy Davidson MD [address] [place] [address] PCP - General Family Medicine 10/24/21 Technical Stenographer Relationship Specialty Start Date End Date Mehrdad Rojas MD [address] [place] [phone] PCP - General Family Practice 05/29/16 Miky Crook V [address] [place] [address] [place] [phone] Internal Medicine 03/14/21 Technical Stenographer Relationship Specialty Start Date End Date Mehrdad Rojas MD [address] [place] [phone] PCP - General Family Practice 05/29/16 Miky Crook V [address] [place] [address] [place] [phone] Internal Medicine 03/14/21 Technical Stenographer Relationship Specialty Start Date End Date Mehrdad Rojas MD [address] [place] [place] [phone] PCP - General Family Practice 05/29/16 Miky Crook, Hussein [address] [place] [phone] Internal Medicine 03/14/21 Technical Stenographer Relationship Specialty Start Date End Date Mehrdad Rojas MD [address] [place] [phone] PCP - General Family Practice 05/29/16 Miky Crook V [address] [place] [phone] Internal Medicine 03/14/21 Technical Stenographer Relationship Specialty Start Date End Date Mehrdad Rojas MD [address] [place] [phone] PCP - General Family Medicine 05/29/16 Miky Crook V [address] [facility] [place] [address] Internal Medicine 03/14/21 Technical Stenographer Relationship Specialty Start Date End Date Mehrdad Rojas MD [address] [place] [phone] PCP - General Family Medicine 05/29/16 Miky Crook V [address] [place] [address] Internal Medicine 03/14/21 Technical Stenographer Relationship Specialty Start Date End Date Cristy Davidson MD [address] [place] [id number] PCP - General Family Medicine 10/24/21 Technical Stenographer Relationship Specialty Start Date End Date Cristy Davidson MD [address] [phone] PCP - General Family Medicine 10/24/21 Technical Stenographer Relationship Specialty Start Date End Date Mehrdad Rojas MD [address] [place] [phone] PCP - General Family Medicine 05/29/16 Miky Crook V [address] [place] [phone] Internal Medicine 03/14/21 Technical Stenographer Relationship Specialty Start Date End Date Mehrdad Rojas MD [address] [place] [phone] PCP - General Family Medicine 05/29/16 Miky Crook V [address] [place] [address] Internal Medicine 03/14/21 Technical Stenographer Relationship Specialty Start Date End Date Mehrdad Rojas MD [address] [place] [phone] PCP - General Family Medicine 05/29/16 Miky Crook V [address] [place] [address] Internal Medicine 03/14/21 Technical Stenographer Relationship Specialty Start Date End Date Mehrdad Rojas MD [address] [place] [address] PCP - General Family Medicine 05/29/16 Miky Crook V [address] [place] [address] Internal Medicine 03/14/21 Technical Stenographer Relationship Specialty Start Date End Date Mehrdad Rojas MD [address] [place] [address] PCP - General Family Medicine 05/29/16 Miky Crook, Hussein [address] [place] [phone] Internal Medicine 03/14/21 Technical Stenographer Relationship Specialty Start Date End Date Mehrdad Rojas MD [address] [place] [address] PCP - General Family Medicine 05/29/16 Miky Crook, Hussein [address] [place] [place] [phone] Internal Medicine 03/14/21 Technical Stenographer Relationship Specialty Start Date End Date Cristy Davidson MD [address] [address] PCP - General Family Medicine 10/24/21 Technical Stenographer Relationship Specialty Start Date End Date Cristy Davidson MD [address] [address] PCP - General Family Medicine 10/24/21 Technical Stenographer Relationship Specialty Start Date End Date Cristy Davidson MD [address] [address] PCP - General Family Medicine 10/24/21 Technical Stenographer Relationship Specialty Start Date End Date Cristy Davidson MD [address] [address] PCP - General Family Medicine 10/24/21 Technical Stenographer Relationship Specialty Start Date End Date Cristy Davidson MD [address] [address] PCP - General Family Medicine 10/24/21 Technical Stenographer Relationship Specialty Start Date End Date Cristy Davidson MD [address] [address] PCP - General Family Medicine 10/24/21 Technical Stenographer Relationship Specialty Start Date End Date Cristy Davidson MD [address] [address] PCP - General Family Medicine 10/24/21 Technical Stenographer Relationship Specialty Start Date End Date Cristy Davidson MD [address] [address] PCP - General Family Medicine 10/24/21 Technical Stenographer Relationship Specialty Start Date End Date Cristy Davidson MD [address] [address] PCP - General Family Medicine 10/24/21 Technical Stenographer Relationship Specialty Start Date End Date Cristy Davidson MD [address] [address] PCP - General Family Medicine 10/24/21 Technical Stenographer Relationship Specialty Start Date End Date Cristy Davidson MD [address] [address] PCP - General Family Medicine 10/24/21 Technical Stenographer Relationship Specialty Start Date End Date Cristy Davidson MD [address] [address] PCP - General Family Medicine 10/24/21 Technical Stenographer Relationship Specialty Start Date End Date Cristy Davidson MD [address] [place] [id number] PCP - General Family Medicine 10/24/21 Technical Stenographer Relationship Specialty Start Date End Date Cristy Davidson MD [facility] [place] [id number] PCP - General Family Medicine 10/24/21 Technical Stenographer Relationship Specialty Start Date End Date Cristy Davidson MD [address] [place], [place] [phone] PCP - General Family Medicine 10/24/21 Technical Stenographer Relationship Specialty Start Date End Date Cristy Davidson MD [address] [place], [place] [phone] PCP - General Family Medicine 10/24/21 Technical Stenographer Relationship Specialty Start Date End Date Cristy Davidson MD [address] [place], [place] [phone] PCP - General Family Medicine 10/24/21 Technical Stenographer Relationship Specialty Start Date End Date Mehrdad Rojas [address] [facility] [place] [phone] PCP - General 07/03/18 Technical Stenographer Relationship Specialty Start Date End Date Cristy Davidson MD [facility] [place] [phone] PCP - General Family Medicine 10/24/21 Technical Stenographer Relationship Specialty Start Date End Date Cristy Davidson MD [address] [address] PCP - General Family Medicine 10/24/21 Technical Stenographer Relationship Specialty Start Date End Date Mehrdad Rojas [facility] [place] [address] PCP - General 07/03/18 Technical Stenographer Relationship Specialty Start Date End Date Miky Crook V [address] [place] [address] Internal Medicine 03/14/21 Technical Stenographer Relationship Specialty Start Date End Date Miky Crook V [address] [place] [address] Internal Medicine 03/14/21 Technical Stenographer Relationship Specialty Start Date End Date Miky Crook V [address] [place] [address] Internal Medicine 03/14/21 Technical Stenographer Relationship Specialty Start Date End Date Miky Crook V [address] [place] [address] Internal Medicine 03/14/21 Technical Stenographer Relationship Specialty Start Date End Date Cristy Davidson MD [address] [address] PCP - General Family Medicine 10/24/21 Technical Stenographer Relationship Specialty Start Date End Date Cristy Davidson MD [address] [place] [id number] PCP - General Family Medicine 10/24/21 Technical Stenographer Relationship Specialty Start Date End Date Cristy Davidson MD [facility] [place] [id number] PCP - General Family Medicine 10/24/21 Technical Stenographer Relationship Specialty Start Date End Date Mehrdad Rojas [address] [facility] [address] [place] [phone] PCP - General 07/03/18 Technical Stenographer Relationship Specialty Start Date End Date Miky rCook V [address] [place] [phone] Internal Medicine 03/14/21 Technical Stenographer Relationship Specialty Start Date End Date Cristy Davidson MD [address] [place], [place] [phone] PCP - General Family Medicine 10/24/21 Technical Stenographer Relationship Specialty Start Date End Date Cristy Davidson MD [address] [place], [place] [phone] PCP - General Family Medicine 10/24/21 Source Comments (unrecognize d section and content) In the event this informatio n is protected by the Federal Confidentiality of Alcohol and Drug Abuse Patient Records regulations: The Federal rules restrict any use of the information to criminally investigate or prosecute any alcohol or drug abuse patient.[facility] the event this information is protected by the Federal Confidentiality of Alcohol and Drug Abuse Patient Records regulations: The Federal rules restrict any use of the information to criminally investigate or prosecute any alcohol or drug abuse patient.[facility] CampusIn the event this information is protected by the Federal Confidentiality of Alcohol and Drug Abuse Patient Records regulations: The Federal rules restrict any use of the information to criminally investigate or prosecute any alcohol or drug abuse patient.[facility] CampusIn the event this information is protected by the Federal Confidentiality of Alcohol and Drug Abuse Patient Records regulations: The Federal rules restrict any use of the information to criminally investigate or prosecute any alcohol or drug abuse patient.[facility] CampusIn the event this information is protected by the Federal Confidentiality of Alcohol and Drug Abuse Patient Records regulations: The Federal rules restrict any use of the information to criminally investigate or prosecute any alcohol or drug abuse patient.[facility] Campus[facility] the event this information is protected by the Federal Confidentiality of Alcohol and Drug Abuse Patient Records regulations: The Federal rules restrict any use of the information to criminally investigate or prosecute any alcohol or drug abuse patient.[facility] CampusIn the event this information is protected by the Federal Confidentiality of Alcohol and Drug Abuse Patient Records regulations: The Federal rules restrict any use of the information to criminally investigate or prosecute any alcohol or drug abuse patient.[facility] Campus[facility] the event this information is protected by the Federal Confidentiality of Alcohol and Drug Abuse Patient Records regulations: The Federal rules restrict any use of the information to criminally investigate or prosecute any alcohol or drug abuse patient.[facility] CampusIn the event this information is protected by the Federal Confidentiality of Alcohol and Drug Abuse Patient Records regulations: The Federal rules restrict any use of the information to criminally investigate or prosecute any alcohol or drug abuse patient.[facility] CampusIn the event this information is protected by the Federal Confidentiality of Alcohol and Drug Abuse Patient Records regulations: The Federal rules restrict any use of the information to criminally investigate or prosecute any alcohol or drug abuse patient.[facility] CampusIn the event this information is protected by the Federal Confidentiality of Alcohol and Drug Abuse Patient Records regulations: The Federal rules restrict any use of the information to criminally investigate or prosecute any alcohol or drug abuse patient.[facility] CampusIn the event this information is protected by the Federal Confidentiality of Alcohol and Drug Abuse Patient Records regulations: The Federal rules restrict any use of the information to criminally investigate or prosecute any alcohol or drug abuse patient.[facility] CampusIn the event this information is protected by the Federal Confidentiality of Alcohol and Drug Abuse Patient Records regulations: The Federal rules restrict any use of the information to criminally investigate or prosecute any alcohol or drug abuse patient.[facility] CampusIn the event this information is protected by the Federal Confidentiality of Alcohol and Drug Abuse Patient Records regulations: The Federal rules restrict any use of the information to criminally investigate or prosecute any alcohol or drug abuse patient.[facility] CampusIn the event this information is protected by the Federal Confidentiality of Alcohol and Drug Abuse Patient Records regulations: The Federal rules restrict any use of the information to criminally investigate or prosecute any alcohol or drug abuse patient.[facility] CampusIn the event this information is protected by the Federal Confidentiality of Alcohol and Drug Abuse Patient Records regulations: The Federal rules restrict any use of the information to criminally investigate or prosecute any alcohol or drug abuse patient.[facility] the event this information is protected by the Federal Confidentiality of Alcohol and Drug Abuse Patient Records regulations: The Federal rules restrict any use of the information to criminally investigate or prosecute any alcohol or drug abuse patient.[facility] CampusIn the event this information is protected by the Federal Confidentiality of Alcohol and Drug Abuse Patient Records regulations: The Federal rules restrict any use of the information to criminally investigate or prosecute any alcohol or drug abuse patient.[facility] CampusIn the event this information is protected by the Federal Confidentiality of Alcohol and Drug Abuse Patient Records regulations: The Federal rules restrict any use of the information to criminally investigate or prosecute any alcohol or drug abuse patient.[facility] CampusIn the event this information is protected by the Federal Confidentiality of Alcohol and Drug Abuse Patient Records regulations: The Federal rules restrict any use of the information to criminally investigate or prosecute any alcohol or drug abuse patient.[facility] Scheduled Active and Recently Administ ered Medications (unrecognized section and content) Continuous Medication Order 03/28/2022 2022 03/30/2022 lactated ringers iv infusion (CANCELED) 30 mL/hr, INTRAVENOUS, CONTINUOUS, Starting on Jovanna 03/30/22 at 1100, Until Jovanna 03/30/22 at 1233, Preprocedure 1042 (New Bag/Syring e/Bottle - Provider: Angela Smith RN)1233 (Due: Infusion Complete) PRN Medication Order 03/28/2022 2022 03/30/2022 balanced salt ophthalmic solution (BSS) (CANCELED) X (OR/PROCEDURE) PRN, Starting on Jovanna 03/30/22 at 1136, Until Jovanna 03/30/22 at 1158, Intraprocedure 1136 (Given - Provid er: Giuliana Murillo MD) EPINEPHrine 1 mg in balanced salts 500 mL (CANCELED) X (OR/PROCEDURE) PRN, Starting on Jovanna 03/30/22 at 1138, Until Jovanna 03/30/22 at 1158, Intraprocedure 1138 (Given - Provid er: Karlie New MD) lidocaine (PF) 10 mg/mL (1 %) injection (XYLOCAINE) (CANCELED) X (OR/PROCEDURE) PRN, Starting on Jovanna 03/30/22 at 1138, Until Jovanna 03/30/22 at 1158, Intraprocedure 1138 (Given - Provid er: Karlie New MD) lidocaine 4 % (40 mg/mL) 1 mL (XYLOCAINE) 1 mL, LEFT EYE, NEEDED, Starting on Jovanna 03/30/22 at 1202, Until Sun03/31/22 at 0304, for pain lidocaine urojet 2 % topical gel (XYLOCAINE, GLYDO) (CANCELED) X (OR/PROCEDURE) PRN, Starting on Jovanna 03/30/22 at 1137, Until Jovanna 03/30/22 at 1158, Intraprocedure 1137 (Given - Provid er: Karlie New MD) mitoMYcin ophthalmic solution 0.2 mg in BSS 1 mL (MUTAMYCIN) (CANCELED) X (OR/PROCEDURE) PRN, Starting on Jovanna 03/30/22 at 1137, Until Jovanna 03/30/22 at 1158, Intraprocedure 1137 (Given - Provid er: Karlie New MD) moxifloxacin 0.5 mg/0.1 mL intraocular injection (VIGAMOX) (CANCELED) X (OR/PROCEDURE) PRN, Starting on Jovanna 03/30/22 at 1138, Until Jovanna 03/30/22 at 1158, Intraprocedure 1138 (Given - Provid er: Karlie New MD) Povidone-Iodine 5 % ophth soln (BETADINE) (CANCELED) X (OR/PROCEDURE) PRN, Starting on Jovanna 03/30/22 at 1137, Until Jovanna 03/30/22 at 1158, Intraprocedure 1137 (Given - Provid er: Karlie New MD) sod hyaluronate-sod chondroitin-sod hyaluronate intraocular kit (DUOVISC) (CANCELED) X (OR/PROCEDURE) PRN, Starting on Jovanna 03/30/22 at 1139, Until Jovanna 03/30/22 at 1158, Intraprocedure 1139 (Given - Provid er: Karlie New MD) FOR RECORDS PERTAINING TO PATIENTS WHO ARE OR HAVE BEEN ENROLLED IN A CHEMICAL DEPENDENCY/SUBSTANCEABUSE PROGRAM, SOME INFORMATION MAY BE OMITTED. This clinical summary was aggregated from multiple sources. Caution should be exercised in using it in the provision of clinical care. This summary normalizes information from multiple sources, and as a consequence, information in this document may materially change the coding, format and clinical context of patient data. In addition, data may be omitted in some cases. CLINICAL DECISIONS SHOULD BE BASED ON THE PRIMARY CLINICAL RECORDS. [employer] [facility]. provides no warranty or guarantee of the accuracy or completeness of information in this document.
== END | disposition home or self-care (01) ==
PROVIDERS: PCP Family Medicine; Referring Provider Surgery; Visit Provider Surgery
DX: R92.8 Other abnormal and inconclusive findings on diagnostic imaging of breast (principal); N63.10 Unspecified lump in the right breast, unspecified quadrant
CPT/HCPCS: 77065; 88305; 88341; 88342

== ENCOUNTER → 2023-10-11 | Outpatient (CLI) | payer MEDICARE, BC, SELFPAY ==
--- NOTE | 2023-10-11 10:58 | US_ITS ---
STUDY: ULTRASOUND BREAST - RIGHT REASON FOR EXAM: Female, 78 years old. Right breast and right axillary pain. TECHNIQUE: Axial and longitudinal images of the RIGHT breast were performed with a high resolution ultrasound transducer. # OF IMAGES: 65 COMPARISON: Comparison is made with prior sonogram of the right breast dated July 02, 2023 and prior mammogram dated July 30, 2023 FINDINGS: RIGHT Breast: The upper outer quadrant of the right breast was examined with ultrasound. The right axilla was examined as well. A tissue clip marker is seen within a lymph node in the right axilla measuring 7 mm x 7 mm x 3 mm. There are several small benign-appearing right axillary lymph nodes. The largest measures 1.4 cm x 1.3 cm x 1 cm. US/Breast Limited Unilateral IMPRESSION: Status post biopsy of a right axillary lymph node. Several small benign-appearing lymph nodes are seen in the right axilla. ASSESSMENT CATEGORY: BIRADS Category 2: Benign. A letter regarding these results will be sent to the patient by the facility within 30 days. Electronically Signed: eVga Baez MD at 13:12 EDT ,
== END | disposition home or self-care (01) ==
LOC: OPUS 10:58
PROVIDERS: PCP Family Medicine; Referring Provider Surgery; Visit Provider Surgery
DX: N64.4 Mastodynia (principal)
CPT/HCPCS: 76642

== ENCOUNTER → 2024-05-05 | Outpatient (CLI) | payer MEDICARE, BC, SELFPAY ==
--- NOTE | 2024-05-05 15:02 | VDLE_ITS ---
Reason For Study: Right leg pain RIGHT LEFT GSV is normal. CFV is compressible, spontaneous, phasic, CFV is compressible, spontaneous, phasic, competent, and demonstrates normal competent and demonstrates normal augmentation. augmentation. FV is compressible, spontaneous, phasic, competent and demonstrates normal augmentation. POP V is compressible, spontaneous, phasic, competent and demonstrates normal augmentation. T/P Trunk is compressible. PTV is compressible. RT PerV is compressible. Procedure This is a venous duplex using B-mode, color flow and spectral Doppler. Exam performed in department. A preliminary report was called and/or faxed to Dr. Campa. VL/Venous Duplex US, Unilateral Interpretation Summary Deep veins of the right lower extremity are patent and compressible segmentally . There is no evidence of right lower extremity deep vein thrombosis. Valvular competence reuben ears intact within the proximal deep venous system on the right . The right great saphenous vein a ppears patent and compressible segmentally. The left common femoral vein is patent and compressib le . Ordering Physician: Ketan Campa Referring Physician: Carolina Merchant Performed By: Yamilet Rojas RVT
== END | disposition home or self-care (01) ==
LOC: CVS 14:52
PROVIDERS: PCP Family Medicine; Referring Provider Orthopaedic Surgery; Visit Provider Orthopaedic Surgery
DX: M79.661 Pain in right lower leg (principal)
CPT/HCPCS: 93971

== ENCOUNTER 2024-06-06 10:28 | Day surgery (SDC) | payer MEDICARE, BC, SELFPAY ==
[2024-06-06] VITALS (16 sets, daily range): BP systolic 104–164; BP diastolic 65–141; PULSE 74–96; RESP 16; TEMP 36.2–37.1; O2SAT 92–99; BMI 29.5
[2024-06-06] MEDS: Lactated Ringers 1,000 ML 15 ML IV ×2 (11:01→14:30)
--- NOTE | 2024-06-06 11:41 | PRE.ANES_ITS ---
ASA Classification* ASA Classification ASA Classification: 3 Assessment & Plan Anesthesia* Anesthesia Assessment Anesthesia Assessment: Discussed sedation and/or anesthesia options, risks, benefits, and alternatives with patient/parents/legal guardian/POA. Questions invited. The patient/parents/legal guardian/POA seems to understand and agrees to proceed with anesthesia plan. Reviewed the physical assessment, medical history, allergy history and patient home medications list prior to surgery/procedure/anesthetic and documented any changes. Performed airway and anesthesia risk assessments. Anesthesia Type Anesthesia Type: General History Source History Obtained from:: Patient and Chart Anesthesia Focused Assessment* Temperature: 97.5 F Pulse Rate: 77 Blood Pressure: 132/83 Respiratory Rate: 16 Pulse Ox: 95 Oxygen Delivery Method: Room Air Airway Assessment Mouth opens: >3 cm Mallampati Score: IV Teeth Condition: Partial (Upper partials out.) Neck Range of motion (ROM): Full ROM Focused Labs Anesthesia Preop lab: CBC WBC 11.5 K/mm3 (4.4-11.0) H 10/25/22 08:19 RBC 4.76 M/mm3 (4.2-5.4) 10/25/22 08:19 Hgb 13.6 g/dL (12.0-15.0) 10/25/22 08:19 Hct 42.5 % (37-47) 10/25/22 08:19 Plt Count 269 K/mm3 (150-450) 10/25/22 08:19 CHEMISTRY Potassium 3.4 mmol/L (3.5-5.1) L 10/25/22 08:19 Sodium 138 mmol/L (136-145) 10/25/22 08:19 BUN 14 mg/dL (7-18) 10/25/22 08:19 Creatinine 0.75 mg/dL (0.55-1.02) 10/25/22 08:19 Glucose 168 mg/dL (74-106) H 10/25/22 08:19 TSH 5.05 uIU/mL (0.358-3.74) H 03/12/19 04:40 COAG Pre-Assessment Diagnosis/Proposed Procedure Planned Operative Procedure(s): (B) Cysto,Ureteroscopy,Laser,Stent Anesthesia History Anesthesia History - engineer automated equipment: Anesthesia History - engineer automated equipment Hx Hospitalization No 05/30/24 10:08 Any Problems With Anesthesia No 05/30/24 10:08 Cholinesterase deficiency No 05/30/24 10:08 You/Your Family Experience No 05/30/24 10:08 fever (hyperthermia) with Relationship Recent Exposure to Contagious No 06/06/24 10:51 Disease Does patient have nerve No 05/30/24 10:08 stimulator Patient instructed to have device shut off --Does patient have Pacemaker No 06/06/24 10:51 or ICD? When Was Last Pacemaker Check QUESTION #4 FULL TEXT: You/Your Family Experience fever (hyperthermia) with Anesthesia Last Oral Intake Last Oral intake: Last Oral Intake NPO since 00:00 06/06/24 10:51 Meds taken in AM with sips of water? Meds patient instructed to take am of surgery PONV PONV - engineer automated equipment: PONV - engineer automated equipment Female Yes 05/30/24 10:08 HX of Motion Sickness Yes 05/30/24 10:08 HX of N/V After Surgery No 05/30/24 10:08 Non-Smoker Yes 05/30/24 10:08 Duration of Surgery greater No 05/30/24 10:08 than 60 minutes Number of Risk Factors 3 05/30/24 10:08 PONV Score Moderate Risk 05/30/24 10:08 Height & Weight Height & Weight: Anesthesia: Height & Weight Height 5 ft 06/06/24 10:51 Weight: 68.492 kg 06/06/24 10:51 Body Mass Index (BMI) 29.5 06/06/24 10:51 Respiratory Assessment Respiratory Assessment - engineer automated equipment: Respiratory Tract Infection Hx - engineer automated equipment Hx Respiratory Tract Infection No 05/30/24 10:08 STOP Sleep Apnea STOP Sleep Apnea - engineer automated equipment: STOP Sleep Apnea - engineer automated equipment Hx Hypertension Yes: CONTROLLED WITH MED 05/30/24 10:08 Hx Sleep Apnea Yes 05/30/24 10:08 CPAP Yes: NONCOMPLIANT 05/30/24 10:08 BIPAP No 05/30/24 10:08 Do you snore loudly (louder than talking or can be heard Do you often feel tired/ fatigued/ sleepy during daytime? Has anyone observed you stop breathing during sleep? STOP Results Positive 05/30/24 10:08 QUESTION #5 FULL TEXT : Do you snore loudly (louder than talking or can be heard through closed doors)? Tobacco Use History Tobacco Use History - engineer automated equipment: Tobacco Use History - engineer automated equipment Tobacco Use Non-smoker 06/26/19 08:38 Smoking Status Never smoker 05/30/24 10:08 Hx Tobacco Use No 05/30/24 10:08 Years Smoking Packs Smoked per Day Smoking Cessation Date was within the last 15 years Hx Smoking Cessation Date Hx Smoking Cessation Counseling Hematologic Medial History Hematologic Hx - engineer automated equipment: Hematologic Medical Hx - clinical engineering manager Hx of Blood Transfusion No 05/30/24 10:08 Hx of Transfusion in last 3 No 05/30/24 10:08 Months Date of Last Transfusion (if within last 3 months) Ever experience any problems No 05/30/24 10:08 with transfusion(s)? Specify any problems Hx of Preganancy in last 3 No 05/30/24 10:08 Months Nurse Filling Out Transfusion VCHRISTIN 05/30/24 10:08 & Questions: Date: 05/30/24 05/30/24 10:08 Time: 10:09 05/30/24 10:08 Patient unable to answer at this time (ie. confused, unrespo /Reproduction History /Reproductive History - engineer automated equipment: /Reproductive Hx- engineer automated equipment Hx Now No 05/30/24 10:08 Gestational Age (in weeks): EDC: Hx Hx Para Hx Section SAB No 05/30/24 10:08 Active Medications Active Medications: Current Medications Generic Name Dose Route Start Last Admin Trade Name Freq PRN Reason Stop Dose Admin Cefazolin Sodium 2 gm/ N/A 20 mls @ 400 mls/hr 06/06/24 12:45 IV 06/06/24 12:47 PREOP ONE Lactated Ringer's 1,000 mls @ 15 mls/hr 06/06/24 10:45 06/06/24 11:01 IV 06/12/24 00:04 15 mls/hr .Q48H TERENCE Administration Protocol PFSH Medical History History of steroid therapy Kidney stones History of diverticulitis History of echocardiogram Loss of hearing Wears glasses Wears partial dentures Post-menopausal Thyroid disease Easy bruising Back pain History of IBS Non-smoker History of edema CPAP (continuous positive airway pressure) dependence Weight loss Fatigue Abdominal pain Diarrhea Sleep apnea Hypertension Glaucoma Rotator cuff (capsule) sprain Hyperthyroidism Home Medications ?Medication ?Instructions ?Recorded ?Last Taken ?Type bimatoprost 0.01 % eye drops 1 drp EACH EYE QHS 07/07/22 Unknown History (Lumigan) brimonidine 0.1 % eye drops 1 drp EACH EYE BID 07/07/22 Unknown History (Alphagan P) prednisolone acetate (PF) 1 % eye 1 drp EACH EYE BID 07/07/22 Unknown History drops,suspension d-mannose 500 mg capsule (AZO 500 mg PO DAILY 06/25/23 Unknown History D-Mannose) difluprednate 0.05 % eye drops 1 drp ophthalmic (eye) Q6H 06/25/23 Unknown History cephalexin 500 mg capsule 500 mg PO 4X/DAY 05/30/24 Unknown History cyanocobalamin (vitamin B-12) 1,000 mcg PO DAILY 05/30/24 Unknown History 1,000 mcg tablet,extended release (Vitamin B-12 ER) lisinopril 20 mg tablet 20 mg PO DAILY 05/30/24 Unknown History Allergy/AdvReac Type Severity Reaction Status Date / Time celecoxib (From Celebrex) Allergy Hives Verified 06/06/24 10:50 Sulfa (Sulfonamide Allergy Hives Verified 06/06/24 10:50 Antibiotics) nitrofurantoin AdvReac flu like Verified 06/06/24 10:50 symptoms Family History Mother Colon cancer Hypertension Thyroid disorder Surgical History Hx of colonoscopy Hx of colonoscopy Hx of cystoscopy History of lumpectomy S/P rotator cuff repair History of cholecystectomy H/O: hysterectomy H/O carpal tunnel repair H/O eye surgery Social History household members: spouse housing: house Smoking Status: Never smoker alcohol intake: current alcohol intake frequency: holidays/special occasions only substance use type: does not use Review of Systems (Anesthesia) ROS Narrative System reviewed and no additional complaints, except as documented.
[2024-06-06] MEDS: Cefazolin 2 GM in Syringe IV (12:58)
--- NOTE | 2024-06-06 13:52 | PCM.HP.STD ---
HPI - General General Date of Admission: 06/06/24 Date of Service: 06/06/24 Chief Complaint: Bilateral kidney stones HPI Narrative JOSE RAFAEL LIU, is a 79 F who presents for treatment of bilateral kidney stones with laser lithotripsy and stent PFSH Medical History History of steroid therapy Kidney stones History of diverticulitis History of echocardiogram Loss of hearing Wears glasses Wears partial dentures Post-menopausal Thyroid disease Easy bruising Back pain History of IBS Non-smoker History of edema CPAP (continuous positive airway pressure) dependence Weight loss Fatigue Abdominal pain Diarrhea Sleep apnea Hypertension Glaucoma Rotator cuff (capsule) sprain Hyperthyroidism Home Medications ?Medication ?Instructions ?Recorded ?Last Taken ?Type bimatoprost 0.01 % eye drops 1 drp EACH EYE QHS 07/07/22 Unknown History (Lumigan) brimonidine 0.1 % eye drops 1 drp EACH EYE BID 07/07/22 Unknown History (Alphagan P) prednisolone acetate (PF) 1 % eye 1 drp EACH EYE BID 07/07/22 Unknown History drops,suspension d-mannose 500 mg capsule (AZO 500 mg PO DAILY 06/25/23 Unknown History D-Mannose) difluprednate 0.05 % eye drops 1 drp ophthalmic (eye) Q6H 06/25/23 Unknown History cephalexin 500 mg capsule 500 mg PO 4X/DAY 05/30/24 Unknown History cyanocobalamin (vitamin B-12) 1,000 mcg PO DAILY 05/30/24 Unknown History 1,000 mcg tablet,extended release (Vitamin B-12 ER) lisinopril 20 mg tablet 20 mg PO DAILY 05/30/24 Unknown History ciprofloxacin HCl 500 mg tablet 500 mg PO BID #14 tabs 06/06/24 Unknown Rx (Cipro) oxycodone 5 mg tablet 5 mg PO Q6H PRN pain 3 days #14 06/06/24 Unknown Rx tabs Allergy/AdvReac Type Severity Reaction Status Date / Time celecoxib (From Celebrex) Allergy Hives Verified 06/06/24 10:50 Sulfa (Sulfonamide Allergy Hives Verified 06/06/24 10:50 Antibiotics) nitrofurantoin AdvReac flu like Verified 06/06/24 10:50 symptoms Family History Mother Colon cancer Hypertension Thyroid disorder Surgical History Hx of colonoscopy Hx of colonoscopy Hx of cystoscopy History of lumpectomy S/P rotator cuff repair History of cholecystectomy H/O: hysterectomy H/O carpal tunnel repair H/O eye surgery Social History household members: spouse housing: house Smoking Status: Never smoker alcohol intake: current alcohol intake frequency: holidays/special occasions only substance use type: does not use Vital Signs Vital Signs Vital Signs: 06/06/24 10:51 06/06/24 10:51 06/06/24 11:48 Temperature 97.5 F L 97.5 F L Temperature Source Temporal Pulse Rate 77 77 Respiratory Rate 16 16 Respiratory Pattern Normal Blood Pressure 132/83 H 132/83 H Blood Pressure Mean 99 Blood Pressure Source Monitor Blood Pressure Position Semi-Fowlers Blood Pressure Location Left Arm Pulse Ox 95 95 Oxygen Delivery Method Room Air Room Air Weight Weight: 68.492 kg Body Mass Index (BMI) 29.5
--- NOTE | 2024-06-06 13:52 | PCM.DC ---
Discharge Instructions Diet Discharge Diet: No restrictions Activity Discharge Activity: Return to Normal Activity and May Not Drive (while taking narcotic pain medications.) Dressing / Incision Call your doctor if you observe: Fever of 101 or Higher Follow Up Care Please Follow Up With: Rajinder Paz MD When: Call [phone] for an appointment Test Results: Test results from this visit will be discussed in further detail at your follow-up appointment, if applicable. Discharge Plan Admission Primary Reason for Your Visit: laser stones Attending Provider: Rajinder Paz Primary Care Provider: CRISTY DAVIDSON Instructions Print Language: Citizen Of [place] Discharge Orders/Prescriptions Prescriptions: New ciprofloxacin HCl [Cipro] 500 mg tablet 500 mg PO BID Qty: 14 0RF oxycodone 5 mg tablet 5 mg PO Q6H PRN (Reason: pain) 3 Days Qty: 14 0RF Continued difluprednate 0.05 % drops 1 drp ophthalmic (eye) Q6H Patient Comments: PLACE 1 DROP IN THE RIGHT EYE FOUR TIMES DAILY AZO D-Mannose 500 mg capsule 500 mg PO DAILY brimonidine [Alphagan P] 0.1 % Drops 1 drp EACH EYE BID Lumigan 0.01 % Drops 1 drp EACH EYE QHS prednisolone acetate (PF) 1 % Drops,Suspension 1 drp EACH EYE BID lisinopril 20 mg tablet 20 mg PO DAILY cyanocobalamin (vitamin B-12) [Vitamin B-12] 1,000 mcg tablet extended release 1,000 mcg PO DAILY cephalexin 500 mg capsule 500 mg PO 4X/DAY Referrals / Follow Up: CRISTY DAVIDSON MD [Primary Care Provider] - Rajinder Paz MD [Med Staff - Active Staff] - Disposition Disposition (needs filled in before D/C Order can be placed): Home, Self Care
--- NOTE | 2024-06-06 13:52 | PCM.OPRPT ---
Operative Report (Standard) Operative Information Surgery/Procedure Performed: Cystoscopy, right ureteroscopy laser lithotripsy of stone and right stent placement, balloon dilation of the left ureter left ureteroscopy, left stent placement Surgeon: Rajinder Paz Date of Procedure: 06/06/24 Procedure Start Time: 12:58 Procedure Stop Time: 13:53 Pre-Operative Diagnosis: Bilateral kidney stones Post-Operative Diagnosis: Bilateral kidney stones Select all DRAINS/GRAFTS/IMPLANTS that apply: Drains Drain details: Right stent, and left stent, Type of Anesthesia: General Estimated Blood Loss: None Specimen collected: No Description of surgery: This is a patient who presents to the hospital for treatment for an obstructing ureter calculi. I discussed with the patient how the surgery would be performed and we reviewed the risks and benefits of the surgery. The risk and benefits include the risk of failure to remove the stone completely and that the patient may need multiple procedures. We discussed the risk of an infection, the risk of bleeding. We discussed the very rare risk of serious complicated injury to the ureter. The patient understands that if the stone is not able to be removed safely that we may abort the procedure and place a stent. After full discussion and all questions address with the patient the consent form was signed the side was marked appropriately and the patient was taken back to the operating room for the procedure. The patient was taken back to the operating room. After induction of anesthesia by the anesthesiology team the patient was placed in dorsolithotomy position. The genitals were prepped and draped in usual sterile fashion. I went into the bladder with a 21 [place] rigid cystourethroscope through the urethra. Upon entering the bladder I inspected the trigone the left and right ureteral orifice and the bladder itself. I then cannulated the Right ureteral orifice and advanced a 0.038 Glidewire up into the kidney. I was able to go inside with the 7.5Fr utereroscope and I pulled out the guidewire and then through the ureteroscope I engage the stone in the kidney with laser lithotripsy using a 270miron laser fiber with energy setting of 6 Hertz and 0.6 J until the stone was lasered into tiny little pieces that should pass on their own. I then backed out of the ureter left the wire in place and then over the 0.038 guidewire I placed a double coiled pigtail ureteral stent. The ureteral stent was advanced over the 0.038 guidewire under direct fluoroscopic guidance and direct cystoscopic visual guidance, once the stent was in good position I pulled the wire and the stent coiled in the kidney and bladder in good position. I went into the bladder with a 21 [place] rigid cystourethroscope through the urethra. Upon entering the bladder I inspected the trigone the left and right ureteral orifice and the bladder itself. I then cannulated the Left ureteral orifice and advanced a 0.038 Glidewire up into the kidney. Ureter was too tight so balloon dilated the distal left ureter. I was then able to go inside with the 7.5Fr utereroscope and I pulled out the guidewire and then through the ureteroscope went up the ureter but then the ureter at the Left UPJ was too tight to pass. So I decided to leaves stent and plan for shochwave lithotripsy for that stone. The ureteral stent was advanced over the 0.038 guidewire under direct fluoroscopic guidance and direct cystoscopic visual guidance, once the stent was in good position I pulled the wire and the stent coiled in the kidney and bladder in good position. I then drained the patient's bladder and the cystoscope was removed and the patient was taken back to the recovery room in good position. The patient was given discharge instructions to call the office for instructions on when to come to the office for a postop check. Surgical Findings: Stone in the right kidney lasered completely, ureter on the left side too narrow not able to reach stone with ureteroscope stent placed Municipal Bond Trader manager army: No Complications Complications: No Admit VTE Documentation VTE Present on Admission: No VTE Mechan Device Prophylaxis: SCD's
--- NOTE | 2024-06-06 14:01 | PCM.POST.ANE ---
Anesthesia: Postop Eval I Current Vital Signs Temperature: 97.8 F Pulse Rate: 74 Blood Pressure: 124/87 Respiratory Rate: 16 Pulse Ox: 97 Oxygen Delivery Method: Room Air Assessment Airway patent: Yes Spontaneous unlabored respirations: Yes Mental status: Awake and Calm nausea: No Vomiting: No Anesthesia Complication: No Fluid Hydration Crystalloid volume administer (ml): 300 Total IV fluid infused: 300 Progress Note Anesthesia document: Postop Eval 1 completed: Yes
[2024-06-06] MEDS: Ketorolac 30 MG/ML Syringe 15 MG IV (15:34)
[2024-06-06] MEDS: Acetaminophen 325 MG Tablet 650 MG PO (15:40)
--- NOTE | 2024-06-06 16:35 | POSTOPAN2_ITS ---
Anesthesia Postop Eval I Sum Postop Eval Completion status Anesthesia document: Postop Eval 1 completed: Yes Anesthesia Postop Eval I Summary Anesthesia Postop Eval I Summary: Anesthesia Postop Eval I: Assessment Summary Airway patent Yes 06/06/24 14:01 TECHNICAL MAINTENANCE SPECIALIST.CLOTILDEOBJuan J Spontaneous unlabored Yes 06/06/24 14:01 TECHNICAL MAINTENANCE SPECIALIST.FLAVIO respirations Mental status Awake,Calm 06/06/24 14:01 TECHNICAL MAINTENANCE SPECIALIST.FLAVIO nausea No 06/06/24 14:01 TECHNICAL MAINTENANCE SPECIALIST.FLAVIO Vomiting No 06/06/24 14:01 TECHNICAL MAINTENANCE SPECIALIST.FLAVIO Anesthesia Postop Eval I: Fluid Summary Crystalloid volume administer 300 06/06/24 14:01 TECHNICAL MAINTENANCE SPECIALIST.CLOTILDEOBY (ml) Colloids volume administered ( ml) Blood Product volume administered (ml) Total IV fluid infused 300 06/06/24 14:01 TECHNICAL MAINTENANCE SPECIALIST.FLAVIO Anesthesia Postop Eval I: Summary Notes Anesthesia Complication No 06/06/24 14:01 TECHNICAL MAINTENANCE SPECIALIST.FLAVIO Anesthesia Complication Comment: Post-operative progress note Anesthesia: Postop Eval II Evaluation Mental status: Awake and Calm Pain Level: 1 nausea: No Vomiting: No Complications Anesthesia Complication: No
--- NOTE | 2024-06-06 16:35 | PCM.POSTANE2 ---
Anesthesia Postop Eval I Sum Postop Eval Completion status Anesthesia document: Postop Eval 1 completed: Yes Anesthesia Postop Eval I Summary Anesthesia Postop Eval I Summary: Anesthesia Postop Eval I: Assessment Summary Airway patent Yes 06/06/24 14:01 HANDSTITCHING MACHINE ARMHOLE FELLER.CLOTILDEOBJuan J Spontaneous unlabored Yes 06/06/24 14:01 HANDSTITCHING MACHINE ARMHOLE FELLER.FLAVIO respirations Mental status Awake,Calm 06/06/24 14:01 HANDSTITCHING MACHINE ARMHOLE FELLER.FLAVIO nausea No 06/06/24 14:01 HANDSTITCHING MACHINE ARMHOLE FELLER.FLAVIO Vomiting No 06/06/24 14:01 HANDSTITCHING MACHINE ARMHOLE FELLER.FLAVIO Anesthesia Postop Eval I: Fluid Summary Crystalloid volume administer 300 06/06/24 14:01 HANDSTITCHING MACHINE ARMHOLE FELLER.CLOTILDEOBY (ml) Colloids volume administered ( ml) Blood Product volume administered (ml) Total IV fluid infused 300 06/06/24 14:01 HANDSTITCHING MACHINE ARMHOLE FELLER.FLAVIO Anesthesia Postop Eval I: Summary Notes Anesthesia Complication No 06/06/24 14:01 HANDSTITCHING MACHINE ARMHOLE FELLER.FLAVIO Anesthesia Complication Comment: Post-operative progress note Anesthesia: Postop Eval II Evaluation Mental status: Awake and Calm Pain Level: 1 nausea: No Vomiting: No Complications Anesthesia Complication: No
== END 2024-06-06 16:46 | disposition home or self-care (01) ==
LOC: SDC 10:29 → AC 10:30
PROVIDERS: PCP Family Medicine; Referring Provider Urology; Visit Provider Urology
PROC: 0TJ98ZZ Inspection of Ureter, Via Natural or Artificial Opening Endoscopic (ICD-10-PCS; CPT 52352; principal; 2024-06-06 12:35)
DX: N20.0 Calculus of kidney (principal); I10 Essential (primary) hypertension; H40.9 Unspecified glaucoma; G47.30 Sleep apnea, unspecified; Z88.1 Allergy status to other antibiotic agents; Z88.2 Allergy status to sulfonamides; Z87.19 Personal history of other diseases of the digestive system; Z90.49 Acquired absence of other specified parts of digestive tract; Z87.442 Personal history of urinary calculi; Z79.899 Other long term (current) drug therapy; Z91.199 Patient's noncompliance with other medical treatment and regimen due to unspecified reason
CPT/HCPCS: 52356; 76000; J7120; C1769; C2617; J2405

== ENCOUNTER 2024-06-11 11:28 | Day surgery (SDC) | payer MEDICARE, BC, SELFPAY ==
[2024-06-11] VITALS (15 sets, daily range): BP systolic 85–151; BP diastolic 57–90; PULSE 91–110; RESP 16–18; TEMP 36.1–36.3; O2SAT 92–99; BMI 28.8
[2024-06-11] MEDS: Lactated Ringers 1,000 ML 15 ML IV (12:08)
--- NOTE | 2024-06-11 12:36 | PRE.ANES_ITS ---
ASA Classification* ASA Classification ASA Classification: 2 Assessment & Plan Anesthesia* Anesthesia Assessment Anesthesia Assessment: Discussed sedation and/or anesthesia options, risks, benefits, and alternatives with patient/parents/legal guardian/POA. Questions invited. The patient/parents/legal guardian/POA seems to understand and agrees to proceed with anesthesia plan. Reviewed the physical assessment, medical history, allergy history and patient home medications list prior to surgery/procedure/anesthetic and documented any changes. Performed airway and anesthesia risk assessments. Anesthesia Type Anesthesia Type: General Anesthesia Focused Assessment* Temperature: 97 F Pulse Rate: 95 Blood Pressure: 134/73 Respiratory Rate: 16 Pulse Ox: 99 Airway Assessment Mouth opens: >3 cm Mallampati Score: II Focused Labs Anesthesia Preop lab: CBC WBC 11.5 K/mm3 (4.4-11.0) H 10/25/22 08:19 RBC 4.76 M/mm3 (4.2-5.4) 10/25/22 08:19 Hgb 13.6 g/dL (12.0-15.0) 10/25/22 08:19 Hct 42.5 % (37-47) 10/25/22 08:19 Plt Count 269 K/mm3 (150-450) 10/25/22 08:19 CHEMISTRY Potassium 3.4 mmol/L (3.5-5.1) L 10/25/22 08:19 Sodium 138 mmol/L (136-145) 10/25/22 08:19 BUN 14 mg/dL (7-18) 10/25/22 08:19 Creatinine 0.75 mg/dL (0.55-1.02) 10/25/22 08:19 Glucose 168 mg/dL (74-106) H 10/25/22 08:19 TSH 5.05 uIU/mL (0.358-3.74) H 03/12/19 04:40 COAG Pre-Assessment Diagnosis/Proposed Procedure Planned Operative Procedure(s): LEFT URETEROSCOPY LASER STONE RIGHT STENT REMOVAL Anesthesia History Anesthesia History - associate school psychologist: Anesthesia History - associate school psychologist Hx Hospitalization No 06/10/24 14:49 Any Problems With Anesthesia No 06/10/24 14:49 Cholinesterase deficiency No 06/10/24 14:49 You/Your Family Experience No 06/10/24 14:49 fever (hyperthermia) with Relationship Recent Exposure to Contagious No 06/11/24 11:59 Disease Does patient have nerve No 06/10/24 14:49 stimulator Patient instructed to have device shut off --Does patient have Pacemaker No 06/11/24 11:59 or ICD? When Was Last Pacemaker Check QUESTION #4 FULL TEXT: You/Your Family Experience fever (hyperthermia) with Anesthesia Last Oral Intake Last Oral intake: Last Oral Intake NPO since 18:00 06/11/24 11:59 Meds taken in AM with sips of No 06/11/24 11:59 water? Meds patient instructed to take am of surgery PONV PONV - associate school psychologist: PONV - associate school psychologist Female Yes 06/10/24 14:49 HX of Motion Sickness Yes 06/10/24 14:49 HX of N/V After Surgery No 06/10/24 14:49 Non-Smoker Yes 06/10/24 14:49 Duration of Surgery greater Yes 06/10/24 14:49 than 60 minutes Number of Risk Factors 4 06/10/24 14:49 PONV Score Severe Risk 06/10/24 14:49 Height & Weight Height & Weight: Anesthesia: Height & Weight Height 5 ft 06/11/24 11:59 Weight: 67 kg 06/11/24 11:59 Body Mass Index (BMI) 28.8 06/11/24 11:59 Respiratory Assessment Respiratory Assessment - associate school psychologist: Respiratory Tract Infection Hx - associate school psychologist Hx Respiratory Tract Infection No 06/10/24 14:49 STOP Sleep Apnea STOP Sleep Apnea - associate school psychologist: STOP Sleep Apnea - associate school psychologist Hx Hypertension Yes: CONTROLLED WITH MED 06/10/24 14:49 Hx Sleep Apnea Yes 06/10/24 14:49 CPAP Yes: NONCOMPLIANT 06/10/24 14:49 BIPAP No 06/10/24 14:49 Do you snore loudly (louder than talking or can be heard Do you often feel tired/ fatigued/ sleepy during daytime? Has anyone observed you stop breathing during sleep? STOP Results Positive 06/10/24 14:49 QUESTION #5 FULL TEXT : Do you snore loudly (louder than talking or can be heard through closed doors)? Tobacco Use History Tobacco Use History - associate school psychologist: Tobacco Use History - associate school psychologist Tobacco Use Non-smoker 12/12/19 08:38 Smoking Status Never smoker 06/10/24 14:49 Hx Tobacco Use No 06/10/24 14:49 Years Smoking Packs Smoked per Day Smoking Cessation Date was within the last 15 years Hx Smoking Cessation Date Hx Smoking Cessation Counseling Hematologic Medial History Hematologic Hx - associate school psychologist: Hematologic Medical Hx - nurses superintendent Hx of Blood Transfusion No 06/10/24 14:49 Hx of Transfusion in last 3 No 06/10/24 14:49 Months Date of Last Transfusion (if within last 3 months) Ever experience any problems No 06/10/24 14:49 with transfusion(s)? Specify any problems Hx of Preganancy in last 3 No 06/10/24 14:49 Months Nurse Filling Out Transfusion DSCHRIBER 06/10/24 14:49 & Questions: Date: 06/10/24 06/10/24 14:49 Time: 14:52 06/10/24 14:49 Patient unable to answer at this time (ie. confused, unrespo /Reproduction History /Reproductive History - associate school psychologist: /Reproductive Hx- associate school psychologist Hx Now Gestational Age (in weeks): EDC: Hx Hx Para Hx Section SAB No 06/10/24 14:49 Active Medications Active Medications: Current Medications Generic Name Dose Route Start Last Admin Trade Name Freq PRN Reason Stop Dose Admin Cefazolin Sodium 2 gm/ N/A 20 mls @ 400 mls/hr 06/11/24 14:05 IV 06/11/24 14:07 PREOP ONE Lactated Ringer's 1,000 mls @ 15 mls/hr 06/11/24 11:45 06/11/24 12:08 IV 06/17/24 01:04 15 mls/hr .Q48H TERENCE Administration Protocol [facility] Medical History History of steroid therapy History of diverticulitis History of echocardiogram Loss of hearing Wears glasses Wears partial dentures Post-menopausal Thyroid disease Easy bruising Back pain History of IBS Non-smoker History of edema CPAP (continuous positive airway pressure) dependence Weight loss Fatigue Abdominal pain Diarrhea Hypertension Glaucoma Rotator cuff (capsule) sprain Home Medications ?Medication ?Instructions ?Recorded ?Last Taken ?Type bimatoprost 0.01 % eye drops 1 drp EACH EYE QHS 07/07/22 06/10/24 History (Lumigan) brimonidine 0.1 % eye drops 1 drp EACH EYE BID 07/07/22 06/10/24 History (Alphagan P) prednisolone acetate (PF) 1 % eye 1 drp EACH EYE BID 07/07/22 06/11/24 History drops,suspension d-mannose 500 mg capsule (AZO 500 mg PO DAILY 06/25/23 Unknown History D-Mannose) difluprednate 0.05 % eye drops 1 drp ophthalmic (eye) Q6H 06/25/23 06/10/24 History cyanocobalamin (vitamin B-12) 1,000 mcg PO DAILY 05/30/24 06/10/24 History 1,000 mcg tablet,extended release (Vitamin B-12 ER) lisinopril 20 mg tablet 20 mg PO DAILY 05/30/24 06/10/24 History ciprofloxacin HCl 500 mg tablet 500 mg PO BID #14 tabs 06/06/24 06/10/24 Rx (Cipro) ondansetron 4 mg disintegrating 4 mg PO Q6H PRN nausea and 06/06/24 06/10/24 Rx tablet vomiting #10 tabs oxycodone 5 mg tablet 5 mg PO Q6H PRN pain 3 days #14 06/06/24 Unknown Rx tabs Allergy/AdvReac Type Severity Reaction Status Date / Time celecoxib (From Celebrex) Allergy Hives Verified 06/11/24 11:56 Sulfa (Sulfonamide Allergy Hives Verified 06/11/24 11:56 Antibiotics) nitrofurantoin AdvReac flu like Verified 06/11/24 11:56 symptoms Family History Mother Colon cancer Hypertension Thyroid disorder Surgical History Hx of colonoscopy Hx of colonoscopy Hx of cystoscopy History of lumpectomy S/P rotator cuff repair History of cholecystectomy H/O: hysterectomy H/O carpal tunnel repair H/O eye surgery Social History household members: spouse housing: house Smoking Status: Never smoker alcohol intake: current alcohol intake frequency: holidays/special occasions only substance use type: does not use Review of Systems (Anesthesia) ROS Narrative System reviewed and no additional complaints, except as documented.
--- NOTE | 2024-06-11 12:36 | PRE.ANES_ITS ---
ASA Classification* ASA Classification ASA Classification: 2 Assessment & Plan Anesthesia* Anesthesia Assessment Anesthesia Assessment: Discussed sedation and/or anesthesia options, risks, benefits, and alternatives with patient/parents/legal guardian/POA. Questions invited. The patient/parents/legal guardian/POA seems to understand and agrees to proceed with anesthesia plan. Reviewed the physical assessment, medical history, allergy history and patient home medications list prior to surgery/procedure/anesthetic and documented any changes. Performed airway and anesthesia risk assessments. Anesthesia Type Anesthesia Type: General Anesthesia Focused Assessment* Temperature: 97 F Pulse Rate: 95 Blood Pressure: 134/73 Respiratory Rate: 16 Pulse Ox: 99 Airway Assessment Mouth opens: >3 cm Mallampati Score: II Focused Labs Anesthesia Preop lab: CBC WBC 11.5 K/mm3 (4.4-11.0) H 10/25/22 08:19 RBC 4.76 M/mm3 (4.2-5.4) 10/25/22 08:19 Hgb 13.6 g/dL (12.0-15.0) 10/25/22 08:19 Hct 42.5 % (37-47) 10/25/22 08:19 Plt Count 269 K/mm3 (150-450) 10/25/22 08:19 CHEMISTRY Potassium 3.4 mmol/L (3.5-5.1) L 10/25/22 08:19 Sodium 138 mmol/L (136-145) 10/25/22 08:19 BUN 14 mg/dL (7-18) 10/25/22 08:19 Creatinine 0.75 mg/dL (0.55-1.02) 10/25/22 08:19 Glucose 168 mg/dL (74-106) H 10/25/22 08:19 TSH 5.05 uIU/mL (0.358-3.74) H 03/12/19 04:40 COAG Pre-Assessment Diagnosis/Proposed Procedure Planned Operative Procedure(s): LEFT URETEROSCOPY LASER STONE RIGHT STENT REMOVAL Anesthesia History 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 When Was Last Pacemaker Check QUESTION #4 FULL TEXT: You/Your Family Experience fever (hyperthermia) with Anesthesia Last Oral Intake Last Oral intake: Last Oral Intake NPO since 18:00 06/11/24 11:59 Meds taken in AM with sips of No 06/11/24 11:59 water? Meds patient instructed to take am of surgery PONV PONV - storm door maker: PONV - storm door maker Female Yes 06/10/24 14:49 HX of Motion Sickness Yes 06/10/24 14:49 HX of N/V After Surgery No 06/10/24 14:49 Non-Smoker Yes 06/10/24 14:49 Duration of Surgery greater Yes 06/10/24 14:49 than 60 minutes Number of Risk Factors 4 06/10/24 14:49 PONV Score Severe Risk 06/10/24 14:49 Height & Weight Height & Weight: Anesthesia: Height & Weight Height 5 ft 06/11/24 11:59 Weight: 67 kg 06/11/24 11:59 Body Mass Index (BMI) 28.8 06/11/24 11:59 Respiratory Assessment Respiratory Assessment - storm door maker: Respiratory Tract Infection Hx - storm door maker Hx Respiratory Tract Infection No 06/10/24 14:49 STOP Sleep Apnea STOP Sleep Apnea - storm door maker: STOP Sleep Apnea - storm door maker Hx Hypertension Yes: CONTROLLED WITH MED 06/10/24 14:49 Hx Sleep Apnea Yes 06/10/24 14:49 CPAP Yes: NONCOMPLIANT 06/10/24 14:49 BIPAP No 06/10/24 14:49 Do you snore loudly (louder than talking or can be heard Do you often feel tired/ fatigued/ sleepy during daytime? Has anyone observed you stop breathing during sleep? STOP Results Positive 06/10/24 14:49 QUESTION #5 FULL TEXT : Do you snore loudly (louder than talking or can be heard through closed doors)? Tobacco Use History Tobacco Use History - storm door maker: Tobacco Use History - storm door maker Tobacco Use Non-smoker 12/12/19 08:38 Smoking Status Never smoker 06/10/24 14:49 Hx Tobacco Use No 06/10/24 14:49 Years Smoking Packs Smoked per Day Smoking Cessation Date was within the last 15 years Hx Smoking Cessation Date Hx Smoking Cessation Counseling Hematologic Medial History Hematologic Hx - storm door maker: Hematologic Medical Hx - steel box toe inserter Hx of Blood Transfusion No 06/10/24 14:49 Hx of Transfusion in last 3 No 06/10/24 14:49 Months Date of Last Transfusion (if within last 3 months) Ever experience any problems No 06/10/24 14:49 with transfusion(s)? Specify any problems Hx of Preganancy in last 3 No 06/10/24 14:49 Months Nurse Filling Out Transfusion DSCHRIBER 06/10/24 14:49 & Questions: Date: 06/10/24 06/10/24 14:49 Time: 14:52 06/10/24 14:49 Patient unable to answer at this time (ie. confused, unrespo /Reproduction History /Reproductive History - storm door maker: /Reproductive Hx- storm door maker Hx Now Gestational Age (in weeks): EDC: Hx Hx Para Hx Section SAB No 06/10/24 14:49 Active Medications Active Medications: Current Medications Generic Name Dose Route Start Last Admin Trade Name Freq PRN Reason Stop Dose Admin Cefazolin Sodium 2 gm/ N/A 20 mls @ 400 mls/hr 06/11/24 14:05 IV 06/11/24 14:07 PREOP ONE Lactated Ringer's 1,000 mls @ 15 mls/hr 06/11/24 11:45 06/11/24 12:08 IV 06/17/24 01:04 15 mls/hr .Q48H TERENCE Administration Protocol [facility] Medical History History of steroid therapy History of diverticulitis History of echocardiogram Loss of hearing Wears glasses Wears partial dentures Post-menopausal Thyroid disease Easy bruising Back pain History of IBS Non-smoker History of edema CPAP (continuous positive airway pressure) dependence Weight loss Fatigue Abdominal pain Diarrhea Hypertension Glaucoma Rotator cuff (capsule) sprain Home Medications ?Medication ?Instructions ?Recorded ?Last Taken ?Type bimatoprost 0.01 % eye drops 1 drp EACH EYE QHS 07/07/22 06/10/24 History (Lumigan) brimonidine 0.1 % eye drops 1 drp EACH EYE BID 07/07/22 06/10/24 History (Alphagan P) prednisolone acetate (PF) 1 % eye 1 drp EACH EYE BID 07/07/22 06/11/24 History drops,suspension d-mannose 500 mg capsule (AZO 500 mg PO DAILY 06/25/23 Unknown History D-Mannose) difluprednate 0.05 % eye drops 1 drp ophthalmic (eye) Q6H 06/25/23 06/10/24 History cyanocobalamin (vitamin B-12) 1,000 mcg PO DAILY 05/30/24 06/10/24 History 1,000 mcg tablet,extended release (Vitamin B-12 ER) lisinopril 20 mg tablet 20 mg PO DAILY 05/30/24 06/10/24 History ciprofloxacin HCl 500 mg tablet 500 mg PO BID #14 tabs 06/06/24 06/10/24 Rx (Cipro) ondansetron 4 mg disintegrating 4 mg PO Q6H PRN nausea and 06/06/24 06/10/24 Rx tablet vomiting #10 tabs oxycodone 5 mg tablet 5 mg PO Q6H PRN pain 3 days #14 06/06/24 Unknown Rx tabs Allergy/AdvReac Type Severity Reaction Status Date / Time celecoxib (From Celebrex) Allergy Hives Verified 06/11/24 11:56 Sulfa (Sulfonamide Allergy Hives Verified 06/11/24 11:56 Antibiotics) nitrofurantoin AdvReac flu like Verified 06/11/24 11:56 symptoms Family History Mother Colon cancer Hypertension Thyroid disorder Surgical History Hx of colonoscopy Hx of colonoscopy Hx of cystoscopy History of lumpectomy S/P rotator cuff repair History of cholecystectomy H/O: hysterectomy H/O carpal tunnel repair H/O eye surgery Social History household members: spouse housing: house Smoking Status: Never smoker alcohol intake: current alcohol intake frequency: holidays/special occasions only substance use type: does not use Review of Systems (Anesthesia) ROS Narrative System reviewed and no additional complaints, except as documented.
--- NOTE | 2024-06-11 13:30 | PCM.HP.STD ---
HPI - General General Date of Service: 06/11/24 Chief Complaint: Left kidney stone HPI Narrative JOSE RAFAEL LIU, is a 79 F who presents to laser of stone in the left kidney I was unable to reach the stone because of very tight ureter stent has been placed to dilate the ureter now we plan to laser the stone in the left kidney and remove the right stent [facility] Medical History History of steroid therapy History of diverticulitis History of echocardiogram Loss of hearing Wears glasses Wears partial dentures Post-menopausal Thyroid disease Easy bruising Back pain History of IBS Non-smoker History of edema CPAP (continuous positive airway pressure) dependence Weight loss Fatigue Abdominal pain Diarrhea Hypertension Glaucoma Rotator cuff (capsule) sprain Home Medications ?Medication ?Instructions ?Recorded ?Last Taken ?Type bimatoprost 0.01 % eye drops 1 drp EACH EYE QHS 07/07/22 06/10/24 History (Lumigan) brimonidine 0.1 % eye drops 1 drp EACH EYE BID 07/07/22 06/10/24 History (Alphagan P) prednisolone acetate (PF) 1 % eye 1 drp EACH EYE BID 07/07/22 06/11/24 History drops,suspension d-mannose 500 mg capsule (AZO 500 mg PO DAILY 06/25/23 Unknown History D-Mannose) difluprednate 0.05 % eye drops 1 drp ophthalmic (eye) Q6H 06/25/23 06/10/24 History cyanocobalamin (vitamin B-12) 1,000 mcg PO DAILY 05/30/24 06/10/24 History 1,000 mcg tablet,extended release (Vitamin B-12 ER) lisinopril 20 mg tablet 20 mg PO DAILY 05/30/24 06/10/24 History ciprofloxacin HCl 500 mg tablet 500 mg PO BID #14 tabs 06/06/24 06/10/24 Rx (Cipro) ondansetron 4 mg disintegrating 4 mg PO Q6H PRN nausea and 06/06/24 06/10/24 Rx tablet vomiting #10 tabs oxycodone 5 mg tablet 5 mg PO Q6H PRN pain 3 days #14 06/06/24 Unknown Rx tabs Allergy/AdvReac Type Severity Reaction Status Date / Time celecoxib (From Celebrex) Allergy Hives Verified 06/11/24 11:56 Sulfa (Sulfonamide Allergy Hives Verified 06/11/24 11:56 Antibiotics) nitrofurantoin AdvReac flu like Verified 06/11/24 11:56 symptoms Family History Mother Colon cancer Hypertension Thyroid disorder Surgical History Hx of colonoscopy Hx of colonoscopy Hx of cystoscopy History of lumpectomy S/P rotator cuff repair History of cholecystectomy H/O: hysterectomy H/O carpal tunnel repair H/O eye surgery Social History household members: spouse housing: house Smoking Status: Never smoker alcohol intake: current alcohol intake frequency: holidays/special occasions only substance use type: does not use Vital Signs Vital Signs Vital Signs: 06/11/24 11:59 06/11/24 11:59 06/11/24 12:36 Temperature 97 F L 97 F L Temperature Source Temporal Pulse Rate 95 95 Respiratory Rate 16 16 Respiratory Pattern Normal Blood Pressure 134/73 H 134/73 H Blood Pressure Mean 93 Blood Pressure Source Monitor Blood Pressure Position Sitting Blood Pressure Location Right Arm Pulse Ox 99 99 Oxygen Delivery Method Room Air Weight Weight: 67 kg Body Mass Index (BMI) 28.8
--- NOTE | 2024-06-11 13:52 | PCM.DC ---
Discharge Instructions Diet Discharge Diet: No restrictions DC O2, CPAP, BIPAP needs Additional Home O2 Discharge instructions: No Dressing / Incision Discharge Activity: Return to Normal Activity and May Not Drive (while taking narcotic pain medications.) Dressing / Incision Call your doctor if you observe: Fever of 101 or Higher Follow Up Care Please Follow Up With: Rajinder Paz MD When: Call [phone] for an appointment Test Results: Test results from this visit will be discussed in further detail at your follow-up appointment, if applicable. Discharge Plan Admission Attending Provider: Rajinder Paz Primary Care Provider: CRISTY DAVIDSON Instructions Print Language: Lithuanian Discharge Orders/Prescriptions Prescriptions: No Action difluprednate 0.05 % drops 1 drp ophthalmic (eye) Q6H Patient Comments: PLACE 1 DROP IN THE RIGHT EYE FOUR TIMES DAILY AZO D-Mannose 500 mg capsule 500 mg PO DAILY brimonidine [Alphagan P] 0.1 % Drops 1 drp EACH EYE BID Lumigan 0.01 % Drops 1 drp EACH EYE QHS prednisolone acetate (PF) 1 % Drops,Suspension 1 drp EACH EYE BID lisinopril 20 mg tablet 20 mg PO DAILY cyanocobalamin (vitamin B-12) [Vitamin B-12] 1,000 mcg tablet extended release 1,000 mcg PO DAILY ciprofloxacin HCl [Cipro] 500 mg tablet 500 mg PO BID Qty: 14 0RF oxycodone 5 mg tablet 5 mg PO Q6H PRN (Reason: pain) 3 Days Qty: 14 0RF ondansetron 4 mg tablet,disintegrating 4 mg PO Q6H PRN (Reason: nausea and vomiting) Qty: 10 0RF Referrals / Follow Up: CRISTY DAVIDSON MD [Primary Care Provider] - Disposition Disposition (needs filled in before D/C Order can be placed): Home, Self Care
[2024-06-11] MEDS: Cefazolin 2 GM in Syringe IV (14:04)
--- NOTE | 2024-06-11 14:34 | PCM.OPRPT ---
Operative Report (Standard) Operative Information Surgery/Procedure Performed: Cystoscopy right stent removal, left ureteroscopy laser lithotripsy of stone and left stent placement Surgeon: Rajinder Paz Date of Procedure: 06/11/24 Procedure Start Time: 14:16 Procedure Stop Time: 14:34 Pre-Operative Diagnosis: left kidney stone Post-Operative Diagnosis: same Select all DRAINS/GRAFTS/IMPLANTS that apply: Drains Drain details: stent Type of Anesthesia: General Estimated Blood Loss: none Specimen collected: No Description of surgery: This is a patient who presents to the hospital for treatment for an obstructing ureter calculi. I discussed with the patient how the surgery would be performed and we reviewed the risks and benefits of the surgery. The risk and benefits include the risk of failure to remove the stone completely and that the patient may need multiple procedures. We discussed the risk of an infection, the risk of bleeding. We discussed the very rare risk of serious complicated injury to the ureter. The patient understands that if the stone is not able to be removed safely that we may abort the procedure and place a stent. After full discussion and all questions address with the patient the consent form was signed the side was marked appropriately and the patient was taken back to the operating room for the procedure. The patient was taken back to the operating room. After induction of anesthesia by the anesthesiology team the patient was placed in dorsolithotomy position. The genitals were prepped and draped in usual sterile fashion. I went into the bladder with a 21 Cameroonian rigid cystourethroscope through the urethra. Upon entering the bladder I inspected the trigone the left and right ureteral orifice and the bladder itself. cysto and right stent reomved. I then cannulated the left ureteral orifice and advanced a 0.038 Glidewire up into the kidney. Then over the Glidewire I advanced a 5 Fr Ureteral catheter and performed a retrograde pyelogram with about 10cc of contrast, to delineate the anatomy and identify the stone location. Then a ureteral balloon dilator was advanced over the wire and the distal ureter was balloon dilated with a 12 Fr x 5cm balloon dilator. After 3 minutes of dilating the ureter the balloon was backloaded off the 0.038 glidewire over the 0.038 guidewire I went in with the flexible 7.5fr ureteroscope. I was able to go inside with the 7.5Fr utereroscope and I pulled out the guidewire and then through the ureteroscope I engage the stone with laser lithotripsy using a 270miron laser fiber with energy setting of 6 Hertz and 0.6 J until the stone was lasered into tiny little pieces that should pass on their own. A retrograde pyelogram was performed with 10cc of contrast and no extravasation of contrast or perforation was identified in the ureter there was some mild irritation of the ureter where the stone was located. I then backed out of the ureter left the wire in place and then over the 0.038 guidewire I placed a double coiled pigtail ureteral stent. The ureteral stent was advanced over the 0.038 guidewire under direct fluoroscopic guidance and direct cystoscopic visual guidance, once the stent was in good position I pulled the wire and the stent coiled in the kidney and bladder in good position. I then drained the patient's bladder and the cystoscope was removed and the patient was taken back to the recovery room in good position. The patient was given discharge instructions to call the office for instructions on when to come to the office to have the stent removed. Surgical Findings: lasered stone in left kidney completely left stent placed. rigth stent removed [employer] Learning Support Teacher employment director: No Complications Complications: No Admit VTE Documentation VTE Present on Admission: No VTE Mechan Device Prophylaxis: SCD's VTE Pharm Prophylaxis ordered?: No
--- NOTE | 2024-06-11 14:45 | PCM.POST.ANE ---
Anesthesia: Postop Eval I Current Vital Signs Temperature: 97.4 F Pulse Rate: 97 Blood Pressure: 85/64 Respiratory Rate: 16 Pulse Ox: 95 Oxygen Delivery Method: Room Air Assessment Airway patent: Yes Spontaneous unlabored respirations: Yes Mental status: Awake and Calm nausea: No Vomiting: No Anesthesia Complication: No Fluid Hydration Crystalloid volume administer (ml): 500 Total IV fluid infused: 500 Progress Note Anesthesia document: Postop Eval 1 completed: Yes
[2024-06-11] MEDS: Ketorolac 30 MG/ML Syringe 15 MG IV (15:30)
--- NOTE | 2024-06-11 15:41 | POSTOPAN2_ITS ---
Anesthesia Postop Eval I Sum Anesthesia Postop Eval I Summary Anesthesia Postop Eval I Summary: Anesthesia Postop Eval I: Assessment Summary Airway patent Yes 06/11/24 14:47 MANAGER OF HEALTH.[email or web address] Spontaneous unlabored Yes 06/11/24 14:47 MANAGER OF HEALTH.GDOTT respirations Mental status Awake,Calm 06/11/24 14:47 MANAGER OF HEALTH.GDOTT nausea No 06/11/24 14:47 MANAGER OF HEALTH.GDOTT Vomiting No 06/11/24 14:47 MANAGER OF HEALTH.GDOTT Anesthesia Postop Eval I: Fluid Summary Crystalloid volume administer 500 06/11/24 14:47 MANAGER OF HEALTH.GDOTT (ml) Colloids volume administered ( ml) Blood Product volume administered (ml) Total IV fluid infused 500 06/11/24 14:47 MANAGER OF HEALTH.GDOTT Anesthesia Postop Eval I: Summary Notes Anesthesia Complication No 06/11/24 14:47 MANAGER OF HEALTH.GDOTT Anesthesia Complication Comment: Post-operative progress note Anesthesia: Postop Eval II Evaluation Mental status: Awake Pain Level: 0 nausea: No Vomiting: No
--- NOTE | 2024-06-11 15:41 | POSTOPAN2_ITS ---
Anesthesia Postop Eval I Sum Anesthesia Postop Eval I Summary Anesthesia Postop Eval I Summary: Anesthesia Postop Eval I: Assessment Summary Airway patent Yes 06/11/24 14:47 DEVELOPMENT SYSTEM EFFICIENCY MANAGER.GDOTT Spontaneous unlabored Yes 06/11/24 14:47 DEVELOPMENT SYSTEM EFFICIENCY MANAGER.GDOTT respirations Mental status Awake,Calm 06/11/24 14:47 DEVELOPMENT SYSTEM EFFICIENCY MANAGER.GDOTT nausea No 06/11/24 14:47 DEVELOPMENT SYSTEM EFFICIENCY MANAGER.GDOTT Vomiting No 06/11/24 14:47 DEVELOPMENT SYSTEM EFFICIENCY MANAGER.GDOTT Anesthesia Postop Eval I: Fluid Summary Crystalloid volume administer 500 06/11/24 14:47 DEVELOPMENT SYSTEM EFFICIENCY MANAGER.GDOTT (ml) Colloids volume administered ( ml) Blood Product volume administered (ml) Total IV fluid infused 500 06/11/24 14:47 DEVELOPMENT SYSTEM EFFICIENCY MANAGER.GDOTT Anesthesia Postop Eval I: Summary Notes Anesthesia Complication No 06/11/24 14:47 DEVELOPMENT SYSTEM EFFICIENCY MANAGER.GDOTT Anesthesia Complication Comment: Post-operative progress note Anesthesia: Postop Eval II Evaluation Mental status: Awake Pain Level: 0 nausea: No Vomiting: No
--- NOTE | 2024-06-11 15:41 | PCM.POSTANE2 ---
Anesthesia Postop Eval I Sum Anesthesia Postop Eval I Summary Anesthesia Postop Eval I Summary: Anesthesia Postop Eval I: Assessment Summary Airway patent Yes 06/11/24 14:47 SITE DIRECTOR.GDOTT Spontaneous unlabored Yes 06/11/24 14:47 SITE DIRECTOR.GDOTT respirations Mental status Awake,Calm 06/11/24 14:47 SITE DIRECTOR.GDOTT nausea No 06/11/24 14:47 SITE DIRECTOR.GDOTT Vomiting No 06/11/24 14:47 SITE DIRECTOR.GDOTT Anesthesia Postop Eval I: Fluid Summary Crystalloid volume administer 500 06/11/24 14:47 SITE DIRECTOR.GDOTT (ml) Colloids volume administered ( ml) Blood Product volume administered (ml) Total IV fluid infused 500 06/11/24 14:47 SITE DIRECTOR.GDOTT Anesthesia Postop Eval I: Summary Notes Anesthesia Complication No 06/11/24 14:47 SITE DIRECTOR.GDOTT Anesthesia Complication Comment: Post-operative progress note Anesthesia: Postop Eval II Evaluation Mental status: Awake Pain Level: 0 nausea: No Vomiting: No
--- NOTE | 2024-06-11 15:41 | PCM.POSTANE2 ---
Anesthesia Postop Eval I Sum Anesthesia Postop Eval I Summary Anesthesia Postop Eval I Summary: Anesthesia Postop Eval I: Assessment Summary Airway patent Yes 06/11/24 14:47 DOG SHOW JUDGE.GDOTT Spontaneous unlabored Yes 06/11/24 14:47 DOG SHOW JUDGE.GDOTT respirations Mental status Awake,Calm 06/11/24 14:47 DOG SHOW JUDGE.GDOTT nausea No 06/11/24 14:47 DOG SHOW JUDGE.GDOTT Vomiting No 06/11/24 14:47 DOG SHOW JUDGE.GDOTT Anesthesia Postop Eval I: Fluid Summary Crystalloid volume administer 500 06/11/24 14:47 DOG SHOW JUDGE.GDOTT (ml) Colloids volume administered ( ml) Blood Product volume administered (ml) Total IV fluid infused 500 06/11/24 14:47 DOG SHOW JUDGE.GDOTT Anesthesia Postop Eval I: Summary Notes Anesthesia Complication No 06/11/24 14:47 DOG SHOW JUDGE.GDOTT Anesthesia Complication Comment: Post-operative progress note Anesthesia: Postop Eval II Evaluation Mental status: Awake Pain Level: 0 nausea: No Vomiting: No
== END 2024-06-11 17:17 | disposition home or self-care (01) ==
LOC: SDC 11:31 → AC 11:32
PROVIDERS: PCP Family Medicine; Referring Provider Urology; Visit Provider Urology
PROC: 0TJ98ZZ Inspection of Ureter, Via Natural or Artificial Opening Endoscopic (ICD-10-PCS; CPT 52352; principal; 2024-06-11 13:55)
DX: N20.0 Calculus of kidney (principal); I10 Essential (primary) hypertension; H40.9 Unspecified glaucoma; G47.30 Sleep apnea, unspecified; Z88.2 Allergy status to sulfonamides; Z87.19 Personal history of other diseases of the digestive system; Z90.49 Acquired absence of other specified parts of digestive tract; Z79.899 Other long term (current) drug therapy; Z91.199 Patient's noncompliance with other medical treatment and regimen due to unspecified reason
CPT/HCPCS: 52356; 00918; 76000; J7120; C1769; C2617; J2405

== ENCOUNTER 2024-07-01 06:44 | Emergency (ER) | payer MEDICARE, BC, SELFPAY ==
[2024-07-01 06:44] VITALS: BP 147/81; PULSE 82; RESP 15; TEMP 36.6; O2SAT 98; BMI 30.1
--- NOTE | 2024-07-01 07:10 | EDS_ITS ---
HPI History of Present Illness Chief Complaint: Allergic Reaction Informant: patient and spouse/S.O. Narrative Narrative: 79-year-old female presenting to the emergency room with chief complaint of hives. Patient states that her and her noted some hives on her abdomen and chest last night before bed. She noted that continued this morning. She notes some on her arms and a little bit on her back. She denies any difficulty breathing tongue or lip swelling difficulty swallowing or change in voice. She notes they are slightly itchy. 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 She notes that yesterday she had 2 ureteral stents removed and took a dose of Cipro. She states that she was only to take 1 dose of Cipro. She states she has had that medication before. notes that she was working on a quilt last night but she has worked on this before. She did change into a gown for the procedure. [facility] Medical History History of steroid therapy History of diverticulitis History of echocardiogram Loss of hearing Wears glasses Wears partial dentures Post-menopausal Thyroid disease Easy bruising Back pain History of IBS Non-smoker History of edema CPAP (continuous positive airway pressure) dependence Weight loss Fatigue Abdominal pain Diarrhea Hypertension Glaucoma Rotator cuff (capsule) sprain Home Medications ?Medication ?Instructions ?Recorded ?Last Taken ?Type bimatoprost 0.01 % eye drops 1 drp EACH EYE QHS 07/07/22 06/10/24 History (Lumigan) brimonidine 0.1 % eye drops 1 drp EACH EYE BID 07/07/22 06/10/24 History (Alphagan P) prednisolone acetate (PF) 1 % eye 1 drp EACH EYE BID 07/07/22 06/11/24 History drops,suspension d-mannose 500 mg capsule (AZO 500 mg PO DAILY 06/25/23 Unknown History D-Mannose) difluprednate 0.05 % eye drops 1 drp ophthalmic (eye) Q6H 06/25/23 06/10/24 History cyanocobalamin (vitamin B-12) 1,000 mcg PO DAILY 05/30/24 06/10/24 History 1,000 mcg tablet,extended release (Vitamin B-12 ER) lisinopril 20 mg tablet 20 mg PO DAILY 05/30/24 06/10/24 History ondansetron 4 mg disintegrating 4 mg PO Q6H PRN nausea and 06/06/24 06/10/24 Rx tablet vomiting #10 tabs oxycodone 5 mg tablet 5 mg PO Q6H PRN pain 3 days #14 06/06/24 Unknown Rx tabs phenazopyridine 100 mg tablet 100 mg PO TID PRN pain #14 tabs 06/11/24 Unknown Rx (Pyridium) tamsulosin 0.4 mg capsule (Flomax) 0.4 mg PO DAILY #20 caps 06/11/24 Unknown Rx provitalize 1 cap PO DAILY 07/01/24 Unknown History Allergy/AdvReac Type Severity Reaction Status Date / Time celecoxib (From Celebrex) Allergy Hives Verified 07/01/24 06:45 Sulfa (Sulfonamide Allergy Hives Verified 07/01/24 06:45 Antibiotics) nitrofurantoin AdvReac flu like Verified 07/01/24 06:45 symptoms Family History Mother Colon cancer Hypertension Thyroid disorder Surgical History Hx of colonoscopy Hx of colonoscopy Hx of cystoscopy History of lumpectomy S/P rotator cuff repair History of cholecystectomy H/O: hysterectomy H/O carpal tunnel repair H/O eye surgery Social History household members: spouse housing: house Smoking Status: Never smoker alcohol intake: current alcohol intake frequency: holidays/special occasions only substance use type: does not use ROS ROS ED Constitutional Constitutional ED: Denies chills, fever(s) or weight loss Eyes Eyes: Denies change in vision or diplopia ENT ENT ED: Denies ear pain, rhinorrhea or sore throat Cardiovascular Cardiovascular: Denies chest pain, orthopnea, palpitations or racing heartbeat Respiratory/Chest Respiratory/Chest: Denies cough, dyspnea or orthopnea Gastrointestinal Gastrointestinal: Denies abdominal pain, diarrhea, nausea or vomiting Genitourinary Genitourinary ED: Denies dysuria, hematuria or urinary frequency Musculoskeletal Musculoskeletal: Denies arthralgias or myalgias Integumentary Reports rash and other Details: Pruritus ; Denies abscess Neurologic Neurologic: Denies headache(s) or weakness Psychiatric Psychiatric: Denies anxiety, depression, suicidal ideation or suicidal thoughts Endocrine Endocrinology: Denies polydipsia, polyphagia or polyuria Allergic/Immunologic Allergic/Immunologic ED: Denies mouth swelling, tongue swelling or urticaria EXAM Physical Exam Const Vital Signs: 07/01/24 06:44 Temperature 97.9 F Temperature Source Oral Pulse Rate 82 Respiratory Rate 15 Blood Pressure 147/81 H Blood Pressure Mean 103 Pulse Ox 98 Oxygen Delivery Method Room Air Positive well nourished and well developed General Appearance ED: well developed HEENT Reports normocephalic, head/scalp atraumatic and moist mucous membranes Eyes PERRL and EOMs intact bilaterally Neck no lymphadenopathy, supple and no JVD Resp normal respiratory effort and clear to auscultation bilaterally Cardio regular rate, regular rhythm and no murmurs GI normal to inspection, nondistended, normoactive bowel sounds and non-tender Palpation: soft Back/Spine no CVA tenderness and normal ROM Extremity normal to inspection General Extremety ED: Negative for edema General Extremity: Negative for edema Neuro oriented x3 and CN's II-XII intact bilaterally Sensorium / Orientation: alert Motor Exam: strength 5/5 throughout Psych mental status grossly normal Mood & Affect: Negative for depressed or tearful Skin no wounds Skin Narrative: There are blanching erythematous urticarial-like lesions on the chest abdomen and arms. They extend slightly into the mid axillary line. I do not appreciate any on the back. MDM MDM MDM Narrative Medical decision making narrative: Differential diagnosis includes but not limited to contact dermatitis urticaria viral syndrome medication reaction autoimmune reaction Patient be given a dose of Kenalog instructions for Pepcid and Benadryl as needed. This could be a reaction to the gown that she wore what it was treated with/wash with. Could possibly be medication induced but it is not diffuse on her body. Would recommend monitoring return if worsening or concerns patient and are comfortable with this plan History & Record Review Discussion w/independent historian: Patient and Significant other Discharge Plan Triage Chief Complaint: Allergic Reaction ED Provider: Arun Hernandez Dx/Rx/DC Orders Clinical Impression: Hives Instructions: ED Hives (Adult) Prescriptions: No Action difluprednate 0.05 % drops 1 drp ophthalmic (eye) Q6H Patient Comments: PLACE 1 DROP IN THE RIGHT EYE FOUR TIMES DAILY AZO D-Mannose 500 mg capsule 500 mg PO DAILY brimonidine [Alphagan P] 0.1 % Drops 1 drp EACH EYE BID Lumigan 0.01 % Drops 1 drp EACH EYE QHS prednisolone acetate (PF) 1 % Drops,Suspension 1 drp EACH EYE BID lisinopril 20 mg tablet 20 mg PO DAILY cyanocobalamin (vitamin B-12) [Vitamin B-12] 1,000 mcg tablet extended release 1,000 mcg PO DAILY oxycodone 5 mg tablet 5 mg PO Q6H PRN (Reason: pain) 3 Days Qty: 14 0RF ondansetron 4 mg tablet,disintegrating 4 mg PO Q6H PRN (Reason: nausea and vomiting) Qty: 10 0RF tamsulosin [Flomax] 0.4 mg capsule 0.4 mg PO DAILY Qty: 20 0RF phenazopyridine [Pyridium] 100 mg tablet 100 mg PO TID PRN (Reason: pain) Qty: 14 0RF provitalize 1 cap PO DAILY Primary Care Provider: CRISTY DAVIDSON Referrals: CRISTY DAVIDSON MD [Primary Care Provider] - As Needed Activity Restrictions/Additional Instructions: I recommend taking a half a tablet or 1 whole tablet of Benadryl every 6 hours as needed for hives. You may also take Pepcid 20 mg twice daily as another way to combat the hives The steroid will be with you for several days. This will also help the hives. Please be mindful around the house of anything that is new that you have come in contact with that could possibly cause hives. Return to emergency if worsening shortness of breath lip or tongue swelling difficulty breathing etc. Print Language: Lithuanian Disposition Disposition: Home, Self Care
[2024-07-01] MEDS: Triamcinolone Acetonide 40 MG/ML Vial IM (07:17)
[2024-07-01] MEDS: Famotidine 20 MG Tablet PO (07:17)
[2024-07-01 07:22] VITALS: BP 142/78; PULSE 78; RESP 18; TEMP 36.8; O2SAT 98
== END 2024-07-01 07:43 | disposition home or self-care (01) ==
LOC: ED 07:13
PROVIDERS: Emergency Provider Emergency Medicine; PCP Family Medicine; Visit Provider Emergency Medicine
DX: L50.9 Urticaria, unspecified (principal); I10 Essential (primary) hypertension; H40.9 Unspecified glaucoma; Z88.2 Allergy status to sulfonamides; Z79.899 Other long term (current) drug therapy
CPT/HCPCS: 96372; 99282

== ENCOUNTER → 2024-12-26 | Outpatient (CLI) | payer MEDICARE, BC, SELFPAY ==
--- NOTE | 2024-12-26 13:21 | BI_ITS ---
EXAM: SCRN MAMM (CAD)W/KIERAN BILAT 12/26/2024 CLINICAL HISTORY: F, Age 79 y/o , SCREENING TECHNIQUE: Bilateral screening digital breast tomosynthesis with 2D and 3D images. Computer aided detection. COMPARISON: Prior exam(s) dated 07/30/2023, 06/25/2023, 06/05/2023. FINDINGS: TISSUE DENSITY: The breast tissue is heterogenously dense, which may obscure small masses. Bilateral Breast Mammographic Findings: No significant masses, calcifications or other abnormalities are identified. BI/SCRN MAMM (CAD)W/KIERAN BILAT IMPRESSION: Right Breast: BIRADS 1 NEGATIVE. Left Breast: BIRADS 1 NEGATIVE. OVERALL FINAL ASSESSMENT: BIRADS 1 NEGATIVE. RECOMMENDATION: Routine annual follow-up in 1 Year A letter with findings and recommendations will be mailed to the patient. Reading Location: [id number]
== END | disposition home or self-care (01) ==
LOC: OPBI 13:19
PROVIDERS: PCP Family Medicine; Referring Provider Family Medicine; Visit Provider Family Medicine
DX: Z12.31 Encounter for screening mammogram for malignant neoplasm of breast (principal)
CPT/HCPCS: 77063; 77067